=== PATIENT | female | born 1975 | race Asian ===

== ENCOUNTER 2016-10-29 07:35 | Day surgery (SDC) | payer OTHER ==
[2016-10-29 09:06] LABS: HEMATOCRIT 28.5 % (36.0-47.0); HEMOGLOBIN 9.6 g/dL (12.0-15.5); HGB HCT DIFFERENCE 0.3; MEAN CORPUSCULAR HEMOGLOBIN 40.6 pg (27.0-33.4); MEAN CORPUSCULAR HGB CONC 33.9 g/dL (32.0-36.0); MEAN CORPUSCULAR VOLUME 120 fl (80-97); RED BLOOD COUNT 2.38 10^6/uL (3.72-5.28); RED CELL DISTRIBUTION WIDTH 18.6 % (11.5-14.0); WHITE BLOOD COUNT 5.3 10^3/uL (4.0-10.5)
[2016-10-29 09:07] LABS: PROTHROMBIN TIME 14.9 SEC (11.4-15.4)
[2016-10-29 09:08] LABS: PARTIAL THROMBOPLASTIN TIME 32.9 SEC (23.5-35.8)
[2016-10-29 09:14] LABS: BLOOD UREA NITROGEN 6 mg/dL (7-20); CREATININE RESULT 0.42 mg/dL (0.52-1.25)
[2016-10-29] MEDS ORDERED: ALBUMIN HUMAN 100 ML IV PRN (12:00)
[2016-10-29 13:51] VITALS: BP 100/60
== END 2016-10-29 12:30 | disposition home or self-care (01) ==
LOC: RAD 07:35
PROVIDERS: ATTEND Internal Medicine Geriatric Medicine
PROC: 0W9F3ZZ Drainage of Abdominal Wall, Percutaneous Approach (ICD-10-PCS; principal; 2016-10-29)
DX: K70.31 Alcoholic cirrhosis of liver with ascites (principal); I10 Essential (primary) hypertension; G89.4 Chronic pain syndrome; F17.210 Nicotine dependence, cigarettes, uncomplicated; Z79.899 Other long term (current) drug therapy
CPT/HCPCS: 36415; 84520; 82565; 85027; 85610; 85730; 49083; P9047

== ENCOUNTER 2016-11-15 12:25 | Emergency (ER) | payer OTHER ==
--- NOTE | 2016-11-15 13:23 | ER Document Report ---
ED General - General Chief Complaint: Abdominal Pain Stated Complaint: ABDOMINAL PAIN Mode of Arrival: Ambulatory Information source: Patient Notes: 41-year-old female history of alcoholic cirrhosis with history of peritonitis with umbilical hernia presents stating that her hernia popped. Patient notes peritoneal-like fluid coming from her abdomen TRAVEL OUTSIDE OF THE [place] IN LAST 30 DAYS: No - HPI Onset: Just prior to arrival Onset/Duration: Sudden Quality of pain: No pain Severity: None Pain Level: Denies Associated symptoms: None Exacerbated by: Denies Relieved by: Denies Similar symptoms previously: No Recently seen / treated by doctor: Yes - Related Data Allergies/Adverse Reactions: No Known Allergies Allergy (Verified 10/18/16 10:27) Past Medical History - Social History Smoking Status: Never Smoker Cigarette use (# per day): No Chew tobacco use (# tins/day): No Smoking Education Provided: No Family History: None - Past Medical History Cardiac Medical History: Reports: Hx Hypertension - past history Denies: Hx Coronary Artery Disease, Hx Heart Attack Pulmonary Medical History: Denies: Hx Asthma, Hx Bronchitis, Hx COPD, Hx Pneumonia Neurological Medical History: Denies: Hx Cerebrovascular Accident, Hx Seizures GI Medical History: Reports: Hx Gastroesophageal Reflux Disease Musculoskeltal Medical History: Denies Hx Arthritis Psychiatric Medical History: Reports: Hx Depression Past Surgical History: Reports: Hx Abdominal Surgery - Gallbladder 09/26/2015, Hx Cholecystectomy - Immunizations Immunizations up to date: Yes Hx Diphtheria, Pertussis, Tetanus Vaccination: Yes Review of Systems - Review of Systems Notes: REVIEW OF SYSTEMS: CONSTITUTIONAL : Denies fever, chills, or sweats. Denies recent illness. EENT: Denies eye, ear, throat, or mouth pain or symptoms. Denies nasal or sinus congestion or discharge. Denies throat, tongue, or mouth swelling or difficulty swallowing. CARDIOVASCULAR: Denies chest pain. Denies palpitations or racing or irregular heart beat. Denies ankle edema. RESPIRATORY: Denies cough, cold, or chest congestion. Denies shortness of breath, difficulty breathing, or wheezing. GASTROINTESTINAL: admits ot abdominal perforation GENITOURINARY: Denies difficulty urinating, painful urination, burning, frequency, blood in urine, or discharge. FEMALE GENITOURINARY: Denies vaginal bleeding, heavy or abnormal periods, irregular periods. Denies vaginal discharge or odor. MUSCULOSKELETAL: Denies back or neck pain or stiffness. Denies joint pain or swelling. SKIN: Denies rash, lesions or sores. HEMATOLOGIC : Denies easy bruising or bleeding. LYMPHATIC: Denies swollen, enlarged glands. NEUROLOGICAL: Denies confusion or altered mental status. Denies passing out or loss of consciousness. Denies dizziness or lightheadedness. Denies headache. Denies weakness or paralysis or loss of use of either side. Denies problems with gait or speech. Denies sensory loss, numbness, or tingling. Denies seizures. PSYCHIATRIC: Denies anxiety or stress. Denies depression, suicidal ideation, or homicidal ideation. ALL OTHER SYSTEMS REVIEWED AND NEGATIVE. Dictation was performed using [employer] voice recognition software PHYSICAL EXAMINATION: GENERAL: Well-appearing, well-nourished and in no acute distress. HEAD: Atraumatic, normocephalic. EYES: Pupils equal round and reactive to light, extraocular movements intact, conjunctiva are normal. ENT: Nares patent, oropharynx clear without exudates. Moist mucous membranes. NECK: Normal range of motion, supple without lymphadenopathy LUNGS: Breath sounds clear to auscultation bilaterally and equal. No wheezes rales or rhonchi. HEART: Regular rate and rhythm without murmurs ABDOMEN: distended abdomen with ulbical hernia perforation, yellow fluid noted Female : deferred Musculoskeletal: Normal range of motion, no pitting or edema. No cyanosis. NEUROLOGICAL: Cranial nerves grossly intact. Normal speech, normal gait. Normal sensory, motor exams PSYCH: Normal mood, normal affect. SKIN: Warm, Dry, normal turgor, no rashes or lesions noted. Physical Exam - Vital signs Vitals: Resp Pulse Ox 16 100 11/15/16 13:57 11/15/16 13:57 Course - Re-evaluation Re-evalutation: 11/15/16 13:22 Dr tang consulted for umbilical hernia perforation , peritoneal fluid noted coming from perforation 11/15/16 13:34 11/15/16 14:34 Dr Tang requests transfer to [facility] paged 11/15/16 15:[address] Hilliard will accept the patient for transfer, he requests sutures placed 11/15/16 16:05 pt awaiting transfer 11/15/16 16:07 - Vital Signs Vital signs: Temp Pulse Resp BP Pulse Ox 14 119/66 100 11/15/16 14:01 11/15/16 14:01 11/15/16 14:01 - Laboratory Result Diagrams: 11/15/16 12:45 11/15/16 12:45 Laboratory results interpreted by me: 11/15/16 11/15/16 11/15/16 12:45 12:45 12:45 RBC 2.35 L Hgb 9.4 L Hct 27.9 L MCV 119 H MCH 40.0 H RDW 18.1 H Plt Count 82 L PT Sodium 121.3 L Potassium 2.5 L* Chloride 79 L Creatinine 0.46 L Glucose 141 H Lactic Acid 3.7 H Total Bilirubin 5.9 H Direct Bilirubin 1.1 H AST 131 H Alkaline Phosphatase 168 H Total Protein 6.1 L Albumin 3.0 L 11/15/16 12:45 RBC Hgb Hct MCV MCH RDW Plt Count PT 16.4 H Sodium Potassium Chloride Creatinine Glucose Lactic Acid Total Bilirubin Direct Bilirubin AST Alkaline Phosphatase Total Protein Albumin - Diagnostic Test Radiology reviewed: Image reviewed, Reports reviewed Procedures - Laceration/Wound Repair Mid- Abdomen Time completed: 16:04 Wound length (cm): 2 Wound's Depth, Shape: Into muscle, Irregular, Flap Laceration pre-procedure: Sterile PPE donned, Sterile drapes applied, Shur- Clens applied Anesthetic type: 1% Lidocaine Volume Anesthetic (mLs): 10 Wound explored: Clean, No foreign body removed Irrigated w/ Saline (mLs): 100 Wound Debrided: Minimal Wound Repaired With: Sutures Suture Size/Type: 4:0, Ethilon Number of Sutures: 3 Layer Closure?: Yes Post-procedure wound care: Sterile dressing applied Post-procedure NV exam normal: Yes Complications: No Critical Care Note - Critical Care Note Total time excluding time spent on procedures (mins): 45 Comments: 45 minutes of critical care time spent in direct contact evaluating and reevaluating the patient, treating symptoms, reviewing labs and studies and speaking with family and consultants excluding any procedures Discharge - Discharge Clinical Impression: perforated umbilical hernia, Elevated liver function tests, Alcoholic hepatitis with ascites Condition: Serious Disposition: [facility] Admitting Provider: Larrychanning homemanjeet Unit Admitted: Telemetry
[2016-11-15] MEDS ORDERED: NORMAL SALINE 1000 ML 1,000 ML IV ONE (13:29)
[2016-11-15 13:43] LABS: ALANINE AMINOTRANSFERASE 41 U/L (9-52); ALCOHOL 278 mg/dL (NONE DETECTED); ALKALINE PHOSPHATASE 168 U/L (38-126); ANION GAP 12 (5-19); ASPARTATE AMINO TRANSFERASE 131 U/L (14-36); BILIRUBIN,DIRECT 1.1 mg/dL (0.0-0.3); BILIRUBIN,TOTAL 5.9 mg/dL (0.2-1.3); BLOOD UREA NITROGEN 15 mg/dL (7-20); CALCIUM 8.4 mg/dL (8.4-10.2); CARBON DIOXIDE 30 mmol/L (22-30); CHLORIDE 79 mmol/L (98-107); CREATININE RESULT 0.46 mg/dL (0.52-1.25); GLUCOSE 141 mg/dL (75-110); LIPASE 187.5 U/L (23-300); SODIUM 121.3 mmol/L (137-145); TOTAL PROTEIN 6.1 g/dL (6.3-8.2)
[2016-11-15 13:46] LABS: POTASSIUM 2.5 mmol/L (3.6-5.0)
[2016-11-15] MEDS ORDERED: ERTAPENEM SODIUM INJ 1 GM VIAL IV ONE (14:03)
[2016-11-15 14:20] LABS: ABSOLUTE LYMPHOCYTES (AUTO) 1.2 10^3/uL (0.5-4.7); ABSOLUTE MONOCYTES (AUTO) 0.9 10^3/uL (0.1-1.4); ABSOLUTE NEUT (AUTO) 5.6 10^3/uL (1.7-8.2); BASOPHILS % (AUTO) 0.1 % (0-2); EOSINOPHILS % (AUTO) 0.2 % (0-6); HEMATOCRIT 27.9 % (36.0-47.0); HEMOGLOBIN 9.4 g/dL (12.0-15.5); HGB HCT DIFFERENCE 0.3; LYMPHOCYTES % (AUTO) 15.6 % (13-45); MEAN CORPUSCULAR HGB CONC 33.7 g/dL (32.0-36.0); MEAN CORPUSCULAR VOLUME 119 fl (80-97); MONOCYTES % (AUTO) 11.8 % (3-13); RED BLOOD COUNT 2.35 10^6/uL (3.72-5.28); RED CELL DISTRIBUTION WIDTH 18.1 % (11.5-14.0); SEGMENTED NEUTROPHILS % (AUTO) 72.3 % (42-78); WHITE BLOOD COUNT 7.8 10^3/uL (4.0-10.5)
[2016-11-15 14:40] LABS: ANISOCYTOSIS 2+; BURR CELLS 1+; OVALOCYTES 1+; POIKILOCYTOSIS 2+; SCHISTOCYTES 1+; TEAR DROP CELLS SLIGHT
[2016-11-15 14:41] LABS: HYPOCHROMASIA 1+; POLYCHROMASIA SLIGHT
[2016-11-15] MEDS ORDERED: NORMAL SALINE 1000 ML 1,000 ML IV PRN (14:44)
[2016-11-15] MEDS ORDERED: POTASSIUM CHLORIDE 10 MEQ TABLET.SA PO ONE (14:44)
[2016-11-15 14:54] LABS: PROTHROMBIN TIME 16.4 SEC (11.4-15.4)
[2016-11-15] MEDS ORDERED: LIDOCAINE 1% INJ-PF (10 MG/ML) 30 ML SDV ONE (15:32)
[2016-11-15 18:05] VITALS: BP 115/65
--- NOTE | 2016-11-15 18:59 | PDOC CONSULTATION ---
Consultation Consult Date: 11/15/16 Consult reason:: Leaking umbilical hernia History of Present Illness Admission Date/PCP: 11/15/16 14:34 JOHANA OSUNKBRENT History of Present Illness: MADELYN JENSEN is a 41 year old female complaining of massive peritoneal leak from her umbilicus. Patient is well known to me having undergone previous paracenteses in the emergency department proximally 6 weeks ago the evacuation of it 8 L of fluid. Patient is a confirmed alcohol, but she denies it. She comes as an emergency department with a open wound that umbilical skin. Her abdomen is decompressed from her previously massive ascites. At patient's bedside her who asked proximal we discussed the fact that the patient still drinking alcohol, destroying the liver, and we have serologic evidence of of alcohol in the blood stream. Past Medical History Cardiac Medical History: Reports: Hypertension - past history Denies: Coronary Artery Disease, Myocardial Infarction Pulmonary Medical History: Denies: Asthma, Bronchitis, Chronic Obstructive Pulmonary Disease (COPD), Pneumonia Neurological Medical History: Denies: Seizures GI Medical History: Reports: Gastroesophageal Reflux Disease Musculoskeltal Medical History: Denies: Arthritis Psychiatric Medical History: Reports: Depression Hematology: Denies: Anemia Past Surgical History Past Surgical History: Reports: Cholecystectomy Social History Smoking Status: Never Smoker Frequency of Alcohol Use: Rare Hx Recreational Drug Use: No Drugs: None, Other - Patient states she is taking Tylenol most of her life or scoliosis. Hx Prescription Drug Abuse: No Family History Family History: None Parental Family History Reviewed: Yes Children Family History Reviewed: Yes Sibling(s) Family History Reviewed.: Yes Medication/Allergy Home Medications: Cetirizine HCl [Zyrtec 10 mg Tablet] 1 tab PO DAILY 10/18/16 Escitalopram Oxalate [Lexapro] 40 mg PO DAILY 10/18/16 Furosemide [Lasix] 30 mg PO BID 10/18/16 Omeprazole Magnesium [Prilosec Otc] 20 mg PO DAILY 10/18/16 Oxycodone HCl 10 mg PO PRN PRN 10/18/16 Spironolactone [Aldactone] 100 mg PO BID 10/18/16 Allergies/Adverse Reactions: No Known Allergies Allergy (Verified 10/18/16 10:27) Physical Exam Vital Signs: Temp Pulse Resp BP Pulse Ox 16 115/65 100 11/15/16 18:01 11/15/16 18:01 11/15/16 18:01 General appearance: PRESENT: no acute distress Head exam: PRESENT: normocephalic Eye exam: PRESENT: EOMI, other - Jaundice present Ear exam: PRESENT: normal external ear exam Mouth exam: PRESENT: dry mucosa Neck exam: PRESENT: full ROM Respiratory exam: PRESENT: clear to auscultation ellie Pulses: PRESENT: normal carotid pulses, normal radial pulses GI/Abdominal exam: PRESENT: other - Very redundant umbilical skin with open erosive hole approximate 1 cm diameter. The abdomen is otherwise benign. Psychiatric exam: PRESENT: anxious Assessment & Plan - Diagnosis (1) Alcoholic hepatitis with ascites Is this a current diagnosis for this admission?: YesPlan: 1. 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 sHe has no evidence of sepsis. sHe has marked electrolyte abnormalities. Furthermore she is in moderate denial as is her about progressive self-destructive behavior from drinking resulting in worsening end-stage liver disease . 2. Patient needs admission to the hospital for electrolyte correction, and closure of the umbilical hernia. Due to limited surgical resources here, I have asked my colleagues and [facility] to assistance in the management of this patient and I believe they have agreed to accept her in transfer. Dr. Hilliard of the transplant service will accept the patient. 3. I discussed the above with the emergency room Department and they are in agreement to proceed. - Time Time Spent: 50 to 70 Minutes Critical Time spent with patient: 15-24 minutes Medications reviewed and adjusted accordingly: Yes
== END 2016-11-15 18:30 | disposition short-term general hospital (02) ==
LOC: ER 12:25 → UNDOADMIN 14:34 → EH 14:34 → UNDODISIN 18:30
PROC: 0HQ7XZZ Repair Abdomen Skin, External Approach (ICD-10-PCS; principal; 2016-11-15)
DX: K42.9 Umbilical hernia without obstruction or gangrene (principal); R79.89 Other specified abnormal findings of blood chemistry; K70.11 Alcoholic hepatitis with ascites; R10.9 Unspecified abdominal pain; Z90.49 Acquired absence of other specified parts of digestive tract
CPT/HCPCS: 99291; 96361; 96365; 36415; 87040; 80307; 83690; 85025; 85610; 80053; 83605; 12001; J1335; J7030

== ENCOUNTER 2017-12-27 09:56 | Emergency (ER) | payer OTHER ==
[2017-12-27] MEDS ORDERED: FENTANYL CITRATE INJ/PF 100 MCG/2 ML AMPUL IV ONE (10:51)
--- NOTE | 2017-12-27 10:52 | ER Document Report ---
ED Medical Screen (RME) - General Chief Complaint: Abdominal Swelling Stated Complaint: ABDOMINAL PAIN Time Seen by Provider: 12/27/17 10:46 Notes: RME DISCLOSURE I have seen this patient as part of a Rapid Medical Evaluation and, if applicable, placed any initially appropriate orders. The patient will be seen and fully evaluated, including a full history and physical exam, by a provider ( in Main ED or Fast Track) when a room becomes available. 42-year-old female past medical history liver disease here with complaints of abdominal swelling ongoing for the past 1 week. She states that the pain has been progressively worsening. She has some shortness of breath, worse with laying flat. EXAM Abdominal swelling present with mild tenderness to palpation Scleral icterus/jaundice TRAVEL OUTSIDE OF THE [place] IN LAST 30 DAYS: No - Related Data Allergies/Adverse Reactions: No Known Allergies Allergy (Verified 12/27/17 10:02) Past Medical History - Social History Chew tobacco use (# tins/day): No Frequency of alcohol use: Occasional Drug Abuse: None - Past Medical History Cardiac Medical History: Reports: Hx Hypertension - past history Denies: Hx Coronary Artery Disease, Hx Heart Attack Pulmonary Medical History: Denies: Hx Asthma, Hx Bronchitis, Hx COPD, Hx Pneumonia Neurological Medical History: Denies: Hx Cerebrovascular Accident, Hx Seizures Renal/ Medical History: Denies: Hx Peritoneal Dialysis GI Medical History: Reports: Hx Gastroesophageal Reflux Disease Musculoskeltal Medical History: Denies Hx Arthritis Psychiatric Medical History: Reports: Hx Depression Past Surgical History: Reports: Hx Abdominal Surgery - Gallbladder 09/26/2015, Hx Cholecystectomy - Immunizations Immunizations up to date: Yes Hx Diphtheria, Pertussis, Tetanus Vaccination: Yes Physical Exam - Vital signs Vitals: Temp Pulse Resp BP Pulse Ox 98.4 F 100 19 118/64 96 12/27/17 10:04 12/27/17 10:04 12/27/17 10:04 12/27/17 10:04 12/27/17 10:04 Course - Vital Signs Vital signs: Temp Pulse Resp BP Pulse Ox 98.4 F 100 19 118/64 96 12/27/17 10:04 12/27/17 10:04 12/27/17 10:04 12/27/17 10:04 12/27/17 10:04
[2017-12-27 11:53] LABS: APPEARANCE,URINE CLEAR; BILIRUBIN,URINE NEGATIVE (NEGATIVE); COLOR,URINE AMBER; GLUCOSE, URINE NEGATIVE (NEGATIVE); KETONES,URINE NEGATIVE (NEGATIVE); LEUKOCYTE ESTERASE,URINE NEGATIVE (NEGATIVE); NITRITE,URINE NEGATIVE (NEGATIVE); PROTEIN,URINE NEGATIVE (NEGATIVE); URINE SPECIFIC GRAVITY 1.012; UROBILINOGEN,URINE NEGATIVE mg/dL (<2.0)
--- NOTE | 2017-12-27 12:05 | ER Document Report ---
ED General - General Chief Complaint: Abdominal Swelling Stated Complaint: ABDOMINAL PAIN Time Seen by Provider: 12/27/17 10:46 Mode of Arrival: Ambulatory Information source: Patient Notes: 42-year-old female history of alcoholic cirrhosis who is supposed to be on diuretics but ran out of medications for approximately 4 days but is now back on her medications presents with complaints of ascites. Patient has not had to have a paracentesis for almost a year now, one year ago I had taking care of her when she had a ruptured umbilicus. Patient denies any fever chills denies any shortness of breath difficulty breathing or any other concerns TRAVEL OUTSIDE OF THE [place] IN LAST 30 DAYS: No - HPI Onset: Last week Onset/Duration: Worse Quality of pain: Achy Severity: Mild Pain Level: 1 Associated symptoms: Shortness of breath, Other Exacerbated by: Denies Relieved by: Denies Similar symptoms previously: Yes Recently seen / treated by doctor: Yes - Related Data Allergies/Adverse Reactions: No Known Allergies Allergy (Verified 12/27/17 10:02) Past Medical History - Social History Smoking Status: Never Smoker Cigarette use (# per day): No Chew tobacco use (# tins/day): No Smoking Education Provided: No Frequency of alcohol use: Occasional Drug Abuse: None Family History: None Patient has suicidal ideation: No Patient has homicidal ideation: No - Past Medical History Cardiac Medical History: Reports: Hx Hypertension - past history Denies: Hx Coronary Artery Disease, Hx Heart Attack Pulmonary Medical History: Denies: Hx Asthma, Hx Bronchitis, Hx COPD, Hx Pneumonia Neurological Medical History: Denies: Hx Cerebrovascular Accident, Hx Seizures Renal/ Medical History: Denies: Hx Peritoneal Dialysis GI Medical History: Reports: Hx Gastroesophageal Reflux Disease Musculoskeltal Medical History: Denies Hx Arthritis Psychiatric Medical History: Reports: Hx Depression Past Surgical History: Reports: Hx Abdominal Surgery - Gallbladder 09/26/2015, Hx Cholecystectomy - Immunizations Immunizations up to date: Yes Hx Diphtheria, Pertussis, Tetanus Vaccination: Yes Review of Systems - Review of Systems Notes: REVIEW OF SYSTEMS: CONSTITUTIONAL : Denies fever, chills, or sweats. Denies recent illness. EENT: Denies eye, ear, throat, or mouth pain or symptoms. Denies nasal or sinus congestion or discharge. Denies throat, tongue, or mouth swelling or difficulty swallowing. CARDIOVASCULAR: Denies chest pain. Denies palpitations or racing or irregular heart beat. Denies ankle edema. RESPIRATORY: Admits to shortness of breath GASTROINTESTINAL: Admits to abdominal distention GENITOURINARY: Denies difficulty urinating, painful urination, burning, frequency, blood in urine, or discharge. FEMALE GENITOURINARY: Denies vaginal bleeding, heavy or abnormal periods, irregular periods. Denies vaginal discharge or odor. MUSCULOSKELETAL: Denies back or neck pain or stiffness. Denies joint pain or swelling. SKIN: Denies rash, lesions or sores. HEMATOLOGIC : Denies easy bruising or bleeding. LYMPHATIC: Denies swollen, enlarged glands. NEUROLOGICAL: Denies confusion or altered mental status. Denies passing out or loss of consciousness. Denies dizziness or lightheadedness. Denies headache. Denies weakness or paralysis or loss of use of either side. Denies problems with gait or speech. Denies sensory loss, numbness, or tingling. Denies seizures. PSYCHIATRIC: Denies anxiety or stress. Denies depression, suicidal ideation, or homicidal ideation. ALL OTHER SYSTEMS REVIEWED AND NEGATIVE. PHYSICAL EXAMINATION: GENERAL: Well-appearing, well-nourished and in no acute distress. HEAD: Atraumatic, normocephalic. EYES: Pupils equal round and reactive to light, extraocular movements intact, conjunctiva are normal. Mildly jaundiced ENT: Nares patent, oropharynx clear without exudates. Moist mucous membranes. NECK: Normal range of motion, supple without lymphadenopathy LUNGS: Breath sounds clear to auscultation bilaterally and equal. No wheezes rales or rhonchi. HEART: Regular rate and rhythm without murmurs ABDOMEN: Distended abdomen nontender Female : deferred Musculoskeletal: Normal range of motion, no pitting or edema. No cyanosis. NEUROLOGICAL: Cranial nerves grossly intact. Normal speech, normal gait. Normal sensory, motor exams PSYCH: Normal mood, normal affect. SKIN: Warm, Dry, normal turgor, no rashes or lesions noted. Dictation was performed using [employer] voice recognition software Physical Exam - Vital signs Vitals: Temp Pulse Resp BP Pulse Ox 98.4 F 100 19 118/64 96 12/27/17 10:04 12/27/17 10:04 12/27/17 10:04 12/27/17 10:04 12/27/17 10:04 Course - Re-evaluation Re-evalutation: 12/27/17 15:55 Patient's presentation is consistent with ascites, CT confirmed this, I spoke with radiologist Dr. Mijares and requested that they perform a paracentesis which they will gladly do. Patient's INR is 1.29, albumin has been ordered, patient will be seen in the emergency department while awaiting procedure I did speak with patient's primary care physician and made aware of her presentation and concerns he is comfortable with discharge home After performing a Medical Screening Examination, I estimate there is LOW risk for ACUTE APPENDICITIS, BOWEL OBSTRUCTION, ACUTE CHOLECYSTITIS, PERFORATED DIVERTICULITIS, INCARCERATED HERNIA, PANCREATITIS, PELVIC INFLAMMATORY DISEASE, PERFORATED ULCER, ECTOPIC , or TUBO-OVARIAN ABSCESS, thus I consider the discharge disposition reasonable. Also, there is no evidence or peritonitis , sepsis, or toxicity. I have reevaluated this patient multiple times and no significant life threatening changes are noted. The patient and I have discussed the diagnosis and risks, and we agree with discharging home with close follow-up with the understanding that symptoms and presentations can change. We also discussed returning to the Emergency Department immediately if new or worsening symptoms occur. We have discussed the symptoms which are most concerning (e.g., bloody stool, fever, changing or worsening pain, vomiting) that necessitate immediate return. - Vital Signs Vital signs: Temp Pulse Resp BP Pulse Ox 98.4 F 100 19 118/64 96 12/27/17 10:04 12/27/17 10:04 12/27/17 10:04 12/27/17 10:04 12/27/17 10:04 - Laboratory Result Diagrams: 12/27/17 12:03 12/27/17 12:03 Laboratory results interpreted by me: 12/27/17 12/27/17 12/27/17 12:03 12:03 12:03 RBC 2.59 L Hgb 10.4 L Hct 29.8 L MCV 115 H MCH 40.0 H RDW 28.4 H Plt Count 118 L PT 16.9 H Sodium 127.2 L Chloride 94 L Carbon Dioxide 21 L BUN 29 H Glucose 118 H Total Bilirubin 10.2 H Direct Bilirubin 7.0 H AST 152 H Alkaline Phosphatase 163 H Lipase 326.7 H - Diagnostic Test Radiology reviewed: Image reviewed, Reports reviewed - Ascites Discharge - Discharge Clinical Impression: Alcoholic hepatitis with ascites, Shortness of breath Cirrhosis Qualifiers: Hepatic cirrhosis type: unspecified hepatic cirrhosis Ascites presence: with ascites Qualified Code(s): K74.60 - Unspecified cirrhosis of liver Condition: Stable Disposition: HOME, SELF-CARE Additional Instructions: Follow up with your physician tomorrow for further care or return to the ED IMMEDIATELY if symptoms worsen or new concerns occur. If you cannot afford to follow up with your primary care physician a list of low cost clinics have been provided at the end of your discharge papers as well. Referrals: JOHANA VALDEZ MD [ACTIVE STAFF] - Follow up tomorrow
[2017-12-27 12:37] LABS: HEMATOCRIT 29.8 % (36.0-47.0); HEMOGLOBIN 10.4 g/dL (12.0-15.5); MEAN CORPUSCULAR HGB CONC 34.8 g/dL (32.0-36.0); PLATELET COUNT 118 10^3/uL (150-450); RED BLOOD COUNT 2.59 10^6/uL (3.72-5.28); RED CELL DISTRIBUTION WIDTH 28.4 % (11.5-14.0); WHITE BLOOD COUNT 5.4 10^3/uL (4.0-10.5)
[2017-12-27 12:50] LABS: ALANINE AMINOTRANSFERASE 52 U/L (9-52); ALBUMIN 3.7 g/dL (3.5-5.0); ALKALINE PHOSPHATASE 163 U/L (38-126); ANION GAP 12 (5-19); ASPARTATE AMINO TRANSFERASE 152 U/L (14-36); BILIRUBIN,TOTAL 10.2 mg/dL (0.2-1.3); BLOOD UREA NITROGEN 29 mg/dL (7-20); CALCIUM 8.8 mg/dL (8.4-10.2); CARBON DIOXIDE 21 mmol/L (22-30); CHLORIDE 94 mmol/L (98-107); GLUCOSE 118 mg/dL (75-110); POTASSIUM 4.6 mmol/L (3.6-5.0); SODIUM 127.2 mmol/L (137-145); TOTAL PROTEIN 7.3 g/dL (6.3-8.2)
--- NOTE | 2017-12-27 12:54 | RADIOLOGY REPORT (SQ) ---
EXAM DESCRIPTION: CT ABD/PELVIS NO ORAL OR IV COMPLETED DATE/TIME: 12/27/2017 12:40 pm REASON FOR STUDY: abd swelling, liver failure; eval further COMPARISON: 09/20/2016 TECHNIQUE: CT scan of the abdomen and pelvis performed without intravenous or oral contrast. Images reviewed with lung, soft tissue, and bone windows. Reconstructed coronal and sagittal MPR images revi ewed. All images stored on PACS. All CT scanners at this facility use dose modulation, iterative reconstruction, and/or weight based d osing when appropriate to reduce radiation dose to as low as reasonably achievable (ALARA). [facility]: Dose Right [facility]: CareDose [facility]: Dose Right [facility]: Teradose 4D [facility]: [employer] RADIATION DOSE: CT Rad equipment meets quality standard of care and radiation dose reduction techniq ues were employed. CTDIvol: 7.7 mGy. DLP: 431 mGy-cm.mGy. LIMITATIONS: None. FINDINGS: LOWER CHEST: No significant findings. No nodules or infiltrates. NON-CONTRASTED LIVER, SPLEEN, ADRENALS: Cirrhosis. Normal spleen size. PANCREAS: No masses. No peripancreatic inflammatory changes. GALLBLADDER: Surgically absent. RIGHT KIDNEY AND URETER: No suspicious masses. Assessment limited by lack of IV contrast. No signif icant calcifications. No hydronephrosis or hydroureter. LEFT KIDNEY AND URETER: No suspicious masses. Assessment limited by lack of IV contrast. No signifi cant calcifications. No hydronephrosis or hydroureter. AORTA AND RETROPERITONEUM: No aneurysm. No retroperitoneal masses or adenopathy. BOWEL AND PERITONEAL CAVITY: Large amount of ascites. No free air. No obstruction. APPENDIX: Surgically absent. PELVIS, BLADDER, AND ABDOMINAL WALL:Free fluid. Bladder normal. Tubal ligation clips. BONES: No acute findings. OTHER: No other significant finding. IMPRESSION: Cirrhosis. Large amount of ascites. COMMENT: Quality ID # [id number]: Final reports with documentation of one or more dose reduction techniques (e.g., Automated exposure control, adjustment of the mA and/or kV according to patient size, use of iterative reconstruction technique) TECHNICAL DOCUMENTATION: JOB ID: [id number] [employer]- All Rights Reserved Reading location - IP/workstation name: [email or web address]
[2017-12-27 12:58] LABS: LIPASE 326.7 U/L (23-300)
[2017-12-27 13:10] LABS: MEAN CORPUSCULAR VOLUME 115 fl (80-97)
[2017-12-27 13:16] LABS: ABSOLUTE LYMPHOCYTES# (MANUAL) 1.1 10^3/uL (0.5-4.7); ABSOLUTE MONOCYTES # (MANUAL) 0.6 10^3/uL (0.1-1.4); ABSOLUTE NEUTROPHILS# (MANUAL) 3.7 10^3/uL (1.7-8.2); BASOPHILS % (MANUAL) 0 % (0-2); EOSINOPHILS % (MANUAL) 0 % (0-6); LYMPHOCYTES % (MANUAL) 20 % (13-45); MONOCYTES % (MANUAL) 11 % (3-13); SEGMENTED NEUTROPHILS % (MAN) 69 % (42-78); TOTAL CELLS COUNTED 100
[2017-12-27 13:17] LABS: BURR CELLS SLIGHT; HYPOCHROMASIA 2+; OVALOCYTES 2+; PLATELET COMMENT DECREASED; POIKILOCYTOSIS 2+; POLYCHROMASIA 1+; ROULEAUX 1+; SCHISTOCYTES SLIGHT; TARGET CELLS SLIGHT; TEAR DROP CELLS SLIGHT
[2017-12-27 13:26] LABS: INTERNATIONAL RATION (INR) 1.29; PROTHROMBIN TIME 16.9 SEC (11.4-15.4)
[2017-12-27] MEDS ORDERED: FENTANYL CITRATE INJ/PF 100 MCG/2 ML AMPUL IV SCH (16:15)
[2017-12-27] MEDS ORDERED: ALBUMIN HUMAN 50 ML IV SCH (16:30)
[2017-12-27] MEDS ORDERED: LIDOCAINE 1% INJ-PF (10 MG/ML) 30 ML SDV ONE (16:54)
[2017-12-27] MEDS ORDERED: FENTANYL CITRATE INJ/PF 100 MCG/2 ML AMPUL ONE (17:03)
--- NOTE | 2017-12-27 17:52 | RADIOLOGY REPORT (SQ) ---
EXAM DESCRIPTION: U/S ABD PARACENTESIS COMPLETED DATE/TIME: 12/27/2017 5:39 pm REASON FOR STUDY: ascites COMPARISON CT abdomen pelvis 12/27/2017, paracentesis 10/29/2016 LIMITATIONS: None. PROCEDURE: After obtaining informed consent, the patient was brought to the ultrasound suite. The p rocedure was performed with the patient on a gurney. Ultrasound was used to identify a prominent poc ket of ascites in the right lower quadrant. An appropriate access site was selected. The patient wa s prepped and draped in usual sterile fashion. The access site was anesthetized with 6 mL 1% lidoca ine. A Vcfr-F-Bkoopvxk needle was advanced into the fluid. After aspiration of fluid the needle, th e catheter was advanced off the needle into the fluid. A total of 4,750 mL of clear yellow fluid was removed. The patient tolerated the procedure well left the department in satisfactory condition. IMPRESSION: Successful ultrasound-guided paracentesis COMMENT: Patient medication list reviewed: Yes- Quality ID# [id number]:Eligible professional attests to doc umenting in the medical record they obtained, updated, or reviewed the patient's current medications. Quality ID #[id number]: The patient was prepped and draped using maximum sterile barrier technique including cap, mask, sterile gown, sterile gloves, a large sterile sheet, hand hygiene, and 2% Chlorhexidine fo r cutaneous antisepsis. When ultrasound is used, sterile ultrasound techniques are followed requiring sterile gel and sterile probes. Quality ID #[id number]: Final reports for procedures using fluoroscopy that document radiation exposure parvin moo, or exposure time and number of fluorographic images (if radiation exposure indices are not avail able) TECHNICAL DOCUMENTATION: JOB ID: [id number] [employer]- All Rights Reserved Reading location - IP/workstation name: [facility]
[2017-12-27 19:42] VITALS: BP 117/57
[2017-12-28 13:28] LABS: PATH REVIEW PATHOLOGIST REVIEWED
== END 2017-12-27 19:10 | disposition home or self-care (01) ==
LOC: ER 09:56
DX: K70.31 Alcoholic cirrhosis of liver with ascites (principal); T50.2X6A Underdosing of carbonic-anhydrase inhibitors, benzothiadiazides and other diuretics, initial encounter; Z91.128 Patient's intentional underdosing of medication regimen for other reason; Z91.14 Patient's other noncompliance with medication regimen; R06.02 Shortness of breath; I10 Essential (primary) hypertension
CPT/HCPCS: 99284; 96374; 36415; 83690; 85025; 85610; 80053; 81001; 49083; 74176; J3010; J3490

== ENCOUNTER 2018-01-12 16:47 | Observation (INO) | payer OTHER ==
[2018-01-12] MEDS ORDERED: NORMAL SALINE 1000 ML 1,000 ML IV PRN (17:26)
[2018-01-12] MEDS ORDERED: LANSOPRAZOLE 30 MG TAB.RAP.DR PO ONE (18:00)
[2018-01-12 18:58] LABS: INTERNATIONAL RATION (INR) 1.16; PROTHROMBIN TIME 15.6 SEC (11.4-15.4)
[2018-01-12 18:59] LABS: PARTIAL THROMBOPLASTIN TIME 33.7 SEC (23.5-35.8)
[2018-01-12 19:06] LABS: ALANINE AMINOTRANSFERASE 44 U/L (9-52); ALBUMIN 2.8 g/dL (3.5-5.0); ALKALINE PHOSPHATASE 84 U/L (38-126); ANION GAP 8 (5-19); ASPARTATE AMINO TRANSFERASE 40 U/L (14-36); BILIRUBIN,DIRECT 2.4 mg/dL (0.0-0.4); BILIRUBIN,TOTAL 3.2 mg/dL (0.2-1.3); BLOOD UREA NITROGEN 17 mg/dL (7-20); CALCIUM 8.6 mg/dL (8.4-10.2); CARBON DIOXIDE 23 mmol/L (22-30); CHLORIDE 101 mmol/L (98-107); GLUCOSE 68 mg/dL (75-110); POTASSIUM 4.1 mmol/L (3.6-5.0); SODIUM 131.9 mmol/L (137-145); TOTAL PROTEIN 5.6 g/dL (6.3-8.2)
[2018-01-12 19:50] LABS: ABSOLUTE LYMPHOCYTES (AUTO) 1.4 10^3/uL (0.5-4.7); ABSOLUTE MONOCYTES (AUTO) 0.5 10^3/uL (0.1-1.4); BASOPHILS % (AUTO) 0.8 % (0-2); EOSINOPHILS % (AUTO) 0.6 % (0-6); HEMATOCRIT 18.9 % (36.0-47.0); LYMPHOCYTES % (AUTO) 22.9 % (13-45); MEAN CORPUSCULAR HEMOGLOBIN 42.7 pg (27.0-33.4); MEAN CORPUSCULAR HGB CONC 34.1 g/dL (32.0-36.0); MONOCYTES % (AUTO) 9.1 % (3-13); PLATELET COUNT 121 10^3/uL (150-450); RED BLOOD COUNT 1.51 10^6/uL (3.72-5.28); RED CELL DISTRIBUTION WIDTH 18.6 % (11.5-14.0); SEGMENTED NEUTROPHILS % (AUTO) 66.6 % (42-78); TOTAL CELLS COUNTED % (AUTO) 100 %
[2018-01-12 19:58] LABS: HEMOGLOBIN 6.5 g/dL (12.0-15.5)
--- NOTE | 2018-01-12 20:26 | PDOC H&P ---
History of Present Illness Admission Date/PCP: 01/12/18 16:47 JOHANA VALDEZ History of Present Illness: MADELYN JENSEN is a 42 year old female who presented to the office earlier today for follow up evaluation of recent visit to our facility ED on 12/27/2017 due to worsening ascites that is related to her advance alcohol liver cirrhosis. She was managed with US guided abdominal paracentesis and discharged home. Patient reported significant re-accumulation with associated nausea, difficulty with eating, laying down to sleep and worsening abdominal pain. She admitted to missing her medication for couple of days prior to onset of her recurrent ascites issue. In the course of her assessment her hemoglobin was found to be 6.4gm/dL. she denied any significant chest pain, palpitation, dizziness, or headache. Past Medical History Cardiac Medical History: Reports: Hypertension - past history Denies: Coronary Artery Disease, Myocardial Infarction Pulmonary Medical History: Denies: Asthma, Bronchitis, Chronic Obstructive Pulmonary Disease (COPD), Pneumonia Neurological Medical History: Denies: Seizures GI Medical History: Reports: Gastroesophageal Reflux Disease Musculoskeltal Medical History: Denies: Arthritis Psychiatric Medical History: Denies: Depression Hematology: Denies: Anemia Past Surgical History Past Surgical History: Reports: Cholecystectomy Social History Smoking Status: Never Smoker Frequency of Alcohol Use: None Hx Recreational Drug Use: No Drugs: None, Other - Patient states she is taking Tylenol most of her life or scoliosis. Hx Prescription Drug Abuse: No Family History Family History: None Parental Family History Reviewed: Yes Children Family History Reviewed: Yes Sibling(s) Family History Reviewed.: Yes Medication/Allergy Home Medications: Cetirizine HCl [Zyrtec 10 mg Tablet] 1 tab PO DAILY 10/18/16 Escitalopram Oxalate [Lexapro] 40 mg PO DAILY 10/18/16 Furosemide [Lasix] 30 mg PO BID 10/18/16 Omeprazole Magnesium [Prilosec Otc] 20 mg PO DAILY 10/18/16 Oxycodone HCl 10 mg PO PRN PRN 10/18/16 Spironolactone [Aldactone] 100 mg PO BID 10/18/16 Allergies/Adverse Reactions: No Known Allergies Allergy (Verified 12/27/17 10:02) Review of Systems Constitutional: ABSENT: chills, fever(s), headache(s), weight gain, weight loss Eyes: ABSENT: visual disturbances Ears: ABSENT: hearing changes Nose, Mouth, and Throat: ABSENT: as per HPI, headache(s), mouth pain, sore throat, vertigo, other Cardiovascular: PRESENT: dyspnea on exertion, orthropnea. ABSENT: chest pain, edema Respiratory: PRESENT: cough. ABSENT: as per HPI, dyspnea, hemoptysis, sputum, other Gastrointestinal: PRESENT: abdominal pain, nausea. ABSENT: as per HPI, bloating , coffee ground emesis, constipation, diarrhea, dysphagia, heartburn, hematemesis, hematochezia, melena, vomiting, other Musculoskeletal: ABSENT: joint swelling Integumentary: ABSENT: rash, wounds Neurological: ABSENT: abnormal gait, abnormal speech, confusion, dizziness, focal weakness, syncope Psychiatric: ABSENT: anxiety, depression, homidical ideation, suicidal ideation Endocrine: ABSENT: cold intolerance, heat intolerance, polydipsia, polyuria Hematologic/Lymphatic: ABSENT: easy bleeding, easy bruising, lymphadenopathy Allergic/Immunologic: ABSENT: seasonal rhinorrhea Physical Exam Vital Signs: Temp Pulse Resp BP Pulse Ox 98.9 F 104 H 16 109/58 L 100 01/12/18 17:13 01/12/18 17:13 01/12/18 17:13 01/12/18 17:13 01/12/18 17:13 Intake & Output 01/11/18 01/12/18 01/13/18 06:59 06:59 06:59 Weight 58.2 kg General appearance: PRESENT: cooperative, mild distress - related to abdominal pain Head exam: PRESENT: atraumatic, normocephalic Eye exam: PRESENT: conjunctiva pale, EOMI, PERRLA. ABSENT: scleral icterus Mouth exam: PRESENT: moist Respiratory exam: PRESENT: clear to auscultation ellie Cardiovascular exam: PRESENT: RRR. ABSENT: diastolic murmur, rubs, systolic murmur Vascular exam: PRESENT: normal capillary refill, pallor GI/Abdominal exam: PRESENT: ascites, hernia - healed scar from repaired umbilical hernia, normal bowel sounds, tenderness - to palpation. ABSENT: mass Rectal exam: PRESENT: deferred Extremities exam: ABSENT: pedal edema Musculoskeletal exam: PRESENT: normal inspection Neurological exam: PRESENT: alert, awake, oriented to person, oriented to place , oriented to time, oriented to situation, CN II-XII grossly intact. ABSENT: motor sensory deficit Psychiatric exam: PRESENT: appropriate affect, normal mood. ABSENT: homicidal ideation, suicidal ideation Skin exam: PRESENT: dry, intact, warm. ABSENT: cyanosis, rash Results Laboratory Results: 01/12/18 18:25 01/12/18 01/12/18 01/12/18 18:25 18:25 18:25 WBC Cancelled RBC Cancelled Hgb Cancelled Hct Cancelled MCV Cancelled MCH Cancelled MCHC Cancelled RDW Cancelled Plt Count Cancelled Seg Neutrophils % Cancelled Lymphocytes % Cancelled Monocytes % Cancelled Eosinophils % Cancelled Basophils % Cancelled Absolute Neutrophils Cancelled Absolute Lymphocytes Cancelled Absolute Monocytes Cancelled Absolute Eosinophils Cancelled Absolute Basophils Cancelled Sodium 131.9 L Potassium 4.1 Chloride 101 Carbon Dioxide 23 Anion Gap 8 BUN 17 Creatinine 0.94 Est GFR ( Amer) > 60 Est GFR (Non-Af Amer) > 60 Glucose 68 L Calcium 8.6 Total Bilirubin 3.2 H AST 40 H ALT 44 Alkaline Phosphatase 84 Total Protein 5.6 L Albumin 2.8 L Blood Type AB POSITIVE Antibody Screen NEGATIVE Assessment & Plan - Diagnosis (1) Symptomatic anemia Is this a current diagnosis for this admission?: Yes Plan: See admitting attending physician orders. (2) Ascites due to alcoholic cirrhosis Is this a current diagnosis for this admission?: Yes Plan: See admitting attending physician orders. (3) Alcohol dependency Qualifiers: Substance use status: other alcohol-induced disorder Qualified Code(s): F10.288 - Alcohol dependence with other alcohol-induced disorder Is this a current diagnosis for this admission?: Yes Plan: See admitting attending physician orders. (4) Mixed anxiety and depressive disorder Is this a current diagnosis for this admission?: Yes Plan: See admitting attending physician orders. - Time Time Spent: 50 to 70 Minutes Smoking Cessation Education: 3 to 10 minutes Medications reviewed and adjusted accordingly: Yes Anticipated discharge: Home Within: within 48 hours - Plan Summary Plan Summary: See admitting attending physician orders.
[2018-01-12 20:30] LABS: POIKILOCYTOSIS SLIGHT; TOXIC VACUOLATION PRESENT
[2018-01-12 20:31] LABS: ANISOCYTOSIS 2+; OVALOCYTES SLIGHT; PLATELET COMMENT DECREASED; POLYCHROMASIA SLIGHT; TEAR DROP CELLS SLIGHT
[2018-01-12 20:32] LABS: MEAN CORPUSCULAR VOLUME 125 fl (80-97)
[2018-01-13] MEDS ORDERED: LANSOPRAZOLE 30 MG TAB.RAP.DR PO SCH (06:00)
[2018-01-13 06:58] LABS: MEAN CORPUSCULAR HGB CONC 34.2 g/dL (32.0-36.0); PLATELET COUNT 108 10^3/uL (150-450); RED BLOOD COUNT 2.41 10^6/uL (3.72-5.28); RED CELL DISTRIBUTION WIDTH 31.8 % (11.5-14.0); WHITE BLOOD COUNT 5.3 10^3/uL (4.0-10.5)
[2018-01-13 07:32] LABS: HEMOGLOBIN 8.9 g/dL (12.0-15.5); MEAN CORPUSCULAR VOLUME 108 fl (80-97)
[2018-01-13 07:37] LABS: ABSOLUTE MONOCYTES # (MANUAL) 0.6 10^3/uL (0.1-1.4); ABSOLUTE NEUTROPHILS# (MANUAL) 3.6 10^3/uL (1.7-8.2); ANISOCYTOSIS 4+; BAND NEUTROPHILS % (MANUAL) 1 % (3-5); BASOPHILS % (MANUAL) 1 % (0-2); EOSINOPHILS % (MANUAL) 1 % (0-6); LYMPHOCYTES % (MANUAL) 18 % (13-45); MONOCYTES % (MANUAL) 12 % (3-13); OVALOCYTES 3+; PLATELET COMMENT DECREASED; POIKILOCYTOSIS 3+; POLYCHROMASIA 1+; SEGMENTED NEUTROPHILS % (MAN) 66 % (42-78); TEAR DROP CELLS SLIGHT; TOTAL CELLS COUNTED 100; TOXIC GRANULATION 1+
[2018-01-13] MEDS ORDERED: LIDOCAINE 1% INJ-PF (10 MG/ML) 30 ML SDV ONE (10:12)
--- NOTE | 2018-01-13 12:25 | RADIOLOGY REPORT (SQ) ---
EXAM DESCRIPTION: U/S ABD PARACENTESIS COMPLETED DATE/TIME: 01/13/2018 11:04 am REASON FOR STUDY: Advanced Liver cirrhosis/symptomatic Anemia COMPARISON 12/27/2017, 11/08/2016 LIMITATIONS: None. PROCEDURE: After obtaining informed consent, the patient was brought to the ultrasound suite. The p rocedure was performed with the patient on a gurney. Ultrasound was used to identify a prominent poc ket of ascites in the left lower quadrant. An appropriate access site was selected. The patient was prepped and draped in usual sterile fashion. The access site was anesthetized with 6 mL 1% lidocai ne. A Qphl-V-Syqbtptb needle was advanced into the fluid. After aspiration of fluid the needle, the catheter was advanced off the needle into the fluid. A total of 3,600 mL of clear straw-colored flu id was removed. The patient tolerated the procedure well left the department in satisfactory conditio n. IMPRESSION: Successful ultrasound-guided paracentesis Therapeutic only, no testing on the fluid COMMENT: Patient medication list reviewed: Yes- Quality ID# [id number]:Eligible professional attests to doc umenting in the medical record they obtained, updated, or reviewed the patient's current medications. Quality ID #76: The patient was prepped and draped using maximum sterile barrier technique including cap, mask, sterile gown, sterile gloves, a large sterile sheet, hand hygiene, and 2% Chlorhexidine fo r cutaneous antisepsis. When ultrasound is used, sterile ultrasound techniques are followed requiring sterile gel and sterile probes. Quality ID #[id number]: Final reports for procedures using fluoroscopy that document radiation exposure parvin moo, or exposure time and number of fluorographic images (if radiation exposure indices are not avail able) TECHNICAL DOCUMENTATION: JOB ID: [id number] [employer]- All Rights Reserved Reading location - IP/workstation name: [facility]
[2018-01-13 13:46] VITALS: BP 106/59
[2018-01-13 14:45] LABS: PATH REVIEW PATHOLOGIST REVIEWED
--- NOTE | 2018-01-13 15:29 | PDOC DISCHARGE SUMMARY ---
General - Admit/Disc Date/PCP Admission Date/Primary Care Provider: 01/12/18 16:47 JOHANA VALDEZ Discharge Date: 01/13/18 - Discharge Diagnosis (1) Symptomatic anemia Is this a current diagnosis for this admission?: Yes (2) Ascites due to alcoholic cirrhosis Is this a current diagnosis for this admission?: Yes (3) Alcohol dependency Is this a current diagnosis for this admission?: Yes (4) Mixed anxiety and depressive disorder Is this a current diagnosis for this admission?: Yes - Additional Information Home Medications: Spironolactone [Aldactone] 100 mg PO QHS 10/18/16 Cyanocobalamin (Vitamin B-12) [Vitamin B-12] 1,000 mcg PO DAILY 01/13/18 Escitalopram Oxalate [Lexapro 10 mg Tablet] 20 mg PO DAILY 01/13/18 Furosemide [Lasix 80 mg Tablet] 80 mg PO QAM 01/13/18 Lactulose [Cephulac 20 gm/30 ml Syrup UD Cup] 20 gm PO TID 01/13/18 Spironolactone [Aldactone] 200 mg PO DAILY 01/13/18 Thiamine Mononitrate [Vitamin B-1] 100 mg PO DAILY 01/13/18 History of Present Illness History of Present Illness: MADELYN JENSEN is a 42 year old female who presented to the office earlier today for follow up evaluation of recent visit to our facility ED on 12/27/2017 due to worsening ascites that is related to her advance alcohol liver cirrhosis. She was managed with US guided abdominal paracentesis and discharged home. Patient reported significant re-accumulation with associated nausea, difficulty with eating, laying down to sleep and worsening abdominal pain. She admitted to missing her medication for couple of days prior to onset of her recurrent ascites issue. In the course of her assessment her hemoglobin was found to be 6.4gm/dL. she denied any significant chest pain, palpitation, dizziness, or headache. Hospital Course Hospital Course: Patient was transfused 2 units PRBC since last clinical evaluation and tolerated procedure very well. Her hemoglobin favorable respond to transfusion with post-transfusion level at 8.9gm/dL. She had US guided abdominal paracentesis with removal of about 3.6 Liters of peritoneal ascites fluid. She tolerated procedure very well and reported resolution of abdominal pain and associated nausea. She has been able to tolerate oral feeding post procedure. She is agreeable to discharge home today. She will follow up in the office as instructed upon discharge. Physical Exam Vital Signs: Temp Pulse Resp BP Pulse Ox 98.8 F 93 16 106/59 L 100 01/13/18 12:00 01/13/18 12:00 01/13/18 12:00 01/13/18 12:00 01/13/18 12:00 Intake & Output 01/12/18 01/13/18 01/14/18 06:59 06:59 06:59 Intake Total 550 500 Balance 550 500 Weight 58.2 kg General appearance: PRESENT: no acute distress, well-developed, well-nourished Head exam: PRESENT: atraumatic, normocephalic Eye exam: PRESENT: conjunctiva pink, EOMI, PERRLA. ABSENT: scleral icterus Mouth exam: PRESENT: moist Respiratory exam: PRESENT: clear to auscultation ellie Cardiovascular exam: PRESENT: RRR. ABSENT: diastolic murmur, rubs, systolic murmur GI/Abdominal exam: PRESENT: normal bowel sounds, soft, other - paracentesis site dressing intact, dry, and clean.. ABSENT: distended, guarding, mass, organolmegaly, rebound, tenderness Extremities exam: ABSENT: pedal edema Neurological exam: PRESENT: alert, awake, oriented to person, oriented to place , oriented to time, oriented to situation, CN II-XII grossly intact. ABSENT: motor sensory deficit Psychiatric exam: PRESENT: appropriate affect, normal mood. ABSENT: homicidal ideation, suicidal ideation Skin exam: PRESENT: dry, intact, warm, other - paracentesis site dressing intact , dry, and clean.. ABSENT: cyanosis, rash Results Laboratory Results: 01/13/18 05:58 01/12/18 18:25 01/12/18 01/12/18 01/12/18 18:25 18:25 18:25 WBC Cancelled RBC Cancelled Hgb Cancelled Hct Cancelled MCV Cancelled MCH Cancelled MCHC Cancelled RDW Cancelled Plt Count Cancelled Seg Neutrophils % Cancelled Lymphocytes % Cancelled Monocytes % Cancelled Eosinophils % Cancelled Basophils % Cancelled Absolute Neutrophils Cancelled Absolute Lymphocytes Cancelled Absolute Monocytes Cancelled Absolute Eosinophils Cancelled Absolute Basophils Cancelled Sodium 131.9 L Potassium 4.1 D Chloride 101 Carbon Dioxide 23 Anion Gap 8 BUN 17 Creatinine 0.94 Est GFR ( Amer) > 60 Est GFR (Non-Af Amer) > 60 Glucose 68 L Calcium 8.6 Total Bilirubin 3.2 H AST 40 H ALT 44 Alkaline Phosphatase 84 Total Protein 5.6 L Albumin 2.8 L Blood Type AB POSITIVE Antibody Screen NEGATIVE 01/12/18 01/13/18 18:56 05:58 WBC 6.0 5.3 RBC 1.51 L 2.41 L Hgb 6.5 L 8.9 L D Hct 18.9 L 26.0 L MCV 125 H D 108 H D MCH 42.7 H 37.0 H MCHC 34.1 34.2 RDW 18.6 H 31.8 H Plt Count 121 L 108 L Seg Neutrophils % 66.6 Not Reportable Lymphocytes % 22.9 Not Reportable Monocytes % 9.1 Not Reportable Eosinophils % 0.6 Not Reportable Basophils % 0.8 Not Reportable Absolute Neutrophils 4.0 Not Reportable Absolute Lymphocytes 1.4 Not Reportable Absolute Monocytes 0.5 Not Reportable Absolute Eosinophils 0.0 Not Reportable Absolute Basophils 0.0 Not Reportable Sodium Potassium Chloride Carbon Dioxide Anion Gap BUN Creatinine Est GFR ( Amer) Est GFR (Non-Af Amer) Glucose Calcium Total Bilirubin AST ALT Alkaline Phosphatase Total Protein Albumin Blood Type Antibody Screen Impressions: Paracentesis Ultrasound 01/13/18 07:00 IMPRESSION: Successful ultrasound-guided paracentesis Therapeutic only, no testing on the fluid Qualifiers - * PATEINT BEING DISCHARGED WITH ANY OF THE FOLLOWING DIAGNOSIS?: No Plan Discharge Plan: D/C home today. Emphasized compliance with her medications. Follow up in the office as instructed upon discharge.
[2018-01-13] MEDS ORDERED: LACTULOSE SYRUP 20 GM/30 ML UDCUP PO SCH (18:00)
[2018-01-13] MEDS ORDERED: (PENDING PHARMACY ID) (Spironolactone [Aldactone 100 Mg Tablet] 100 MG) PO SCH (22:00)
[2018-01-13] MEDS ORDERED: SPIRONOLACTONE 25 MG TABLET PO SCH (22:00)
[2018-01-14] MEDS ORDERED: FUROSEMIDE 80 MG TABLET PO SCH (08:00)
[2018-01-14] MEDS ORDERED: SPIRONOLACTONE 25 MG TABLET PO SCH (10:00)
[2018-01-14] MEDS ORDERED: CYANOCOBALAMIN (VITAMIN B-12) 1,000 MCG TABLET PO SCH (10:00)
[2018-01-14] MEDS ORDERED: CYANOCOBALAMIN/FA/PYRIDOXINE TABLET PO SCH (10:00)
[2018-01-14] MEDS ORDERED: PYRIDOXINE HCL 50 MG TABLET PO SCH (10:00)
[2018-01-14] MEDS ORDERED: SPIRONOLACTONE 200 MG PO SCH (10:00)
[2018-01-14] MEDS ORDERED: ESCITALOPRAM OXALATE 10 MG TABLET PO SCH (10:00)
== END 2018-01-13 16:18 | disposition home or self-care (01) ==
LOC: 2N 16:47
PROVIDERS: ADMIT Internal Medicine Geriatric Medicine; ATTEND Internal Medicine Geriatric Medicine
DX: K70.31 Alcoholic cirrhosis of liver with ascites (principal); F10.20 Alcohol dependence, uncomplicated; D64.9 Anemia, unspecified; F41.8 Other specified anxiety disorders
CPT/HCPCS: 86900; 86901; 36415 ×2; 36430; 86850; 85025 ×2; 85610; 85730; 80053; 86920; 49083; G0378 ×2; G0379; P9016 ×2; J3490

== ENCOUNTER → 2018-01-13 | Outpatient (CLI) | payer OTHER | LOC: OD 12:24 | PROVIDERS: ATTEND Internal Medicine Geriatric Medicine | DX: Z53.9 Procedure and treatment not carried out, unspecified reason (principal) ==

== ENCOUNTER 2018-05-29 07:59 | Emergency (ER) | payer OTHER ==
--- NOTE | 2018-05-29 08:14 | ER Document Report ---
ED General - General Stated Complaint: ABDOMINAL PAIN Time Seen by Provider: 05/29/18 08:13 Mode of Arrival: Ambulatory Information source: Patient TRAVEL OUTSIDE OF THE [place] IN LAST 30 DAYS: No - HPI Notes: 43-year-old female with a history of cirrhosis presents to the ED with complaints of nausea vomiting with epigastric pain that started 4 days ago. Patient states she has had more stress in her life with her father dying approximately 3 weeks ago issues with her . Patient states she feels like there is a "my stomach". Patient does not take any PPI's. Pt does follow with a sports manager in [place], Dr. Kyle Reyna. Patient is seen by Dr. Johana Valdez, who is her primary care provider. Denies fevers, chills, chest pain,palpitations, shortness of breath, dyspnea, diarrhea, hematuria, blurred vision, double vision, loss of vision, speech changes, LH, dizziness, syncope, headaches, wheezing, ST, URI, neck pain, weakness, bowel or bladder dysfunction, saddle anesthesia, numbness or tingling in bilateral upper or lower extremities equally, muscle paralysis, weakness in bilateral upper or lower extremities equally or rash. Denies IV drug use. - Related Data Allergies/Adverse Reactions: No Known Allergies Allergy (Verified 12/27/17 10:02) Past Medical History - General Information source: Patient - Social History Smoking Status: Unknown if Ever Smoked Family History: None - Past Medical History Cardiac Medical History: Reports: Hx Hypertension - past history Denies: Hx Coronary Artery Disease, Hx Heart Attack Pulmonary Medical History: Denies: Hx Asthma, Hx Bronchitis, Hx COPD, Hx Pneumonia Neurological Medical History: Denies: Hx Cerebrovascular Accident, Hx Seizures Renal/ Medical History: Denies: Hx Peritoneal Dialysis GI Medical History: Reports: Hx Gastroesophageal Reflux Disease Musculoskeletal Medical History: Denies Hx Arthritis Psychiatric Medical History: Denies: Hx Depression Past Surgical History: Reports: Hx Abdominal Surgery - Gallbladder 09/26/2015, Hx Cholecystectomy - Immunizations Immunizations up to date: Yes Hx Diphtheria, Pertussis, Tetanus Vaccination: Yes Review of Systems - Review of Systems Constitutional: No symptoms reported EENT: No symptoms reported Cardiovascular: No symptoms reported Respiratory: No symptoms reported Gastrointestinal: See HPI Genitourinary: No symptoms reported Female Genitourinary: No symptoms reported Musculoskeletal: No symptoms reported Skin: No symptoms reported Hematologic/Lymphatic: No symptoms reported Neurological/Psychological: No symptoms reported Physical Exam - Vital signs Vitals: Resp Pulse Ox 11 L 98 05/29/18 08:15 05/29/18 08:15 - Notes Notes: PHYSICAL EXAMINATION: GENERAL: Well-appearing, well-nourished and in no acute distress. HEAD: Atraumatic, normocephalic. EYES: Pupils equal round and reactive to light, extraocular movements intact, conjunctiva are normal. ENT: Nares patent, oropharynx clear without exudates. Moist mucous membranes. NECK: Normal range of motion, supple without lymphadenopathy LUNGS: Breath sounds clear to auscultation bilaterally and equal. No wheezes rales or rhonchi. HEART: Regular rate and rhythm without murmurs ABDOMEN: Soft, nondistended abdomen. Noted epigastric tenderness on palpation, No guarding, no rebound. No masses appreciated. No CVA tenderness bilaterally Female : deferred Musculoskeletal: Normal range of motion, no pitting or edema. No cyanosis. NEUROLOGICAL: Cranial nerves grossly intact. Normal speech, normal gait. Normal sensory, motor exams PSYCH: Normal mood, normal affect. SKIN: Warm, Dry, normal turgor, no rashes or lesions noted. Course - Re-evaluation Re-evalutation: 05/29/18 08:58 43-year-old female who is afebrile slightly tachycardic on arrival in no distress presents for evaluation of epigastric abdominal pain with nausea and vomiting last 4-5 days. CBC shows WBC which is slightly neutropenic however this is been patient's baseline when trending her labs. She will be slight hyponatremia with hypokalemia tachycardia 05/29/18 13:[address] cruz at 1245 regarding labs, ct's. ok to go home gallbladder absent. no large ascites. 05/29/18 15:25 05/29/18 15:27 05/29/18 15:28 - Vital Signs Vital signs: Temp Pulse Resp BP Pulse Ox 98.5 F 96 16 118/67 98 05/29/18 13:33 05/29/18 13:33 05/29/18 13:33 05/29/18 13:33 05/29/18 13:33 - Laboratory Result Diagrams: 05/29/18 07:46 05/29/18 07:46 Laboratory results interpreted by me: 08/06/18 08/06/18 08/06/18 07:46 07:46 07:46 RBC 2.95 L Hgb 11.1 L Hct 32.0 L MCV 109 H MCH 37.7 H RDW 22.2 H Plt Count 68 L Monocytes % 13.1 H PT 16.9 H Sodium 130.7 L Potassium 3.4 L Chloride 90 L Glucose 129 H Total Bilirubin 9.7 H Direct Bilirubin 5.3 H AST 196 H Alkaline Phosphatase 159 H Albumin 3.2 L Lipase 444.1 H Urine Blood Urine Bilirubin Urine Urobilinogen Salicylates Acetaminophen 05/29/18 05/29/18 07:46 09:54 RBC Hgb Hct MCV MCH RDW Plt Count Monocytes % PT Sodium Potassium Chloride Glucose Total Bilirubin Direct Bilirubin AST Alkaline Phosphatase Albumin Lipase Urine Blood SMALL H Urine Bilirubin SMALL H Urine Urobilinogen 4.0 H Salicylates < 1.0 L Acetaminophen < 10 L Discharge - Discharge Clinical Impression: Anemia, Colitis, Nausea Cirrhosis Qualifiers: Hepatic cirrhosis type: unspecified hepatic cirrhosis Ascites presence: with ascites Qualified Code(s): K74.60 - Unspecified cirrhosis of liver Condition: Stable Disposition: HOME, SELF-CARE Instructions: Cirrhosis ([facility]), Colitis, Nonspecific ([facility]), Nausea or Vomiting, Nonspecific ([facility]) Additional Instructions: Follow-up with Dr. Reyna from gastroenterology in [place], your primary care provider within [address] 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 Take Zofran as needed. Return to the emergency room if you experience any fever, worsening abdominal pain, chest pain, shortness of breath, bloody stools or coffee-ground vomit, etc., call 911 immediately. Return immediately for any new or worsening symptoms. Follow up with primary care provider, call tomorrow to make followup appointment. Prescriptions: Ciprofloxacin HCl [Cipro 500 mg Tablet] 500 mg PO BID #20 tablet Metronidazole [Flagyl 500 mg Tablet] 500 mg PO BID #20 tablet Omeprazole 20 mg PO DAILY #30 tablet. Ondansetron [Zofran Odt 4 mg Tablet] 1 - 2 tab PO Q4H PRN #15 tab.rapdis PRN Reason: For Nausea/Vomiting Referrals: JOHANA VALDEZ MD [Primary Care Provider] - Follow up tomorrow ROXY GUEVARA MD [ACTIVE STAFF] - Follow up as needed KAMILA REYNA MD [NO LOCAL MD] - Follow up in 1 week
[2018-05-29 08:19] LABS: ABSOLUTE LYMPHOCYTES (AUTO) 0.7 10^3/uL (0.5-4.7); ABSOLUTE MONOCYTES (AUTO) 0.6 10^3/uL (0.1-1.4); ABSOLUTE NEUT (AUTO) 3.4 10^3/uL (1.7-8.2); BASOPHILS % (AUTO) 0.8 % (0-2); EOSINOPHILS % (AUTO) 0.8 % (0-6); HEMOGLOBIN 11.1 g/dL (12.0-15.5); LYMPHOCYTES % (AUTO) 14.2 % (13-45); MEAN CORPUSCULAR HEMOGLOBIN 37.7 pg (27.0-33.4); MEAN CORPUSCULAR HGB CONC 34.7 g/dL (32.0-36.0); MEAN CORPUSCULAR VOLUME 109 fl (80-97); MONOCYTES % (AUTO) 13.1 % (3-13); RED BLOOD COUNT 2.95 10^6/uL (3.72-5.28); RED CELL DISTRIBUTION WIDTH 22.2 % (11.5-14.0); SEGMENTED NEUTROPHILS % (AUTO) 71.1 % (42-78); TOTAL CELLS COUNTED % (AUTO) 100 %; WHITE BLOOD COUNT 4.8 10^3/uL (4.0-10.5)
[2018-05-29 08:30] LABS: PROTHROMBIN TIME 16.9 SEC (11.4-15.4)
[2018-05-29 08:31] LABS: PARTIAL THROMBOPLASTIN TIME 35.2 SEC (23.5-35.8)
[2018-05-29 08:45] LABS: PLATELET COUNT 68 10^3/uL (150-450)
[2018-05-29 08:46] LABS: ALCOHOL 57 mg/dL (NONE DETECTED); CREATINE KINASE 51 U/L (30-135); ROULEAUX SLIGHT
[2018-05-29 08:47] LABS: ALANINE AMINOTRANSFERASE 49 U/L (9-52); ALBUMIN 3.2 g/dL (3.5-5.0); ALKALINE PHOSPHATASE 159 U/L (38-126); ANION GAP 12 (5-19); ASPARTATE AMINO TRANSFERASE 196 U/L (14-36); BILIRUBIN,DIRECT 5.3 mg/dL (0.0-0.4); BILIRUBIN,TOTAL 9.7 mg/dL (0.2-1.3); BLOOD UREA NITROGEN 16 mg/dL (7-20); CALCIUM 8.6 mg/dL (8.4-10.2); CARBON DIOXIDE 29 mmol/L (22-30); CHLORIDE 90 mmol/L (98-107); GLUCOSE 129 mg/dL (75-110); HYPOCHROMASIA 1+; LIPASE 444.1 U/L (23-300); OVALOCYTES SLIGHT; PLATELET COMMENT DECREASED; POIKILOCYTOSIS 1+; POLYCHROMASIA SLIGHT; POTASSIUM 3.4 mmol/L (3.6-5.0); SODIUM 130.7 mmol/L (137-145); TEAR DROP CELLS SLIGHT; TOTAL PROTEIN 6.7 g/dL (6.3-8.2)
[2018-05-29 08:52] LABS: ACETAMINOPHEN < 10 ug/mL (10-30); SALICYLATE < 1.0 mg/dL (2.0-20.0)
[2018-05-29] MEDS ORDERED: LIDOCAINE 2% VISCOUS SOLN 20 ML UDCUP PO ONE (08:55)
[2018-05-29] MEDS ORDERED: MAG HYDROX/AL HYDROX/SIMETH SUSP 30 ML UDCUP PO ONE (08:55)
[2018-05-29] MEDS ORDERED: METOCLOPRAMIDE HCL 10 MG TABLET PO ONE (08:55)
[2018-05-29] MEDS ORDERED: RINGERS SOLUTION,LACTATED 1,000 ML IV PRN (08:57)
[2018-05-29 08:58] LABS: CREATINE KINASE MB 0.39 ng/mL (<4.55)
[2018-05-29 09:04] LABS: TROPONIN I < 0.012 ng/mL
[2018-05-29] MEDS ORDERED: KETOROLAC TROMETHAMINE INJ/PF 30 MG/1 ML SDV IV ONE (09:40)
[2018-05-29] MEDS ORDERED: POTASSIUM CHLORIDE 10 MEQ CAPSULE.ER PO ONE (09:41)
[2018-05-29 10:17] LABS: APPEARANCE,URINE SLIGHTLY-CLOUDY; BILIRUBIN,URINE SMALL (NEGATIVE); COLOR,URINE AMBER; GLUCOSE, URINE NEGATIVE (NEGATIVE); KETONES,URINE NEGATIVE (NEGATIVE); LEUKOCYTE ESTERASE,URINE NEGATIVE (NEGATIVE); NITRITE,URINE NEGATIVE (NEGATIVE); PROTEIN,URINE NEGATIVE (NEGATIVE); URINE SPECIFIC GRAVITY 1.021
[2018-05-29 10:28] LABS: URINE AMPHETAMINES SCREEN NEGATIVE; URINE BARBITURATES SCREEN NEGATIVE; URINE BENZODIAZEPINES SCREEN NEGATIVE; URINE COCAINE SCREEN NEGATIVE; URINE MARIJUANA (THC) SCREEN NEGATIVE; URINE METHADONE SCREEN NEGATIVE; URINE PHENCYCLIDINE SCREEN NEGATIVE
--- NOTE | 2018-05-29 12:12 | RADIOLOGY REPORT (SQ) ---
EXAM DESCRIPTION: CT ABD/PELVIS WITH IV ORAL COMPLETED DATE/TIME: 05/29/2018 12:00 pm REASON FOR STUDY: acute epigastric pain with n/v. COMPARISON: CT abdomen pelvis 12/27/2017, 09/20/2016 Thoracentesis with ultrasound 01/13/2018 TECHNIQUE: CT scan of the abdomen and pelvis performed using helical scanning technique with dynamic intravenous contrast injection. No oral contrast. Images reviewed with lung, soft tissue, and bone windows. Reconstructed coronal and sagittal MPR images reviewed. Delayed images for evaluation of the urinary system also acquired. All images stored on PACS. All CT scanners at this facility use dose modulation, iterative reconstruction, and/or weight based d osing when appropriate to reduce radiation dose to as low as reasonably achievable (ALARA). [facility]: Dose Right [facility]: CareDose [facility]: Dose Right [facility]: Teradose 4D [facility]: Funifi CONTRAST TYPE AND DOSE: contrast/concentration: Isovue 350.00 mg/ml; Total Contrast Delivered: 63.0 ml; Total Saline Delivered: 61.0 ml RENAL FUNCTION: Creatinine 0.64 RADIATION DOSE: CT Rad equipment meets quality standard of care and radiation dose reduction techniq ues were employed. CTDIvol: NaN - NaN mGy. DLP: 0 mGy-cm.. LIMITATIONS: None. FINDINGS: LOWER CHEST: No significant findings. No nodules or infiltrates. LIVER: Cirrhosis with a nodular contour. No focal masses. Normal enhancement of the portal vein and hepatic veins. SPLEEN: Normal size. No focal lesions. PANCREAS: No masses. No significant calcifications. No adjacent inflammation or peripancreatic fluid collections. Pancreatic duct not dilated. GALLBLADDER: Surgically absent ADRENAL GLANDS: No significant masses or asymmetry. RIGHT KIDNEY AND URETER: No solid masses. No significant calcifications. No hydronephrosis or hyd roureter. LEFT KIDNEY AND URETER: No solid masses. No significant calcifications. No hydronephrosis or hydr oureter. AORTA AND VESSELS: No aneurysm. No dissection. Renal arteries, SMA, celiac without stenosis. RETROPERITONEUM: No retroperitoneal adenopathy, hemorrhage or masses. BOWEL AND PERITONEAL CAVITY: Patient drank oral contrast. There is no evidence of bowel obstruction. Mild diffuse colonic wall thickening is present from diffuse colitis. There is a small amount of ascites in the abdomen and pelvis. APPENDIX: Normal. PELVIS: No mass. No free fluid. Normal bladder. Normal size female pelvic organs. Clips post tubal ligation. ABDOMINAL WALL: No masses. No hernias. BONES: No significant or acute findings. OTHER: No other significant finding. IMPRESSION: Cirrhosis and ascites. No CT evidence of portal vein or hepatic vein thrombosis. Patient drank oral contrast. There is diffuse colon wall thickening from diffuse colitis. No free i ntraperitoneal air. No bowel obstruction TECHNICAL DOCUMENTATION: JOB ID: [id number] Quality ID # [id number]: Final reports with documentation of one or more dose reduction techniques (e.g., Au tomated exposure control, adjustment of the mA and/or kV according to patient size, use of iterative reconstruction technique) 2010 [employer]- All Rights Reserved Reading location - IP/workstation name: [email or web address]
--- NOTE | 2018-05-29 13:19 | EKG REPORT ---
SEVERITY:- ABNORMAL ECG - SINUS RHYTHM PROLONGED QT INTERVAL : Confirmed by: Namrata Reynolds MD 29-May-2018 13:18:48
[2018-05-29 13:34] VITALS: BP 118/67
== END 2018-05-29 13:33 | disposition home or self-care (01) ==
LOC: ER 07:59
DX: D64.9 Anemia, unspecified (principal); K52.9 Noninfective gastroenteritis and colitis, unspecified; R11.0 Nausea; K74.60 Unspecified cirrhosis of liver; R10.9 Unspecified abdominal pain; R11.2 Nausea with vomiting, unspecified; I10 Essential (primary) hypertension; Z90.49 Acquired absence of other specified parts of digestive tract
CPT/HCPCS: 93005; 99284; 96361; 96374; 36415; 82553; 80307 ×4; 82140; 82550; 84702; 83690; 85025; 85610; 85730; 80053; 81001; 84484; 85379; 83880; 74177; 93010; J3490; J1885; J7120

== ENCOUNTER 2018-06-06 06:24 | Emergency (ER) | payer OTHER ==
[2018-06-06] MEDS ORDERED: FENTANYL CITRATE INJ/PF 100 MCG/2 ML AMPUL IV ONE ×2 (09:17→13:10)
[2018-06-06] MEDS ORDERED: ONDANSETRON HCL INJ/PF 4 MG/2 ML SDV IV ONE ×2 (09:18→13:10)
--- NOTE | 2018-06-06 09:18 | ER Document Report ---
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 States that she has had a large amount of ascites and is having difficulty breathing. Achy abdominal pain. Was seen here recently and had a CT scan which was unremarkable. Patient is asking for paracentesis at this time. Asking for something for the pain and nausea as well. Denies drinking at this time. TRAVEL OUTSIDE OF THE [place] IN LAST 30 DAYS: No - HPI Patient complains to provider of: Abdominal pain Timing/Duration: Gradual, Worse Quality of pain: Achy Severity at maximum: Moderate Severity in ED: Moderate Pain Level: 3 - Related Data Allergies/Adverse Reactions: No Known Allergies Allergy (Verified 06/06/18 07:38) Past Medical History - General Information source: Patient - Social History Smoking Status: Smoker,Current Status Unk Frequency of alcohol use: None Drug Abuse: None Lives with: Family Family History: None - Past Medical History Cardiac Medical History: Reports: Hx Hypertension - past history Denies: Hx Coronary Artery Disease, Hx Heart Attack Pulmonary Medical History: Denies: Hx Asthma, Hx Bronchitis, Hx COPD, Hx Pneumonia Neurological Medical History: Denies: Hx Cerebrovascular Accident, Hx Seizures Renal/ Medical History: Denies: Hx Peritoneal Dialysis GI Medical History: Reports: Hx Gastroesophageal Reflux Disease Musculoskeletal Medical History: Denies Hx Arthritis Psychiatric Medical History: Denies: Hx Depression Past Surgical History: Reports: Hx Abdominal Surgery - Gallbladder 09/26/2015, Hx Cholecystectomy - Immunizations Immunizations up to date: Yes Hx Diphtheria, Pertussis, Tetanus Vaccination: Yes Review of Systems - Review of Systems Notes: Constitutional: denies: Chills, Diaphoresis, Fever, Malaise, Weakness EENT: denies: Eye discharge, Blurred vision, Tearing, Double vision, Nose congestion, Nose discharge, Throat swelling, Mouth pain Cardiovascular: denies: Palpitations, Heart racing, Orthopnea, Dyspnea, Chest pain Respiratory: denies: Cough, Hurts to breathe, Wheezing, Shortness of breath Gastrointestinal: Consistent for abdominal pain, bloating, nausea Genitourinary: denies: Burning, Dysuria, Discharge, Frequency, Flank pain, Hematuria Musculoskeletal: denies: Joint pain, Joint swelling, Muscle pain, Muscle stiffness, back pain Hematologic/Lymphatic: denies: Anemia, Easy bleeding, Easy bruising, Blood clots Neurological/Psychological: denies: Confusion, Dementia, Depression, Loss of consciousness Skin: No lesions, no masses, no skin breakdown, no abscesses Physical Exam - Vital signs Vitals: Temp Pulse Resp BP Pulse Ox 98.3 F 112 H 18 127/60 H 96 06/06/18 06:25 06/06/18 06:25 06/06/18 06:25 06/06/18 06:25 06/06/18 06:25 Interpretation: Normal - General General appearance: Appears well, Alert - HEENT Head: Normocephalic, Atraumatic Eyes: Normal Conjunctiva: Icteric Pupils: PERRL - Respiratory Respiratory status: No respiratory distress Chest status: Nontender Breath sounds: Normal Chest palpation: Normal - Cardiovascular Rhythm: Regular Heart sounds: Normal auscultation Murmur: No - Abdominal Inspection: Normal Distension: No distension Bowel sounds: Hypoactive Tenderness: Nontender, Tender Organomegaly: No organomegaly - Back Back: Normal, Nontender - Extremities General upper extremity: Normal inspection, Nontender, Normal color, Normal ROM , Normal temperature General lower extremity: Normal inspection, Nontender, Normal color, Normal ROM , Normal temperature, Normal weight bearing. No: Ramona's sign - Neurological Neuro grossly intact: Yes Cognition: Normal Orientation: AAOx4 Turner Coma Scale Eye Opening: Spontaneous Bairon Coma Scale Verbal: Oriented Bairon Coma Scale Motor: Obeys Commands Turner Coma Scale Total: 15 Speech: Normal Motor strength normal: LUE, RUE, LLE, RLE Sensory: Normal - Psychological Associated symptoms: Normal affect, Normal mood - Skin Skin Temperature: Warm Skin Moisture: Dry Skin Color: Normal Course - Re-evaluation Re-evalutation: 06/06/18 14:36 At this time will see if we can get a paracentesis on the patient. Waiting for radiologist to perform procedure at this time. 06/06/18 14:36 Laboratory 06/06/18 06/06/18 06/06/18 09:15 09:15 09:15 WBC 5.5 RBC 2.30 L Hgb 9.4 L Hct 26.8 L MCV 117 H D MCH 40.6 H MCHC 34.9 RDW 25.6 H Plt Count 75 L Total Counted 100 Seg Neutrophils % Not Reportable Seg Neuts % (Manual) 70 Lymphocytes % Not Reportable Lymphocytes % (Manual) 13 Monocytes % Not Reportable Monocytes % (Manual) 16 H Eosinophils % Not Reportable Eosinophils % (Manual) 0 Basophils % Not Reportable Basophils % (Manual) 1 Absolute Neutrophils Not Reportable Abs Neuts (Manual) 3.9 Absolute Lymphocytes Not Reportable Abs Lymphs (Manual) 0.7 Absolute Monocytes Not Reportable Abs Monocytes (Manual) 0.9 Absolute Eosinophils Not Reportable Absolute Eos (Manual) 0.0 Absolute Basophils Not Reportable Abs Basophils (Manual) 0.1 Nucleated RBCs 3 Platelet Comment DECREASED Polychromasia 1+ Poikilocytosis 1+ Anisocytosis 3+ Macrocytosis 3+ Ovalocytes 1+ Rouleaux 1+ PT 14.9 INR 1.11 APTT 30.9 Sodium 131.8 L Potassium 3.6 Chloride 94 L Carbon Dioxide 23 Anion Gap 15 BUN 19 Creatinine 0.72 Est GFR ( Amer) > 60 Est GFR (Non-Af Amer) > 60 Glucose 110 Calcium 8.5 Total Bilirubin 6.5 H Direct Bilirubin 3.8 H Neonat Total Bilirubin Not Reportable Neonat Direct Bilirubin Not Reportable Neonat Indirect Bili Not Reportable AST 130 H ALT 42 Alkaline Phosphatase 147 H Ammonia Total Protein 6.4 Albumin 3.1 L Lipase 271.4 06/06/18 09:40 WBC RBC Hgb Hct MCV MCH MCHC RDW Plt Count Total Counted Seg Neutrophils % Seg Neuts % (Manual) Lymphocytes % Lymphocytes % (Manual) Monocytes % Monocytes % (Manual) Eosinophils % Eosinophils % (Manual) Basophils % Basophils % (Manual) Absolute Neutrophils Abs Neuts (Manual) Absolute Lymphocytes Abs Lymphs (Manual) Absolute Monocytes Abs Monocytes (Manual) Absolute Eosinophils Absolute Eos (Manual) Absolute Basophils Abs Basophils (Manual) Nucleated RBCs Platelet Comment Polychromasia Poikilocytosis Anisocytosis Macrocytosis Ovalocytes Rouleaux PT INR APTT Sodium Potassium Chloride Carbon Dioxide Anion Gap BUN Creatinine Est GFR ( Amer) Est GFR (Non-Af Amer) Glucose Calcium Total Bilirubin Direct Bilirubin Neonat Total Bilirubin Neonat Direct Bilirubin Neonat Indirect Bili AST ALT Alkaline Phosphatase Ammonia 17.7 Total Protein Albumin Lipase 06/06/18 14:36 Nontoxic-appearing patient with normal labs. Proceeding with paracentesis at this time. 06/06/18 15:04 Patient received paracentesis. 2700 cc of fluid taken off. Tolerated procedure well. Feeling better. Will DC shortly. - Vital Signs Vital signs: Temp Pulse Resp BP Pulse Ox 98.3 F 112 H 18 127/60 H 96 06/06/18 06:25 06/06/18 06:25 06/06/18 06:25 06/06/18 06:25 06/06/18 06:25 - Laboratory Result Diagrams: 06/06/18 09:15 06/06/18 09:15 Laboratory results interpreted by me: 06/06/18 06/06/18 09:15 09:15 RBC 2.30 L Hgb 9.4 L Hct 26.8 L MCV 117 H D MCH 40.6 H RDW 25.6 H Plt Count 75 L Monocytes % (Manual) 16 H Sodium 131.8 L Chloride 94 L Total Bilirubin 6.5 H Direct Bilirubin 3.8 H AST 130 H Alkaline Phosphatase 147 H Albumin 3.1 L Discharge - Discharge Clinical Impression: Cirrhosis of liver Qualifiers: Hepatic cirrhosis type: unspecified hepatic cirrhosis Ascites presence: with ascites Qualified Code(s): K74.60 - Unspecified cirrhosis of liver Condition: Good Disposition: HOME, SELF-CARE Instructions: Abdominal Pain ([facility]) Additional Instructions: Please follow-up with your extrusion former. Return for any worsening symptoms or concerns. Drink plenty of fluid today. Follow your diet recommendations. Referrals: JOHANA VALDEZ MD [Primary Care Provider] - Follow up as needed
--- NOTE | 2018-06-06 10:09 | RADIOLOGY REPORT (SQ) ---
EXAM DESCRIPTION: CHEST SINGLE VIEW COMPLETED DATE/TIME: 06/06/2018 9:54 am REASON FOR STUDY: sob COMPARISON: None. EXAM PARAMETERS: NUMBER OF VIEWS: One view. TECHNIQUE: Single frontal radiographic view of the chest acquired. RADIATION DOSE: NA LIMITATIONS: None. FINDINGS: LUNGS AND PLEURA: No opacities, masses or pneumothorax. No pleural effusion. MEDIASTINUM AND HILAR STRUCTURES: No masses. Contour normal. HEART AND VASCULAR STRUCTURES: Heart normal in size. Normal vasculature. BONES: No acute findings. HARDWARE: None in the chest. OTHER: No other significant finding. IMPRESSION: NO ACUTE RADIOGRAPHIC FINDING IN THE CHEST. TECHNICAL DOCUMENTATION: JOB ID: [id number] [employer]- All Rights Reserved Reading location - IP/workstation name: [email or web address]
[2018-06-06 10:15] LABS: HEMATOCRIT 26.8 % (36.0-47.0); HEMOGLOBIN 9.4 g/dL (12.0-15.5); MEAN CORPUSCULAR HEMOGLOBIN 40.6 pg (27.0-33.4); MEAN CORPUSCULAR HGB CONC 34.9 g/dL (32.0-36.0); RED CELL DISTRIBUTION WIDTH 25.6 % (11.5-14.0); WHITE BLOOD COUNT 5.5 10^3/uL (4.0-10.5)
[2018-06-06 10:32] LABS: ALANINE AMINOTRANSFERASE 42 U/L (9-52); ALBUMIN 3.1 g/dL (3.5-5.0); ALKALINE PHOSPHATASE 147 U/L (38-126); ANION GAP 15 (5-19); ASPARTATE AMINO TRANSFERASE 130 U/L (14-36); BILIRUBIN,DIRECT 3.8 mg/dL (0.0-0.4); BILIRUBIN,TOTAL 6.5 mg/dL (0.2-1.3); BLOOD UREA NITROGEN 19 mg/dL (7-20); CALCIUM 8.5 mg/dL (8.4-10.2); CARBON DIOXIDE 23 mmol/L (22-30); CHLORIDE 94 mmol/L (98-107); GLUCOSE 110 mg/dL (75-110); LIPASE 271.4 U/L (23-300); POTASSIUM 3.6 mmol/L (3.6-5.0); SODIUM 131.8 mmol/L (137-145); TOTAL PROTEIN 6.4 g/dL (6.3-8.2)
[2018-06-06 10:59] LABS: MEAN CORPUSCULAR VOLUME 117 fl (80-97)
[2018-06-06 11:03] LABS: PLATELET COUNT 75 10^3/uL (150-450)
[2018-06-06 11:07] LABS: ABSOLUTE LYMPHOCYTES# (MANUAL) 0.7 10^3/uL (0.5-4.7); ABSOLUTE MONOCYTES # (MANUAL) 0.9 10^3/uL (0.1-1.4); ABSOLUTE NEUTROPHILS# (MANUAL) 3.9 10^3/uL (1.7-8.2); BASOPHILS % (MANUAL) 1 % (0-2); EOSINOPHILS % (MANUAL) 0 % (0-6); LYMPHOCYTES % (MANUAL) 13 % (13-45); MONOCYTES % (MANUAL) 16 % (3-13); NUCLEATED RED BLOOD CELLS 3 /100 WBC (0); ROULEAUX 1+; SEGMENTED NEUTROPHILS % (MAN) 70 % (42-78); TOTAL CELLS COUNTED 100
[2018-06-06 11:08] LABS: ANISOCYTOSIS 3+; OVALOCYTES 1+; PLATELET COMMENT DECREASED; POIKILOCYTOSIS 1+; POLYCHROMASIA 1+
[2018-06-06 11:42] LABS: INTERNATIONAL RATION (INR) 1.11; PROTHROMBIN TIME 14.9 SEC (11.4-15.4)
[2018-06-06 11:43] LABS: PARTIAL THROMBOPLASTIN TIME 30.9 SEC (23.5-35.8)
[2018-06-06] MEDS ORDERED: LIDOCAINE 1% INJ-PF (10 MG/ML) 30 ML SDV ONE (13:35)
[2018-06-06 15:13] VITALS: BP 121/65
--- NOTE | 2018-06-06 15:18 | RADIOLOGY REPORT (SQ) ---
EXAM DESCRIPTION: U/S ABD PARACENTESIS COMPLETED DATE/TIME: 06/06/2018 3:09 pm REASON FOR STUDY: hepatic failure, ascites, dyspnea COMPARISON None. LIMITATIONS: None. PROCEDURE: After obtaining informed consent, the patient was brought to the ultrasound suite. The p rocedure was performed with the patient on a gurney. Ultrasound was used to identify a prominent poc ket of ascites in the right lower quadrant. An appropriate access site was selected. The patient wa s prepped and draped in usual sterile fashion. The access site was anesthetized with 3 mL 1% lidoca ine. A Oegb-Q-Puujbenr needle was advanced into the fluid. After aspiration of fluid the needle, th e catheter was advanced off the needle into the fluid. A total of 2,750 mL of straw-colored fluid wa s removed. The patient tolerated the procedure well left the department in satisfactory condition. IMPRESSION: Successful ultrasound-guided paracentesis COMMENT: Patient medication list reviewed: Yes- Quality ID# [id number]:Eligible professional attests to doc umenting in the medical record they obtained, updated, or reviewed the patient's current medications. TECHNICAL DOCUMENTATION: JOB ID: [id number] [employer]- All Rights Reserved Reading location - IP/workstation name: [email or web address]
== END 2018-06-06 15:41 | disposition home or self-care (01) ==
LOC: ER 06:24
DX: K70.31 Alcoholic cirrhosis of liver with ascites (principal); R06.00 Dyspnea, unspecified; R11.0 Nausea; R10.9 Unspecified abdominal pain; I10 Essential (primary) hypertension
CPT/HCPCS: 99284; 96374; 96375; 36415; 82140; 83690; 85025; 85610; 85730; 80053; 71045; 49083; J3010; J3490; J2405

== ENCOUNTER 2018-10-10 07:26 | Inpatient (IN) | payer OTHER ==
[2018-10-10] MEDS ORDERED: NORMAL SALINE 1000 ML 1,000 ML IV ONE (08:54)
[2018-10-10] MEDS ORDERED: ONDANSETRON HCL INJ/PF 4 MG/2 ML SDV IV ONE ×2 (08:54→14:59)
[2018-10-10] MEDS ORDERED: MORPHINE SULFATE 10 MG/ML INJ IV ONE ×2 (09:21→14:59)
--- NOTE | 2018-10-10 09:25 | ER Document Report ---
ED General - General Chief Complaint: General Weakness Stated Complaint: COUGH, WEAKNESS,NOSE BLEED Time Seen by Provider: 10/10/18 08:51 Mode of Arrival: Ambulatory Information source: Patient Notes: Patient is a 43-year-old female who presents to the emergency department with chief complaint of cough, dizziness, nausea over the last week. She also reports generalized body pains. She states that she has not had much p.o. intake over the last week. Denies any fever. Patient reports past medical history of encephalitis, ascites and multiple episodes of anemia and paracentesis. Reports that her primary care provider is Dr. Ocasio, she states she has not seen him in several months. TRAVEL OUTSIDE OF THE [place] IN LAST 30 DAYS: No - Related Data Allergies/Adverse Reactions: No Known Allergies Allergy (Verified 10/10/18 07:28) Past Medical History - General Information source: Patient - Social History Smoking Status: Never Smoker Chew tobacco use (# tins/day): No Frequency of alcohol use: Hx of heavy alcohol use Drug Abuse: None Family History: None Patient has suicidal ideation: No Patient has homicidal ideation: No - Medical History Medical History: Other - Encephalitis, ascites - Past Medical History Cardiac Medical History: Reports: Hx Hypertension - past history Denies: Hx Coronary Artery Disease, Hx Heart Attack Pulmonary Medical History: Denies: Hx Asthma, Hx Bronchitis, Hx COPD, Hx Pneumonia Neurological Medical History: Denies: Hx Cerebrovascular Accident, Hx Seizures Renal/ Medical History: Denies: Hx Peritoneal Dialysis GI Medical History: Reports: Hx Gastroesophageal Reflux Disease Musculoskeletal Medical History: Denies Hx Arthritis Psychiatric Medical History: Reports: Hx Depression - anxiety Past Surgical History: Reports: Hx Abdominal Surgery - Gallbladder 09/26/2015, Hx Cholecystectomy - Immunizations Immunizations up to date: Yes Hx Diphtheria, Pertussis, Tetanus Vaccination: Yes Physical Exam - Vital signs Vitals: Temp Pulse Resp BP Pulse Ox 98.1 F 102 H 16 129/69 H 99 10/10/18 07:31 10/10/18 07:31 10/10/18 07:31 10/10/18 07:31 10/10/18 07:31 - Notes Notes: PHYSICAL EXAMINATION: GENERAL: Well-appearing, well-nourished and in moderate distress. HEAD: Atraumatic, normocephalic. EYES: Pupils equal round and reactive to light, extraocular movements intact, conjunctiva are yellow. ENT: Nares patent, oropharynx clear without exudates. Moist mucous membranes. NECK: Normal range of motion, supple without lymphadenopathy LUNGS: Breath sounds clear to auscultation bilaterally and equal. No wheezes rales or rhonchi. HEART: Regular rate and rhythm without murmurs ABDOMEN: Firm, tender, distended abdomen. No guarding, no rebound. No masses appreciated. Female : No CVA tenderness. Musculoskeletal: Normal range of motion, no pitting or edema. No cyanosis. NEUROLOGICAL: Cranial nerves grossly intact. Normal speech, normal gait. Normal sensory, motor exams PSYCH: Normal mood, normal affect. SKIN: Warm, Dry, normal turgor, no rashes or lesions noted, skin with yellow-ming tint. Course - Re-evaluation Re-evalutation: On arrival patient is complaining of generalized body pains and abdominal pains. Patient's abdomen is firm and distended. Patient reports multiple paracentesis procedures in the past. Patient will be given Zofran and morphine while pending her workup. Normal saline started at 200ml/hr. 10/10/18 11:42 Patient with hyperbilirubinemia and hyponatremia. Called and spoke with patient's primary care provider, Dr. Ocasio who will place patient on the telemetry floor for observation. If her INR is okay they will most likely perform a paracentesis tomorrow. Patient updated on plan of care and is agreeable to same. Patient is resting comfortably at this time. - Vital Signs Vital signs: Temp Pulse Resp BP Pulse Ox 99 F 109 H 16 113/64 97 10/11/18 13:15 10/11/18 13:15 10/11/18 13:15 10/11/18 13:15 10/11/18 13:15 - Laboratory Result Diagrams: 10/11/18 09:31 10/11/18 09:31 Laboratory results interpreted by me: 10/10/18 10/10/18 10/10/18 09:08 09:08 10:41 RBC 2.22 L Hgb 9.3 L Hct 26.8 L MCV 120 H MCH 42.0 H RDW 18.5 H Plt Count 124 L Seg Neutrophils % 81.3 H Lymphocytes % 8.8 L PT Sodium 126.3 L Potassium 3.4 L Chloride 89 L Est GFR (Non-Af Amer) 52 L Glucose 125 H Calcium 8.3 L Total Bilirubin 7.5 H Direct Bilirubin 5.1 H AST 151 H Alkaline Phosphatase 175 H Total Protein 6.2 L Albumin 3.0 L Urine Blood SMALL H Urine Urobilinogen 4.0 H Ur Leukocyte Esterase TRACE H 10/10/18 10:41 RBC Hgb Hct MCV MCH RDW Plt Count Seg Neutrophils % Lymphocytes % PT 16.1 H Sodium Potassium Chloride Est GFR (Non-Af Amer) Glucose Calcium Total Bilirubin Direct Bilirubin AST Alkaline Phosphatase Total Protein Albumin Urine Blood Urine Urobilinogen Ur Leukocyte Esterase Discharge - Discharge Clinical Impression: Hyponatremia, Hyperbilirubinemia, Nausea, Ascites Condition: Stable Disposition: ADMITTED OBSERVATION Admitting Provider: Ninfa Unit Admitted: Telemetry
[2018-10-10 09:36] LABS: ABSOLUTE BASOPHILS # (AUTO) 0.1 10^3/uL (0.0-0.2); ABSOLUTE LYMPHOCYTES (AUTO) 0.8 10^3/uL (0.5-4.7); ABSOLUTE MONOCYTES (AUTO) 0.8 10^3/uL (0.1-1.4); ABSOLUTE NEUT (AUTO) 7.3 10^3/uL (1.7-8.2); BASOPHILS % (AUTO) 0.9 % (0-2); HEMATOCRIT 26.8 % (36.0-47.0); HEMOGLOBIN 9.3 g/dL (12.0-15.5); LYMPHOCYTES % (AUTO) 8.8 % (13-45); MEAN CORPUSCULAR HGB CONC 34.9 g/dL (32.0-36.0); MEAN CORPUSCULAR VOLUME 120 fl (80-97); PLATELET COUNT 124 10^3/uL (150-450); RED BLOOD COUNT 2.22 10^6/uL (3.72-5.28); RED CELL DISTRIBUTION WIDTH 18.5 % (11.5-14.0); SEGMENTED NEUTROPHILS % (AUTO) 81.3 % (42-78); TOTAL CELLS COUNTED % (AUTO) 100 %
--- NOTE | 2018-10-10 09:37 | RADIOLOGY REPORT (SQ) ---
EXAM DESCRIPTION: CHEST 2 VIEWS COMPLETED DATE/TIME: 10/10/2018 9:24 am REASON FOR STUDY: cough, sob COMPARISON: Chest films 06/06/2018, 04/10/2016 EXAM PARAMETERS: NUMBER OF VIEWS: two views TECHNIQUE: Digital Frontal and Lateral radiographic views of the chest acquired. RADIATION DOSE: NA LIMITATIONS: none FINDINGS: LUNGS AND PLEURA: No opacities, masses or pneumothorax. No pleural effusion. MEDIASTINUM AND HILAR STRUCTURES: No masses or contour abnormalities. HEART AND VASCULAR STRUCTURES: Heart normal size. No evidence for failure. BONES: No acute findings. HARDWARE: None in the chest. OTHER: No other significant finding. IMPRESSION: NO ACUTE RADIOGRAPHIC FINDING IN THE CHEST. TECHNICAL DOCUMENTATION: JOB ID: [id number] [employer]- All Rights Reserved Reading location - IP/workstation name: [email or web address]
[2018-10-10 09:42] LABS: APPEARANCE,URINE SLIGHTLY-CLOUDY; BILIRUBIN,URINE NEGATIVE (NEGATIVE); COLOR,URINE YELLOW; GLUCOSE, URINE NEGATIVE (NEGATIVE); KETONES,URINE NEGATIVE (NEGATIVE); LEUKOCYTE ESTERASE,URINE TRACE (NEGATIVE); NITRITE,URINE NEGATIVE (NEGATIVE); PROTEIN,URINE NEGATIVE (NEGATIVE); URINE SPECIFIC GRAVITY 1.015
[2018-10-10 09:57] LABS: OVALOCYTES 1+; PLATELET COMMENT DECREASED; POIKILOCYTOSIS 1+; TEAR DROP CELLS 1+; TOXIC GRANULATION 1+; TOXIC VACUOLATION PRESENT
[2018-10-10 09:59] LABS: ANISOCYTOSIS 2+; SCHISTOCYTES SLIGHT
[2018-10-10 11:17] LABS: ALANINE AMINOTRANSFERASE 43 U/L (9-52); ALKALINE PHOSPHATASE 175 U/L (38-126); ANION GAP 13 (5-19); ASPARTATE AMINO TRANSFERASE 151 U/L (14-36); BILIRUBIN,DIRECT 5.1 mg/dL (0.0-0.4); BILIRUBIN,TOTAL 7.5 mg/dL (0.2-1.3); BLOOD UREA NITROGEN 19 mg/dL (7-20); CALCIUM 8.3 mg/dL (8.4-10.2); CARBON DIOXIDE 24 mmol/L (22-30); CHLORIDE 89 mmol/L (98-107); GLUCOSE 125 mg/dL (75-110); LIPASE 213.4 U/L (23-300); POTASSIUM 3.4 mmol/L (3.6-5.0); SODIUM 126.3 mmol/L (137-145); TOTAL PROTEIN 6.2 g/dL (6.3-8.2)
[2018-10-10 12:00] LABS: INTERNATIONAL RATION (INR) 1.23; PROTHROMBIN TIME 16.1 SEC (11.4-15.4)
--- NOTE | 2018-10-10 19:58 | PDOC H&P ---
History of Present Illness Admission Date/PCP: 10/10/18 11:52 JOHANA OSUNKLeta Patient complains of: coughing, dizziness, nausea, vomiting History of Present Illness: MADELYN JENSEN is a 43 year old female patient known to my practice who has been noncompliant with follow up management plan. She presented to the ED earlier today with complain of unproductive coughing, dizziness, nausea, vomiting, nose bleed, generalized weakness and body aches and pain. She admitted to nasal and sinus congestion and reported associated headache. She admitted to associated chills but no fever. She claimed poor appetite and po intake over last couple of weeks. She denied any diarrhea. She denied alcohol abuse and claimed that her last alcohol consumption was about 3 months ago following of her father. her initial ED evaluation was remarkable for hyponatremia and hypokalemia. Her morbidities include Essential hypertension, Alcohol Liver Cirrhosis with recurrent ascites, Seasonal allergic rhinitis, Chronic pain syndrome, Opioid dependence, Anxiety with Depressive disorder, and Persistent insomnia. She was advised hospitalization to observation bed for further evaluation and management of her electrolyte imbalance as possible consequence of her recurrent nausea and vomiting as well as alcohol liver cirrhosis with recurrent ascites. Past Medical History Cardiac Medical History: Reports: Hypertension - past history Denies: Coronary Artery Disease, Myocardial Infarction Pulmonary Medical History: Denies: Asthma, Bronchitis, Chronic Obstructive Pulmonary Disease (COPD), Pneumonia Neurological Medical History: Denies: Seizures GI Medical History: Reports: Gastroesophageal Reflux Disease Musculoskeltal Medical History: Denies: Arthritis Psychiatric Medical History: Reports: Depression Hematology: Reports: Anemia Past Surgical History Past Surgical History: Reports: Cholecystectomy Social History Smoking Status: Never Smoker Frequency of Alcohol Use: None Hx Recreational Drug Use: No Drugs: None Hx Prescription Drug Abuse: No Family History Family History: None Parental Family History Reviewed: Yes Children Family History Reviewed: Yes Sibling(s) Family History Reviewed.: Yes Medication/Allergy Home Medications: Spironolactone [Aldactone] 100 mg PO QHS 10/18/16 Escitalopram Oxalate [Lexapro 10 mg Tablet] 20 mg PO QPM 01/13/18 Furosemide [Lasix 80 mg Tablet] 80 mg PO BID 01/13/18 Spironolactone [Aldactone] 200 mg PO DAILY 01/13/18 Omeprazole 20 mg PO DAILY #30 tablet. 05/29/18 Allergies/Adverse Reactions: No Known Allergies Allergy (Verified 10/10/18 07:28) Review of Systems Constitutional: PRESENT: anorexia, chills, headache(s), weakness Eyes: ABSENT: visual disturbances Ears: ABSENT: hearing changes Nose, Mouth, and Throat: PRESENT: headache(s). ABSENT: as per HPI, mouth pain, sore throat, vertigo, other Cardiovascular: ABSENT: chest pain, dyspnea on exertion, edema, orthropnea, palpitations Respiratory: PRESENT: cough. ABSENT: as per HPI, dyspnea, hemoptysis, sputum, other Gastrointestinal: PRESENT: abdominal pain, nausea, vomiting. ABSENT: as per HPI , bloating, coffee ground emesis, constipation, diarrhea, dysphagia, heartburn, hematemesis, hematochezia, melena, other Genitourinary: ABSENT: dysuria, hematuria Musculoskeletal: ABSENT: joint swelling Integumentary: ABSENT: rash, wounds Neurological: PRESENT: weakness - generalized. ABSENT: abnormal gait, abnormal speech, confusion, dizziness, focal weakness, syncope Psychiatric: PRESENT: anxiety, depression. ABSENT: as per HPI, hallucinations, homidical ideation, suicidal ideation, other Endocrine: ABSENT: cold intolerance, heat intolerance, polydipsia, polyuria Hematologic/Lymphatic: PRESENT: other - occasional nose bleed. ABSENT: as per HPI, easy bleeding, easy bruising, lymphadenopathy Allergic/Immunologic: PRESENT: seasonal rhinorrhea Physical Exam Vital Signs: Temp Pulse Resp BP Pulse Ox 98.2 F 98 17 140/79 H 99 10/10/18 18:31 18 18:31 10/10/18 18:31 10/10/18 18:31 10/10/18 18:31 General appearance: PRESENT: no acute distress, well-developed, well-nourished Head exam: PRESENT: atraumatic, normocephalic Eye exam: PRESENT: conjunctiva pink, EOMI, PERRLA. ABSENT: scleral icterus Ear exam: PRESENT: normal external ear exam Mouth exam: PRESENT: moist Neck exam: PRESENT: full ROM. ABSENT: carotid bruit, JVD, lymphadenopathy, thyromegaly Respiratory exam: PRESENT: clear to auscultation ellie, decreased breath sounds - at lung bases Cardiovascular exam: PRESENT: RRR. ABSENT: diastolic murmur, rubs, systolic murmur Pulses: PRESENT: +1 pedal pulses bilateral Vascular exam: PRESENT: normal capillary refill. ABSENT: pallor GI/Abdominal exam: PRESENT: ascites, distended, firm, normal bowel sounds, tenderness Rectal exam: PRESENT: deferred Extremities exam: ABSENT: pedal edema Musculoskeletal exam: PRESENT: normal inspection Neurological exam: PRESENT: alert, awake, oriented to person, oriented to place , oriented to time, oriented to situation, CN II-XII grossly intact. ABSENT: motor sensory deficit Psychiatric exam: PRESENT: appropriate affect, normal mood. ABSENT: homicidal ideation, suicidal ideation Skin exam: PRESENT: dry, warm Results Impressions: Chest X-Ray 10/10/18 08:53 IMPRESSION: NO ACUTE RADIOGRAPHIC FINDING IN THE CHEST. Assessment & Plan - Diagnosis (1) Hyponatremia Is this a current diagnosis for this admission?: Yes Plan: She will be started on IV Normal saline infusion and we will monitor her swerum sodium level closely to avoid fluid over load. Most likely her electrolyte derangement is secondary to her chronic liver disease. (2) Hypokalemia Is this a current diagnosis for this admission?: Yes Plan: Patient will receive IV potassium rider in view of her reported recurrent nausea and vomiting. Obtain serum magnesium level to assess need for replacement (3) Nausea & vomiting Qualifiers: Vomiting type: unspecified Vomiting Intractability: non-intractable Qualified Code(s): R11.2 - Nausea with vomiting, unspecified Is this a current diagnosis for this admission?: Yes Plan: Maintain on IV Zofran therapy on prn bases. (4) Alcoholic cirrhosis of liver with ascites Is this a current diagnosis for this admission?: Yes Plan: I had extensive discussion with patient regarding continued abstinence from alcohol consumption. (5) Mixed anxiety and depressive disorder Is this a current diagnosis for this admission?: Yes Plan: Maintain on preadmission medication management. - Time Time Spent: 50 to 70 Minutes Medications reviewed and adjusted accordingly: Yes Anticipated discharge: Home - Inpatient Certification Based on my medical assessment, after consideration of the patient's comorbidities, presenting symptoms, or acuity I expect that the services needed warrant INPATIENT care.: No I certify that my determination is in accordance with my understanding of Medicare's requirements for reasonable and necessary INPATIENT services [42 CFR 412.3e].: No - Plan Summary Plan Summary: See admitting attending physician orders as per outlined care plan.
[2018-10-10] MEDS: POTASSI CL 20 MEQ/50 ML RIDER 20 MEQ/50 ML RTUPB IV SCH ×2 (20:50→22:53)
[2018-10-10] MEDS: SPIRONOLACTONE 25 MG TABLET PO SCH (21:08)
[2018-10-10] MEDS ORDERED: (PENDING PHARMACY ID) (Spironolactone [Aldactone 100 Mg Tablet] 100 MG) PO SCH (22:00)
[2018-10-11] MEDS: POTASSI CL 20 MEQ/50 ML RIDER 20 MEQ/50 ML RTUPB IV SCH (01:06)
[2018-10-11] MEDS ORDERED: TRIMETHOBENZAMIDE HCL 300 MG CAPSULE PO PRN (08:06)
--- NOTE | 2018-10-11 09:16 | RADIOLOGY REPORT (SQ) ---
EXAM DESCRIPTION: U/S ABDOMEN COMPLETE W/DOPPLER COMPLETED DATE/TIME: 10/11/2018 8:50 am REASON FOR STUDY: Alcohol Liver Cirrhosis with recurrent ascites COMPARISON: 06/06/2018 TECHNIQUE: Dynamic and static grayscale images acquired of the abdomen and recorded on PACS. Additio nal selected color Doppler and spectral images recorded. Note: Study does not meet criteria for complete doppler/duplex scan LIMITATIONS: None. FINDINGS: PANCREAS: Not visualized secondary to bowel gas. LIVER: Nodular hepatic contour with coarse echogenicity consistent with intrinsic liver disease. No discrete masses visualized. LIVER VASCULATURE: Diminished pulsatile flow within the main portal vein. Normal hepatic venous flow . GALLBLADDER: Surgically absent. ULTRASOUND-DETECTED BEAVERS'S SIGN: Negative. INTRAHEPATIC DUCTS AND COMMON DUCT: CBD is mildly dilated measuring 7 mm likely secondary to cholecys tectomy. No filling defects. No intrahepatic ductal dilation. . INFERIOR VENA CAVA: Normal flow. AORTA: No aneurysm. RIGHT KIDNEY: Normal size measuring 10.6 cm. Normal echogenicity. No solid or suspicious masses. No hydronephrosis. No calcifications. LEFT KIDNEY: Normal size measuring 9.8 cm. Normal echogenicity. No solid or suspicious masses. No hydronephrosis. No calcifications. SPLEEN: Enlarged measuring 13.6 cm. No solid masses. PERITONEAL AND PLEURAL SPACES: Moderate volume ascites. OTHER: No other significant finding. IMPRESSION: 1. Cirrhotic hepatic morphology with moderate volume ascites. 2. Diminished to and fro portal venous flow and splenomegaly compatible with portal hypertension. 3. Prior cholecystectomy. TECHNICAL DOCUMENTATION: JOB ID: [id number] [employer]- All Rights Reserved Reading location - IP/workstation name: [facility]
[2018-10-11 09:58] LABS: HEMATOCRIT 22.7 % (36.0-47.0); MEAN CORPUSCULAR HEMOGLOBIN 41.7 pg (27.0-33.4); MEAN CORPUSCULAR HGB CONC 34.7 g/dL (32.0-36.0); MEAN CORPUSCULAR VOLUME 120 fl (80-97); RED BLOOD COUNT 1.89 10^6/uL (3.72-5.28); RED CELL DISTRIBUTION WIDTH 18.6 % (11.5-14.0); WHITE BLOOD COUNT 8.1 10^3/uL (4.0-10.5)
[2018-10-11] MEDS ORDERED: SPIRONOLACTONE 200 MG PO SCH (10:00)
[2018-10-11] MEDS: SPIRONOLACTONE 25 MG TABLET PO SCH ×2 (10:06→11:51)
[2018-10-11] MEDS: FUROSEMIDE 80 MG TABLET PO SCH ×2 (10:06→17:16)
[2018-10-11 10:18] LABS: ALANINE AMINOTRANSFERASE 38 U/L (9-52); ALBUMIN 2.8 g/dL (3.5-5.0); ALKALINE PHOSPHATASE 176 U/L (38-126); ANION GAP 9 (5-19); ASPARTATE AMINO TRANSFERASE 155 U/L (14-36); BILIRUBIN,DIRECT 6.5 mg/dL (0.0-0.4); BILIRUBIN,TOTAL 9.6 mg/dL (0.2-1.3); BLOOD UREA NITROGEN 15 mg/dL (7-20); CALCIUM 8.3 mg/dL (8.4-10.2); CARBON DIOXIDE 27 mmol/L (22-30); CHLORIDE 94 mmol/L (98-107); GLUCOSE 118 mg/dL (75-110); POTASSIUM 3.7 mmol/L (3.6-5.0); SODIUM 129.8 mmol/L (137-145); TOTAL PROTEIN 5.9 g/dL (6.3-8.2)
[2018-10-11 10:32] LABS: HEMOGLOBIN 7.9 g/dL (12.0-15.5); PLATELET COUNT 56 10^3/uL (150-450)
[2018-10-11 10:35] LABS: ABSOLUTE LYMPHOCYTES# (MANUAL) 0.4 10^3/uL (0.5-4.7); ABSOLUTE MONOCYTES # (MANUAL) 0.6 10^3/uL (0.1-1.4); ABSOLUTE NEUTROPHILS# (MANUAL) 7.1 10^3/uL (1.7-8.2); ANISOCYTOSIS 2+; BASOPHILS % (MANUAL) 0 % (0-2); EOSINOPHILS % (MANUAL) 0 % (0-6); LYMPHOCYTES % (MANUAL) 5 % (13-45); MONOCYTES % (MANUAL) 7 % (3-13); OVALOCYTES 1+; SEGMENTED NEUTROPHILS % (MAN) 88 % (42-78); TOTAL CELLS COUNTED 100; TOXIC GRANULATION SLIGHT; TOXIC VACUOLATION PRESENT
[2018-10-11 10:36] LABS: PLATELET COMMENT DECREASED; PLATELET LARGE PRESENT; POIKILOCYTOSIS 1+; TEAR DROP CELLS SLIGHT
[2018-10-11] MEDS: ESCITALOPRAM OXALATE 10 MG TABLET PO SCH (17:16)
[2018-10-11] MEDS ORDERED: DEXTROSE 40% GEL 15 GM TUBE PO PRN ×2 (18:34)
[2018-10-11] MEDS ORDERED: GLUCAGON,HUMAN RECOMB 1 MG INJ SUBCUT PRN (18:34)
[2018-10-11] MEDS ORDERED: DEXTROSE 50%-WATER 25 GM/50 ML DISP.SYRIN IV PRN ×2 (18:34)
--- NOTE | 2018-10-11 18:50 | PDOC PROGRESS REPORT ---
Subjective Progress Note for:: 10/11/18 Subjective:: Nausea and vomiting improving. Transfused 2 units PRBC earlier today due to significant anemia. Patient reported abdominal discomfort. Abdominal US revealed moderate ascites. No chest pain and breathing is fairly okay but she is requesting for paracentensis to relief her abdominal discomfort. Reason For Visit: HYPONATREMIA, HYPOKALEMIA, NAUSEA WITH Physical Exam Vital Signs: Temp Pulse Resp BP Pulse Ox 98.8 F 101 H 17 127/66 H 100 10/11/18 17:20 10/11/18 17:20 10/11/18 17:20 10/11/18 17:20 10/11/18 17:20 Intake & Output 10/10/18 10/11/18 10/12/18 06:59 06:59 06:59 Intake Total 1455 916 Balance 1455 916 Weight 62 kg General appearance: PRESENT: mild distress - due to ascites and discomfort with breathing Head exam: PRESENT: atraumatic, normocephalic Eye exam: PRESENT: conjunctiva pink, EOMI, PERRLA. ABSENT: scleral icterus Ear exam: PRESENT: normal external ear exam Mouth exam: PRESENT: moist Respiratory exam: PRESENT: clear to auscultation ellie, decreased breath sounds - at lung bases Cardiovascular exam: PRESENT: RRR. ABSENT: diastolic murmur, rubs, systolic murmur Vascular exam: PRESENT: pallor GI/Abdominal exam: PRESENT: ascites, distended, firm, normal bowel sounds. ABSENT: tenderness Extremities exam: ABSENT: pedal edema Musculoskeletal exam: PRESENT: normal inspection Neurological exam: PRESENT: alert, awake, oriented to person, oriented to place, oriented to time, oriented to situation, CN II-XII grossly intact. ABSENT: motor sensory deficit Psychiatric exam: PRESENT: appropriate affect, normal mood. ABSENT: homicidal ideation, suicidal ideation Skin exam: PRESENT: dry, intact, warm. ABSENT: cyanosis, rash Results Laboratory Results: 10/11/18 09:31 10/11/18 09:31 10/10/18 10/11/18 10/11/18 10:41 09:31 09:31 WBC 8.1 RBC 1.89 L Hgb 7.9 L Hct 22.7 L MCV 120 H MCH 41.7 H MCHC 34.7 RDW 18.6 H Plt Count 56 L Seg Neutrophils % Not Reportable Lymphocytes % Not Reportable Monocytes % Not Reportable Eosinophils % Not Reportable Basophils % Not Reportable Absolute Neutrophils Not Reportable Absolute Lymphocytes Not Reportable Absolute Monocytes Not Reportable Absolute Eosinophils Not Reportable Absolute Basophils Not Reportable Sodium 129.8 L Potassium 3.7 Chloride 94 L Carbon Dioxide 27 Anion Gap 9 BUN 15 Creatinine 0.92 Est GFR ( Amer) > 60 Est GFR (Non-Af Amer) > 60 Glucose 118 H Calcium 8.3 L Magnesium 1.6 1.4 L Total Bilirubin 9.6 H AST 155 H ALT 38 Alkaline Phosphatase 176 H Total Protein 5.9 L Albumin 2.8 L Blood Type Antibody Screen 10/11/18 11:24 WBC RBC Hgb Hct MCV MCH MCHC RDW Plt Count Seg Neutrophils % Lymphocytes % Monocytes % Eosinophils % Basophils % Absolute Neutrophils Absolute Lymphocytes Absolute Monocytes Absolute Eosinophils Absolute Basophils Sodium Potassium Chloride Carbon Dioxide Anion Gap BUN Creatinine Est GFR ( Amer) Est GFR (Non-Af Amer) Glucose Calcium Magnesium Total Bilirubin AST ALT Alkaline Phosphatase Total Protein Albumin Blood Type AB POSITIVE Antibody Screen NEGATIVE Impressions: Abdomen Ultrasound 10/10/18 00:00 IMPRESSION: 1. Cirrhotic hepatic morphology with moderate volume ascites. 2. Diminished to and fro portal venous flow and splenomegaly compatible with portal hypertension. 3. Prior cholecystectomy. Chest X-Ray 10/10/18 08:53 IMPRESSION: NO ACUTE RADIOGRAPHIC FINDING IN THE CHEST. Assessment & Plan - Diagnosis (1) Hyponatremia Is this a current diagnosis for this admission?: Yes Plan: Continue IV N/S infusion support. (2) Hypokalemia Is this a current diagnosis for this admission?: Yes Plan: Maintain on Potassium replacement therapy due to significant diuretic medication management (3) Nausea & vomiting Qualifiers: Vomiting type: unspecified Vomiting Intractability: non-intractable Qualified Code(s): R11.2 - Nausea with vomiting, unspecified Is this a current diagnosis for this admission?: Yes Plan: Maintain on Tigan 300 mg po qid prn for nausea management. (4) Alcoholic cirrhosis of liver with ascites Is this a current diagnosis for this admission?: Yes Plan: I will request for US guided paracentesis by radiology group tomorrow. (5) Mixed anxiety and depressive disorder Is this a current diagnosis for this admission?: Yes (6) Anemia of chronic disease Is this a current diagnosis for this admission?: Yes Plan: Obtain postr transfusion CBC evaluation. Obtain stool occult blood testing. (7) Hypomagnesemia Is this a current diagnosis for this admission?: Yes Plan: Magnesium replacement with IV Magnesium sulfate will be ordered. - Time Time Spent with patient: 25-34 minutes Medications reviewed and adjusted accordingly: Yes Anticipated discharge: Home Within: Other - Inpatient Certification Based on my medical assessment, after consideration of the patient's comorbidities, presenting symptoms, or acuity I expect that the services needed warrant INPATIENT care.: Yes I certify that my determination is in accordance with my understanding of Medicare's requirements for reasonable and necessary INPATIENT services [42 CFR 412.3e].: Yes Medical Necessity: Need Close Monitoring Due to Risk of Patient Decompensation, Need For IV Fluids, Need For Continuous Telemetry Monitoring, Need for Pain Control, Risk of Complication if Not Cared For in Hospital Post Hospital Care: D/C Personal Injury Legal Assistant Documentation - Plan Summary Plan Summary: See attending physician orders as per outlined care plan above. She will be made a full admission status due to her hyponatremia.
[2018-10-11] MEDS ORDERED: MAGNESIUM SULFATE/D5W 1 GM/100 ML RTUPB IV ONE (19:30)
[2018-10-11 20:37] LABS: HEMATOCRIT 28.8 % (36.0-47.0); MEAN CORPUSCULAR HEMOGLOBIN 38.5 pg (27.0-33.4); MEAN CORPUSCULAR HGB CONC 35.7 g/dL (32.0-36.0); RED BLOOD COUNT 2.67 10^6/uL (3.72-5.28); RED CELL DISTRIBUTION WIDTH 26.3 % (11.5-14.0)
[2018-10-11 20:47] LABS: HEMOGLOBIN 10.3 g/dL (12.0-15.5); MEAN CORPUSCULAR VOLUME 108 fl (80-97)
[2018-10-11 20:48] LABS: PLATELET COUNT 54 10^3/uL (150-450)
[2018-10-12] MEDS ORDERED: MAGNESIUM SULFATE/D5W 1 GM/100 ML RTUPB IV ONE ×2 (00:25→04:05)
[2018-10-12] MEDS: SPIRONOLACTONE 25 MG TABLET PO SCH ×3 (00:27→22:44)
[2018-10-12 06:48] LABS: ALANINE AMINOTRANSFERASE 38 U/L (9-52); ALBUMIN 2.9 g/dL (3.5-5.0); ALKALINE PHOSPHATASE 179 U/L (38-126); ANION GAP 11 (5-19); ASPARTATE AMINO TRANSFERASE 135 U/L (14-36); BLOOD UREA NITROGEN 14 mg/dL (7-20); CALCIUM 8.2 mg/dL (8.4-10.2); CARBON DIOXIDE 27 mmol/L (22-30); CHLORIDE 95 mmol/L (98-107); GLUCOSE 108 mg/dL (75-110); POTASSIUM 3.3 mmol/L (3.6-5.0); SODIUM 132.9 mmol/L (137-145)
[2018-10-12 07:19] LABS: BILIRUBIN,TOTAL 12.8 mg/dL (0.2-1.3)
--- NOTE | 2018-10-12 08:42 | PDOC PROGRESS REPORT ---
Subjective Progress Note for:: 10/12/18 Subjective:: Patient reported recurrent coughing and need for left nostrum package with gauze due to intermittent nasal bleeding. No chest pain or difficulty with breathing. No fever or chills. No nausea or vomiting. Abdominal discomfort persist with moderate ascites and distention. s/p PRBC transfusion x 2 units for anemia. Reason For Visit: HYPONATREMIA, HYPOKALEMIA, NAUSEA WITH Physical Exam Vital Signs: Temp Pulse Resp BP Pulse Ox 98.1 F 89 18 119/59 L 98 10/12/18 00:37 10/12/18 00:37 10/12/18 00:37 10/11/18 19:41 10/12/18 00:37 Intake & Output 10/11/18 10/12/18 10/13/18 06:59 06:59 06:59 Intake Total 1455 916 Balance 1455 916 Weight 62 kg 61.9 kg Physical Exam: General appearance: PRESENT: mild distress - due to ascites and discomfort with breathing Head exam: PRESENT: atraumatic, normocephalic Eye exam: PRESENT: conjunctiva pink, EOMI, PERRLA. ABSENT: pallor, scleral icterus Ear exam: PRESENT: normal external ear exam Mouth exam: PRESENT: moist Respiratory exam: PRESENT: clear to auscultation ellie, decreased breath sounds - at lung bases Cardiovascular exam: PRESENT: RRR. ABSENT: diastolic murmur, rubs, systolic murmur GI/Abdominal exam: PRESENT: ascites, distended, firm, normal bowel sounds. ABSENT: tenderness Extremities exam: ABSENT: pedal edema Musculoskeletal exam: PRESENT: normal inspection Neurological exam: PRESENT: alert, awake, oriented to person, oriented to place, oriented to time, oriented to situation, CN II-XII grossly intact. ABSENT: motor sensory deficit Psychiatric exam: PRESENT: appropriate affect, normal mood. ABSENT: homicidal ideation, suicidal ideation Skin exam: PRESENT: dry, intact, warm. ABSENT: cyanosis, rash Results Laboratory Results: 10/11/18 20:26 10/12/18 06:05 10/11/18 10/11/18 10/11/18 09:31 09:31 11:24 WBC 8.1 RBC 1.89 L Hgb 7.9 L Hct 22.7 L MCV 120 H MCH 41.7 H MCHC 34.7 RDW 18.6 H Plt Count 56 L Seg Neutrophils % Not Reportable Lymphocytes % Not Reportable Monocytes % Not Reportable Eosinophils % Not Reportable Basophils % Not Reportable Absolute Neutrophils Not Reportable Absolute Lymphocytes Not Reportable Absolute Monocytes Not Reportable Absolute Eosinophils Not Reportable Absolute Basophils Not Reportable Sodium 129.8 L Potassium 3.7 Chloride 94 L Carbon Dioxide 27 Anion Gap 9 BUN 15 Creatinine 0.92 Est GFR ( Amer) > 60 Est GFR (Non-Af Amer) > 60 Glucose 118 H Calcium 8.3 L Magnesium 1.4 L Total Bilirubin 9.6 H AST 155 H ALT 38 Alkaline Phosphatase 176 H Total Protein 5.9 L Albumin 2.8 L Blood Type AB POSITIVE Antibody Screen NEGATIVE 10/11/18 10/12/18 20:26 06:05 WBC 9.0 RBC 2.67 L Hgb 10.3 L D Hct 28.8 L MCV 108 H D MCH 38.5 H MCHC 35.7 RDW 26.3 H Plt Count 54 L Seg Neutrophils % Lymphocytes % Monocytes % Eosinophils % Basophils % Absolute Neutrophils Absolute Lymphocytes Absolute Monocytes Absolute Eosinophils Absolute Basophils Sodium 132.9 L Potassium 3.3 L Chloride 95 L Carbon Dioxide 27 Anion Gap 11 BUN 14 Creatinine 0.75 Est GFR ( Amer) > 60 Est GFR (Non-Af Amer) > 60 Glucose 108 Calcium 8.2 L Magnesium 1.7 Total Bilirubin 12.8 H D AST 135 H ALT 38 Alkaline Phosphatase 179 H Total Protein 6.0 L Albumin 2.9 L Blood Type Antibody Screen Impressions: Abdomen Ultrasound 10/10/18 00:00 IMPRESSION: 1. Cirrhotic hepatic morphology with moderate volume ascites. 2. Diminished to and fro portal venous flow and splenomegaly compatible with portal hypertension. 3. Prior cholecystectomy. Chest X-Ray 10/10/18 08:53 IMPRESSION: NO ACUTE RADIOGRAPHIC FINDING IN THE CHEST. Assessment & Plan - Diagnosis (1) Hyponatremia Is this a current diagnosis for this admission?: Yes (2) Hypokalemia Is this a current diagnosis for this admission?: Yes (3) Nausea & vomiting Qualifiers: Vomiting type: unspecified Vomiting Intractability: non-intractable Qualified Code(s): R11.2 - Nausea with vomiting, unspecified Is this a current diagnosis for this admission?: Yes (4) Alcoholic cirrhosis of liver with ascites Is this a current diagnosis for this admission?: Yes (5) Mixed anxiety and depressive disorder Is this a current diagnosis for this admission?: Yes (6) Anemia of chronic disease Is this a current diagnosis for this admission?: Yes (7) Hypomagnesemia Is this a current diagnosis for this admission?: Yes - Time Time Spent with patient: 25-34 minutes Medications reviewed and adjusted accordingly: Yes Anticipated discharge: Home Within: Other - Inpatient Certification Based on my medical assessment, after consideration of the patient's comorbidities, presenting symptoms, or acuity I expect that the services needed warrant INPATIENT care.: Yes I certify that my determination is in accordance with my understanding of Medicare's requirements for reasonable and necessary INPATIENT services [42 CFR 412.3e].: Yes Medical Necessity: Need Close Monitoring Due to Risk of Patient Decompensation, Need For IV Fluids, Risk of Complication if Not Cared For in Hospital Post Hospital Care: D/C Silver Miner Documentation - Plan Summary Plan Summary: Request for US guided paracentesis for relief of her abdominal discomfort. See physician orders for outlined care plan.
[2018-10-12] MEDS ORDERED: LORATADINE/PSEUDOEPHEDRINE SUL 10-240 MG TAB.SR.24H PO SCH (10:00)
[2018-10-12 10:29] LABS: INTERNATIONAL RATION (INR) 1.12
--- NOTE | 2018-10-12 11:48 | RADIOLOGY REPORT (SQ) ---
EXAM DESCRIPTION: U/S ABD PARACENTESIS COMPLETED DATE/TIME: 10/12/2018 11:06 am REASON FOR STUDY: Alcohol Liver cirrhosis with recurrent ascites COMPARISON None. LIMITATIONS: None. PROCEDURE: After obtaining informed consent, the patient was brought to the ultrasound suite. The p rocedure was performed with the patient on a gurney. Ultrasound was used to identify a prominent poc ket of ascites in the left lower quadrant. An appropriate access site was selected. The patient was prepped and draped in usual sterile fashion. The access site was anesthetized with 10 mL 1% lidoca ine. A [id number] needle was advanced into the fluid. After aspiration of fluid the needle, th e catheter was advanced off the needle into the fluid. A total of 4,800 mL of straw-colored fluid wa s removed. The patient tolerated the procedure well left the department in satisfactory condition. IMPRESSION: SUCCESSFUL ULTRASOUND-GUIDED PARACENTESIS. COMMENT: Patient medication list reviewed: Yes- Quality ID# [id number]:Eligible professional attests to doc umenting in the medical record they obtained, updated, or reviewed the patient's current medications. TECHNICAL DOCUMENTATION: JOB ID: [id number] [employer]- All Rights Reserved Reading location - IP/workstation name: [facility]
[2018-10-12] MEDS: FUROSEMIDE 80 MG TABLET PO SCH ×3 (11:49→17:09)
[2018-10-12] MEDS: MAGNESIUM OXIDE 400 MG TABLET PO SCH (11:50)
[2018-10-12] MEDS: ESCITALOPRAM OXALATE 10 MG TABLET PO SCH (17:07)
[2018-10-12] MEDS: NORMAL SALINE 1000 ML 1,000 ML IV PRN (17:11)
[2018-10-12] MEDS: POTASSIUM CHLORIDE 10 MEQ CAPSULE.ER PO SCH (22:43)
[2018-10-13] MEDS ORDERED: POTASSIUM CHLORIDE 10 MEQ CAPSULE.ER PO ONE (06:29)
[2018-10-13] MEDS: POTASSIUM CHLORIDE 10 MEQ CAPSULE.ER PO SCH (06:31)
[2018-10-13] MEDS: NORMAL SALINE 1000 ML 1,000 ML IV PRN (09:03)
[2018-10-13] MEDS: SPIRONOLACTONE 25 MG TABLET PO SCH (10:09)
[2018-10-13] MEDS: FUROSEMIDE 80 MG TABLET PO SCH (10:09)
[2018-10-13] MEDS: MAGNESIUM OXIDE 400 MG TABLET PO SCH (10:09)
[2018-10-13 15:46] LABS: ANION GAP 9 (5-19); BLOOD UREA NITROGEN 12 mg/dL (7-20); CALCIUM 8.4 mg/dL (8.4-10.2); CARBON DIOXIDE 26 mmol/L (22-30); CHLORIDE 98 mmol/L (98-107); GLUCOSE 120 mg/dL (75-110); SODIUM 133.4 mmol/L (137-145)
--- NOTE | 2018-10-13 16:24 | PDOC DISCHARGE SUMMARY ---
General - Admit/Disc Date/PCP Admission Date/Primary Care Provider: 10/11/18 18:34 JOHANA VALDEZ Discharge Date: 10/13/18 - - Discharge Diagnosis (1) Hyponatremia Is this a current diagnosis for this admission?: Yes (2) Hypokalemia Is this a current diagnosis for this admission?: Yes (3) Nausea & vomiting Is this a current diagnosis for this admission?: Yes (4) Alcoholic cirrhosis of liver with ascites Is this a current diagnosis for this admission?: Yes (5) Mixed anxiety and depressive disorder Is this a current diagnosis for this admission?: Yes (6) Anemia of chronic disease Is this a current diagnosis for this admission?: Yes (7) Hypomagnesemia Is this a current diagnosis for this admission?: Yes - Additional Information Discharge Diet: As Tolerated Discharge Activity: Activity As Tolerated, Slowly Increase Activity Prescriptions: Magnesium Oxide [Mag-Ox 400 mg Tablet] 400 mg PO DAILY #30 tablet Potassium Chloride 20 meq PO DAILY #30 tablet.er Home Medications: Spironolactone [Aldactone 100 mg Tablet] 100 mg PO QHS 10/18/16 Escitalopram Oxalate [Lexapro 10 mg Tablet] 20 mg PO QPM 01/13/18 Furosemide [Lasix 80 mg Tablet] 80 mg PO BID 01/13/18 Spironolactone [Aldactone 100 mg Tablet] 200 mg PO DAILY 01/13/18 Omeprazole 20 mg PO DAILY #30 tablet. 05/29/18 Magnesium Oxide [Mag-Ox 400 mg Tablet] 400 mg PO DAILY #30 tablet 10/13/18 Potassium Chloride 20 meq PO DAILY #30 tablet.er 10/13/18 History of Present Illness History of Present Illness: MADELYN JENSEN is a 43 year old female patient known to my practice who has been noncompliant with follow up management plan. She presented to the ED earlier today with complain of unproductive coughing, dizziness, nausea, vomiting, nose bleed, generalized weakness and body aches and pain. She admitted to nasal and sinus congestion and reported associated headache. She admitted to associated chills but no fever. She claimed poor appetite and p.o intake over last couple of weeks. She denied any diarrhea. She denied alcohol abuse and claimed that her last alcohol consumption was about 3 months ago following of her father. her initial ED evaluation was remarkable for hyponatremia and hypokalemia. Her morbidities include Essential hypertension, Alcohol Liver Cirrhosis with recurrent ascites, Seasonal allergic rhinitis, Chronic pain syndrome, Opioid dependence, Anxiety with Depressive disorder, and Persistent insomnia. She was advised hospitalization to observation bed for further evaluation and management of her electrolyte imbalance as possible consequence of her recurrent nausea and vomiting as well as alcohol liver cirrhosis with recurrent ascites. Hospital Course Hospital Course: She was admitted for symptomatic electrolyte derangement including hyponatremia and hypokalemia. She was treated with IV normal saline infusion ad potassium replacement therapy via IV potassium rider due to her significant nausea. Her stay was further complicated by abdominal discomfort due to moderate ascites related to her alcohol liver cirrhosis. Her abdominal ultrasound did confirm moderate ascitic fluid and she benefitted from ultrasound guided paracentesis procedure on 10/12/18 with 4800 ml straw colored fluid removal. She was transfused 2 units PRBC during this hospitalization due to drop in her hemoglobin to 7.9 gm/dL. Her post transfusion hemoglobin was 10.3 gm/dl. She will be discharged hometoday and follow up in the office as instructed upon d ischarge. Of note patient is not very compliant with office follow up plan.. Physical Exam Vital Signs: Temp Pulse Resp BP Pulse Ox 98.5 F 97 16 109/73 100 10/13/18 12:00 10/13/18 12:00 10/13/18 12:00 10/13/18 12:00 10/13/18 12:00 Intake & Output 10/12/18 10/13/18 10/14/18 06:59 06:59 06:59 Intake Total 916 2432 Output Total 3 Balance 916 2429 Weight 61.9 kg Physical Exam: General appearance: PRESENT: mild distress - due to ascites and discomfort with breathing Head exam: PRESENT: atraumatic, normocephalic Eye exam: PRESENT: conjunctiva pink, EOMI, PERRLA. ABSENT: pallor, scleral icterus Ear exam: PRESENT: normal external ear exam Mouth exam: PRESENT: moist Respiratory exam: PRESENT: clear to auscultation ellie, decreased breath sounds - at lung bases Cardiovascular exam: PRESENT: RRR. ABSENT: diastolic murmur, rubs, systolic murmur GI/Abdominal exam: PRESENT: ascites, distended, firm, normal bowel sounds. ABSENT: tenderness Extremities exam: ABSENT: pedal edema Musculoskeletal exam: PRESENT: normal inspection Neurological exam: PRESENT: alert, awake, oriented to person, oriented to place, oriented to time, oriented to situation, CN II-XII grossly intact. ABSENT: motor sensory deficit Psychiatric exam: PRESENT: appropriate affect, normal mood. ABSENT: homicidal ideation, suicidal ideation Skin exam: PRESENT: dry, intact, warm. ABSENT: cyanosis, rash Results Laboratory Results: 10/11/18 20:26 10/13/18 15:05 10/13/18 15:05 Sodium 133.4 L Potassium 4.0 Chloride 98 Carbon Dioxide 26 Anion Gap 9 BUN 12 Creatinine 0.67 Est GFR ( Amer) > 60 Est GFR (Non-Af Amer) > 60 Glucose 120 H Calcium 8.4 Impressions: Abdomen Ultrasound 10/10/18 00:00 IMPRESSION: 1. Cirrhotic hepatic morphology with moderate volume ascites. 2. Diminished to and fro portal venous flow and splenomegaly compatible with p ortal hypertension. 3. Prior cholecystectomy. Chest X-Ray 10/10/18 08:53 IMPRESSION: NO ACUTE RADIOGRAPHIC FINDING IN THE CHEST. Paracentesis Ultrasound 10/12/18 00:00 IMPRESSION: SUCCESSFUL ULTRASOUND-GUIDED PARACENTESIS. Qualifiers - * PATIENT BEING DISCHARGED WITH ANY OF THE FOLLOWING DIAGNOSIS: No Plan Discharge Plan: Discharge home today. Follow up in the office ass instructed upon discharge.
[2018-10-13 16:49] VITALS: BP 105/66
== END 2018-10-13 17:37 | disposition home or self-care (01) | DRG 641 ==
LOC: ER 07:26 → EH 11:52 → 4S 18:55 → OBSVTOIN 10-11 18:34
PROVIDERS: ADMIT Internal Medicine Geriatric Medicine; ATTEND Internal Medicine Geriatric Medicine
PROC: 30233N1 Transfusion of Nonautologous Red Blood Cells into Peripheral Vein, Percutaneous Approach (ICD-10-PCS; principal; 2018-10-11)
PROC: 0W9G3ZX Drainage of Peritoneal Cavity, Percutaneous Approach, Diagnostic (ICD-10-PCS; 2018-10-12)
PROC: 3E0234Z Introduction of Serum, Toxoid and Vaccine into Muscle, Percutaneous Approach (ICD-10-PCS; 2018-10-13)
DX: E87.1 Hypo-osmolality and hyponatremia (principal); E87.6 Hypokalemia; E83.42 Hypomagnesemia; R05 Cough; I10 Essential (primary) hypertension; K21.9 Gastro-esophageal reflux disease without esophagitis; K70.31 Alcoholic cirrhosis of liver with ascites; F10.10 Alcohol abuse, uncomplicated; D63.8 Anemia in other chronic diseases classified elsewhere; E80.6 Other disorders of bilirubin metabolism; F41.8 Other specified anxiety disorders; G89.4 Chronic pain syndrome; Y90.9 Presence of alcohol in blood, level not specified; Z91.19 Patient's noncompliance with other medical treatment and regimen; Z23 Encounter for immunization
CPT/HCPCS: 36415; 36430; 49083; 71046; 76700; 80048; 80053; 81001; 83690; 83735; 85025; 85027; 85610; 85730; 86850; 86900; 86901; 86920; 90471; 90686; 93976; 96361; 96374; 96375; 96376; 99285; G0008; G0378; J2270; J2405; J3475; J3480; J3490; J7030; P9016

== ENCOUNTER 2018-10-25 11:19 | Day surgery (SDC) | payer OTHER ==
[2018-10-25 12:36] LABS: HEMATOCRIT 29.8 % (36.0-47.0); HEMOGLOBIN 10.4 g/dL (12.0-15.5); MEAN CORPUSCULAR HEMOGLOBIN 39.2 pg (27.0-33.4); MEAN CORPUSCULAR HGB CONC 34.8 g/dL (32.0-36.0); PLATELET COUNT 163 10^3/uL (150-450); RED BLOOD COUNT 2.64 10^6/uL (3.72-5.28); RED CELL DISTRIBUTION WIDTH 23.3 % (11.5-14.0)
[2018-10-25 12:38] LABS: INTERNATIONAL RATION (INR) 1.18; PROTHROMBIN TIME 15.6 SEC (11.4-15.4)
[2018-10-25 12:54] LABS: BLOOD UREA NITROGEN 15 mg/dL (7-20); POTASSIUM 3.9 mmol/L (3.6-5.0)
[2018-10-25] MEDS ORDERED: LIDOCAINE 1% INJ-PF (10 MG/ML) 30 ML SDV ONE (13:21)
[2018-10-25 13:51] LABS: MEAN CORPUSCULAR VOLUME 113 fl (80-97)
--- NOTE | 2018-10-25 14:56 | RADIOLOGY REPORT (SQ) ---
EXAM DESCRIPTION: U/S ABD PARACENTESIS COMPLETED DATE/TIME: 10/25/2018 2:45 pm REASON FOR STUDY: ASCITES K70.31 ALCOHOLIC CIRRHOSIS OF LIVER WITH ASCITES COMPARISON: None. LIMITATIONS: None. PROCEDURE: Procedure, risks, benefit, and alternative explained to patient who then gave written con sent. The left lower abdominal wall marked using ultrasound guidance. A time-out was called for cor rect marking verification. Abdomen prepped and draped using sterile technique. Local anesthesia achi eved using 3.0 ml of 1% lidocaine injection. A 6fr Zmac-W-Hfqelqld set was introduced into the perit penny cavity. Fluid was drained. The catheter was removed and entry site was covered with sterile b andage. No immediate complications noted. Images acquired during the procedure were stored on PACS. FINDINGS: ENTRY SITE: Left lower quadrant FLUID VOLUME: 6000 cc FLUID ANALYSIS: Straw OTHER: Therapeutic only. IMPRESSION: SUCCESSFUL ULTRASOUND GUIDED PARACENTESIS. COMMENT: Patient medication list reviewed:Yes- Quality ID# [id number]:Eligible professional attests to docu menting in the medical record they obtained, updated, or reviewed the patient's current medications. TECHNICAL DOCUMENTATION: JOB ID: [id number] [employer]- All Rights Reserved Reading location - IP/workstation name: [email or web address]
[2018-10-25 15:16] VITALS: BP 107/77
== END 2018-10-25 15:19 | disposition home or self-care (01) ==
LOC: RAD 11:19
PROVIDERS: ATTEND Internal Medicine Geriatric Medicine
DX: K70.31 Alcoholic cirrhosis of liver with ascites (principal); Z87.891 Personal history of nicotine dependence
CPT/HCPCS: 36415; 84520; 82565; 84132; 85027; 85610; 85730; 81025; 49083; J3490

== ENCOUNTER 2018-11-21 08:07 | Emergency (ER) | payer OTHER ==
[2018-11-21] MEDS ORDERED: ONDANSETRON HCL INJ/PF 4 MG/2 ML SDV IV ONE ×2 (08:42→09:19)
[2018-11-21] MEDS ORDERED: NORMAL SALINE 1000 ML 1,000 ML IV ONE (08:42)
--- NOTE | 2018-11-21 09:03 | ER Document Report ---
ED General - General Chief Complaint: Abdominal Swelling Stated Complaint: NOSE BLEED Time Seen by Provider: 11/21/18 08:37 Primary Care Provider: JOHANA VALDEZ MD [Primary Care Provider] - Follow up as needed Notes: 43-year-old female with a history of cirrhosis presents with a nosebleed. The patient states that she began having a nosebleed this morning. It is since stopped. It was in her right nare. Patient also complains of increasing abdominal girth. She is been trying to get in to have a paracentesis done last in the last week this week. He tried to get into her family doctor but has been unsuccessful. Patient complains of increasing abdominal girth. A lot of abdominal pressure. No chest pain or shortness of breath. TRAVEL OUTSIDE OF THE [place] IN LAST 30 DAYS: No - Related Data Allergies/Adverse Reactions: No Known Allergies Allergy (Verified 11/21/18 08:07) Past Medical History - Social History Smoking Status: Unknown if Ever Smoked Family History: None - Past Medical History Cardiac Medical History: Reports: Hx Hypertension - past history Denies: Hx Coronary Artery Disease, Hx Heart Attack Pulmonary Medical History: Denies: Hx Asthma, Hx Bronchitis, Hx COPD, Hx Pneumonia Neurological Medical History: Denies: Hx Cerebrovascular Accident, Hx Seizures Renal/ Medical History: Denies: Hx Peritoneal Dialysis GI Medical History: Reports: Hx Gastroesophageal Reflux Disease Musculoskeletal Medical History: Denies Hx Arthritis Psychiatric Medical History: Reports: Hx Depression - anxiety Past Surgical History: Reports: Hx Abdominal Surgery - Gallbladder 09/26/2015, Hx Cholecystectomy - Immunizations Immunizations up to date: Yes Hx Diphtheria, Pertussis, Tetanus Vaccination: Yes Review of Systems - Review of Systems Constitutional: denies: Chills, Fever EENT: Other - Nosebleed Cardiovascular: denies: Chest pain, Dyspnea Respiratory: denies: Short of breath Gastrointestinal: Abdomen distended, Abdominal pain, Nausea. denies: Vomiting -: Yes All other systems reviewed and negative Physical Exam - Vital signs Vitals: Temp Pulse Resp BP Pulse Ox 99.0 F 110 H 16 126/72 H 96 11/21/18 08:11 11/21/18 08:11 11/21/18 08:11 11/21/18 08:11 11/21/18 08:11 - Notes Notes: GENERAL_APPEARANCE: well_nourished, alert, cooperative VITALS: reviewed, see vital signs table. HEAD: no_swelling\tenderness on the head. EYES: PERRL, EOMI, conjunctiva_clear. NOSE: Area in the right anterior nasal septum that is clotted and stopped bleeding is stopped MOUTH: (-)decreased moisture. THROAT: no_throat_inflammation, no_airway_obstruction. no_lymphadenopathy NECK: supple, no_neck_tenderness, (-)thyromegaly. BACK: no_back_tenderness. CHEST_WALL: no_chest_tenderness. LUNGS: no_wheezing, no_rales, no_rhonchi, (-)accessory muscle use, good air exchange bilateral. HEART: normal_rate, normal_rhythm, normal_S1, normal_S2, (-)S3, (-)S4, no_murmur, no_rub. ABDOMEN: Positive ascites, just diffuse abdominal discomfort no peritoneal signs. Bowel sounds are present EXTREMITIES: good pulses in all_extremities, no_swelling\tenderness in the extremities, no_edema. SKIN: warm, dry, good_color, no_rash. Chronic skin changes associate with cirrhosis MENTAL_STATUS: speech_clear, oriented_X_3, normal_affect, responds_a ppropriately to questions. Course - Re-evaluation Re-evalutation: 11/21/18 09:03 43-year-old female with a long history of cirrhosis presents with a nosebleed that is resolved we will check platelets and coags. Also patient is having increasing abdominal girth. Likely needs paracentesis. She has no peritoneal signs my suspicion for spontaneous bacterial peritonitis is low. We will need to get the patient set up with paracentesis. 11/21/18 14:57 The patient was supplement with some potassium she did get her paracentesis today. Otherwise all her labs are what I would expect for a patient with cirrhosis. Advised her to use nasal saline to keep her nose moist. This will prevent further bleeding 11/21/18 15:00 The patient is already on p.o. potassium - Vital Signs Vital signs: Temp Pulse Resp BP Pulse Ox 98.7 F 113 H 16 115/70 91 L 11/21/18 12:33 11/21/18 12:33 11/21/18 08:11 11/21/18 12:33 11/21/18 12:33 - Laboratory Result Diagrams: 11/21/18 09:03 11/21/18 09:03 Laboratory results interpreted by me: 11/21/18 11/21/18 11/21/18 09:03 09:03 09:03 RBC 2.38 L Hgb 9.9 L Hct 28.3 L MCV 119 H D MCH 41.5 H RDW 15.9 H Plt Count 61 L Band Neutrophils % 1 L PT 15.5 H Sodium 130.9 L Potassium 2.7 L* Chloride 88 L Carbon Dioxide 33 H Glucose 134 H Calcium 7.7 L Total Bilirubin 5.7 H Direct Bilirubin 2.7 H AST 153 H Alkaline Phosphatase 151 H Total Protein 6.2 L Albumin 3.1 L Urine Blood Urine Urobilinogen 11/21/18 12:43 RBC Hgb Hct MCV MCH RDW Plt Count Band Neutrophils % PT Sodium Potassium Chloride Carbon Dioxide Glucose Calcium Total Bilirubin Direct Bilirubin AST Alkaline Phosphatase Total Protein Albumin Urine Blood MODERATE H Urine Urobilinogen 4.0 H - Diagnostic Test Radiology results interpreted by me: 11/21/18 14:56 Paracentesis Ultrasound 11/21/18 10:36 IMPRESSION: Successful ultrasound-guided paracentesis Discharge - Discharge Clinical Impression: Nosebleed, Thrombocytopenia, Hypokalemia Ascites Qualifiers: Ascites type: due to alcoholic cirrhosis Qualified Code(s): K70.31 - Alcoholic cirrhosis of liver with ascites Condition: Good Disposition: HOME, SELF-CARE Instructions: Nosebleed Instructions ([facility]), Cirrhosis ([facility]) Additional Instructions: Your potassium was mildly low please eat bananas and other potassium rich foods the next several days -you may also double up on your potassium supplement for the next several days Referrals: JOHANA VALDEZ MD [Primary Care Provider] - Follow up as needed
[2018-11-21] MEDS ORDERED: MORPHINE SULFATE 10 MG/ML INJ IV ONE (09:19)
[2018-11-21 09:43] LABS: HEMATOCRIT 28.3 % (36.0-47.0); HEMOGLOBIN 9.9 g/dL (12.0-15.5); MEAN CORPUSCULAR HEMOGLOBIN 41.5 pg (27.0-33.4); MEAN CORPUSCULAR HGB CONC 34.9 g/dL (32.0-36.0); RED BLOOD COUNT 2.38 10^6/uL (3.72-5.28); RED CELL DISTRIBUTION WIDTH 15.9 % (11.5-14.0); WHITE BLOOD COUNT 5.8 10^3/uL (4.0-10.5)
[2018-11-21 09:50] LABS: ALANINE AMINOTRANSFERASE 49 U/L (9-52); ALBUMIN 3.1 g/dL (3.5-5.0); ALKALINE PHOSPHATASE 151 U/L (38-126); ANION GAP 10 (5-19); ASPARTATE AMINO TRANSFERASE 153 U/L (14-36); BILIRUBIN,DIRECT 2.7 mg/dL (0.0-0.4); BILIRUBIN,TOTAL 5.7 mg/dL (0.2-1.3); BLOOD UREA NITROGEN 13 mg/dL (7-20); CALCIUM 7.7 mg/dL (8.4-10.2); CARBON DIOXIDE 33 mmol/L (22-30); CHLORIDE 88 mmol/L (98-107); GLUCOSE 134 mg/dL (75-110); LIPASE 240.4 U/L (23-300); SODIUM 130.9 mmol/L (137-145); TOTAL PROTEIN 6.2 g/dL (6.3-8.2)
[2018-11-21 09:54] LABS: POTASSIUM 2.7 mmol/L (3.6-5.0)
[2018-11-21] MEDS ORDERED: POTASSIUM CHLORIDE 10 MEQ CAPSULE.ER PO ONE (10:04)
[2018-11-21 10:16] LABS: PLATELET COUNT 61 10^3/uL (150-450)
[2018-11-21 10:19] LABS: ABSOLUTE LYMPHOCYTES# (MANUAL) 0.8 10^3/uL (0.5-4.7); ABSOLUTE MONOCYTES # (MANUAL) 0.6 10^3/uL (0.1-1.4); ABSOLUTE NEUTROPHILS# (MANUAL) 4.4 10^3/uL (1.7-8.2); ANISOCYTOSIS SLIGHT; BAND NEUTROPHILS % (MANUAL) 1 % (3-5); BASOPHILS % (MANUAL) 0 % (0-2); EOSINOPHILS % (MANUAL) 0 % (0-6); LYMPHOCYTES % (MANUAL) 13 % (13-45); MONOCYTES % (MANUAL) 11 % (3-13); OVALOCYTES SLIGHT; POIKILOCYTOSIS 1+; POLYCHROMASIA SLIGHT; SEGMENTED NEUTROPHILS % (MAN) 75 % (42-78); TEAR DROP CELLS SLIGHT; TOTAL CELLS COUNTED 100
[2018-11-21 10:20] LABS: PLATELET COMMENT DECREASED; PLATELET LARGE PRESENT
[2018-11-21 10:24] LABS: MEAN CORPUSCULAR VOLUME 119 fl (80-97)
[2018-11-21 10:54] LABS: INTERNATIONAL RATION (INR) 1.17; PROTHROMBIN TIME 15.5 SEC (11.4-15.4)
[2018-11-21 13:03] LABS: APPEARANCE,URINE SLIGHTLY-CLOUDY; BILIRUBIN,URINE NEGATIVE (NEGATIVE); COLOR,URINE DARK YELLOW; GLUCOSE, URINE NEGATIVE (NEGATIVE); KETONES,URINE NEGATIVE (NEGATIVE); LEUKOCYTE ESTERASE,URINE NEGATIVE (NEGATIVE); NITRITE,URINE NEGATIVE (NEGATIVE); PROTEIN,URINE NEGATIVE (NEGATIVE); URINE SPECIFIC GRAVITY 1.017
--- NOTE | 2018-11-21 14:36 | RADIOLOGY REPORT (SQ) ---
EXAM DESCRIPTION: U/S ABD PARACENTESIS COMPLETED DATE/TIME: 11/21/2018 2:22 pm REASON FOR STUDY: Ascites COMPARISON 10/25/2018 LIMITATIONS: None. PROCEDURE: After obtaining informed consent, the patient was brought to the ultrasound suite. The p rocedure was performed with the patient on a gurney. Ultrasound was used to identify a prominent poc ket of ascites in the right lower quadrant. An appropriate access site was selected. The patient wa s prepped and draped in usual sterile fashion. The access site was anesthetized with 10 mL 1% lidoc hortencia. A Yhhm-Z-Zmooefiu needle was advanced into the fluid. After aspiration of fluid the needle, t he catheter was advanced off the needle into the fluid. A total of 5,000 mL of straw-colored fluid w as removed. The patient tolerated the procedure well left the department in satisfactory condition. IMPRESSION: Successful ultrasound-guided paracentesis COMMENT: Patient medication list reviewed: Yes- Quality ID# [id number]:Eligible professional attests to doc umenting in the medical record they obtained, updated, or reviewed the patient's current medications. TECHNICAL DOCUMENTATION: JOB ID: [id number] [employer] All Rights Reserved Reading location - IP/workstation name: [email or web address]
[2018-11-21 15:30] VITALS: BP 116/63
== END 2018-11-21 15:15 | disposition home or self-care (01) ==
LOC: ER 08:07
DX: K70.31 Alcoholic cirrhosis of liver with ascites (principal); R04.0 Epistaxis; D69.6 Thrombocytopenia, unspecified; E87.6 Hypokalemia; R10.9 Unspecified abdominal pain; R19.00 Intra-abdominal and pelvic swelling, mass and lump, unspecified site; I10 Essential (primary) hypertension
CPT/HCPCS: 99284; 96361; 96374; 96375; 36415; 83690; 85025; 85610; 80053; 81001; 49083; J2270; J2405; J7030

== ENCOUNTER 2018-12-04 08:06 | Emergency (ER) | payer OTHER ==
[2018-12-04 09:20] LABS: ABSOLUTE LYMPHOCYTES (AUTO) 0.7 10^3/uL (0.5-4.7); ABSOLUTE MONOCYTES (AUTO) 0.7 10^3/uL (0.1-1.4); ABSOLUTE NEUT (AUTO) 4.2 10^3/uL (1.7-8.2); BASOPHILS % (AUTO) 0.8 % (0-2); EOSINOPHILS % (AUTO) 0.6 % (0-6); HEMATOCRIT 31.5 % (36.0-47.0); HEMOGLOBIN 11.1 g/dL (12.0-15.5); LYMPHOCYTES % (AUTO) 12.3 % (13-45); MEAN CORPUSCULAR HEMOGLOBIN 42.1 pg (27.0-33.4); MEAN CORPUSCULAR HGB CONC 35.1 g/dL (32.0-36.0); MEAN CORPUSCULAR VOLUME 120 fl (80-97); MONOCYTES % (AUTO) 11.6 % (3-13); PLATELET COUNT 115 10^3/uL (150-450); RED BLOOD COUNT 2.63 10^6/uL (3.72-5.28); RED CELL DISTRIBUTION WIDTH 15.6 % (11.5-14.0); SEGMENTED NEUTROPHILS % (AUTO) 74.7 % (42-78); TOTAL CELLS COUNTED % (AUTO) 100 %; WHITE BLOOD COUNT 5.7 10^3/uL (4.0-10.5)
[2018-12-04] MEDS ORDERED: MORPHINE SULFATE 10 MG/ML INJ IV ONE (09:37)
[2018-12-04] MEDS ORDERED: ONDANSETRON HCL INJ/PF 4 MG/2 ML SDV IV ONE (09:37)
[2018-12-04 09:38] LABS: APPEARANCE,URINE CLEAR; BILIRUBIN,URINE NEGATIVE (NEGATIVE); COLOR,URINE YELLOW; GLUCOSE, URINE NEGATIVE (NEGATIVE); KETONES,URINE NEGATIVE (NEGATIVE); LEUKOCYTE ESTERASE,URINE NEGATIVE (NEGATIVE); NITRITE,URINE NEGATIVE (NEGATIVE); PROTEIN,URINE NEGATIVE (NEGATIVE); URINE SPECIFIC GRAVITY 1.017
[2018-12-04 09:39] LABS: ALANINE AMINOTRANSFERASE 39 U/L (9-52); ALBUMIN 3.4 g/dL (3.5-5.0); ALKALINE PHOSPHATASE 149 U/L (38-126); ANION GAP 11 (5-19); ASPARTATE AMINO TRANSFERASE 158 U/L (14-36); BILIRUBIN,DIRECT 1.9 mg/dL (0.0-0.4); BILIRUBIN,TOTAL 3.8 mg/dL (0.2-1.3); BLOOD UREA NITROGEN 15 mg/dL (7-20); CARBON DIOXIDE 28 mmol/L (22-30); CHLORIDE 94 mmol/L (98-107); GLUCOSE 119 mg/dL (75-110); LIPASE 251.7 U/L (23-300); SODIUM 132.8 mmol/L (137-145); TOTAL PROTEIN 6.6 g/dL (6.3-8.2)
[2018-12-04 09:42] LABS: ALCOHOL 163 mg/dL (NONE DETECTED); POTASSIUM 2.9 mmol/L (3.6-5.0)
[2018-12-04 09:45] LABS: PROTHROMBIN TIME 15.8 SEC (11.4-15.4)
[2018-12-04 09:49] LABS: ANISOCYTOSIS 1+; OVALOCYTES SLIGHT; PLATELET COMMENT DECREASED; POIKILOCYTOSIS SLIGHT; TEAR DROP CELLS SLIGHT
[2018-12-04] MEDS ORDERED: POTASSIUM CHLORIDE 20 MEQ/15 ML UDCUP PO ONE (16:12)
[2018-12-04 16:22] VITALS: BP 122/67
--- NOTE | 2018-12-04 16:38 | RADIOLOGY REPORT (SQ) ---
EXAM DESCRIPTION: U/S ABD PARACENTESIS COMPLETED DATE/TIME: 12/04/2018 4:27 pm REASON FOR STUDY: ascites COMPARISON: None. LIMITATIONS: None. PROCEDURE: Procedure, risks, benefit, and alternative explained to patient who then gave written con sent. The right upper abdominal wall marked using ultrasound guidance. A time-out was called for co rrect marking verification. Abdomen prepped and draped using sterile technique. Local anesthesia ach ieved using 2.5 ml of 1% lidocaine injection. A 6fr Futb-E-Qcriphzb set was introduced into the melody toneal cavity. Fluid was drained. The catheter was removed and entry site was covered with sterile bandage. No immediate complications noted. Images acquired during the procedure were stored on PACS. FINDINGS: ENTRY SITE: Right upper quadrant FLUID VOLUME: 5000 cc FLUID ANALYSIS: Straw OTHER: Therapeutic only. IMPRESSION: SUCCESSFUL ULTRASOUND GUIDED PARACENTESIS. COMMENT: Patient medication list reviewed:Yes- Quality ID# [id number]:Eligible professional attests to docu menting in the medical record they obtained, updated, or reviewed the patient's current medications. TECHNICAL DOCUMENTATION: JOB ID: [id number] [employer]- All Rights Reserved Reading location - IP/workstation name: [email or web address]
--- NOTE | 2018-12-08 07:51 | ER Document Report ---
Entered by LIVAN ANDERSON SCRIBE 12/04/18911 Acting as scribe for:JOSÉ MIGUEL IRWIN MD ED GI/ - General Chief Complaint: Abdominal Pain Stated Complaint: ABDOMINAL PAIN Time Seen by Provider: 12/04/18 09:00 Primary Care Provider: JOHANA VALDEZ MD [Primary Care Provider] - 12/05/18 (Call the office tomorrow to schedule an appointment this week for follow-up and recheck of your potassium levels.) Information source: Patient Notes: Patient is a 43 year old female alcoholic with a history of ascites who continues to drink that presents to the emergency department today with complaints of needing paracentesis. Patient reports that she was supposed to be "set up outpatient but it did not go through with radiology" and she was told to come to the emergency department. Patient reported to the nursing staff that she did not set it up outpatient because "she does not like the way they do it there, she likes the way they do it here". TRAVEL OUTSIDE OF THE [place] IN LAST 30 DAYS: No - Related Data Allergies/Adverse Reactions: No Known Allergies Allergy (Verified 11/21/18 08:07) Past Medical History - General Information source: Patient - Social History Smoking Status: Never Smoker Cigarette use (# per day): No Frequency of alcohol use: None Drug Abuse: None Lives with: Family Family History: Reviewed & Not Pertinent Patient has suicidal ideation: No Patient has homicidal ideation: No - Past Medical History Cardiac Medical History: Reports: Hx Hypertension - past history GI Medical History: Reports: Hx Cirrhosis, Hx Gastroesophageal Reflux Disease Psychiatric Medical History: Reports: Hx Anxiety, Hx Depression Past Surgical History: Reports: Hx Cholecystectomy - 09/26/2015 - Immunizations Immunizations up to date: Yes Hx Diphtheria, Pertussis, Tetanus Vaccination: Yes Review of Systems - Review of Systems Constitutional: No symptoms reported EENT: No symptoms reported Cardiovascular: No symptoms reported Respiratory: No symptoms reported Gastrointestinal: See HPI, Other - ascites Genitourinary: No symptoms reported Female Genitourinary: No symptoms reported Musculoskeletal: No symptoms reported Skin: No symptoms reported Hematologic/Lymphatic: No symptoms reported Neurological/Psychological: No symptoms reported -: Yes All other systems reviewed and negative Physical Exam - Vital signs Vitals: Temp Pulse Resp BP Pulse Ox 98.9 F 109 H 16 115/74 97 12/04/18 08:08 12/04/18 08:08 12/04/18 08:08 12/04/18 08:08 12/04/18 08:08 - Notes Notes: Physical Exam: General: Alert. HEENT: Normocephalic. Atraumatic. PERRL. Extraocular movements intact. Oropharynx clear. Neck: Supple. Non-tender. Respiratory: No respiratory distress. Clear and equal breath sounds bilaterally. Cardiovascular: Tachycardic, regular rhythm. Abdominal: Tense, ascites. Non-tender. Back: Non-tender. No deformity or step off. Extremities: Moves all four extremities. Upper extremities: Normal inspection. Normal ROM. Lower extremities: Normal inspection. No edema. Normal ROM. Neurological: Normal cognition. AAOx4. Normal speech. Psychological: Normal affect. Normal Mood. Skin: Warm. Dry. Normal color. Course - Vital Signs Vital signs: Temp Pulse Resp BP Pulse Ox 98.6 F 110 H 16 122/67 100 12/04/18 16:21 12/04/18 16:21 12/04/18 16:21 12/04/18 16:21 12/04/18 16:21 - Laboratory Result Diagrams: 12/04/18 08:50 12/04/18 08:50 Laboratory results interpreted by me: 12/04/18 12/04/18 12/04/18 08:50 08:50 08:50 RBC 2.63 L Hgb 11.1 L Hct 31.5 L MCV 120 H MCH 42.1 H RDW 15.6 H Plt Count 115 L Lymphocytes % 12.3 L PT 15.8 H Sodium 132.8 L Potassium 2.9 L* Chloride 94 L Glucose 119 H Calcium 8.0 L Total Bilirubin 3.8 H Direct Bilirubin 1.9 H AST 158 H Alkaline Phosphatase 149 H Albumin 3.4 L Urine Blood Urine Urobilinogen 12/04/18 08:56 RBC Hgb Hct MCV MCH RDW Plt Count Lymphocytes % PT Sodium Potassium Chloride Glucose Calcium Total Bilirubin Direct Bilirubin AST Alkaline Phosphatase Albumin Urine Blood SMALL H Urine Urobilinogen 2.0 H Discharge - Discharge Clinical Impression: Hypokalemia Ascites Qualifiers: Ascites type: due to alcoholic cirrhosis Qualified Code(s): K70.31 - Alcoholic cirrhosis of liver with ascites Alcohol intoxication Qualifiers: Complication of substance-induced condition: with unspecified complication Qualified Code(s): F10.929 - Alcohol use, unspecified with intoxication, unspecified Disposition: HOME, SELF-CARE I personally performed the services described in the documentation, reviewed and edited the documentation which was dictated to the scribe in my presence, and it accurately records my words and actions.
== END 2018-12-04 16:41 | disposition home or self-care (01) ==
LOC: ER 08:06
PROC: 0W9G3ZZ Drainage of Peritoneal Cavity, Percutaneous Approach (ICD-10-PCS; principal; 2018-12-04)
DX: K70.31 Alcoholic cirrhosis of liver with ascites (principal); E87.6 Hypokalemia; F10.929 Alcohol use, unspecified with intoxication, unspecified; R10.9 Unspecified abdominal pain
CPT/HCPCS: 99284; 96374; 96375; 36415; 80307; 83690; 85025; 85610; 81025; 80053; 81001; 49083; J2270; J2405

== ENCOUNTER 2018-12-18 07:05 | Day surgery (SDC) | payer OTHER ==
[2018-12-18 08:01] LABS: INTERNATIONAL RATION (INR) 1.17; PROTHROMBIN TIME 15.5 SEC (11.4-15.4)
[2018-12-18 08:02] LABS: PARTIAL THROMBOPLASTIN TIME 32.2 SEC (23.5-35.8)
[2018-12-18 08:03] LABS: HEMATOCRIT 31.2 % (36.0-47.0); HEMOGLOBIN 10.8 g/dL (12.0-15.5); MEAN CORPUSCULAR HEMOGLOBIN 41.7 pg (27.0-33.4); MEAN CORPUSCULAR HGB CONC 34.7 g/dL (32.0-36.0); MEAN CORPUSCULAR VOLUME 120 fl (80-97); RED BLOOD COUNT 2.59 10^6/uL (3.72-5.28); RED CELL DISTRIBUTION WIDTH 15.4 % (11.5-14.0); WHITE BLOOD COUNT 5.6 10^3/uL (4.0-10.5)
[2018-12-18 08:05] LABS: BLOOD UREA NITROGEN 10 mg/dL (7-20)
[2018-12-18 08:32] LABS: PLATELET COUNT 92 10^3/uL (150-450)
[2018-12-18 11:32] VITALS: BP 103/54
--- NOTE | 2018-12-18 11:40 | RADIOLOGY REPORT (SQ) ---
EXAM DESCRIPTION: U/S ABD PARACENTESIS COMPLETED DATE/TIME: 12/18/2018 10:40 am REASON FOR STUDY: ALCOHOLIC CIRRHOSIS OF LIVER WITH ASCITES K70.31 ALCOHOLIC CIRRHOSIS OF LIVER WIT H ASCITES COMPARISON: None. LIMITATIONS: None. PROCEDURE: Procedure, risks, benefit, and alternative explained to patient who then gave written con sent. The right lower abdominal wall marked using ultrasound guidance. A time-out was called for co rrect marking verification. Abdomen prepped and draped using sterile technique. Local anesthesia ach ieved using 3.0 ml of 1% lidocaine injection. A 6fr Nxew-B-Ivyqrkvd set was introduced into the melody toneal cavity. Fluid was drained. The catheter was removed and entry site was covered with sterile bandage. No immediate complications noted. Images acquired during the procedure were stored on PACS. FINDINGS: ENTRY SITE: Right lower quadrant. FLUID VOLUME: 6000 cc FLUID ANALYSIS: Straw OTHER: Therapeutic only. IMPRESSION: SUCCESSFUL ULTRASOUND GUIDED PARACENTESIS. COMMENT: Patient medication list reviewed:Yes- Quality ID# [id number]:Eligible professional attests to docu menting in the medical record they obtained, updated, or reviewed the patient's current medications. TECHNICAL DOCUMENTATION: JOB ID: [id number] [employer]- All Rights Reserved Reading location - IP/workstation name: [email or web address]
== END 2018-12-18 11:30 | disposition home or self-care (01) ==
LOC: RAD 07:05
PROVIDERS: ATTEND Internal Medicine Geriatric Medicine
DX: K70.31 Alcoholic cirrhosis of liver with ascites (principal)
CPT/HCPCS: 36415; 49083; 82565; 84520; 85027; 85610; 85730

== ENCOUNTER 2018-12-28 07:56 | Day surgery (SDC) | payer OTHER ==
[2018-12-28 08:27] LABS: PROTHROMBIN TIME 14.7 SEC (11.4-15.4)
[2018-12-28 08:28] LABS: PARTIAL THROMBOPLASTIN TIME 31.5 SEC (23.5-35.8)
[2018-12-28 08:33] LABS: HEMATOCRIT 32.3 % (36.0-47.0); HEMOGLOBIN 11.3 g/dL (12.0-15.5); MEAN CORPUSCULAR HEMOGLOBIN 41.7 pg (27.0-33.4); MEAN CORPUSCULAR HGB CONC 35.1 g/dL (32.0-36.0); MEAN CORPUSCULAR VOLUME 119 fl (80-97); PLATELET COUNT 140 10^3/uL (150-450); RED BLOOD COUNT 2.72 10^6/uL (3.72-5.28); RED CELL DISTRIBUTION WIDTH 15.3 % (11.5-14.0); WHITE BLOOD COUNT 9.4 10^3/uL (4.0-10.5)
[2018-12-28 08:43] LABS: BLOOD UREA NITROGEN 17 mg/dL (7-20)
[2018-12-28 13:07] VITALS: BP 116/65
--- NOTE | 2018-12-28 13:20 | RADIOLOGY REPORT (SQ) ---
EXAM DESCRIPTION: U/S ABD PARACENTESIS COMPLETED DATE/TIME: 12/28/2018 11:58 am REASON FOR STUDY: ASCITES COMPARISON None. LIMITATIONS: None. PROCEDURE: After obtaining informed consent, the patient was brought to the ultrasound suite. The p rocedure was performed with the patient on a gurney. Ultrasound was used to identify a prominent poc ket of ascites in the left lower quadrant. An appropriate access site was selected. The patient was prepped and draped in usual sterile fashion. The access site was anesthetized with 3.0 mL 1% lidoc hortencia. A Nypo-P-Novjuraf needle was advanced into the fluid. After aspiration of fluid the needle, t he catheter was advanced off the needle into the fluid. A total of 6,000 mL of cloudy yellow fluid w as removed. The patient tolerated the procedure well left the department in satisfactory condition. IMPRESSION: Successful ultrasound-guided paracentesis COMMENT: Patient medication list reviewed: Yes- Quality ID# [id number]:Eligible professional attests to doc umenting in the medical record they obtained, updated, or reviewed the patient's current medications. TECHNICAL DOCUMENTATION: JOB ID: [id number] [employer]- All Rights Reserved Reading location - IP/workstation name: [email or web address]
== END 2018-12-28 12:30 | disposition home or self-care (01) ==
LOC: RAD 07:56
PROVIDERS: ATTEND Internal Medicine Geriatric Medicine
DX: K74.60 Unspecified cirrhosis of liver (principal); I10 Essential (primary) hypertension; R18.8 Other ascites
CPT/HCPCS: 36415; 49083; 82565; 84520; 85027; 85610; 85730

== ENCOUNTER 2019-01-06 07:50 | Emergency (ER) | payer OTHER ==
[2019-01-06 08:53] LABS: ABSOLUTE BASOPHILS # (AUTO) 0.1 10^3/uL (0.0-0.2); ABSOLUTE LYMPHOCYTES (AUTO) 0.6 10^3/uL (0.5-4.7); ABSOLUTE MONOCYTES (AUTO) 0.8 10^3/uL (0.1-1.4); ABSOLUTE NEUT (AUTO) 5.6 10^3/uL (1.7-8.2); BASOPHILS % (AUTO) 0.7 % (0-2); EOSINOPHILS % (AUTO) 0.6 % (0-6); HEMATOCRIT 32.7 % (36.0-47.0); HEMOGLOBIN 11.4 g/dL (12.0-15.5); MEAN CORPUSCULAR HEMOGLOBIN 41.7 pg (27.0-33.4); MEAN CORPUSCULAR HGB CONC 34.8 g/dL (32.0-36.0); MONOCYTES % (AUTO) 10.6 % (3-13); PLATELET COUNT 108 10^3/uL (150-450); RED BLOOD COUNT 2.73 10^6/uL (3.72-5.28); RED CELL DISTRIBUTION WIDTH 15.3 % (11.5-14.0); SEGMENTED NEUTROPHILS % (AUTO) 79.1 % (42-78); TOTAL CELLS COUNTED % (AUTO) 100 %; WHITE BLOOD COUNT 7.1 10^3/uL (4.0-10.5)
[2019-01-06 08:55] LABS: MEAN CORPUSCULAR VOLUME 120 fl (80-97)
[2019-01-06 09:02] LABS: ALANINE AMINOTRANSFERASE 50 U/L (9-52); ALBUMIN 3.7 g/dL (3.5-5.0); ALKALINE PHOSPHATASE 177 U/L (38-126); ANION GAP 13 (5-19); ASPARTATE AMINO TRANSFERASE 180 U/L (14-36); BILIRUBIN,DIRECT 2.5 mg/dL (0.0-0.4); BILIRUBIN,TOTAL 4.6 mg/dL (0.2-1.3); BLOOD UREA NITROGEN 20 mg/dL (7-20); CALCIUM 8.7 mg/dL (8.4-10.2); CARBON DIOXIDE 23 mmol/L (22-30); CHLORIDE 92 mmol/L (98-107); GLUCOSE 157 mg/dL (75-110); POTASSIUM 3.8 mmol/L (3.6-5.0); SODIUM 128.3 mmol/L (137-145); TOTAL PROTEIN 7.1 g/dL (6.3-8.2)
[2019-01-06 09:21] LABS: ANISOCYTOSIS SLIGHT; PLATELET COMMENT DECREASED; POIKILOCYTOSIS SLIGHT; TEAR DROP CELLS SLIGHT
--- NOTE | 2019-01-06 09:33 | ER Document Report ---
ED General - General Chief Complaint: Abdominal Swelling Stated Complaint: ABDOMINAL SWELLING Time Seen by Provider: 01/06/19 08:17 Primary Care Provider: JOHANA VALDEZ MD [Primary Care Provider] - Follow up as needed Notes: 43-year-old female with history of alcohol abuse and cirrhosis presents to the emergency department for ascites. She states she was last drained 2 weeks ago here in the emergency department. She is currently complaining of difficulty breathing, diffuse pain, vomiting and nausea, and decreased appetite and fluid intake. She states she has been drinking in the last 3 days due to a family . She denies any altered mental status. Denies chest pain. No other complaints. TRAVEL OUTSIDE OF THE [place] IN LAST 30 DAYS: No - Related Data Allergies/Adverse Reactions: No Known Allergies Allergy (Verified 01/06/19 07:51) Past Medical History - Social History Smoking Status: Unknown if Ever Smoked Family History: Reviewed & Not Pertinent Patient has suicidal ideation: No Patient has homicidal ideation: No - Past Medical History Cardiac Medical History: Denies: Hx Coronary Artery Disease, Hx Heart Attack, Hx Hypertension - on me dication Pulmonary Medical History: Denies: Hx Asthma, Hx Bronchitis, Hx COPD, Hx Pneumonia Neurological Medical History: Denies: Hx Cerebrovascular Accident, Hx Seizures Renal/ Medical History: Denies: Hx Peritoneal Dialysis GI Medical History: Reports: Hx Cirrhosis, Hx Gastroesophageal Reflux Disease Musculoskeletal Medical History: Denies Hx Arthritis Psychiatric Medical History: Reports: Hx Anxiety, Hx Depression Past Surgical History: Reports: Hx Abdominal Surgery - Gallbladder 09/26/2015, Hx Cholecystectomy - 09/26/2015 - Immunizations Immunizations up to date: Yes Hx Diphtheria, Pertussis, Tetanus Vaccination: Yes Review of Systems - Review of Systems Constitutional: See HPI EENT: No symptoms reported Cardiovascular: See HPI Respiratory: See HPI Gastrointestinal: See HPI Genitourinary: No symptoms reported Female Genitourinary: No symptoms reported Musculoskeletal: No symptoms reported Skin: See HPI Hematologic/Lymphatic: No symptoms reported Neurological/Psychological: See HPI Physical Exam - Vital signs Vitals: Temp Pulse Resp BP Pulse Ox 98.4 F 117 H 16 114/67 97 01/06/19 07:56 01/06/19 07:56 01/06/19 07:56 01/06/19 07:56 01/06/19 07:56 - Notes Notes: PHYSICAL EXAMINATION: Reviewed vital signs and charting by RN GENERAL: Alert, interacts well. Mild distress. HEAD: Normocephalic, atraumatic. EYES: Pupils equal, round, and reactive to light. Extraocular movements intact. Scleral icterus ENT: Oral mucosa moist, tongue midline. NECK: Full range of motion. Supple. Trachea midline. LUNGS: Clear to auscultation bilaterally, no wheezes, rales, or rhonchi. No respiratory distress. HEART: Regular rate and rhythm. No murmur ABDOMEN: soft, mild tenderness. Grossly-distended. EXTREMITIES: Moves all 4 extremities spontaneously. No edema, No cyanosis. NEUROLOGICAL: Alert and oriented x3. Normal speech. PSYCH: Normal affect, normal mood. Course - Re-evaluation Re-evalutation: 01/06/19 11:11 Patient in mild distress. Abdomen is grossly distended and tense. She is symptomatic and cardiac in the mid 120s. Blood pressure stable at 108/75. Patient mildly tachypneic. Lactate 2.5. I called Dr. Wick, surgeon, who agreed to come and perform a paracentesis at the bedside. INR 1.07. Hemoglobin 01/06/19 16:52 Dr. Wick performed a paracentesis. He was in the OR for several hours prior to the procedure which explains the delay. He removed just under 4 L of fluid. A culture was sent, the fluid did look clear. She endorses feeling better. Patient is stable for discharge. Patient was given education that this is not the proper venue to come and give fluid drained every couple weeks. Nurse gave her options for potential draining at home with a pleural cath. - Vital Signs Vital signs: Temp Pulse Resp BP Pulse Ox 98.4 F 117 H 25 H 111/70 95 01/06/19 07:56 01/06/19 07:56 01/06/19 16:15 01/06/19 16:15 01/06/19 16:15 - Laboratory Result Diagrams: 01/06/19 08:30 01/06/19 08:30 Laboratory results interpreted by me: 01/06/19 01/06/19 01/06/19 08:30 08:30 08:30 RBC 2.73 L Hgb 11.4 L Hct 32.7 L MCV 120 H MCH 41.7 H RDW 15.3 H Plt Count 108 L Seg Neutrophils % 79.1 H Lymphocytes % 9.0 L Sodium 128.3 L Chloride 92 L Est GFR (Non-Af Amer) 58 L Glucose 157 H Lactic Acid 2.5 H Total Bilirubin 4.6 H Direct Bilirubin 2.5 H AST 180 H Alkaline Phosphatase 177 H Urine Blood Urine Urobilinogen Ur Leukocyte Esterase 01/06/19 09:40 RBC Hgb Hct MCV MCH RDW Plt Count Seg Neutrophils % Lymphocytes % Sodium Chloride Est GFR (Non-Af Amer) Glucose Lactic Acid Total Bilirubin Direct Bilirubin AST Alkaline Phosphatase Urine Blood SMALL H Urine Urobilinogen 2.0 H Ur Leukocyte Esterase SMALL H Discharge - Discharge Clinical Impression: Ascites due to alcoholic cirrhosis Alcohol dependency Qualifiers: Substance use status: unspecified alcohol-induced disorder Qualified Code(s): F10.29 - Alcohol dependence with unspecified alcohol-induced disorder Condition: Good Disposition: HOME, SELF-CARE Additional Instructions: You were seen in the emergency department this afternoon for ascites. Is important that you maintain a regular schedule with your doctor to have periodic draining's. The emergency department is not an appropriate place to manage this . It is much safer for you if you have regular follow-up. Also, it is important that you stop drinking. If you develop uncontrolled bleeding, have respiratory distress, severe chest pain, any blood in your vomit or stool, pass out please immediately return to the emergency department. Referrals: JOHANA VALDEZ MD [Primary Care Provider] - Follow up as needed
[2019-01-06 10:12] LABS: APPEARANCE,URINE SLIGHTLY-CLOUDY; BILIRUBIN,URINE NEGATIVE (NEGATIVE); COLOR,URINE AMBER; GLUCOSE, URINE NEGATIVE (NEGATIVE); KETONES,URINE NEGATIVE (NEGATIVE); LEUKOCYTE ESTERASE,URINE SMALL (NEGATIVE); NITRITE,URINE NEGATIVE (NEGATIVE); PROTEIN,URINE NEGATIVE (NEGATIVE); URINE SPECIFIC GRAVITY 1.014
[2019-01-06] MEDS ORDERED: ONDANSETRON HCL INJ/PF 4 MG/2 ML SDV IV ONE (10:18)
[2019-01-06 10:45] LABS: INTERNATIONAL RATION (INR) 1.07; PROTHROMBIN TIME 14.5 SEC (11.4-15.4)
[2019-01-06] MEDS ORDERED: FENTANYL CITRATE INJ/PF 100 MCG/2 ML AMPUL IV ONE ×2 (11:09→12:55)
[2019-01-06 17:39] VITALS: BP 108/61
--- NOTE | 2019-01-06 17:43 | OPERATIVE REPORT E ---
Operative Report NAME: MADELYN JENSEN : 1975 AGE: 43Y DATE OF SURGERY: 01/06/2019 ROOM: PREOPERATIVE DIAGNOSIS: MASSIVE ASCITES DUE TO LIVER CIRRHOSIS. POSTOPERATIVE DIAGNOSIS: MASSIVE ASCITES DUE TO LIVER CIRRHOSIS. PROCEDURE: Paracentesis. SURGEON: JILLIAN VASQUEZ M.D. ANESTHESIA: Local. INDICATION: This is a 43-year-old female with known history of ascites due to liver cirrhosis. She had a paracentesis done about 3 to 4 weeks ago and radiology drained about 6 liters. The patient now complaining of more abdominal discomfort and difficulty breathing due to abdominal distention due to ascites. DESCRIPTION OF PROCEDURE: With the use of the ultrasound an appropriate location in the abdomen was then identified right at the right lateral upper quadrant area. This was then prepped and draped in the usual sterile fashion. Local anesthesia infiltrated and a catheter with inside needle was then used to puncture the abdominal wall to a distance of about 2-3 cm. Clear yellowish fluid was then aspirated and this time the catheter needle and the cath was then pulled out to about 1 cm just enough for the tip to get into the catheter and the catheter was subsequently threaded towards the area of the right lower quadrant. The needle was then removed and catheter aspirated about 160 mL of saline solution, it was clear and yellowish. Next the catheter was then introduced through the middle with suction bottle and suction activated and drained about a liter of clear fluid. Next another bottle was connected and aspirated about 500 mL. Next the catheter was threaded with guidewire needle and the catheter directed towards the area of the suprapubic site. The patient also positioned with the head down. This time another liter of clear fluid was aspirated. The catheter needed to be again repositioned to the right lower quadrant area and the patient positioned in a semi sitting position. This time more fluid was aspirated and to a total of about 4 liters. At the 4 liter lloyd the catheter stopped draining fluid and subsequently pulled out. About a total of 4 liters of clear yellowish fluid was obtained and some specimen sent for C and S. The puncture site was subsequently closed with Dermabond dressing. The patient tolerated the procedure well. The patient able to breathe better and the vital signs remained stable though remained tachycardic around 120 per minute with a blood pressure about 110/60. DICTATING PHYSICIAN: JILLIAN VASQUEZ M.D. [id number] PHY#: [id number] ID: [id number] JOB#: [id number] ACCT: [id number] cc:JILLIAN VASQUEZ M.D. >
== END 2019-01-06 17:39 | disposition home or self-care (01) ==
LOC: ER 07:50
DX: K70.31 Alcoholic cirrhosis of liver with ascites (principal); F10.29 Alcohol dependence with unspecified alcohol-induced disorder; R11.2 Nausea with vomiting, unspecified; R63.0 Anorexia; R06.82 Tachypnea, not elsewhere classified
CPT/HCPCS: 96376; 99284; 96374; 96375; 36415; 87205; 87070; 83605; 85025; 85610; 81025; 87075; 80053; 81001; 49082; J3010; J2405

== ENCOUNTER 2019-01-10 14:10 | Observation (INO) | payer OTHER ==
[2019-01-10 15:32] LABS: INTERNATIONAL RATION (INR) 1.06; PROTHROMBIN TIME 14.4 SEC (11.4-15.4)
[2019-01-10 15:45] LABS: PARTIAL THROMBOPLASTIN TIME 23.5 SEC (23.5-35.8)
[2019-01-10 15:47] LABS: ALANINE AMINOTRANSFERASE 41 U/L (9-52); ALBUMIN 2.6 g/dL (3.5-5.0); ALKALINE PHOSPHATASE 113 U/L (38-126); ANION GAP 13 (5-19); ASPARTATE AMINO TRANSFERASE 99 U/L (14-36); BILIRUBIN,DIRECT 2.2 mg/dL (0.0-0.4); BILIRUBIN,TOTAL 3.4 mg/dL (0.2-1.3); BLOOD UREA NITROGEN 17 mg/dL (7-20); CALCIUM 8.3 mg/dL (8.4-10.2); CARBON DIOXIDE 21 mmol/L (22-30); CHLORIDE 94 mmol/L (98-107); GLUCOSE 156 mg/dL (75-110); POTASSIUM 3.8 mmol/L (3.6-5.0); TOTAL PROTEIN 5.6 g/dL (6.3-8.2)
[2019-01-10] MEDS: PANTOPRAZOLE SODIUM 40 MG TABLET.DR PO SCH (16:23)
[2019-01-10 17:56] LABS: ABSOLUTE EOSINOPHILS # (AUTO) 0.1 10^3/uL (0.0-0.6); ABSOLUTE LYMPHOCYTES (AUTO) 0.4 10^3/uL (0.5-4.7); ABSOLUTE MONOCYTES (AUTO) 0.9 10^3/uL (0.1-1.4); ABSOLUTE NEUT (AUTO) 4.9 10^3/uL (1.7-8.2); BASOPHILS % (AUTO) 0.4 % (0-2); EOSINOPHILS % (AUTO) 1.4 % (0-6); HEMATOCRIT 26.3 % (36.0-47.0); HEMOGLOBIN 9.3 g/dL (12.0-15.5); LYMPHOCYTES % (AUTO) 6.4 % (13-45); MEAN CORPUSCULAR HEMOGLOBIN 42.1 pg (27.0-33.4); MEAN CORPUSCULAR HGB CONC 35.3 g/dL (32.0-36.0); MEAN CORPUSCULAR VOLUME 119 fl (80-97); MONOCYTES % (AUTO) 14.1 % (3-13); RED CELL DISTRIBUTION WIDTH 15.7 % (11.5-14.0); SEGMENTED NEUTROPHILS % (AUTO) 77.7 % (42-78); TOTAL CELLS COUNTED % (AUTO) 100 %; WHITE BLOOD COUNT 6.3 10^3/uL (4.0-10.5)
[2019-01-10 18:09] LABS: PLATELET COUNT 72 10^3/uL (150-450)
--- NOTE | 2019-01-10 19:46 | PDOC H&P ---
History of Present Illness Admission Date/PCP: 01/10/19 14:10 JOHANA OSUNKOYA Patient complains of: Chest pain, shortness of breath History of Present Illness: MADELYN JENSEN is a 43 year old female patient known to my practice who presented to the office today due to worsening difficulty with breathing, chest pain, palpitation, abdominal swelling, lightheadedness and dizziness. She has end stage alcohol liver cirrhosis with recurrent ascites and need for large volume paracentesis on almost weekly bases. She has been noncompliance with office follow up visit. She admitted to self-decrease of her diuretic therapy to daily instead of twice daily as prescribed. Spouse at office visit reported increase confusion and irrational decision making in recent time. Patient reported worsening anxiety, increase sleepiness, recent memory problem, headache, flushing, social withdrawal, bereavement due to recent of her brother, persecutory and paranoid feelings. Her morbidities include alcohol liver cirrhosis with ascites, mixed anxiety with depressive mood, essential hypertension, chronic pain syndrome with opioid dependency, seasonal allergic rhinitis, and persistent insomnia. She was advised hospitalization on telemetry observation bed for further evaluation and management. Past Medical History Cardiac Medical History: Reports: Hypertension - on medication Denies: Congestive Heart Failure, Coronary Artery Disease, Myocardial Infarction Pulmonary Medical History: Denies: Asthma, Bronchitis, Chronic Obstructive Pulmonary Disease (COPD), Pneumonia, Tuberculosis Neurological Medical History: Denies: Seizures Renal/ Medical History: Denies: End Stage Renal Disease GI Medical History: Reports: Cirrhosis - with recurrent ascites, Gastroesophageal Reflux Disease Musculoskeltal Medical History: Denies: Arthritis Psychiatric Medical History: Reports: Alcohol Dependency, Depression, General Anxiety Disorder Denies: Bipolar Disorder Hematology: Reports: Anemia Denies: Bleeding Tendencies Past Surgical History Past Surgical History: Reports: Cholecystectomy - 09/26/2015 Social History Smoking Status: Former Smoker Frequency of Alcohol Use: None Hx Recreational Drug Use: No Drugs: None Hx Prescription Drug Abuse: No - Advance Directive Resuscitation Status: Full Code Family History Family History: Reviewed & Not Pertinent Parental Family History Reviewed: Yes Children Family History Reviewed: Yes Sibling(s) Family History Reviewed.: Yes Medication/Allergy Home Medications: Cetirizine HCl [Cetirizine 5 mg Tablet] 5 mg PO Q12 01/10/19 Escitalopram Oxalate [Lexapro] 20 mg PO DAILY 01/10/19 Furosemide [Lasix 80 mg Tablet] 80 mg PO BID 01/10/19 Lactulose [Cephulac 20 gm/30 ml Syrup UD Cup] 10 gm PO TID 01/10/19 Magnesium Oxide [Mag-Ox 400 mg Tablet] 400 mg PO DAILY 01/10/19 Omeprazole 20 mg PO Q6AM 01/10/19 Potassium Chloride [Klor-Con M20] 20 meq PO DAILY 01/10/19 Spironolactone [Aldactone] 100 mg PO QHS 01/10/19 Spironolactone [Aldactone] 200 mg PO DAILY 01/10/19 Allergies/Adverse Reactions: No Known Allergies Allergy (Verified 01/06/19 07:51) Review of Systems Constitutional: PRESENT: anorexia, chills, headache(s), weakness Eyes: ABSENT: visual disturbances Ears: ABSENT: hearing changes Nose, Mouth, and Throat: PRESENT: headache(s) Cardiovascular: PRESENT: chest pain, dyspnea on exertion, edema - to abdominal wall Respiratory: PRESENT: dyspnea Gastrointestinal: PRESENT: abdominal pain - cramping, aching, sharp and stabbing in character as per patient's description, bloating, diarrhea - occasional, nausea, vomiting Genitourinary: ABSENT: difficulty urinating, dysuria, hematuria Musculoskeletal: ABSENT: joint swelling Integumentary: ABSENT: rash, wounds Neurological: PRESENT: confusion, dizziness Psychiatric: PRESENT: anxiety, depression Endocrine: PRESENT: flushing Hematologic/Lymphatic: ABSENT: easy bleeding, easy bruising, lymphadenopathy Allergic/Immunologic: ABSENT: seasonal rhinorrhea Physical Exam Vital Signs: Temp Pulse Resp BP Pulse Ox 99.3 F 117 H 20 125/63 100 01/10/19 14:54 01/10/19 14:54 01/10/19 14:54 01/10/19 14:54 01/10/19 14:54 Intake & Output 01/09/19 01/10/19 01/11/19 06:59 06:59 06:59 Weight 61.3 kg General appearance: PRESENT: mild distress, thin Head exam: PRESENT: atraumatic, normocephalic Eye exam: PRESENT: conjunctiva pink, EOMI, PERRLA. ABSENT: scleral icterus Ear exam: PRESENT: normal external ear exam Mouth exam: PRESENT: moist Neck exam: PRESENT: full ROM. ABSENT: carotid bruit, JVD, lymphadenopathy, thyromegaly Respiratory exam: PRESENT: clear to auscultation ellie, decreased breath sounds - at lung bases Cardiovascular exam: PRESENT: +S1, +S2, tachycardia. ABSENT: diastolic murmur, systolic murmur Vascular exam: ABSENT: pallor GI/Abdominal exam: PRESENT: ascites, distended, normal bowel sounds, tenderness - to skin palpation. ABSENT: guarding, rebound Rectal exam: PRESENT: deferred Extremities exam: ABSENT: pedal edema Musculoskeletal exam: ABSENT: deformity Neurological exam: PRESENT: altered - intermittently off in responses and insight into ongoing problem., awake, oriented to person, oriented to place, oriented to time, CN II-XII grossly intact, motor sensory deficit, other - no demonstrable asterixis. ABSENT: oriented to situation, abnormal gait, ataxia Psychiatric exam: PRESENT: anxious, depressed Skin exam: PRESENT: dry, erythema - lower abdominal quadrants region, warm. ABSENT: jaundice, petechiae, skin tears Results Laboratory Results: 01/10/19 17:27 01/10/19 15:12 01/10/19 01/10/19 01/10/19 15:12 15:12 15:12 WBC Cancelled RBC Cancelled Hgb Cancelled Hct Cancelled MCV Cancelled MCH Cancelled MCHC Cancelled RDW Cancelled Plt Count Cancelled Seg Neutrophils % Cancelled Lymphocytes % Cancelled Monocytes % Cancelled Eosinophils % Cancelled Basophils % Cancelled Absolute Neutrophils Cancelled Absolute Lymphocytes Cancelled Absolute Monocytes Cancelled Absolute Eosinophils Cancelled Absolute Basophils Cancelled Sodium 128.0 L Potassium 3.8 Chloride 94 L Carbon Dioxide 21 L Anion Gap 13 BUN 17 Creatinine 0.93 Est GFR ( Amer) > 60 Est GFR (Non-Af Amer) > 60 Glucose 156 H Calcium 8.3 L Total Bilirubin 3.4 H AST 99 H ALT 41 Alkaline Phosphatase 113 Ammonia 56.6 H Total Protein 5.6 L Albumin 2.6 L 01/10/19 17:27 WBC 6.3 RBC 2.20 L Hgb 9.3 L Hct 26.3 L MCV 119 H MCH 42.1 H MCHC 35.3 RDW 15.7 H Plt Count 72 L Seg Neutrophils % 77.7 Lymphocytes % 6.4 L Monocytes % 14.1 H Eosinophils % 1.4 Basophils % 0.4 Absolute Neutrophils 4.9 Absolute Lymphocytes 0.4 L Absolute Monocytes 0.9 Absolute Eosinophils 0.1 Absolute Basophils 0.0 Sodium Potassium Chloride Carbon Dioxide Anion Gap BUN Creatinine Est GFR ( Amer) Est GFR (Non-Af Amer) Glucose Calcium Total Bilirubin AST ALT Alkaline Phosphatase Ammonia Total Protein Albumin Assessment & Plan - Diagnosis (1) Increasing shortness of breath Is this a current diagnosis for this admission?: Yes Plan: Probably due to worsening ascites as consequence of her alcohol liver cirrhosis. (2) Ascites due to alcoholic cirrhosis Is this a current diagnosis for this admission?: Yes Plan: She will need therapeutic US guided paracentesis. I emphasized need for medication and dietary restriction compliance. (3) Hepatic encephalopathy syndrome Is this a current diagnosis for this admission?: Yes Plan: Maintain on Lactulose therapy. (4) Hyperbilirubinemia Is this a current diagnosis for this admission?: Yes Plan: Due to her end stage alcohol liver cirrhosis. Maintain on dietary restriction management. (5) Hyponatremia Is this a current diagnosis for this admission?: Yes Plan: Continue diuretic and supportive therapy. (6) Anemia of chronic disease Is this a current diagnosis for this admission?: Yes Plan: Monitor CBC and transfuse when indicated. (7) Mixed anxiety and depressive disorder Is this a current diagnosis for this admission?: Yes Plan: Maintain on preadmission medication management. (8) Thrombocytopenia concurrent with and due to alcoholism Is this a current diagnosis for this admission?: Yes Plan: Obtain alcohol level. Continue conservative management. I will continue co unseling regarding abstinence from alcohol. - Time Time Spent: 50 to 70 Minutes Medications reviewed and adjusted accordingly: Yes Anticipated discharge: Home Within: within 48 hours - Inpatient Certification Based on my medical assessment, after consideration of the patient's comorbidities, presenting symptoms, or acuity I expect that the services needed warrant INPATIENT care.: Yes I certify that my determination is in accordance with my understanding of Medicare's requirements for reasonable and necessary INPATIENT services [42 CFR 412.3e].: Yes Medical Necessity: Significant Comorbidiites Make Outpatient Treatment Too Risky, Need Close Monitoring Due to Risk of Patient Decompensation, Need For Continuous Telemetry Monitoring - due to her tachycardia and dyspnea upon presentation in the office., Risk of Complication if Not Cared For in Hospital, Risk of Diagnosis Which Will Require Inpatient Eval/Care/Monitoring Post 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 I will request interventional radiology input regarding paracentesis. See admitting attending physician orders as per above care plan.
[2019-01-10] MEDS ORDERED: (PENDING PHARMACY ID) (Spironolactone [Aldactone 100 Mg Tablet] 100 MG) PO SCH (22:00)
[2019-01-10] MEDS: CETIRIZINE 5 MG TABLET PO SCH (22:40)
[2019-01-10] MEDS: SPIRONOLACTONE 25 MG TABLET PO SCH (22:41)
[2019-01-11] MEDS ORDERED: PANTOPRAZOLE SODIUM 20 MG TABLET.DR PO SCH (06:00)
[2019-01-11] MEDS: LACTULOSE SYRUP 20 GM/30 ML UDCUP PO SCH ×3 (09:22→18:18)
[2019-01-11] MEDS: PANTOPRAZOLE SODIUM 40 MG TABLET.DR PO SCH (09:22)
[2019-01-11] MEDS: CETIRIZINE 5 MG TABLET PO SCH ×2 (09:22→22:42)
[2019-01-11] MEDS: FUROSEMIDE 80 MG TABLET PO SCH ×2 (09:22→18:18)
[2019-01-11] MEDS: POTASSIUM CHLORIDE 10 MEQ CAPSULE.ER PO SCH (09:22)
[2019-01-11] MEDS: ESCITALOPRAM OXALATE 10 MG TABLET PO SCH (09:23)
[2019-01-11] MEDS: SPIRONOLACTONE 25 MG TABLET PO SCH ×2 (09:23→22:43)
[2019-01-11] MEDS: MAGNESIUM OXIDE 400 MG TABLET PO SCH (09:24)
[2019-01-11] MEDS ORDERED: (PENDING PHARMACY ID) (Potassium Chloride [Klor-Con M20] 20 MEQ) PO SCH (10:00)
[2019-01-11] MEDS ORDERED: SPIRONOLACTONE 200 MG PO SCH (10:00)
--- NOTE | 2019-01-11 15:26 | RADIOLOGY REPORT (SQ) ---
EXAM DESCRIPTION: U/S ABD PARACENTESIS COMPLETED DATE/TIME: 01/11/2019 12:23 pm REASON FOR STUDY: Ascities COMPARISON 12/28/2018, 12/18/2018 LIMITATIONS: None. PROCEDURE: After obtaining informed consent, the patient was brought to the ultrasound suite. The p rocedure was performed with the patient on a gurney. Ultrasound was used to identify a prominent poc ket of ascites in the left lower quadrant. An appropriate access site was selected. The patient was prepped and draped in usual sterile fashion. The access site was anesthetized with 6 mL 1% lidocai ne. A [id number] needle was advanced into the fluid. After aspiration of fluid the needle, the catheter was advanced off the needle into the fluid. A total of 5000 mL mL of clear straw-colored f luid was removed. The patient tolerated the procedure well left the department in satisfactory condit ion. Therapeutic only, no laboratory studies on the ascites fluid ordered IMPRESSION: Successful ultrasound-guided paracentesis COMMENT: Patient medication list reviewed: Yes- Quality ID# [id number]:Eligible professional attests to doc umenting in the medical record they obtained, updated, or reviewed the patient's current medications. TECHNICAL DOCUMENTATION: JOB ID: [id number] [employer]- All Rights Reserved Reading location - IP/workstation name: [email or web address]
--- NOTE | 2019-01-11 18:08 | PDOC PROGRESS REPORT ---
Subjective Progress Note for:: 01/11/19 Subjective:: Post US guided paracentesis with removal of 5000 ml of clear straw-colored fluid. Reported chills and abdominal pain but no fever. No nausea or vomiting. No chest pain. Breathing is fairly better Reason For Visit: SYMPTOMATIC LIVER CIRRHOSIS WITH MASSIVE ASCITES Physical Exam Vital Signs: Temp Pulse Resp BP Pulse Ox 99.7 F 100 16 104/54 L 100 01/11/19 15:00 01/11/19 15:00 01/11/19 15:00 01/11/19 15:00 01/11/19 15:00 Intake & Output 01/10/19 01/11/19 01/12/19 06:59 06:59 06:59 Intake Total 360 1392 Balance 360 1392 Weight 61.3 kg General appearance: PRESENT: no acute distress, thin - chronically ill looking Head exam: PRESENT: atraumatic, normocephalic Eye exam: PRESENT: conjunctiva pink, EOMI, PERRLA. ABSENT: scleral icterus Ear exam: PRESENT: normal external ear exam Mouth exam: PRESENT: moist Respiratory exam: PRESENT: clear to auscultation ellie, decreased breath sounds - at lung bases Cardiovascular exam: PRESENT: RRR, +S1, +S2. ABSENT: diastolic murmur, systolic murmur Vascular exam: PRESENT: normal capillary refill. ABSENT: pallor GI/Abdominal exam: PRESENT: ascites, distended, normal bowel sounds, other - site of paracentesis dressing okay.. ABSENT: tenderness Extremities exam: ABSENT: pedal edema Neurological exam: PRESENT: alert, awake, oriented to person, oriented to place, oriented to time, oriented to situation, CN II-XII grossly intact. ABSENT: motor sensory deficit Psychiatric exam: PRESENT: appropriate affect, normal mood. ABSENT: homicidal ideation, suicidal ideation Skin exam: PRESENT: dry, warm Results Laboratory Results: 01/10/19 17:27 01/10/19 15:12 01/10/19 17:27 WBC 6.3 RBC 2.20 L Hgb 9.3 L Hct 26.3 L MCV 119 H MCH 42.1 H MCHC 35.3 RDW 15.7 H Plt Count 72 L Seg Neutrophils % 77.7 Lymphocytes % 6.4 L Monocytes % 14.1 H Eosinophils % 1.4 Basophils % 0.4 Absolute Neutrophils 4.9 Absolute Lymphocytes 0.4 L Absolute Monocytes 0.9 Absolute Eosinophils 0.1 Absolute Basophils 0.0 Impressions: Paracentesis Ultrasound 01/11/19 00:00 IMPRESSION: Successful ultrasound-guided paracentesis Assessment & Plan - Diagnosis (1) Increasing shortness of breath Is this a current diagnosis for this admission?: Yes (2) Ascites due to alcoholic cirrhosis Is this a current diagnosis for this admission?: Yes (3) Hepatic encephalopathy syndrome Is this a current diagnosis for this admission?: Yes (4) Hyperbilirubinemia Is this a current diagnosis for this admission?: Yes (5) Hyponatremia Is this a current diagnosis for this admission?: Yes (6) Anemia of chronic disease Is this a current diagnosis for this admission?: Yes (7) Mixed anxiety and depressive disorder Is this a current diagnosis for this admission?: Yes (8) Thrombocytopenia concurrent with and due to alcoholism Is this a current diagnosis for this admission?: Yes - Time Time Spent with patient: 25-34 minutes Medications reviewed and adjusted accordingly: Yes Anticipated discharge: Home Within: within 24 hours - Plan Summary Plan Summary: Transfused 50 gm of Albumin in view of large volume paracentesis and end stage liver disease process. Continue other current medication management. I emphasized compliance with medication and dietary restrictions with patient during this bedside evaluation. She request discharge for tomorrow.
[2019-01-11] MEDS: ALBUMIN HUMAN 12.5 GM/50 ML RTUINJ IV SCH ×2 (19:50→22:42)
[2019-01-12] MEDS: ALBUMIN HUMAN 12.5 GM/50 ML RTUINJ IV SCH ×2 (01:15→01:29)
[2019-01-12 06:15] LABS: ABSOLUTE EOSINOPHILS # (AUTO) 0.1 10^3/uL (0.0-0.6); ABSOLUTE LYMPHOCYTES (AUTO) 0.5 10^3/uL (0.5-4.7); ABSOLUTE MONOCYTES (AUTO) 0.6 10^3/uL (0.1-1.4); ABSOLUTE NEUT (AUTO) 3.7 10^3/uL (1.7-8.2); BASOPHILS % (AUTO) 0.7 % (0-2); EOSINOPHILS % (AUTO) 2.4 % (0-6); HEMATOCRIT 22.8 % (36.0-47.0); HEMOGLOBIN 8.1 g/dL (12.0-15.5); LYMPHOCYTES % (AUTO) 10.1 % (13-45); MEAN CORPUSCULAR HEMOGLOBIN 42.1 pg (27.0-33.4); MEAN CORPUSCULAR HGB CONC 35.5 g/dL (32.0-36.0); MEAN CORPUSCULAR VOLUME 118 fl (80-97); MONOCYTES % (AUTO) 12.2 % (3-13); RED BLOOD COUNT 1.93 10^6/uL (3.72-5.28); RED CELL DISTRIBUTION WIDTH 15.5 % (11.5-14.0); SEGMENTED NEUTROPHILS % (AUTO) 74.6 % (42-78); TOTAL CELLS COUNTED % (AUTO) 100 %
[2019-01-12 06:58] LABS: ALANINE AMINOTRANSFERASE 33 U/L (9-52); ALBUMIN 2.6 g/dL (3.5-5.0); ALKALINE PHOSPHATASE 81 U/L (38-126); ANION GAP 10 (5-19); ASPARTATE AMINO TRANSFERASE 67 U/L (14-36); BILIRUBIN,DIRECT 2.2 mg/dL (0.0-0.4); BILIRUBIN,TOTAL 4.3 mg/dL (0.2-1.3); BLOOD UREA NITROGEN 14 mg/dL (7-20); CALCIUM 8.3 mg/dL (8.4-10.2); CARBON DIOXIDE 24 mmol/L (22-30); CHLORIDE 96 mmol/L (98-107); GLUCOSE 100 mg/dL (75-110); POTASSIUM 3.4 mmol/L (3.6-5.0); SODIUM 129.7 mmol/L (137-145); TOTAL PROTEIN 5.2 g/dL (6.3-8.2)
[2019-01-12 07:11] LABS: PLATELET COUNT 59 10^3/uL (150-450)
[2019-01-12 07:18] LABS: HYPOCHROMASIA 1+; PLATELET COMMENT ADEQUATE; POLYCHROMASIA 1+
[2019-01-12] MEDS: LACTULOSE SYRUP 20 GM/30 ML UDCUP PO SCH ×3 (10:50→18:04)
[2019-01-12] MEDS: ESCITALOPRAM OXALATE 10 MG TABLET PO SCH (10:50)
[2019-01-12] MEDS: POTASSIUM CHLORIDE 10 MEQ CAPSULE.ER PO SCH (10:50)
[2019-01-12] MEDS: PANTOPRAZOLE SODIUM 40 MG TABLET.DR PO SCH (10:50)
[2019-01-12] MEDS: FUROSEMIDE 80 MG TABLET PO SCH ×2 (10:51→18:05)
[2019-01-12] MEDS: MAGNESIUM OXIDE 400 MG TABLET PO SCH (10:51)
[2019-01-12] MEDS: CETIRIZINE 5 MG TABLET PO SCH (10:51)
[2019-01-12] MEDS: SPIRONOLACTONE 25 MG TABLET PO SCH (10:56)
--- NOTE | 2019-01-12 18:08 | PDOC DISCHARGE SUMMARY ---
General - Admit/Disc Date/PCP Admission Date/Primary Care Provider: 01/10/19 14:10 JOHANA VALDEZ Discharge Date: 01/12/19 - Discharge Diagnosis (1) Increasing shortness of breath Is this a current diagnosis for this admission?: Yes (2) Ascites due to alcoholic cirrhosis Is this a current diagnosis for this admission?: Yes (3) Hepatic encephalopathy syndrome Is this a current diagnosis for this admission?: Yes (4) Hyperbilirubinemia Is this a current diagnosis for this admission?: Yes (5) Hyponatremia Is this a current diagnosis for this admission?: Yes (6) Anemia of chronic disease Is this a current diagnosis for this admission?: Yes (7) Mixed anxiety and depressive disorder Is this a current diagnosis for this admission?: Yes (8) Thrombocytopenia concurrent with and due to alcoholism Is this a current diagnosis for this admission?: Yes - Additional Information Resuscitation Status: Full Code Home Medications: Cetirizine HCl [Zyrtec 5 mg Tablet] 5 mg PO Q12 01/10/19 Escitalopram Oxalate [Lexapro] 20 mg PO DAILY 01/10/19 Furosemide [Lasix 80 mg Tablet] 80 mg PO BID 01/10/19 Lactulose [Cephulac Syrup 20 gm/30 ml Udcup] 10 gm PO TID 01/10/19 Magnesium Oxide [Mag-Ox 400 mg Tablet] 400 mg PO DAILY 01/10/19 Omeprazole 20 mg PO Q6AM 01/10/19 Potassium Chloride [Klor-Con M20] 20 meq PO DAILY 01/10/19 Spironolactone [Aldactone 100 mg Tablet] 100 mg PO QHS 01/10/19 Spironolactone [Aldactone 100 mg Tablet] 200 mg PO DAILY 01/10/19 History of Present Illness Patient complains of: Worsening difficulty with breathing and ascites History of Present Illness: MADELYN JENSEN is a 43 year old female patient known to my practice who presented to the office today due to worsening difficulty with breathing, chest pain, palpitation, abdominal swelling, lightheadedness and dizziness. She has end stage alcohol liver cirrhosis with recurrent ascites and need for large volume paracentesis on almost weekly bases. She has been noncompliance with office follow up visit. She admitted to self-decrease of her diuretic therapy to daily instead of twice daily as prescribed. Spouse at office visit reported increase confusion and irrational decision making in recent time. Patient reported worsening anxiety, increase sleepiness, recent memory problem, headache, flushing, social withdrawal, bereavement due to recent of her brother, persecutory and paranoid feelings. Her morbidities include alcohol liver cirrhosis with ascites, mixed anxiety with depressive mood, hypertension, chronic pain syndrome with opioid dependency, seasonal allergic rhinitis, and persistent insomnia. She was advised hospitalization on telemetry observation bed for further evaluation and management. Physical Exam Vital Signs: Temp Pulse Resp BP Pulse Ox 99.3 F 103 H 12 97/55 L 100 01/12/19 15:37 01/12/19 15:37 01/12/19 15:37 01/12/19 15:37 01/12/19 15:37 Intake & Output 01/11/19 01/12/19 01/13/19 06:59 06:59 06:59 Intake Total 360 2174 Balance 360 2174 Weight 61.3 kg Physical Exam: General appearance: PRESENT: no acute distress, thin - chronically ill looking Head exam: PRESENT: atraumatic, normocephalic Eye exam: PRESENT: conjunctiva pink, EOMI, PERRLA. ABSENT: pallor, scleral icterus Ear exam: PRESENT: normal external ear exam Mouth exam: PRESENT: moist Respiratory exam: PRESENT: clear to auscultation ellie, decreased breath sounds - at lung bases Cardiovascular exam: PRESENT: RRR, +S1, +S2. ABSENT: diastolic murmur, systolic murmur GI/Abdominal exam: PRESENT: ascites, distended, normal bowel sounds, other - site of paracentesis dressing okay.. ABSENT: tenderness Extremities exam: ABSENT: pedal edema Neurological exam: PRESENT: alert, awake, oriented to person, oriented to place, oriented to time, oriented to situation, CN II-XII grossly intact. ABSENT: motor sensory deficit Psychiatric exam: PRESENT: appropriate affect, normal mood. ABSENT: homicidal ideation, suicidal ideation Skin exam: PRESENT: dry, warm Results Laboratory Results: 01/12/19 04:54 01/12/19 04:54 01/12/19 01/12/19 04:54 04:54 WBC 5.0 RBC 1.93 L Hgb 8.1 L Hct 22.8 L MCV 118 H MCH 42.1 H MCHC 35.5 RDW 15.5 H Plt Count 59 L Seg Neutrophils % 74.6 Lymphocytes % 10.1 L Monocytes % 12.2 Eosinophils % 2.4 Basophils % 0.7 Absolute Neutrophils 3.7 Absolute Lymphocytes 0.5 Absolute Monocytes 0.6 Absolute Eosinophils 0.1 Absolute Basophils 0.0 Sodium 129.7 L Potassium 3.4 L Chloride 96 L Carbon Dioxide 24 Anion Gap 10 BUN 14 Creatinine 0.86 Est GFR ( Amer) > 60 Est GFR (Non-Af Amer) > 60 Glucose 100 Calcium 8.3 L Total Bilirubin 4.3 H AST 67 H ALT 33 Alkaline Phosphatase 81 Total Protein 5.2 L Albumin 2.6 L Impressions: Paracentesis Ultrasound 01/11/19 00:00 IMPRESSION: Successful ultrasound-guided paracentesis Qualifiers - * PATIENT BEING DISCHARGED WITH ANY OF THE FOLLOWING DIAGNOSIS: No Plan Discharge Plan: D/C home today. Follow up in the office as instructed upon discharge.
[2019-01-12 18:24] VITALS: BP 125/63
[2019-01-12] MEDS ORDERED: POTASSIUM CHLORIDE 10 MEQ CAPSULE.ER PO ONE (19:00)
== END 2019-01-12 18:39 | disposition home or self-care (01) ==
LOC: 4N 14:10
PROVIDERS: ADMIT Internal Medicine Geriatric Medicine; ATTEND Internal Medicine Geriatric Medicine
PROC: 0W9G3ZZ Drainage of Peritoneal Cavity, Percutaneous Approach (ICD-10-PCS; principal; 2019-01-10)
PROC: BW40ZZZ Ultrasonography of Abdomen (ICD-10-PCS; 2019-01-10)
DX: R06.02 Shortness of breath (principal); K70.31 Alcoholic cirrhosis of liver with ascites; K72.90 Hepatic failure, unspecified without coma; E80.6 Other disorders of bilirubin metabolism; D63.8 Anemia in other chronic diseases classified elsewhere; E87.1 Hypo-osmolality and hyponatremia; D69.6 Thrombocytopenia, unspecified; F10.20 Alcohol dependence, uncomplicated; F41.3 Other mixed anxiety disorders; F32.9 Major depressive disorder, single episode, unspecified; T50.2X6A Underdosing of carbonic-anhydrase inhibitors, benzothiadiazides and other diuretics, initial encounter; Z91.128 Patient's intentional underdosing of medication regimen for other reason; R51 Headache; I10 Essential (primary) hypertension; G89.4 Chronic pain syndrome; F11.20 Opioid dependence, uncomplicated; J30.2 Other seasonal allergic rhinitis; G47.09 Other insomnia; Z79.899 Other long term (current) drug therapy; R23.2 Flushing; R68.83 Chills (without fever); Z63.4 Disappearance and death of family member; K21.9 Gastro-esophageal reflux disease without esophagitis; Z90.49 Acquired absence of other specified parts of digestive tract; Z87.891 Personal history of nicotine dependence
CPT/HCPCS: 36415 ×2; 80307; 82140; 85025 ×2; 85610; 85730; 80053 ×2; 49083; P9047; J3490 ×8

== ENCOUNTER 2019-01-25 08:27 | Day surgery (SDC) | payer OTHER ==
[2019-01-25 09:22] LABS: HEMATOCRIT 27.5 % (36.0-47.0); HEMOGLOBIN 9.8 g/dL (12.0-15.5); MEAN CORPUSCULAR HEMOGLOBIN 41.2 pg (27.0-33.4); MEAN CORPUSCULAR HGB CONC 35.8 g/dL (32.0-36.0); MEAN CORPUSCULAR VOLUME 115 fl (80-97); PLATELET COUNT 150 10^3/uL (150-450); RED BLOOD COUNT 2.39 10^6/uL (3.72-5.28)
[2019-01-25 09:34] LABS: INTERNATIONAL RATION (INR) 1.16; PROTHROMBIN TIME 15.4 SEC (11.4-15.4)
[2019-01-25 09:44] LABS: BLOOD UREA NITROGEN 11 mg/dL (7-20)
[2019-01-25] MEDS ORDERED: ALBUMIN HUMAN 50 GM/200 ML RTUINJ IV PRN (13:00)
[2019-01-25] MEDS ORDERED: ALBUMIN HUMAN 12.5 GM/50 ML RTUINJ IV SCH (13:00)
--- NOTE | 2019-01-25 14:08 | RADIOLOGY REPORT (SQ) ---
EXAM DESCRIPTION: U/S ABD PARACENTESIS COMPLETED DATE/TIME: 01/25/2019 12:34 pm REASON FOR STUDY: ASCITES K70.31 ALCOHOLIC CIRRHOSIS OF LIVER WITH ASCITES COMPARISON: None. LIMITATIONS: None. PROCEDURE: Procedure, risks, benefit, and alternative explained to patient who then gave written con sent. The left lower quadrant abdominal wall marked using ultrasound guidance. A time-out was marrero d for correct marking verification. Abdomen prepped and draped using sterile technique. Local anesth esia achieved using 3.0 ml of 1% lidocaine injection. A 6fr Mlne-L-Wxupnyoe set was introduced into the peritoneal cavity. Fluid was drained. The catheter was removed and entry site was covered with sterile bandage. No immediate complications noted. Images acquired during the procedure were stored on PACS. FINDINGS: ENTRY SITE: Left lower quadrant FLUID VOLUME: 9,450 cc FLUID ANALYSIS: Straw OTHER: Therapeutic only. IMPRESSION: SUCCESSFUL ULTRASOUND GUIDED PARACENTESIS. COMMENT: Patient medication list reviewed:Yes- Quality ID# [id number]:Eligible professional attests to docu menting in the medical record they obtained, updated, or reviewed the patient's current medications. TECHNICAL DOCUMENTATION: JOB ID: [id number] [employer]- All Rights Reserved Reading location - IP/workstation name: [email or web address]
[2019-01-25 15:02] VITALS: BP 111/68
== END 2019-01-25 14:30 | disposition home or self-care (01) ==
LOC: RAD 08:27
PROVIDERS: ATTEND Internal Medicine Geriatric Medicine
DX: K70.31 Alcoholic cirrhosis of liver with ascites (principal); Z79.899 Other long term (current) drug therapy; R06.02 Shortness of breath; K72.90 Hepatic failure, unspecified without coma; E80.6 Other disorders of bilirubin metabolism; E87.1 Hypo-osmolality and hyponatremia; D63.8 Anemia in other chronic diseases classified elsewhere; F41.8 Other specified anxiety disorders; D69.6 Thrombocytopenia, unspecified; F10.20 Alcohol dependence, uncomplicated
CPT/HCPCS: 36415; 84520; 82565; 85027; 85610; 85730; 49083; P9047

== ENCOUNTER 2019-02-07 08:25 | Emergency (ER) | payer OTHER ==
[2019-02-07] MEDS ORDERED: ONDANSETRON HCL INJ/PF 4 MG/2 ML SDV IV ONE (09:39)
--- NOTE | 2019-02-07 09:41 | ER Document Report ---
ED Medical Screen (RME) - General Chief Complaint: Abdominal Distention Stated Complaint: ABDOMINAL PAIN/SWELLING Time Seen by Provider: 02/07/19 09:36 Primary Care Provider: JOHANA VALDEZ MD [Primary Care Provider] - Follow up as needed TRAVEL OUTSIDE OF THE [place] IN LAST 30 DAYS: No - HPI Notes: 02/07/19 09:40 Patient is a 43-year-old female with a history of cirrhosis and ascites who presents complaining of abdominal distention and feeling like she has built up too much fluid again. She does have associated shortness of breath and nausea. All of the symptoms are common for her when fluid gets buildup in her abdomen. Patient last had a paracentesis done 2 weeks ago. Denies PABON, fever, neck pain, URI, CP, or rash. I have treated and performed a rapid initial assessment of this patient. A comprehensive ED assessment and evaluation of the patient, analysis of test results and completion of medical decision making process will be conducted by additional ED providers. PHYSICAL EXAMINATION: GENERAL: Well-appearing, well-nourished and in no acute distress. A&Ox4. Answers questions appropriately. LUNGS: Breath sounds clear to auscultation bilaterally and equal. No wheezes rales or rhonchi. HEART: Regular rate and rhythm without murmurs, rubs, gallops. ABDOMEN: distended abdomen. No guarding, no rebound. (cannot elicit thorough abd exam w/o table, however). Extremities: No cyanosis, clubbing, or edema b/l. NEUROLOGICAL: Normal speech, normal gait. PSYCH: Normal mood, normal affect. - Related Data Allergies/Adverse Reactions: No Known Allergies Allergy (Verified 02/07/19 08:26) Past Medical History - Past Medical History Cardiac Medical History: Reports: Hx Hypertension Denies: Hx Congestive Heart Failure, Hx Coronary Artery Disease, Hx Heart Attack Pulmonary Medical History: Denies: Hx Asthma, Hx Bronchitis, Hx COPD, Hx Pneumonia, Hx Tuberculosis Neurological Medical History: Denies: Hx Cerebrovascular Accident, Hx Seizures Renal/ Medical History: Denies: Hx End Stage Renal Disease, Hx Kidney Stones, Hx Peritoneal Dialysis GI Medical History: Reports: Hx Cirrhosis, Hx Gastroesophageal Reflux Disease. Denies: Hx Ulcer Musculoskeltal Medical History: Denies Hx Arthritis, Denies Hx Multiple Sclerosis Psychiatric Medical History: Reports: Hx Anxiety, Hx Depression Denies: Hx Bipolar Disorder, Hx Schizophrenia Past Surgical History: Reports: Hx Abdominal Surgery - Gallbladder 09/26/2015, Hx Cholecystectomy - 09/26/2015, Hx Tubal Ligation - Immunizations Immunizations up to date: Yes Hx Diphtheria, Pertussis, Tetanus Vaccination: Yes History of Influenza Vaccine for 07/2017 - 12/2017 Season: Yes Influenza Administration Date for 07/2017 - 12/2017 Season: 10/24/18 Physical Exam - Vital signs Vitals: Temp Pulse Resp BP Pulse Ox 98.6 F 122 H 18 126/68 H 99 02/07/19 08:28 02/07/19 08:28 02/07/19 08:28 02/07/19 08:28 02/07/19 08:28 Course - Vital Signs Vital signs: Temp Pulse Resp BP Pulse Ox 98.6 F 122 H 18 126/68 H 99 02/07/19 08:28 02/07/19 08:28 02/07/19 08:28 02/07/19 08:28 02/07/19 08:28 Doctor's Discharge - Discharge Referrals: JOHANA VALDEZ MD [Primary Care Provider] - Follow up as needed
--- NOTE | 2019-02-07 10:23 | ER Document Report ---
Addendum entered and electronically signed by KRISSY APONTE PA-C 02/07/19 20:56: Course - Re-evaluation Re-evalutation: 02/07/19 20:55 This is Buddy Aponte physician customer care assistant I took over care of patient from Carey Saravia OBSTETRICS SPECIALIST as she was leaving for shift. Instructed to monitor patient getting her albumin once albumin was infused patient is cleared to go home and paperwork is typed up. I have stopped and examined patient she is awake alert and oriented and she is more than willing and ready to go home after being here approximately 14 hours. Her vital signs are stable for discharge and patient is being discharged at this time 2055. - Vital Signs Vital signs: Temp Pulse Resp BP Pulse Ox 99.5 F 122 H 18 112/68 100 02/07/19 19:59 02/07/19 08:28 02/07/19 19:01 02/07/19 19:01 02/07/19 19:01 - Laboratory Result Diagrams: 02/07/19 10:11 02/07/19 10:11 Laboratory results interpreted by me: 02/07/19 02/07/19 02/07/19 10:11 10:11 10:11 RBC 2.27 L Hgb 9.4 L Hct 26.9 L MCV 119 H D MCH 41.4 H RDW 17.3 H Plt Count 100 L Lymphocytes % 10.8 L Monocytes % 14.7 H PT Sodium 128.5 L Potassium 3.5 L Chloride 93 L Glucose 160 H Lactic Acid 2.3 H Total Bilirubin 3.8 H Direct Bilirubin 2.1 H AST 95 H Total Protein 6.1 L Albumin 3.0 L Urine Blood Urine Urobilinogen 02/07/19 02/07/19 11:39 12:00 RBC Hgb Hct MCV MCH RDW Plt Count Lymphocytes % Monocytes % PT 15.7 H Sodium Potassium Chloride Glucose Lactic Acid Total Bilirubin Direct Bilirubin AST Total Protein Albumin Urine Blood SMALL H Urine Urobilinogen 4.0 H Original Note: ED General - General Chief Complaint: Abdominal Distention Stated Complaint: ABDOMINAL PAIN/SWELLING Time Seen by Provider: 02/07/19 09:36 Primary Care Provider: JOHANA VALDEZ MD [Primary Care Provider] - Follow up as needed Mode of Arrival: Ambulatory Information source: Patient TRAVEL OUTSIDE OF THE [place] IN LAST 30 DAYS: No - HPI Notes: 43-year-old female with a medical history of alcohol abuse, cirrhosis presents to the ED for complaints of abdominal swelling that has been occurring for the last 2 weeks. Patient has had multiple paracentesis in the ER setting to get drained. She is not complaining of any shortness of breath or chest pain, does report some abdominal pain with nausea. Patient denies any recent alcohol abuse. Patient is typically seen by Dr. Lopez in [place] to manage her ascites. Denies fevers, chills, chest pain,palpitations, shortness of breath, dyspnea, diarrhea, hematuria,blurred vision, LH, dizziness, syncope, headaches, wheezing, ST, URI, neck pain, weakness, bowel or bladder dysfunction, saddle anesthesia. - Related Data Allergies/Adverse Reactions: No Known Allergies Allergy (Verified 02/07/19 08:26) Past Medical History - General Information source: Patient - Social History Smoking Status: Former Smoker Family History: Reviewed & Not Pertinent Patient has suicidal ideation: No Patient has homicidal ideation: No - Past Medical History Cardiac Medical History: Reports: Hx Hypertension Denies: Hx Congestive Heart Failure, Hx Coronary Artery Disease, Hx Heart Attack Pulmonary Medical History: Denies: Hx Asthma, Hx Bronchitis, Hx COPD, Hx Pneumonia, Hx Tuberculosis Neurological Medical History: Denies: Hx Cerebrovascular Accident, Hx Seizures Renal/ Medical History: Denies: Hx End Stage Renal Disease, Hx Kidney Stones, Hx Peritoneal Dialysis GI Medical History: Reports: Hx Cirrhosis, Hx Gastroesophageal Reflux Disease. Denies: Hx Ulcer Musculoskeletal Medical History: Denies Hx Arthritis, Denies Hx Multiple Sclerosis Psychiatric Medical History: Reports: Hx Anxiety, Hx Depression Denies: Hx Bipolar Disorder, Hx Schizophrenia Past Surgical History: Reports: Hx Abdominal Surgery - Gallbladder 09/26/2015, Hx Cholecystectomy - 09/26/2015, Hx Tubal Ligation - Immunizations Immunizations up to date: Yes Hx Diphtheria, Pertussis, Tetanus Vaccination: Yes Review of Systems - Review of Systems Constitutional: See HPI EENT: No symptoms reported Cardiovascular: No symptoms reported Respiratory: No symptoms reported Gastrointestinal: See HPI Genitourinary: No symptoms reported Female Genitourinary: No symptoms reported Musculoskeletal: No symptoms reported Skin: No symptoms reported Hematologic/Lymphatic: No symptoms reported Neurological/Psychological: No symptoms reported Physical Exam - Vital signs Vitals: Temp Pulse Resp BP Pulse Ox 98.6 F 122 H 18 126/68 H 99 02/07/19 08:28 02/07/19 08:28 02/07/19 08:28 02/07/19 08:28 02/07/19 08:28 - Notes Notes: PHYSICAL EXAMINATION: GENERAL: Well-appearing, well-nourished and in no acute distress. HEAD: Atraumatic, normocephalic. EYES: Pupils equal round and reactive to light, extraocular movements intact, conjunctiva are normal. ENT: Nares patent, oropharynx clear without exudates. Moist mucous membranes. NECK: Normal range of motion, supple without lymphadenopathy LUNGS: Breath sounds clear to auscultation bilaterally and equal. No wheezes rales or rhonchi. HEART: Regular rate and rhythm without murmurs ABDOMEN: Distended abdomen with varicose veins, soft, generalized mild tenderness on palpation of abdomen. No guarding, no rebound. No masses appreciated. Female : deferred Musculoskeletal: Normal range of motion, no pitting or edema. No cyanosis. NEUROLOGICAL: Cranial nerves grossly intact. Normal speech, normal gait. Normal sensory, motor exams PSYCH: Normal mood, normal affect. SKIN: Warm, Dry, normal turgor, no rashes or lesions noted. Course - Re-evaluation Re-evalutation: 02/07/19 13:00 43-year-old female, afebrile vitals stable slight distress due to pain. Patient is slightly tachycardic however she is in pain currently, not tachypneic and vitals are stable otherwise. Contacted Dr. Araiza, surgeon construction supervisor/carpenter who said he would be able to perform paracentesis however he is in 3 back to back or procedures, advised to call cardiology, did speak with radiology and they said they would be able to perform paracentesis as long as her coags are normal. Coags are unremarkable. Patient given IV pain medication for pain control. 1 300-awaiting for paracentesis, patient remains stable, afebrile and in no distress Patient returned from ultrasound, they did remove 10 L of fluid, she is going to be receiving 250 mL's of albumin. pt does have a standing order to come to radiology for paracentesis. Vitals stable, afebrile no distress, patient will be able to be discharged after albumin infusion. report given to DELIA Verma while infusion finishes. vss, pt is not in any distress. pt will follow up with pcp and agreed to standing orders - Vital Signs Vital signs: Temp Pulse Resp BP Pulse Ox 99.5 F 122 H 18 112/68 100 02/07/19 19:59 02/07/19 08:28 02/07/19 19:01 02/07/19 19:01 02/07/19 19:01 - Laboratory Result Diagrams: 02/07/19 10:11 02/07/19 10:11 Laboratory results interpreted by me: 02/07/19 02/07/19 02/07/19 10:11 10:11 10:11 RBC 2.27 L Hgb 9.4 L Hct 26.9 L MCV 119 H D MCH 41.4 H RDW 17.3 H Plt Count 100 L Lymphocytes % 10.8 L Monocytes % 14.7 H PT Sodium 128.5 L Potassium 3.5 L Chloride 93 L Glucose 160 H Lactic Acid 2.3 H Total Bilirubin 3.8 H Direct Bilirubin 2.1 H AST 95 H Total Protein 6.1 L Albumin 3.0 L Urine Blood Urine Urobilinogen 02/07/19 02/07/19 11:39 12:00 RBC Hgb Hct MCV MCH RDW Plt Count Lymphocytes % Monocytes % PT 15.7 H Sodium Potassium Chloride Glucose Lactic Acid Total Bilirubin Direct Bilirubin AST Total Protein Albumin Urine Blood SMALL H Urine Urobilinogen 4.0 H Discharge - Discharge Clinical Impression: Ascites Condition: Stable Disposition: HOME, SELF-CARE Additional Instructions: your labs are normal. Return immediately for any new or worsening symptoms. Follow up with primary care provider, call tomorrow to make followup appointment. Referrals: JOHANA VALDEZ MD [Primary Care Provider] - Follow up as needed
[2019-02-07 10:36] LABS: ABSOLUTE LYMPHOCYTES (AUTO) 0.5 10^3/uL (0.5-4.7); ABSOLUTE MONOCYTES (AUTO) 0.7 10^3/uL (0.1-1.4); ABSOLUTE NEUT (AUTO) 3.7 10^3/uL (1.7-8.2); BASOPHILS % (AUTO) 0.8 % (0-2); EOSINOPHILS % (AUTO) 0.5 % (0-6); HEMATOCRIT 26.9 % (36.0-47.0); HEMOGLOBIN 9.4 g/dL (12.0-15.5); LYMPHOCYTES % (AUTO) 10.8 % (13-45); MEAN CORPUSCULAR HEMOGLOBIN 41.4 pg (27.0-33.4); MEAN CORPUSCULAR HGB CONC 34.9 g/dL (32.0-36.0); MONOCYTES % (AUTO) 14.7 % (3-13); PLATELET COUNT 100 10^3/uL (150-450); RED BLOOD COUNT 2.27 10^6/uL (3.72-5.28); RED CELL DISTRIBUTION WIDTH 17.3 % (11.5-14.0); SEGMENTED NEUTROPHILS % (AUTO) 73.2 % (42-78); TOTAL CELLS COUNTED % (AUTO) 100 %; WHITE BLOOD COUNT 5.1 10^3/uL (4.0-10.5)
[2019-02-07 10:42] LABS: ALANINE AMINOTRANSFERASE 33 U/L (9-52); ALKALINE PHOSPHATASE 89 U/L (38-126); ANION GAP 12 (5-19); ASPARTATE AMINO TRANSFERASE 95 U/L (14-36); BILIRUBIN,DIRECT 2.1 mg/dL (0.0-0.4); BILIRUBIN,TOTAL 3.8 mg/dL (0.2-1.3); BLOOD UREA NITROGEN 12 mg/dL (7-20); CALCIUM 8.6 mg/dL (8.4-10.2); CARBON DIOXIDE 24 mmol/L (22-30); CHLORIDE 93 mmol/L (98-107); GLUCOSE 160 mg/dL (75-110); LIPASE 254.8 U/L (23-300); POTASSIUM 3.5 mmol/L (3.6-5.0); SODIUM 128.5 mmol/L (137-145); TOTAL PROTEIN 6.1 g/dL (6.3-8.2)
[2019-02-07 10:56] LABS: MEAN CORPUSCULAR VOLUME 119 fl (80-97)
--- NOTE | 2019-02-07 11:06 | RADIOLOGY REPORT (SQ) ---
EXAM DESCRIPTION: CHEST SINGLE VIEW COMPLETED DATE/TIME: 02/07/2019 10:48 am REASON FOR STUDY: ascites, distention, sob COMPARISON: 10/10/2018 EXAM PARAMETERS: NUMBER OF VIEWS: One view. TECHNIQUE: Single frontal radiographic view of the chest acquired. RADIATION DOSE: NA LIMITATIONS: None. FINDINGS: LUNGS AND PLEURA: Low lung volumes. No infiltrate, effusion, or mass. MEDIASTINUM AND HILAR STRUCTURES: No masses. Contour normal. HEART AND VASCULAR STRUCTURES: Heart normal in size. Normal vasculature. BONES: No acute findings. HARDWARE: None in the chest. OTHER: No other significant finding. IMPRESSION: Low lung volumes. No acute cardiopulmonary findings TECHNICAL DOCUMENTATION: JOB ID: [id number] [employer]- All Rights Reserved Reading location - IP/workstation name: [email or web address]
[2019-02-07 11:08] LABS: ANISOCYTOSIS 1+; OVALOCYTES 1+; POIKILOCYTOSIS 1+; POLYCHROMASIA 1+; TOXIC VACUOLATION PRESENT
[2019-02-07 11:09] LABS: SCHISTOCYTES SLIGHT; TEAR DROP CELLS 1+
[2019-02-07 11:10] LABS: PLATELET COMMENT DECREASED
[2019-02-07 11:54] LABS: INTERNATIONAL RATION (INR) 1.19; PROTHROMBIN TIME 15.7 SEC (11.4-15.4)
[2019-02-07 11:55] LABS: PARTIAL THROMBOPLASTIN TIME 33.7 SEC (23.5-35.8)
[2019-02-07] MEDS ORDERED: FENTANYL CITRATE INJ/PF 100 MCG/2 ML AMPUL IV ONE (12:05)
[2019-02-07 12:39] LABS: APPEARANCE,URINE SLIGHTLY-CLOUDY; BILIRUBIN,URINE NEGATIVE (NEGATIVE); GLUCOSE, URINE NEGATIVE (NEGATIVE); KETONES,URINE NEGATIVE (NEGATIVE); LEUKOCYTE ESTERASE,URINE NEGATIVE (NEGATIVE); NITRITE,URINE NEGATIVE (NEGATIVE); PROTEIN,URINE NEGATIVE (NEGATIVE); URINE SPECIFIC GRAVITY 1.015
[2019-02-07 12:42] LABS: COLOR,URINE DARK YELLOW
[2019-02-07] MEDS ORDERED: POTASSIUM CHLORIDE 10 MEQ CAPSULE.ER PO ONE (13:03)
[2019-02-07] MEDS: ALBUMIN HUMAN 12.5 GM/50 ML RTUINJ IV SCH ×4 (18:58→20:59)
[2019-02-07 21:01] VITALS: BP 119/75
--- NOTE | 2019-02-07 21:55 | EKG REPORT ---
SEVERITY:- BORDERLINE ECG - SINUS TACHYCARDIA BORDERLINE T ABNORMALITIES, ANTERIOR LEADS BORDERLINE PROLONGED QT INTERVAL : Confirmed by: Namrata Reynolds MD 07-Feb-2019 21:54:24
--- NOTE | 2019-02-08 08:12 | RADIOLOGY REPORT (SQ) ---
EXAM DESCRIPTION: U/S ABD PARACENTESIS COMPLETED DATE/TIME: 02/07/2019 6:52 pm REASON FOR STUDY: Ascites COMPARISON 01/25/2019 LIMITATIONS: None. PROCEDURE: After obtaining informed consent, the patient was brought to the ultrasound suite. The p rocedure was performed with the patient on a gurney. Ultrasound was used to identify a prominent poc ket of ascites in the right lower quadrant. An appropriate access site was selected. The patient wa s prepped and draped in usual sterile fashion. The access site was anesthetized with 5 mL 1% lidoca ine. A Cucg-R-Frrxhwsd needle was advanced into the fluid. After aspiration of fluid the needle, th e catheter was advanced off the needle into the fluid. A total of 10,000 mL of clear yellow fluid wa s removed. The patient tolerated the procedure well left the department in satisfactory condition. S kin incision was sealed with Dermabond IMPRESSION: Successful ultrasound-guided paracentesis COMMENT: Patient medication list reviewed: Yes TECHNICAL DOCUMENTATION: JOB ID: [id number] [employer]- All Rights Reserved Reading location - IP/workstation name: [email or web address]
== END 2019-02-07 21:01 | disposition home or self-care (01) ==
LOC: ER 08:25
DX: R18.8 Other ascites (principal); R14.0 Abdominal distension (gaseous); I10 Essential (primary) hypertension; Z90.49 Acquired absence of other specified parts of digestive tract; Z98.51 Tubal ligation status
CPT/HCPCS: 93005; 99284; 36415; 82553; 82140; 82550; 83690; 85025; 85610; 85730; 81025; 80053; 81001; 83605; 71045; 49083; 93010; P9047; J3010; J2405

== ENCOUNTER 2019-02-20 08:28 | Day surgery (SDC) | payer OTHER ==
[2019-02-20 10:17] LABS: HEMATOCRIT 27.7 % (36.0-47.0); HEMOGLOBIN 9.6 g/dL (12.0-15.5); MEAN CORPUSCULAR HEMOGLOBIN 40.5 pg (27.0-33.4); MEAN CORPUSCULAR HGB CONC 34.5 g/dL (32.0-36.0); MEAN CORPUSCULAR VOLUME 117 fl (80-97); PLATELET COUNT 120 10^3/uL (150-450); RED BLOOD COUNT 2.36 10^6/uL (3.72-5.28); RED CELL DISTRIBUTION WIDTH 16.6 % (11.5-14.0); WHITE BLOOD COUNT 6.3 10^3/uL (4.0-10.5)
[2019-02-20 10:23] LABS: INTERNATIONAL RATION (INR) 1.15; PROTHROMBIN TIME 15.3 SEC (11.4-15.4)
[2019-02-20 10:24] LABS: PARTIAL THROMBOPLASTIN TIME 32.8 SEC (23.5-35.8)
[2019-02-20 10:36] LABS: BLOOD UREA NITROGEN 15 mg/dL (7-20)
[2019-02-20] MEDS ORDERED: ALBUMIN HUMAN 50 GM/200 ML RTUINJ IV PRN (12:00)
--- NOTE | 2019-02-20 12:48 | RADIOLOGY REPORT (SQ) ---
EXAM DESCRIPTION: U/S ABD PARACENTESIS COMPLETED DATE/TIME: 02/20/2019 12:37 pm REASON FOR STUDY: ASCITES K70.31 ALCOHOLIC CIRRHOSIS OF LIVER WITH ASCITES COMPARISON: None. LIMITATIONS: None. PROCEDURE: Procedure, risks, benefit, and alternative explained to patient who then gave written con sent. The left lower quadrant abdominal wall marked using ultrasound guidance. A time-out was marrero d for correct marking verification. Abdomen prepped and draped using sterile technique. Local anesth esia achieved using 3.0 ml of 1% lidocaine injection. A 6fr Npca-E-Ytfkudyj set was introduced into the peritoneal cavity. Fluid was drained. The catheter was removed and entry site was covered with sterile bandage. No immediate complications noted. Images acquired during the procedure were stored on PACS. FINDINGS: ENTRY SITE: Left lower quadrant. FLUID VOLUME: 16364 cc FLUID ANALYSIS: Straw OTHER: Therapeutic only. IMPRESSION: SUCCESSFUL ULTRASOUND GUIDED PARACENTESIS. COMMENT: Patient medication list reviewed:Yes- Quality ID# [id number]:Eligible professional attests to docu menting in the medical record they obtained, updated, or reviewed the patient's current medications. TECHNICAL DOCUMENTATION: JOB ID: [id number] [employer]- All Rights Reserved Reading location - IP/workstation name: [email or web address]
[2019-02-20 13:51] VITALS: BP 112/63
== END 2019-02-20 13:45 | disposition home or self-care (01) ==
LOC: RAD 08:28
PROVIDERS: ATTEND Internal Medicine Geriatric Medicine
DX: K70.31 Alcoholic cirrhosis of liver with ascites (principal); I10 Essential (primary) hypertension; Z87.891 Personal history of nicotine dependence
CPT/HCPCS: 36415; 84520; 82565; 85027; 85610; 85730; 49083; P9047

== ENCOUNTER 2019-03-02 10:07 | Emergency (ER) | payer OTHER ==
[2019-03-02] MEDS ORDERED: ONDANSETRON HCL INJ/PF 4 MG/2 ML SDV IV ONE (10:35)
[2019-03-02] MEDS ORDERED: HYDROMORPHONE HCL INJ/PF 2 MG/ML AMPULE IV ONE (10:55)
--- NOTE | 2019-03-02 10:55 | ER Document Report ---
ED General - General Chief Complaint: Abdominal Pain Stated Complaint: ABDOMINAL PAIN Time Seen by Provider: 03/02/19 10:34 Primary Care Provider: JOHANA VALDEZ MD [Primary Care Provider] - Follow up in 3-5 days Notes: Patient is a 43-year-old female history of cirrhosis that presents to the emergency department for chief complaint of nausea, vomiting or abdominal pain. Patient states that her abdomen has become more distended, she is had to be admitted 3 times in the past 6 weeks for ascites and abdominal pain. She has had 10 L removed from her abdomen, she has not been shown to have any infection in her ascitic fluid, she is not currently on any antibiotics. She is been having some vomiting, and significantly decreased appetite over the last 3 days. She reports that her last drink was 3 days ago as well. She currently rates her pain as a 7 out of 10 describes as a constant ache all over her body, including her abdomen. She has had some associated nausea, denies fevers, chills, night sweats, chest pain, shortness of breath or difficulty breathing. Past Medical History: Alcoholic cirrhosis Past Surgical History: Multiple paracentesis Social History: Admits to alcohol use on a routine basis, denies tobacco or illicit drug use. Family History: Reviewed and noncontributory for presenting illness Allergies: Reviewed, see documented allergy list. REVIEW OF SYSTEMS: Other than noted above, the 12 point review of systems was reviewed with the patient and were negative, all pertinent findings are included in the HPI. PHYSICAL EXAMINATION: Vital signs reviewed, nursing noted reviewed. GENERAL: Chronically ill-appearing female, appears uncomfortable HEAD: Atraumatic, normocephalic. EYES: Eyes appear normal, extraocular movements intact, scleral icterus noted, conjunctiva are normal. ENT: nares patent, oropharynx clear without exudates. Moist mucous membranes. NECK: Normal range of motion, supple without lymphadenopathy LUNGS: Breath sounds clear to auscultation bilaterally and equal. No wheezes rales or rhonchi. HEART: Heart rate tachycardic, regular rhythm. ABDOMEN: Distended, and diffusely tender across the entire abdomen, positive fluid wave, normoactive bowel sounds. No rebound, guarding, or rigidity. No masses appreciated. EXTREMITIES: Nontender, good range of motion, no pitting or edema. NEUROLOGICAL: No focal neurological deficits. Moves all extremities spontaneously Motor and sensory grossly intact on exam. PSYCH: Normal mood, normal affect. SKIN: Warm, Dry, normal turgor, no rashes or lesions noted on exposed skin TRAVEL OUTSIDE OF THE [place] IN LAST 30 DAYS: No - Related Data Allergies/Adverse Reactions: No Known Allergies Allergy (Verified 02/19/19 13:18) Past Medical History - Social History Smoking Status: Former Smoker Chew tobacco use (# tins/day): No Frequency of alcohol use: Occasional Drug Abuse: None Family History: Reviewed & Not Pertinent Patient has suicidal ideation: No Patient has homicidal ideation: No - Past Medical History Cardiac Medical History: Reports: Hx Hypertension - Pt denies 02/19/19 Denies: Hx Congestive Heart Failure, Hx Coronary Artery Disease, Hx Heart Attack Pulmonary Medical History: Denies: Hx Asthma, Hx Bronchitis, Hx COPD, Hx Pneumonia, Hx Tuberculosis Neurological Medical History: Denies: Hx Cerebrovascular Accident, Hx Seizures Renal/ Medical History: Denies: Hx End Stage Renal Disease, Hx Kidney Stones, Hx Peritoneal Dialysis GI Medical History: Reports: Hx Cirrhosis, Hx Gastroesophageal Reflux Disease. Denies: Hx Ulcer Musculoskeletal Medical History: Denies Hx Arthritis, Denies Hx Multiple Sclerosis Psychiatric Medical History: Reports: Hx Anxiety, Hx Depression Denies: Hx Bipolar Disorder, Hx Schizophrenia Past Surgical History: Reports: Hx Abdominal Surgery - Gallbladder 09/26/2015, Hx Cholecystectomy - 09/26/2015, Hx Tubal Ligation - Immunizations Immunizations up to date: Yes Hx Diphtheria, Pertussis, Tetanus Vaccination: - Unsure Physical Exam - Vital signs Vitals: Resp Pulse Ox 16 100 03/02/19 10:13 03/02/19 10:13 Course - Re-evaluation Re-evalutation: Patient seen and examined vital signs reviewed. Laboratory data and imaging were ordered as appropriate for the patient's presenting symptoms and complaint, with consideration of any critical or life threatening conditions that may be associated with their obtained history and exam as noted above. Patient was treated with IV banana bag, and ultrasound-guided paracentesis by radiology Results were reviewed when available and demonstrated hyponatremia, hyperbilirubinemia, slightly elevated lipase, these are all consistent with patient's prior lab work, and not acute. The patient was re-evaluated and was stable and improved after paracentesis, 8.8 L of fluid removed by a large volume paracentesis, patient given albumin, shortly after paracentesis. Evaluation was most consistent with ascites secondary to alcoholic cirrhosis, hyponatremia, hyperbilirubinemia, patient is encouraged to ambulate more often, and encouraged to increase her appetite, and to purchase boost or Ensure, she is also advised to follow-up with her primary care and keep her appointment for her repeat paracentesis this upcoming week. Results were discussed with the patient at this point, after careful consideration I feel that that patient can be discharged from the emergency department, the patient was educated treatments and reasons to return to the emergency department based on their presumed diagnosis as noted above, they were advised to followup with a primary care physician in 2-3 days. Patient was agreeable to plan of care. *Note is created using voice recognition software and may contain spelling, syntax or grammatical errors. Laboratory 03/02/19 03/02/19 03/02/19 10:45 10:45 10:45 WBC 6.5 RBC 2.22 L Hgb 8.9 L Hct 26.1 L MCV 118 H MCH 40.1 H MCHC 34.0 RDW 16.6 H Plt Count 103 L Seg Neutrophils % 79.9 H Lymphocytes % 7.8 L Monocytes % 11.6 Eosinophils % 0.2 Basophils % 0.5 Absolute Neutrophils 5.2 Absolute Lymphocytes 0.5 Absolute Monocytes 0.8 Absolute Eosinophils 0.0 Absolute Basophils 0.0 Large Platelets PRESENT Platelet Comment ADEQUATE Anisocytosis 1+ Macrocytosis 3+ PT 16.1 H INR 1.23 APTT 32.9 Sodium 124.3 L Potassium 4.3 Chloride 90 L Carbon Dioxide 23 Anion Gap 11 BUN 34 H Creatinine 0.95 Est GFR ( Amer) > 60 Est GFR (Non-Af Amer) > 60 Glucose 154 H Calcium 8.6 Total Bilirubin 4.6 H Direct Bilirubin 2.0 H Neonat Total Bilirubin Not Reportable Neonat Direct Bilirubin Not Reportable Neonat Indirect Bili Not Reportable AST 82 H ALT 37 Alkaline Phosphatase 109 Total Protein 5.9 L Albumin 3.0 L Lipase 306.8 H Urine Color Urine Appearance Urine pH Ur Specific [place] Urine Protein Urine Glucose (UA) Urine Ketones Urine Blood Urine Nitrite Urine Bilirubin Urine Urobilinogen Ur Leukocyte Esterase Urine WBC (Auto) Urine RBC (Auto) U Hyaline Cast (Auto) Urine Bacteria (Auto) Squamous Epi Cells Auto Urine Mucus (Auto) Urine Ascorbic Acid Serum Alcohol 03/02/19 03/02/19 10:45 11:40 WBC RBC Hgb Hct MCV MCH MCHC RDW Plt Count Seg Neutrophils % Lymphocytes % Monocytes % Eosinophils % Basophils % Absolute Neutrophils Absolute Lymphocytes Absolute Monocytes Absolute Eosinophils Absolute Basophils Large Platelets Platelet Comment Anisocytosis Macrocytosis PT INR APTT Sodium Potassium Chloride Carbon Dioxide Anion Gap BUN Creatinine Est GFR ( Amer) Est GFR (Non-Af Amer) Glucose Calcium Total Bilirubin Direct Bilirubin Neonat Total Bilirubin Neonat Direct Bilirubin Neonat Indirect Bili AST ALT Alkaline Phosphatase Total Protein Albumin Lipase Urine Color RAY Urine Appearance CLEAR Urine pH 5.0 Ur Specific [place] 1.015 Urine Protein NEGATIVE Urine Glucose (UA) NEGATIVE Urine Ketones NEGATIVE Urine Blood SMALL H Urine Nitrite NEGATIVE Urine Bilirubin NEGATIVE Urine Urobilinogen NEGATIVE Ur Leukocyte Esterase NEGATIVE Urine WBC (Auto) 1 Urine RBC (Auto) 0 U Hyaline Cast (Auto) 7 Urine Bacteria (Auto) TRACE Squamous Epi Cells Auto 1 Urine Mucus (Auto) RARE Urine Ascorbic Acid NEGATIVE Serum Alcohol < 10 Paracentesis Ultrasound 03/02/19 11:37 IMPRESSION: Successful ultrasound-guided paracentesis - Vital Signs Vital signs: Temp Pulse Resp BP Pulse Ox 98.3 F 14 125/67 100 03/02/19 10:15 03/02/19 10:15 03/02/19 10:15 03/02/19 10:15 - Laboratory Result Diagrams: 03/02/19 10:45 03/02/19 10:45 Laboratory results interpreted by me: 03/02/19 03/02/19 03/02/19 10:45 10:45 10:45 RBC 2.22 L Hgb 8.9 L Hct 26.1 L MCV 118 H MCH 40.1 H RDW 16.6 H Plt Count 103 L Seg Neutrophils % 79.9 H Lymphocytes % 7.8 L PT 16.1 H Sodium 124.3 L Chloride 90 L BUN 34 H Glucose 154 H Total Bilirubin 4.6 H Direct Bilirubin 2.0 H AST 82 H Total Protein 5.9 L Albumin 3.0 L Lipase 306.8 H Urine Blood 03/02/19 11:40 RBC Hgb Hct MCV MCH RDW Plt Count Seg Neutrophils % Lymphocytes % PT Sodium Chloride BUN Glucose Total Bilirubin Direct Bilirubin AST Total Protein Albumin Lipase Urine Blood SMALL H Discharge - Discharge Clinical Impression: Ascites due to alcoholic cirrhosis, Hyperbilirubinemia, Hyponatremia, Thrombocytopenia concurrent with and due to alcoholism, Anemia of chronic disease Condition: Stable Disposition: HOME, SELF-CARE Instructions: Cirrhosis (OM) Additional Instructions: Please keep your appointment, for your repeat paracentesis this upcoming week. I would encourage you to avoid any further alcohol consumption, keep up on a diet, and encourage yourself to eat, if you are not feeling that hungry, I would encourage you to purchase protein supplementation drinks such as boost or Ensure, to keep up your calorie counts. I would encourage you to get up and motivate yourself to at least walk around. Referrals: JOHANA VALDEZ MD [Primary Care Provider] - Follow up in 3-5 days
[2019-03-02] MEDS ORDERED: NORMAL SALINE 1000 ML 1,000 ML with POTASSIUM CHLORIDE 20 MEQ, MAGNESIUM SULFATE 8 MEQ,... IV ONE ×5 (10:56)
[2019-03-02 11:00] LABS: ABSOLUTE LYMPHOCYTES (AUTO) 0.5 10^3/uL (0.5-4.7); ABSOLUTE MONOCYTES (AUTO) 0.8 10^3/uL (0.1-1.4); ABSOLUTE NEUT (AUTO) 5.2 10^3/uL (1.7-8.2); BASOPHILS % (AUTO) 0.5 % (0-2); EOSINOPHILS % (AUTO) 0.2 % (0-6); HEMATOCRIT 26.1 % (36.0-47.0); HEMOGLOBIN 8.9 g/dL (12.0-15.5); LYMPHOCYTES % (AUTO) 7.8 % (13-45); MEAN CORPUSCULAR HEMOGLOBIN 40.1 pg (27.0-33.4); MEAN CORPUSCULAR VOLUME 118 fl (80-97); MONOCYTES % (AUTO) 11.6 % (3-13); PLATELET COUNT 103 10^3/uL (150-450); RED BLOOD COUNT 2.22 10^6/uL (3.72-5.28); RED CELL DISTRIBUTION WIDTH 16.6 % (11.5-14.0); SEGMENTED NEUTROPHILS % (AUTO) 79.9 % (42-78); TOTAL CELLS COUNTED % (AUTO) 100 %; WHITE BLOOD COUNT 6.5 10^3/uL (4.0-10.5)
[2019-03-02 11:09] LABS: INTERNATIONAL RATION (INR) 1.23; PROTHROMBIN TIME 16.1 SEC (11.4-15.4)
[2019-03-02 11:10] LABS: PARTIAL THROMBOPLASTIN TIME 32.9 SEC (23.5-35.8)
[2019-03-02 11:20] LABS: ANISOCYTOSIS 1+; PLATELET COMMENT ADEQUATE; PLATELET LARGE PRESENT
[2019-03-02 11:21] LABS: ALANINE AMINOTRANSFERASE 37 U/L (9-52); ALKALINE PHOSPHATASE 109 U/L (38-126); ANION GAP 11 (5-19); ASPARTATE AMINO TRANSFERASE 82 U/L (14-36); BILIRUBIN,TOTAL 4.6 mg/dL (0.2-1.3); BLOOD UREA NITROGEN 34 mg/dL (7-20); CALCIUM 8.6 mg/dL (8.4-10.2); CARBON DIOXIDE 23 mmol/L (22-30); CHLORIDE 90 mmol/L (98-107); GLUCOSE 154 mg/dL (75-110); LIPASE 306.8 U/L (23-300); POTASSIUM 4.3 mmol/L (3.6-5.0); SODIUM 124.3 mmol/L (137-145); TOTAL PROTEIN 5.9 g/dL (6.3-8.2)
[2019-03-02 11:57] LABS: APPEARANCE,URINE CLEAR; BILIRUBIN,URINE NEGATIVE (NEGATIVE); COLOR,URINE AMBER; GLUCOSE, URINE NEGATIVE (NEGATIVE); KETONES,URINE NEGATIVE (NEGATIVE); LEUKOCYTE ESTERASE,URINE NEGATIVE (NEGATIVE); NITRITE,URINE NEGATIVE (NEGATIVE); PROTEIN,URINE NEGATIVE (NEGATIVE); URINE SPECIFIC GRAVITY 1.015; UROBILINOGEN,URINE NEGATIVE mg/dL (<2.0)
[2019-03-02] MEDS ORDERED: FENTANYL CITRATE INJ/PF 100 MCG/2 ML AMPUL IV ONE (12:54)
--- NOTE | 2019-03-02 17:00 | RADIOLOGY REPORT (SQ) ---
EXAM DESCRIPTION: U/S ABD PARACENTESIS COMPLETED DATE/TIME: 03/02/2019 4:51 pm REASON FOR STUDY: massive ascites COMPARISON 02/20/2019, 02/07/2019, 01/25/2019 LIMITATIONS: None. PROCEDURE: After obtaining informed consent, the patient was brought to the ultrasound suite. The p rocedure was performed with the patient on a gurney. Ultrasound was used to identify a prominent poc ket of ascites in the right lower quadrant. An appropriate access site was selected. The patient wa s prepped and draped in usual sterile fashion. The access site was anesthetized with 5 mL 1% lidoca ine. A Jmyl-A-Yzhiuhdr needle was advanced into the fluid. After aspiration of fluid the needle, th e catheter was advanced off the needle into the fluid. A total of 9,000 mL of clear straw-colored fl uid was removed. The patient tolerated the procedure well left the department in satisfactory conditi on. Fluid was sent for cell count Gram stain and culture. IMPRESSION: Successful ultrasound-guided paracentesis COMMENT: Patient medication list reviewed: Yes- Quality ID# [id number]:Eligible professional attests to doc umenting in the medical record they obtained, updated, or reviewed the patient's current medications. TECHNICAL DOCUMENTATION: JOB ID: [id number] [employer]- All Rights Reserved Reading location - IP/workstation name: [email or web address]
[2019-03-02 17:47] LABS: FLUID SOURCE ASCITES
[2019-03-02 17:49] LABS: FLUID TYPE PERITONEAL
[2019-03-02 17:50] LABS: FLUID APPEARANCE CLEAR; FLUID COLOR YELLOW; FLUID VISCOSITY LIQUID
[2019-03-02] MEDS: ALBUMIN HUMAN 12.5 GM/50 ML RTUINJ IV SCH ×3 (18:04→19:35)
[2019-03-02 19:28] VITALS: BP 121/62
== END 2019-03-02 20:38 | disposition home or self-care (01) ==
LOC: ER 10:07
DX: K70.31 Alcoholic cirrhosis of liver with ascites (principal); F10.288 Alcohol dependence with other alcohol-induced disorder; E80.6 Other disorders of bilirubin metabolism; E87.1 Hypo-osmolality and hyponatremia; D69.6 Thrombocytopenia, unspecified; D63.8 Anemia in other chronic diseases classified elsewhere; R10.9 Unspecified abdominal pain; R11.2 Nausea with vomiting, unspecified; Z90.49 Acquired absence of other specified parts of digestive tract; Z98.51 Tubal ligation status
CPT/HCPCS: 99284; 96361; 96375; 96365; 96366; 36415; 87205; 87070; 80307; 83690; 85025; 85610; 85730; 89050; 87075; 80053; 81001; 82945; 84157; 49083; P9047; J3010; J3475; J1170; J3480; J3411; J2405; J7030; J3490

== ENCOUNTER 2019-03-07 07:20 | Day surgery (SDC) | payer OTHER ==
[2019-03-07 08:15] LABS: HEMATOCRIT 23.3 % (36.0-47.0); HEMOGLOBIN 8.1 g/dL (12.0-15.5); MEAN CORPUSCULAR HGB CONC 34.7 g/dL (32.0-36.0); MEAN CORPUSCULAR VOLUME 118 fl (80-97); RED BLOOD COUNT 1.97 10^6/uL (3.72-5.28); WHITE BLOOD COUNT 4.9 10^3/uL (4.0-10.5)
[2019-03-07 08:21] LABS: INTERNATIONAL RATION (INR) 1.23; PROTHROMBIN TIME 16.1 SEC (11.4-15.4)
[2019-03-07 08:32] LABS: BLOOD UREA NITROGEN 19 mg/dL (7-20)
[2019-03-07 08:40] LABS: PLATELET COUNT 80 10^3/uL (150-450)
[2019-03-07 10:52] VITALS: BP 106/58
--- NOTE | 2019-03-07 15:04 | RADIOLOGY REPORT (SQ) ---
EXAM DESCRIPTION: U/S ABD PARACENTESIS COMPLETED DATE/TIME: 03/07/2019 10:20 am REASON FOR STUDY: ASCITES K70.31 ALCOHOLIC CIRRHOSIS OF LIVER WITH ASCITES COMPARISON: 03/02/2019 LIMITATIONS: None. PROCEDURE: Procedure, risks, benefit, and alternative explained to patient who then gave written con sent. The left lower quadrant abdominal wall marked using ultrasound guidance. A time-out was marrero d for correct marking verification. Abdomen prepped and draped using sterile technique. Local anesth esia achieved using 10 ml of 1% lidocaine injection. A 6fr Gvwz-Y-Rkmvdbdr set was introduced into t he peritoneal cavity. Fluid was drained. The catheter was removed and entry site was covered with s terile bandage. No immediate complications noted. Images acquired during the procedure were stored on PACS. FINDINGS: ENTRY SITE: Left lower quadrant FLUID VOLUME: 3200 cc FLUID ANALYSIS: Straw-colored OTHER: Therapeutic only. IMPRESSION: SUCCESSFUL ULTRASOUND GUIDED PARACENTESIS. COMMENT: Patient medication list reviewed:Yes- Quality ID# [id number]:Eligible professional attests to docu menting in the medical record they obtained, updated, or reviewed the patient's current medications. TECHNICAL DOCUMENTATION: JOB ID: [id number] [employer]- All Rights Reserved Reading location - IP/workstation name: [email or web address]
== END 2019-03-07 10:50 | disposition home or self-care (01) ==
LOC: RAD 07:20
PROVIDERS: ATTEND Internal Medicine Geriatric Medicine
DX: K70.31 Alcoholic cirrhosis of liver with ascites (principal); K21.9 Gastro-esophageal reflux disease without esophagitis; Z87.891 Personal history of nicotine dependence
CPT/HCPCS: 36415; 49083; 82565; 84520; 85027; 85610; 85730

== ENCOUNTER 2019-03-21 07:21 | Day surgery (SDC) | payer OTHER ==
[2019-03-21 09:17] LABS: BLOOD UREA NITROGEN 16 mg/dL (7-20)
[2019-03-21 09:27] LABS: INTERNATIONAL RATION (INR) 1.24; PROTHROMBIN TIME 16.2 SEC (11.4-15.4)
[2019-03-21 09:28] LABS: PARTIAL THROMBOPLASTIN TIME 36.9 SEC (23.5-35.8)
[2019-03-21 09:47] LABS: HEMATOCRIT 23.3 % (36.0-47.0); MEAN CORPUSCULAR HEMOGLOBIN 37.4 pg (27.0-33.4); MEAN CORPUSCULAR HGB CONC 33.9 g/dL (32.0-36.0); PLATELET COUNT 114 10^3/uL (150-450); RED BLOOD COUNT 2.11 10^6/uL (3.72-5.28); RED CELL DISTRIBUTION WIDTH 15.8 % (11.5-14.0)
[2019-03-21 10:09] LABS: HEMOGLOBIN 7.9 g/dL (12.0-15.5); MEAN CORPUSCULAR VOLUME 110 fl (80-97)
[2019-03-21] MEDS ORDERED: ALBUMIN HUMAN 50 GM/200 ML RTUINJ IV PRN (11:27)
--- NOTE | 2019-03-21 13:28 | RADIOLOGY REPORT (SQ) ---
EXAM DESCRIPTION: U/S ABD PARACENTESIS COMPLETED DATE/TIME: 03/21/2019 1:15 pm REASON FOR STUDY: ASCITES K70.31 ALCOHOLIC CIRRHOSIS OF LIVER WITH ASCITES COMPARISON: 03/07/2019 LIMITATIONS: None. PROCEDURE: Procedure, risks, benefit, and alternative explained to patient who then gave written con sent. The left lower abdominal wall marked using ultrasound guidance. A time-out was called for cor rect marking verification. Abdomen prepped and draped using sterile technique. Local anesthesia achi eved using 10 ml of 1% lidocaine injection. A 6fr Njym-H-Piotrwhj set was introduced into the perito alina cavity. Fluid was drained. The catheter was removed and entry site was covered with sterile ba ndage. No immediate complications noted. Images acquired during the procedure were stored on PACS. FINDINGS: ENTRY SITE: Left lower quadrant FLUID VOLUME: 7,250 cc FLUID ANALYSIS: Straw-colored OTHER: Therapeutic only. IMPRESSION: SUCCESSFUL ULTRASOUND GUIDED PARACENTESIS. COMMENT: Patient medication list reviewed:Yes- Quality ID# [id number]:Eligible professional attests to docu menting in the medical record they obtained, updated, or reviewed the patient's current medications. TECHNICAL DOCUMENTATION: JOB ID: [id number] [email or web address]- All Rights Reserved Reading location - IP/workstation name: [email or web address]
[2019-03-21 13:54] VITALS: BP 98/47
== END 2019-03-21 13:35 | disposition home or self-care (01) ==
LOC: RAD 07:21
PROVIDERS: ATTEND Internal Medicine Geriatric Medicine
DX: K70.31 Alcoholic cirrhosis of liver with ascites (principal)
CPT/HCPCS: 36415; 84520; 82565; 85027; 85610; 85730; 49083; P9047

== ENCOUNTER 2019-04-04 07:27 | Day surgery (SDC) | payer OTHER ==
[2019-04-04 08:15] LABS: HEMATOCRIT 23.1 % (36.0-47.0); MEAN CORPUSCULAR HEMOGLOBIN 36.2 pg (27.0-33.4); MEAN CORPUSCULAR HGB CONC 34.4 g/dL (32.0-36.0); PLATELET COUNT 109 10^3/uL (150-450); RED CELL DISTRIBUTION WIDTH 15.6 % (11.5-14.0); WHITE BLOOD COUNT 5.9 10^3/uL (4.0-10.5)
[2019-04-04 08:32] LABS: BLOOD UREA NITROGEN 14 mg/dL (7-20)
[2019-04-04 08:37] LABS: PROTHROMBIN TIME 15.8 SEC (11.4-15.4)
[2019-04-04 08:38] LABS: PARTIAL THROMBOPLASTIN TIME 36.1 SEC (23.5-35.8)
[2019-04-04 08:41] LABS: MEAN CORPUSCULAR VOLUME 105 fl (80-97)
[2019-04-04] MEDS ORDERED: ALBUMIN HUMAN 50 GM/200 ML RTUINJ IV PRN (10:21)
--- NOTE | 2019-04-04 11:41 | RADIOLOGY REPORT (SQ) ---
EXAM DESCRIPTION: U/S ABD PARACENTESIS COMPLETED DATE/TIME: 04/04/2019 11:11 am REASON FOR STUDY: ASCITES K70.31 ALCOHOLIC CIRRHOSIS OF LIVER WITH ASCITES COMPARISON: None. LIMITATIONS: None. PROCEDURE: Procedure, risks, benefit, and alternative explained to patient who then gave written con sent. The left lower abdominal wall marked using ultrasound guidance. A time-out was called for cor rect marking verification. Abdomen prepped and draped using sterile technique. Local anesthesia achi eved using 3 ml of 1% lidocaine injection. A 6fr Fxol-X-Ncwktdsf set was introduced into the periton eal cavity. Fluid was drained. The catheter was removed and entry site was covered with sterile ban dage. No immediate complications noted. Images acquired during the procedure were stored on PACS. FINDINGS: ENTRY SITE: Left lower quadrant FLUID VOLUME: 4800 cc FLUID ANALYSIS: Straw OTHER: Therapeutic only. IMPRESSION: SUCCESSFUL ULTRASOUND GUIDED PARACENTESIS. COMMENT: Patient medication list reviewed:Yes- Quality ID# [id number]:Eligible professional attests to docu menting in the medical record they obtained, updated, or reviewed the patient's current medications. TECHNICAL DOCUMENTATION: JOB ID: [id number] [employer]- All Rights Reserved Reading location - IP/workstation name: [email or web address]
[2019-04-04 12:01] VITALS: BP 101/69
== END 2019-04-04 11:50 | disposition home or self-care (01) ==
LOC: RAD 07:27
PROVIDERS: ATTEND Internal Medicine Geriatric Medicine
DX: K70.31 Alcoholic cirrhosis of liver with ascites (principal)
CPT/HCPCS: 36415; 49083; 82565; 84520; 85027; 85610; 85730; P9047

== ENCOUNTER 2019-04-18 07:29 | Day surgery (SDC) | payer OTHER ==
[2019-04-18 08:41] LABS: HEMATOCRIT 24.4 % (36.0-47.0); HEMOGLOBIN 8.4 g/dL (12.0-15.5); MEAN CORPUSCULAR HEMOGLOBIN 34.9 pg (27.0-33.4); MEAN CORPUSCULAR HGB CONC 34.4 g/dL (32.0-36.0); MEAN CORPUSCULAR VOLUME 102 fl (80-97); PLATELET COUNT 122 10^3/uL (150-450); WHITE BLOOD COUNT 6.2 10^3/uL (4.0-10.5)
[2019-04-18 08:44] LABS: BLOOD UREA NITROGEN 11 mg/dL (7-20)
[2019-04-18 09:08] LABS: INTERNATIONAL RATION (INR) 1.31; PARTIAL THROMBOPLASTIN TIME 37.8 SEC (23.5-35.8); PROTHROMBIN TIME 16.4 SEC (11.4-15.4)
[2019-04-18] MEDS ORDERED: ALBUMIN HUMAN 50 GM/200 ML RTUINJ IV PRN (11:24)
--- NOTE | 2019-04-18 11:50 | RADIOLOGY REPORT (SQ) ---
EXAM DESCRIPTION: U/S ABD PARACENTESIS COMPLETED DATE/TIME: 04/18/2019 11:25 am REASON FOR STUDY: ASCITES COMPARISON 04/04/2019. LIMITATIONS: None. PROCEDURE: After obtaining informed consent, the patient was brought to the ultrasound suite. The p rocedure was performed with the patient on a gurney. Ultrasound was used to identify a prominent poc ket of ascites in the left lower quadrant. An appropriate access site was selected. The patient was prepped and draped in usual sterile fashion. The access site was anesthetized with 10 mL 1% lidoca ine. A Qhki-K-Xruryqhn needle was advanced into the fluid. After aspiration of fluid the needle, th e catheter was advanced off the needle into the fluid. A total of 7,000 mL of straw-colored fluid wa s removed. The patient tolerated the procedure well left the department in satisfactory condition. IMPRESSION: Successful ultrasound-guided paracentesis COMMENT: Patient medication list reviewed: Yes- Quality ID# [id number]:Eligible professional attests to doc umenting in the medical record they obtained, updated, or reviewed the patient's current medications. TECHNICAL DOCUMENTATION: JOB ID: [id number] [employer]- All Rights Reserved Reading location - IP/workstation name: [email or web address]
[2019-04-18 13:04] VITALS: BP 98/58
== END 2019-04-18 13:00 | disposition home or self-care (01) ==
LOC: RAD 07:29
PROVIDERS: ATTEND Internal Medicine Geriatric Medicine
DX: K70.31 Alcoholic cirrhosis of liver with ascites (principal)
CPT/HCPCS: 36415; 84520; 82565; 85027; 85610; 85730; 49083; P9047

== ENCOUNTER 2019-05-01 11:27 | Day surgery (SDC) | payer OTHER ==
[2019-05-01 11:33] LABS: HEMATOCRIT 27.4 % (36.0-47.0); HEMOGLOBIN 9.3 g/dL (12.0-15.5); MEAN CORPUSCULAR HEMOGLOBIN 33.9 pg (27.0-33.4); MEAN CORPUSCULAR HGB CONC 33.8 g/dL (32.0-36.0); MEAN CORPUSCULAR VOLUME 100 fl (80-97); PLATELET COUNT 132 10^3/uL (150-450); RED BLOOD COUNT 2.74 10^6/uL (3.72-5.28); WHITE BLOOD COUNT 5.5 10^3/uL (4.0-10.5)
[2019-05-01 11:57] LABS: INTERNATIONAL RATION (INR) 1.26; PROTHROMBIN TIME 15.9 SEC (11.4-15.4)
[2019-05-01 11:58] LABS: BLOOD UREA NITROGEN 11 mg/dL (7-20); PARTIAL THROMBOPLASTIN TIME 37.6 SEC (23.5-35.8)
[2019-05-01] MEDS ORDERED: ALBUMIN HUMAN 50 GM/200 ML RTUINJ IV PRN (14:23)
--- NOTE | 2019-05-01 15:40 | RADIOLOGY REPORT (SQ) ---
EXAM DESCRIPTION: U/S ABD PARACENTESIS COMPLETED DATE/TIME: 05/01/2019 3:03 pm REASON FOR STUDY: ASCITES COMPARISON Multiple previous, most recently 04/18/2019 LIMITATIONS: None. PROCEDURE: After obtaining informed consent, the patient was brought to the ultrasound suite. The p rocedure was performed with the patient on a gurney. Ultrasound was used to identify a prominent poc ket of ascites in the left lower quadrant. An appropriate access site was selected. The patient was prepped and draped in usual sterile fashion. The access site was anesthetized with 5.5 mL 1% lidoc hortencia. A Ybbc-Y-Vpitgdax needle was advanced into the fluid. After aspiration of fluid the needle, t he catheter was advanced off the needle into the fluid. A total of 6,350 mL of clear straw-colored f luid was removed. The patient tolerated the procedure well left the department in satisfactory condit ion. No testing on the ascites. Patient received IV albumin after the paracentesis. IMPRESSION: Successful ultrasound-guided therapeutic only paracentesis COMMENT: Patient medication list reviewed: Yes- Quality ID# [id number]:Eligible professional attests to doc umenting in the medical record they obtained, updated, or reviewed the patient's current medications. TECHNICAL DOCUMENTATION: JOB ID: [id number] [employer]- All Rights Reserved Reading location - IP/workstation name: [email or web address]
[2019-05-01 15:55] VITALS: BP 90/44
== END 2019-05-01 15:55 | disposition home or self-care (01) ==
LOC: RAD 11:27
PROVIDERS: ATTEND Internal Medicine Geriatric Medicine
DX: K74.60 Unspecified cirrhosis of liver (principal); Z79.899 Other long term (current) drug therapy; I10 Essential (primary) hypertension; Z09 Encounter for follow-up examination after completed treatment for conditions other than malignant neoplasm; K21.9 Gastro-esophageal reflux disease without esophagitis; J30.2 Other seasonal allergic rhinitis
CPT/HCPCS: 36415; 84520; 82565; 85027; 85610; 85730; 49083; P9047

== ENCOUNTER 2019-05-15 07:43 | Day surgery (SDC) | payer OTHER ==
[2019-05-15 08:48] LABS: HEMATOCRIT 26.7 % (36.0-47.0); HEMOGLOBIN 9.1 g/dL (12.0-15.5); MEAN CORPUSCULAR HEMOGLOBIN 33.2 pg (27.0-33.4); MEAN CORPUSCULAR HGB CONC 33.9 g/dL (32.0-36.0); MEAN CORPUSCULAR VOLUME 98 fl (80-97); PLATELET COUNT 125 10^3/uL (150-450); RED BLOOD COUNT 2.73 10^6/uL (3.72-5.28); RED CELL DISTRIBUTION WIDTH 14.8 % (11.5-14.0); WHITE BLOOD COUNT 5.7 10^3/uL (4.0-10.5)
[2019-05-15 08:56] LABS: INTERNATIONAL RATION (INR) 1.27
[2019-05-15 09:03] LABS: BLOOD UREA NITROGEN 14 mg/dL (7-20)
[2019-05-15 09:04] LABS: PARTIAL THROMBOPLASTIN TIME 37.7 SEC (23.5-35.8)
[2019-05-15 12:33] VITALS: BP 143/86
--- NOTE | 2019-05-15 14:29 | RADIOLOGY REPORT (SQ) ---
EXAM DESCRIPTION: U/S ABD PARACENTESIS COMPLETED DATE/TIME: 05/15/2019 11:55 am REASON FOR STUDY: ASCITES COMPARISON 05/01/2019 LIMITATIONS: None. PROCEDURE: After obtaining informed consent, the patient was brought to the ultrasound suite. The p rocedure was performed with the patient on a gurney. Ultrasound was used to identify a prominent poc ket of ascites in the right lower quadrant. An appropriate access site was selected. The patient wa s prepped and draped in usual sterile fashion. The access site was anesthetized with 10 mL 1% lidoc hortencia. A Goea-Q-Hpffzrhj needle was advanced into the fluid. After aspiration of fluid the needle, t he catheter was advanced off the needle into the fluid. A total of 4,500 mL of clear, straw-colored fluid was removed. The patient tolerated the procedure well left the department in satisfactory condi tion. IMPRESSION: Successful ultrasound-guided paracentesis COMMENT: Patient medication list reviewed: Yes- Quality ID# [id number]:Eligible professional attests to doc umenting in the medical record they obtained, updated, or reviewed the patient's current medications. TECHNICAL DOCUMENTATION: JOB ID: [id number] [employer]- All Rights Reserved Reading location - IP/workstation name: [email or web address]
== END 2019-05-15 12:35 | disposition home or self-care (01) ==
LOC: RAD 07:43
PROVIDERS: ATTEND Internal Medicine Geriatric Medicine
DX: K70.31 Alcoholic cirrhosis of liver with ascites (principal)
CPT/HCPCS: 36415; 49083; 82565; 84520; 85027; 85610; 85730

== ENCOUNTER 2019-05-29 07:26 | Day surgery (SDC) | payer OTHER ==
[2019-05-29 08:44] LABS: HEMOGLOBIN 8.8 g/dL (12.0-15.5); MEAN CORPUSCULAR HEMOGLOBIN 33.5 pg (27.0-33.4); MEAN CORPUSCULAR VOLUME 99 fl (80-97); PLATELET COUNT 104 10^3/uL (150-450); RED BLOOD COUNT 2.64 10^6/uL (3.72-5.28); RED CELL DISTRIBUTION WIDTH 14.3 % (11.5-14.0); WHITE BLOOD COUNT 6.5 10^3/uL (4.0-10.5)
[2019-05-29 09:03] LABS: BLOOD UREA NITROGEN 14 mg/dL (7-20)
[2019-05-29 09:30] LABS: INTERNATIONAL RATION (INR) 1.35; PROTHROMBIN TIME 16.8 SEC (11.4-15.4)
[2019-05-29 09:31] LABS: PARTIAL THROMBOPLASTIN TIME 38.2 SEC (23.5-35.8)
--- NOTE | 2019-05-29 11:51 | RADIOLOGY REPORT (SQ) ---
EXAM DESCRIPTION: U/S ABD PARACENTESIS COMPLETED DATE/TIME: 05/29/2019 11:34 am REASON FOR STUDY: ASCITES COMPARISON Multiple previous LIMITATIONS: None. PROCEDURE: After obtaining informed consent, the patient was brought to the ultrasound suite. The p rocedure was performed with the patient on a gurney. Ultrasound was used to identify a prominent poc ket of ascites in the left lower quadrant. An appropriate access site was selected. The patient was prepped and draped in usual sterile fashion. The access site was anesthetized with 6 mL 1% lidocai ne. A Zmgb-X-Qskvnore needle was advanced into the fluid. After aspiration of fluid the needle, the catheter was advanced off the needle into the fluid. A total of 3,500 mL of clear straw-colored flu id was removed. The patient tolerated the procedure well left the department in satisfactory conditio n. IMPRESSION: Successful ultrasound-guided paracentesis, therapeutic only COMMENT: Patient medication list reviewed: Yes- Quality ID# [id number]:Eligible professional attests to doc umenting in the medical record they obtained, updated, or reviewed the patient's current medications. TECHNICAL DOCUMENTATION: JOB ID: [id number] [employer]- All Rights Reserved Reading location - IP/workstation name: [email or web address]
[2019-05-29 12:40] VITALS: BP 102/84
== END 2019-05-29 11:45 | disposition home or self-care (01) ==
LOC: RAD 07:26
PROVIDERS: ATTEND Internal Medicine Geriatric Medicine
DX: K70.31 Alcoholic cirrhosis of liver with ascites (principal)
CPT/HCPCS: 36415; 49083; 82565; 84520; 85027; 85610; 85730

== ENCOUNTER 2019-06-26 07:13 | Day surgery (SDC) | payer OTHER ==
[2019-06-26 07:31] LABS: INTERNATIONAL RATION (INR) 1.22; PROTHROMBIN TIME 15.5 SEC (11.4-15.4)
[2019-06-26 07:32] LABS: PARTIAL THROMBOPLASTIN TIME 35.4 SEC (23.5-35.8)
[2019-06-26 07:33] LABS: HEMATOCRIT 28.6 % (36.0-47.0); HEMOGLOBIN 9.8 g/dL (12.0-15.5); MEAN CORPUSCULAR HEMOGLOBIN 33.1 pg (27.0-33.4); MEAN CORPUSCULAR HGB CONC 34.1 g/dL (32.0-36.0); MEAN CORPUSCULAR VOLUME 97 fl (80-97); PLATELET COUNT 136 10^3/uL (150-450); RED BLOOD COUNT 2.94 10^6/uL (3.72-5.28); RED CELL DISTRIBUTION WIDTH 14.7 % (11.5-14.0); WHITE BLOOD COUNT 5.5 10^3/uL (4.0-10.5)
[2019-06-26 07:38] LABS: BLOOD UREA NITROGEN 14 mg/dL (7-20)
[2019-06-26] MEDS: ALBUMIN HUMAN 12.5 GM/50 ML RTUINJ IV SCH ×4 (10:50→13:50)
--- NOTE | 2019-06-26 12:43 | RADIOLOGY REPORT (SQ) ---
EXAM DESCRIPTION: U/S ABD PARACENTESIS COMPLETED DATE/TIME: 06/26/2019 10:46 am REASON FOR STUDY: ASCITES COMPARISON 05/29/2019, 05/15/2019, 05/01/2019, 04/18/2019 LIMITATIONS: None. PROCEDURE: After obtaining informed consent, the patient was brought to the ultrasound suite. The p rocedure was performed with the patient on a gurney. Ultrasound was used to identify a prominent poc ket of ascites in the left lower quadrant. An appropriate access site was selected. The patient was prepped and draped in usual sterile fashion. The access site was anesthetized with 6 mL 1% lidocai ne. A Ghfj-I-Dupcmyln needle was advanced into the fluid. After aspiration of fluid the needle, the catheter was advanced off the needle into the fluid. A total of 7,600 mL of clear straw-colored flu id was removed. The patient tolerated the procedure well left the department in satisfactory conditio n. IMPRESSION: Successful ultrasound-guided therapeutic paracentesis COMMENT: Patient medication list reviewed: Yes- Quality ID# [id number]:Eligible professional attests to doc umenting in the medical record they obtained, updated, or reviewed the patient's current medications. TECHNICAL DOCUMENTATION: JOB ID: [id number] [employer]- All Rights Reserved Reading location - IP/workstation name: [email or web address]
[2019-06-26 14:15] VITALS: BP 105/64
== END 2019-06-26 16:15 | disposition home or self-care (01) ==
LOC: RAD 07:13
PROVIDERS: ATTEND Internal Medicine Geriatric Medicine
DX: K70.31 Alcoholic cirrhosis of liver with ascites (principal); Z79.899 Other long term (current) drug therapy; G89.4 Chronic pain syndrome; I10 Essential (primary) hypertension
CPT/HCPCS: 36415; 84520; 82565; 85027; 85610; 85730; 49083; P9047

== ENCOUNTER 2019-07-12 06:56 | Day surgery (SDC) | payer OTHER ==
[2019-07-12 07:45] LABS: HEMATOCRIT 25.4 % (36.0-47.0); HEMOGLOBIN 8.9 g/dL (12.0-15.5); MEAN CORPUSCULAR HEMOGLOBIN 34.5 pg (27.0-33.4); MEAN CORPUSCULAR VOLUME 99 fl (80-97); PLATELET COUNT 112 10^3/uL (150-450); RED BLOOD COUNT 2.57 10^6/uL (3.72-5.28); RED CELL DISTRIBUTION WIDTH 16.6 % (11.5-14.0); WHITE BLOOD COUNT 5.1 10^3/uL (4.0-10.5)
[2019-07-12 07:59] LABS: INTERNATIONAL RATION (INR) 1.23; PROTHROMBIN TIME 15.5 SEC (11.4-15.4)
[2019-07-12 08:00] LABS: PARTIAL THROMBOPLASTIN TIME 35.1 SEC (23.5-35.8)
[2019-07-12 08:02] LABS: BLOOD UREA NITROGEN 11 mg/dL (7-20)
[2019-07-12] MEDS ORDERED: ALBUMIN HUMAN 12.5 GM/50 ML RTUINJ IV SCH (11:30)
[2019-07-12] MEDS ORDERED: ALBUMIN HUMAN 50 GM/200 ML RTUINJ IV PRN (11:39)
[2019-07-12 13:12] VITALS: BP 108/63
--- NOTE | 2019-07-12 13:35 | RADIOLOGY REPORT (SQ) ---
EXAM DESCRIPTION: U/S ABD PARACENTESIS COMPLETED DATE/TIME: 07/12/2019 11:15 am REASON FOR STUDY: ASCITES COMPARISON 06/26/2019, 05/29/2019 LIMITATIONS: None. PROCEDURE: After obtaining informed consent, the patient was brought to the ultrasound suite. The p rocedure was performed with the patient on a gurney. Ultrasound was used to identify a prominent poc ket of ascites in the LEFT LOWER QUADRANT. An appropriate access site was selected. The patient was prepped and draped in usual sterile fashion. The access site was anesthetized with 6 mL 1% lidocai ne. A Worp-S-Khkgskvg needle was advanced into the fluid. After aspiration of fluid the needle, the catheter was advanced off the needle into the fluid. A total of 8,200 mL of clear straw-colored flu id was removed. The patient tolerated the procedure well left the department in satisfactory conditio n. Patient received IV albumin post procedure IMPRESSION: Successful ultrasound-guided therapeutic only paracentesis COMMENT: Patient medication list reviewed: Yes- Quality ID# [id number]:Eligible professional attests to doc umenting in the medical record they obtained, updated, or reviewed the patient's current medications. TECHNICAL DOCUMENTATION: JOB ID: [id number] [employer]- All Rights Reserved Reading location - IP/workstation name: [email or web address]
== END 2019-07-12 13:10 | disposition home or self-care (01) ==
LOC: RAD 06:56
PROVIDERS: ATTEND Internal Medicine Geriatric Medicine
DX: K70.31 Alcoholic cirrhosis of liver with ascites (principal)
CPT/HCPCS: 36415; 84520; 82565; 85027; 85610; 85730; 49083; P9047

== ENCOUNTER 2019-07-23 06:49 | Day surgery (SDC) | payer OTHER ==
[2019-07-23 07:28] LABS: HEMATOCRIT 26.2 % (36.0-47.0); HEMOGLOBIN 8.9 g/dL (12.0-15.5); MEAN CORPUSCULAR HEMOGLOBIN 35.4 pg (27.0-33.4); MEAN CORPUSCULAR HGB CONC 34.1 g/dL (32.0-36.0); PLATELET COUNT 108 10^3/uL (150-450); RED BLOOD COUNT 2.53 10^6/uL (3.72-5.28); RED CELL DISTRIBUTION WIDTH 20.3 % (11.5-14.0); WHITE BLOOD COUNT 7.1 10^3/uL (4.0-10.5)
[2019-07-23 07:29] LABS: MEAN CORPUSCULAR VOLUME 104 fl (80-97)
[2019-07-23 07:31] LABS: INTERNATIONAL RATION (INR) 1.25; PROTHROMBIN TIME 15.8 SEC (11.4-15.4)
[2019-07-23 07:33] LABS: PARTIAL THROMBOPLASTIN TIME 37.4 SEC (23.5-35.8)
[2019-07-23 07:39] LABS: BLOOD UREA NITROGEN 25 mg/dL (7-20)
[2019-07-23] MEDS ORDERED: ALBUMIN HUMAN 12.5 GM/50 ML RTUINJ IV ONE (11:30)
[2019-07-23] MEDS ORDERED: ALBUMIN HUMAN 50 GM/200 ML RTUINJ IV PRN (12:00)
[2019-07-23] MEDS ORDERED: ALBUMIN HUMAN 50 GM/200 ML RTUINJ IV SCH (12:00)
--- NOTE | 2019-07-23 13:25 | RADIOLOGY REPORT (SQ) ---
EXAM DESCRIPTION: U/S ABD PARACENTESIS COMPLETED DATE/TIME: 07/23/2019 11:12 am REASON FOR STUDY: Ascites COMPARISON 07/12/2019, 06/26/2019, 05/29/2019, 05/15/2019 paracentesis LIMITATIONS: None. PROCEDURE: After obtaining informed consent, the patient was brought to the ultrasound suite. The p rocedure was performed with the patient on a gurney. Ultrasound was used to identify a prominent poc ket of ascites in the right lower quadrant. An appropriate access site was selected. The patient wa s prepped and draped in usual sterile fashion. The access site was anesthetized with 6 mL 1% lidoca ine. A Aiez-E-Odzjdbmg needle was advanced into the fluid. After aspiration of fluid the needle, th e catheter was advanced off the needle into the fluid. A total of 9,200 mL of clear straw-colored fl uid was removed. The patient tolerated the procedure well left the department in satisfactory conditi on. IMPRESSION: Successful ultrasound-guided paracentesis COMMENT: Patient medication list reviewed: Yes- Quality ID# [id number]:Eligible professional attests to doc umenting in the medical record they obtained, updated, or reviewed the patient's current medications. TECHNICAL DOCUMENTATION: JOB ID: [id number] [employer]- All Rights Reserved Reading location - IP/workstation name: [email or web address]
[2019-07-23 14:05] VITALS: BP 107/48
== END 2019-07-23 14:00 | disposition home or self-care (01) ==
LOC: RAD 06:49
PROVIDERS: ATTEND Internal Medicine Geriatric Medicine
DX: K70.31 Alcoholic cirrhosis of liver with ascites (principal)
CPT/HCPCS: 36415; 84520; 82565; 85027; 85610; 85730; 49083; P9047

== ENCOUNTER 2019-08-01 07:58 | Day surgery (SDC) | payer OTHER ==
[2019-08-01 09:37] LABS: HEMATOCRIT 23.7 % (36.0-47.0); MEAN CORPUSCULAR HEMOGLOBIN 36.1 pg (27.0-33.4); MEAN CORPUSCULAR HGB CONC 33.9 g/dL (32.0-36.0); MEAN CORPUSCULAR VOLUME 107 fl (80-97); RED BLOOD COUNT 2.22 10^6/uL (3.72-5.28); RED CELL DISTRIBUTION WIDTH 20.8 % (11.5-14.0); WHITE BLOOD COUNT 4.7 10^3/uL (4.0-10.5)
[2019-08-01 09:41] LABS: INTERNATIONAL RATION (INR) 1.27
[2019-08-01 09:42] LABS: PARTIAL THROMBOPLASTIN TIME 30.4 SEC (23.5-35.8)
[2019-08-01 09:50] LABS: BLOOD UREA NITROGEN 14 mg/dL (7-20)
[2019-08-01 10:05] LABS: PLATELET COUNT 97 10^3/uL (150-450)
--- NOTE | 2019-08-01 12:52 | RADIOLOGY REPORT (SQ) ---
EXAM DESCRIPTION: U/S ABD PARACENTESIS COMPLETED DATE/TIME: 08/01/2019 12:39 pm REASON FOR STUDY: ASCITES K70.31 ALCOHOLIC CIRRHOSIS OF LIVER WITH ASCITES COMPARISON: 07/23/2019 LIMITATIONS: None. PROCEDURE: Procedure, risks, benefit, and alternative explained to patient who then gave written con sent. The right lower quadrant abdominal wall marked using ultrasound guidance. A time-out was call ed for correct marking verification. Abdomen prepped and draped using sterile technique. Local anest hesia achieved using 10 ml of 1% lidocaine injection. A 6fr Eopc-F-Dcysgpdy set was introduced into the peritoneal cavity. Fluid was drained. The catheter was removed and entry site was covered with sterile bandage. No immediate complications noted. Images acquired during the procedure were stored on PACS. FINDINGS: ENTRY SITE: Right lower quadrant FLUID VOLUME: 7500 cc FLUID ANALYSIS: Straw-colored OTHER: Fluid sent to the lab for testing. IMPRESSION: SUCCESSFUL ULTRASOUND GUIDED PARACENTESIS. COMMENT: Patient medication list reviewed:Yes- Quality ID# [id number]:Eligible professional attests to docu menting in the medical record they obtained, updated, or reviewed the patient's current medications. TECHNICAL DOCUMENTATION: JOB ID: [id number] [employer]- All Rights Reserved Reading location - IP/workstation name: [email or web address]
[2019-08-01] MEDS ORDERED: ALBUMIN HUMAN 12.5 GM/50 ML RTUINJ IV PRN ×2 (13:00)
[2019-08-01] MEDS: ALBUMIN HUMAN 12.5 GM/50 ML RTUINJ IV PRN ×2 (13:00→13:34)
[2019-08-01 14:50] VITALS: BP 110/88
== END 2019-08-01 14:45 | disposition home or self-care (01) ==
LOC: RAD 07:58
PROVIDERS: ATTEND Internal Medicine Geriatric Medicine
DX: K70.31 Alcoholic cirrhosis of liver with ascites (principal)
CPT/HCPCS: 36415; 84520; 82565; 85027; 85610; 85730; 49083; P9047

== ENCOUNTER → 2019-08-10 | Day surgery (SDC) | payer OTHER ==
[~2019-08-10] MED LIST: ALBUMIN HUMAN 25 GM/100 ML RTUINJ IV ONE
[2019-08-10 08:09] LABS: HEMATOCRIT 26.2 % (36.0-47.0); HEMOGLOBIN 8.8 g/dL (12.0-15.5); MEAN CORPUSCULAR HEMOGLOBIN 36.5 pg (27.0-33.4); MEAN CORPUSCULAR HGB CONC 33.8 g/dL (32.0-36.0); MEAN CORPUSCULAR VOLUME 108 fl (80-97); RED BLOOD COUNT 2.42 10^6/uL (3.72-5.28); WHITE BLOOD COUNT 4.9 10^3/uL (4.0-10.5)
[2019-08-10 08:19] LABS: INTERNATIONAL RATION (INR) 1.19; PARTIAL THROMBOPLASTIN TIME 30.7 SEC (23.5-35.8); PROTHROMBIN TIME 15.2 SEC (11.4-15.4)
[2019-08-10 08:33] LABS: PLATELET COUNT 98 10^3/uL (150-450)
[2019-08-10 08:36] LABS: BLOOD UREA NITROGEN 21 mg/dL (7-20)
--- NOTE | 2019-08-10 12:28 | RADIOLOGY REPORT (SQ) ---
EXAM DESCRIPTION: U/S ABD PARACENTESIS COMPLETED DATE/TIME: 08/10/2019 11:31 am REASON FOR STUDY: ALCOHOLIC CIRRHOSIS OF LIVER ASCITES COMPARISON 08/01/2019. LIMITATIONS: None. PROCEDURE: After obtaining informed consent, the patient was brought to the ultrasound suite. The p rocedure was performed with the patient on a gurney. Ultrasound was used to identify a prominent poc ket of ascites in the left lower quadrant. An appropriate access site was selected. The patient was prepped and draped in usual sterile fashion. The access site was anesthetized with 10 mL 1% lidoca ine. A Ishm-Z-Sztiaurd needle was advanced into the fluid. After aspiration of fluid the needle, th e catheter was advanced off the needle into the fluid. A total of 9,260 mL of straw-colored fluid wa s removed. The patient tolerated the procedure well left the department in satisfactory condition. IMPRESSION: Successful ultrasound-guided paracentesis COMMENT: Patient medication list reviewed: Yes- Quality ID# [id number]:Eligible professional attests to doc umenting in the medical record they obtained, updated, or reviewed the patient's current medications. TECHNICAL DOCUMENTATION: JOB ID: [id number] [employer]- All Rights Reserved Reading location - IP/workstation name: [email or web address]
[2019-08-10 16:41] VITALS: BP 106/70
== END ==
LOC: RAD 07:22
PROVIDERS: ATTEND Internal Medicine Geriatric Medicine
DX: K70.31 Alcoholic cirrhosis of liver with ascites (principal)
CPT/HCPCS: 36415; 84520; 82565; 85027; 85610; 85730; 49083; P9047

== ENCOUNTER 2019-08-20 08:05 | Day surgery (SDC) | payer OTHER ==
[2019-08-20 09:58] LABS: INTERNATIONAL RATION (INR) 1.25; PROTHROMBIN TIME 15.8 SEC (11.4-15.4)
[2019-08-20 09:59] LABS: PARTIAL THROMBOPLASTIN TIME 26.6 SEC (23.5-35.8)
[2019-08-20 10:12] LABS: BLOOD UREA NITROGEN 26 mg/dL (7-20)
[2019-08-20 10:20] LABS: HEMATOCRIT 22.3 % (36.0-47.0); MEAN CORPUSCULAR HEMOGLOBIN 37.7 pg (27.0-33.4); MEAN CORPUSCULAR HGB CONC 33.5 g/dL (32.0-36.0); PLATELET COUNT 101 10^3/uL (150-450); RED BLOOD COUNT 1.99 10^6/uL (3.72-5.28); RED CELL DISTRIBUTION WIDTH 18.9 % (11.5-14.0); WHITE BLOOD COUNT 5.3 10^3/uL (4.0-10.5)
[2019-08-20 10:21] LABS: HEMOGLOBIN 7.5 g/dL (12.0-15.5)
[2019-08-20 10:22] LABS: MEAN CORPUSCULAR VOLUME 112 fl (80-97)
[2019-08-20] MEDS: ALBUMIN HUMAN 50 GM/200 ML RTUINJ IV PRN ×4 (12:45→13:44)
[2019-08-20] MEDS ORDERED: ALBUMIN HUMAN 12.5 GM/50 ML RTUINJ IV ONE (13:00)
--- NOTE | 2019-08-20 13:31 | RADIOLOGY REPORT (SQ) ---
EXAM DESCRIPTION: U/S ABD PARACENTESIS COMPLETED DATE/TIME: 08/20/2019 12:08 pm REASON FOR STUDY: ASCITES COMPARISON None. LIMITATIONS: None. PROCEDURE: After obtaining informed consent, the patient was brought to the ultrasound suite. The p rocedure was performed with the patient on a gurney. Ultrasound was used to identify a prominent poc ket of ascites in the right lower quadrant. An appropriate access site was selected. The patient wa s prepped and draped in usual sterile fashion. The access site was anesthetized with 5 mL 1% lidoca ine. A Bdgz-M-Khgqolbj needle was advanced into the fluid. After aspiration of fluid the needle, th e catheter was advanced off the needle into the fluid. A total of 9250 mL of clear straw colored flu id was removed. The patient tolerated the procedure well left the department in satisfactory conditio n. IMPRESSION: SUCCESSFUL ULTRASOUND-GUIDED PARACENTESIS. COMMENT: Patient medication list reviewed: Yes- Quality ID# [id number]:Eligible professional attests to doc umenting in the medical record they obtained, updated, or reviewed the patient's current medications. TECHNICAL DOCUMENTATION: JOB ID: [id number] [employer]- All Rights Reserved Reading location - IP/workstation name: [email or web address]
[2019-08-20 16:12] VITALS: BP 102/45
== END 2019-08-20 14:40 | disposition home or self-care (01) ==
LOC: RAD 08:05
PROVIDERS: ATTEND Internal Medicine Geriatric Medicine
DX: K70.31 Alcoholic cirrhosis of liver with ascites (principal); R06.02 Shortness of breath; D47.3 Essential (hemorrhagic) thrombocythemia
CPT/HCPCS: 36415; 84520; 82565; 85027; 85610; 85730; 49083; P9047

== ENCOUNTER 2019-08-28 08:56 | Emergency (ER) | payer OTHER ==
[2019-08-28 09:49] LABS: INTERNATIONAL RATION (INR) 1.19; PROTHROMBIN TIME 15.1 SEC (11.4-15.4)
[2019-08-28 09:53] LABS: ABSOLUTE LYMPHOCYTES (AUTO) 0.5 10^3/uL (0.5-4.7); ABSOLUTE MONOCYTES (AUTO) 0.6 10^3/uL (0.1-1.4); ABSOLUTE NEUT (AUTO) 3.9 10^3/uL (1.7-8.2); BASOPHILS % (AUTO) 0.7 % (0-2); EOSINOPHILS % (AUTO) 0.4 % (0-6); HEMATOCRIT 21.4 % (36.0-47.0); LYMPHOCYTES % (AUTO) 10.1 % (13-45); MEAN CORPUSCULAR HEMOGLOBIN 39.1 pg (27.0-33.4); MEAN CORPUSCULAR HGB CONC 34.7 g/dL (32.0-36.0); MEAN CORPUSCULAR VOLUME 113 fl (80-97); PLATELET COUNT 122 10^3/uL (150-450); RED CELL DISTRIBUTION WIDTH 18.8 % (11.5-14.0); SEGMENTED NEUTROPHILS % (AUTO) 77.8 % (42-78); TOTAL CELLS COUNTED % (AUTO) 100 %
[2019-08-28 09:56] LABS: ALBUMIN 2.9 g/dL (3.5-5.0); ALKALINE PHOSPHATASE 91 U/L (38-126); ANION GAP 13 (5-19); ASPARTATE AMINO TRANSFERASE 57 U/L (14-36); BILIRUBIN,DIRECT 0.8 mg/dL (0.0-0.4); BILIRUBIN,TOTAL 1.9 mg/dL (0.2-1.3); BLOOD UREA NITROGEN 21 mg/dL (7-20); CALCIUM 8.4 mg/dL (8.4-10.2); CARBON DIOXIDE 16 mmol/L (22-30); CHLORIDE 95 mmol/L (98-107); GLUCOSE 130 mg/dL (75-110); POTASSIUM 4.8 mmol/L (3.6-5.0); TOTAL PROTEIN 5.6 g/dL (6.3-8.2)
[2019-08-28 10:23] LABS: ANISOCYTOSIS 1+; POIKILOCYTOSIS SLIGHT; POLYCHROMASIA SLIGHT; SCHISTOCYTES SLIGHT; TEAR DROP CELLS SLIGHT; TOXIC GRANULATION 1+
[2019-08-28 10:24] LABS: PAPPENHEIMER BODIES PRESENT
[2019-08-28 10:25] LABS: HEMOGLOBIN 7.4 g/dL (12.0-15.5)
[2019-08-28 10:26] LABS: PLATELET COMMENT DECREASED
[2019-08-28 11:09] LABS: APPEARANCE,URINE CLEAR; BILIRUBIN,URINE NEGATIVE (NEGATIVE); COLOR,URINE YELLOW; GLUCOSE, URINE NEGATIVE (NEGATIVE); KETONES,URINE NEGATIVE (NEGATIVE); LEUKOCYTE ESTERASE,URINE NEGATIVE (NEGATIVE); NITRITE,URINE NEGATIVE (NEGATIVE); PROTEIN,URINE NEGATIVE (NEGATIVE); URINE SPECIFIC GRAVITY 1.011; UROBILINOGEN,URINE NEGATIVE mg/dL (<2.0)
--- NOTE | 2019-08-28 11:55 | ER Document Report ---
ED General - General Chief Complaint: Rectal Bleeding Stated Complaint: RECTAL BLEEDING Time Seen by Provider: 08/28/19 09:09 Primary Care Provider: JOHANA VALDEZ MD [Primary Care Provider] - Follow up as needed Mode of Arrival: Ambulatory Information source: Patient TRAVEL OUTSIDE OF THE [place] IN LAST 30 DAYS: No - HPI Notes: Patient presents complaining of weakness and bright red blood in her stool. She states that she is scared to eat because of how much blood she sees in her stool. She states she has had this for approximately 2 weeks. With some mild abdominal pain more of a cramping sensation. She denies vomiting any blood or any vaginal bleeding. She has had generalized weakness. This weakness is worse with exertion and better with rest. Some mild shortness of breath. The the weakness radiates throughout her body. It is constant. It is moderate to severe. She states she last drank alcohol 4 days ago. She does have a history of chronic liver cirrhosis. - Related Data Allergies/Adverse Reactions: No Known Allergies Allergy (Verified 07/23/19 06:55) Past Medical History - General Information source: Patient - Social History Smoking Status: Current Every Day Smoker Frequency of alcohol use: States she last drank alcohol 4 days ago Drug Abuse: None Family History: Reviewed & Not Pertinent Patient has suicidal ideation: No Patient has homicidal ideation: No - Past Medical History Cardiac Medical History: Denies: Hx Congestive Heart Failure, Hx Coronary Artery Disease, Hx Heart Attack, Hx Hypertension Pulmonary Medical History: Denies: Hx Asthma, Hx Bronchitis, Hx COPD, Hx Pneumonia, Hx Tuberculosis Neurological Medical History: Denies: Hx Cerebrovascular Accident, Hx Seizures, Hx Parkinson's Disease Renal/ Medical History: Denies: Hx End Stage Renal Disease, Hx Kidney Stones, Hx Peritoneal Dialysis GI Medical History: Reports: Hx Cirrhosis, Hx Gastroesophageal Reflux Disease. Denies: Hx Ulcer Musculoskeletal Medical History: Denies Hx Arthritis, Denies Hx Multiple Sclerosis Psychiatric Medical History: Reports: Hx Anxiety, Hx Depression Denies: Hx Bipolar Disorder, Hx Schizophrenia Past Surgical History: Reports: Hx Abdominal Surgery - Gallbladder 09/26/2015, Hx Cholecystectomy - 09/26/2015, Hx Tubal Ligation - Immunizations Immunizations up to date: Yes Hx Diphtheria, Pertussis, Tetanus Vaccination: No - Unsure Review of Systems - Review of Systems Constitutional: Malaise, Weakness Cardiovascular: denies: Chest pain, Palpitations Respiratory: Short of breath. denies: Cough Gastrointestinal: Abdominal pain, Diarrhea -: Yes All other systems reviewed and negative Physical Exam - Vital signs Vitals: Resp Pulse Ox 17 100 08/28/19 09:08 08/28/19 09:08 Interpretation: Tachycardic - General General appearance: Appears well, Alert - HEENT Head: Normocephalic, Atraumatic Eyes: Normal Pupils: PERRL - Respiratory Respiratory status: No respiratory distress Chest status: Nontender Breath sounds: Normal Chest palpation: Normal - Cardiovascular Rhythm: Tachycardia - 104 Heart sounds: Normal auscultation Murmur: Yes - 3 out of 6 best heard at the left second intercostal space - Abdominal Distension: Distended Bowel sounds: Normal Tenderness: Tender - Mild diffuse. No rebound or guarding. No: Guarding, Rebound Organomegaly: No organomegaly - Rectal Tenderness: No Stool: Heme negative - Back Back: Normal, Nontender - Extremities General upper extremity: Normal inspection, Nontender, Normal color, Normal ROM, Normal temperature General lower extremity: Normal inspection, Nontender, Normal color, Normal ROM, Normal temperature, Normal weight bearing. No: Ramona's sign - Neurological Neuro grossly intact: Yes Cognition: Normal Orientation: AAOx4 [place] Coma Scale Eye Opening: Spontaneous [place] Coma Scale Verbal: Oriented [place] Coma Scale Motor: Obeys Commands [place] Coma Scale Total: 15 Speech: Normal Motor strength normal: LUE, RUE, LLE, RLE Sensory: Normal - Psychological Associated symptoms: Normal affect, Normal mood - Skin Skin Temperature: Warm Skin Moisture: Dry Skin Color: Pale Course - Re-evaluation Re-evalutation: 08/28/19 11:54 Patient presents with weakness and rectal bleeding. She had heme-negative stool here. Her hemoglobin is stable compared to her last hemoglobin. Patient also has hyponatremia however this is stable compared to her last sodium here. I did call and discussed the case with the patient's primary doctor, Dr. Valdez. He felt that patient should have her scheduled paracentesis tomorrow. She should then follow-up in the office. There is no evidence of infection. Vital signs have been stable. - Vital Signs Vital signs: Temp Pulse Resp BP Pulse Ox 98.5 F 105 H 20 120/71 100 08/28/19 09:32 08/28/19 09:32 08/28/19 10:35 08/28/19 10:35 08/28/19 10:35 - Laboratory Result Diagrams: 08/28/19 09:10 08/28/19 09:10 Laboratory results interpreted by me: 08/28/19 08/28/19 08/28/19 09:10 09:10 09:48 RBC 1.90 L Hgb 7.4 L Hct 21.4 L MCV 113 H MCH 39.1 H RDW 18.8 H Plt Count 122 L Lymph % (Auto) 10.1 L Sodium 123.8 L Chloride 95 L Carbon Dioxide 16 L BUN 21 H Glucose 130 H Total Bilirubin 1.9 H Direct Bilirubin 0.8 H AST 57 H Ammonia 41.8 H Total Protein 5.6 L Albumin 2.9 L Discharge - Discharge Clinical Impression: Hyponatremia, Elevated liver function tests, Alcoholic cirrhosis of liver with ascites, Anemia of chronic disease, Ascites due to alcoholic cirrhosis Alcohol dependency Qualifiers: Substance use status: unspecified alcohol-induced disorder Qualified Code(s): F10.29 - Alcohol dependence with unspecified alcohol-induced disorder Condition: Fair Disposition: HOME, SELF-CARE Instructions: Alcoholic Hepatitis ([facility]), Chronic Alcoholism ([facility]), Hyponatremia ([facility]), Anemia ([facility]) Additional Instructions: You have a heart murmur. Please have your primary doctor, Dr. Valdez, due for a further evaluation and work-up for this murmur as soon as possible. Referrals: JOHANA VALDEZ MD [Primary Care Provider] - Follow up tomorrow
[2019-08-28 12:06] VITALS: BP 119/63
== END 2019-08-28 12:15 | disposition home or self-care (01) ==
LOC: ER 08:56
DX: E87.1 Hypo-osmolality and hyponatremia (principal); R79.89 Other specified abnormal findings of blood chemistry; K70.31 Alcoholic cirrhosis of liver with ascites; D63.8 Anemia in other chronic diseases classified elsewhere; F10.29 Alcohol dependence with unspecified alcohol-induced disorder; F17.200 Nicotine dependence, unspecified, uncomplicated; R10.9 Unspecified abdominal pain; K62.5 Hemorrhage of anus and rectum; R53.81 Other malaise; R06.02 Shortness of breath; Z90.49 Acquired absence of other specified parts of digestive tract; Z98.51 Tubal ligation status
CPT/HCPCS: 36415; 80053; 81001; 82140; 85025; 85610; 99283

== ENCOUNTER 2019-08-29 07:25 | Day surgery (SDC) | payer OTHER ==
[~2019-08-29 07:25] MED LIST changes: -ALBUMIN HUMAN 25 GM/100 ML RTUINJ IV ONE; +ALBUMIN HUMAN 50 GM/200 ML RTUINJ IV PRN
[2019-08-29 07:50] LABS: HEMATOCRIT 20.7 % (36.0-47.0); MEAN CORPUSCULAR HEMOGLOBIN 39.3 pg (27.0-33.4); MEAN CORPUSCULAR HGB CONC 34.6 g/dL (32.0-36.0); MEAN CORPUSCULAR VOLUME 114 fl (80-97); PLATELET COUNT 124 10^3/uL (150-450); RED BLOOD COUNT 1.82 10^6/uL (3.72-5.28); RED CELL DISTRIBUTION WIDTH 18.1 % (11.5-14.0); WHITE BLOOD COUNT 6.1 10^3/uL (4.0-10.5)
[2019-08-29 07:54] LABS: INTERNATIONAL RATION (INR) 1.15; PARTIAL THROMBOPLASTIN TIME 30.2 SEC (23.5-35.8); PROTHROMBIN TIME 14.8 SEC (11.4-15.4)
[2019-08-29 08:05] LABS: BLOOD UREA NITROGEN 21 mg/dL (7-20); HEMOGLOBIN 7.2 g/dL (12.0-15.5)
--- NOTE | 2019-08-29 11:35 | RADIOLOGY REPORT (SQ) ---
EXAM DESCRIPTION: U/S ABD PARACENTESIS COMPLETED DATE/TIME: 08/29/2019 10:52 am REASON FOR STUDY: Ascites COMPARISON 08/20/2019 LIMITATIONS: None. PROCEDURE: After obtaining informed consent, the patient was brought to the ultrasound suite. The p rocedure was performed with the patient on a gurney. Ultrasound was used to identify a prominent poc ket of ascites in the right lower quadrant. An appropriate access site was selected. The patient wa s prepped and draped in usual sterile fashion. The access site was anesthetized with 10 mL 1% lidoc hortencia. A Ijtc-V-Gmczbhql needle was advanced into the fluid. After aspiration of fluid the needle, t he catheter was advanced off the needle into the fluid. A total of 8,800 mL of clear, straw-colored fluid was removed. The patient tolerated the procedure well left the department in satisfactory condi tion. IMPRESSION: Successful ultrasound-guided paracentesis COMMENT: Patient medication list reviewed: Yes- Quality ID# [id number]:Eligible professional attests to doc umenting in the medical record they obtained, updated, or reviewed the patient's current medications. TECHNICAL DOCUMENTATION: JOB ID: [id number] [employer]- All Rights Reserved Reading location - IP/workstation name: [email or web address]
[2019-08-29 12:30] VITALS: BP 106/55
== END 2019-08-29 11:50 | disposition home or self-care (01) ==
LOC: RAD 07:25
PROVIDERS: ATTEND Internal Medicine Geriatric Medicine
DX: K70.31 Alcoholic cirrhosis of liver with ascites (principal); I10 Essential (primary) hypertension
CPT/HCPCS: 36415; 84520; 82565; 85027; 85610; 85730; 49083; P9047

== ENCOUNTER 2019-09-06 09:29 | Emergency (ER) | payer OTHER ==
[2019-09-06 10:15] LABS: ABSOLUTE EOSINOPHILS # (AUTO) 0.1 10^3/uL (0.0-0.6); ABSOLUTE LYMPHOCYTES (AUTO) 0.5 10^3/uL (0.5-4.7); ABSOLUTE MONOCYTES (AUTO) 0.8 10^3/uL (0.1-1.4); ABSOLUTE NEUT (AUTO) 3.5 10^3/uL (1.7-8.2); BASOPHILS % (AUTO) 0.5 % (0-2); HEMATOCRIT 19.7 % (36.0-47.0); LYMPHOCYTES % (AUTO) 10.4 % (13-45); MEAN CORPUSCULAR HEMOGLOBIN 38.6 pg (27.0-33.4); MEAN CORPUSCULAR HGB CONC 33.5 g/dL (32.0-36.0); MEAN CORPUSCULAR VOLUME 115 fl (80-97); MONOCYTES % (AUTO) 15.6 % (3-13); PLATELET COUNT 112 10^3/uL (150-450); RED BLOOD COUNT 1.71 10^6/uL (3.72-5.28); RED CELL DISTRIBUTION WIDTH 18.1 % (11.5-14.0); SEGMENTED NEUTROPHILS % (AUTO) 72.5 % (42-78); TOTAL CELLS COUNTED % (AUTO) 100 %; WHITE BLOOD COUNT 4.9 10^3/uL (4.0-10.5)
[2019-09-06 10:24] LABS: ALBUMIN 2.7 g/dL (3.5-5.0); ALKALINE PHOSPHATASE 77 U/L (38-126); ANION GAP 12 (5-19); ASPARTATE AMINO TRANSFERASE 43 U/L (14-36); BILIRUBIN,DIRECT 0.7 mg/dL (0.0-0.4); BILIRUBIN,TOTAL 1.6 mg/dL (0.2-1.3); BLOOD UREA NITROGEN 21 mg/dL (7-20); CALCIUM 8.2 mg/dL (8.4-10.2); CARBON DIOXIDE 17 mmol/L (22-30); CHLORIDE 97 mmol/L (98-107); GLUCOSE 96 mg/dL (75-110); POTASSIUM 4.7 mmol/L (3.6-5.0); TOTAL PROTEIN 5.4 g/dL (6.3-8.2)
[2019-09-06 10:29] LABS: HEMOGLOBIN 6.6 g/dL (12.0-15.5)
[2019-09-06 10:37] LABS: ANISOCYTOSIS 2+; OVALOCYTES 1+; PLATELET COMMENT ADEQUATE
[2019-09-06] MEDS ORDERED: NORMAL SALINE 250 ML IV PRN (10:56)
[2019-09-06 11:22] LABS: ALCOHOL 54 mg/dL (NONE DETECTED)
--- NOTE | 2019-09-06 16:00 | RADIOLOGY REPORT (SQ) ---
EXAM DESCRIPTION: U/S ABD PARACENTESIS COMPLETED DATE/TIME: 09/06/2019 3:51 pm REASON FOR STUDY: ascites COMPARISON Multiple previous, most recently 08/29/2019, 08/20/2019 LIMITATIONS: None. PROCEDURE: After obtaining informed consent, the patient was brought to the ultrasound suite. The p rocedure was performed with the patient on a gurney. Ultrasound was used to identify a prominent poc ket of ascites in the left lower quadrant. An appropriate access site was selected. The patient was prepped and draped in usual sterile fashion. The access site was anesthetized with 7 mL 1% lidocai ne. A Qqal-U-Buwntehk needle was advanced into the fluid. After aspiration of fluid the needle, the catheter was advanced off the needle into the fluid. A total of 7750 mL of clear straw-colored flui d was removed. The patient tolerated the procedure well left the department in satisfactory condition . IMPRESSION: Successful ultrasound-guided therapeutic paracentesis COMMENT: Patient medication list reviewed: Yes- Quality ID# [id number]:Eligible professional attests to doc umenting in the medical record they obtained, updated, or reviewed the patient's current medications. TECHNICAL DOCUMENTATION: JOB ID: [id number] [employer]- All Rights Reserved Reading location - IP/workstation name: [email or web address]
--- NOTE | 2019-09-06 18:31 | ER Document Report ---
Entered by KRISSY GREEN SCRIBE 09/06/19 1046 Acting as scribe for:JOSÉ MIGUEL IRWIN MD ED General - General Chief Complaint: Abnormal Lab Results Stated Complaint: ABNORMAL LABS Time Seen by Provider: 09/06/19 10:37 Primary Care Provider: JOHANA VALDEZ MD [Primary Care Provider] - Follow up as needed Notes: Patient is a 44 year old female presenting to the emergency department today for concerns of a low hemoglobin. Patient was here at [facility] to have an outpatient paracentesis performed and during routine lab work prior to this, she was found to have a low hemoglobin and was sent to the emergency department for a blood transfusion. Patient has known liver failure and reports that she has not drank in several days. TRAVEL OUTSIDE OF THE [place] IN LAST 30 DAYS: No - Related Data Allergies/Adverse Reactions: No Known Allergies Allergy (Verified 09/06/19 10:05) Past Medical History - General Information source: Patient - Social History Smoking Status: Never Smoker Cigarette use (# per day): No Chew tobacco use (# tins/day): No Frequency of alcohol use: Heavy Family History: Reviewed & Not Pertinent Patient has suicidal ideation: No Patient has homicidal ideation: No GI Medical History: Reports: Hx Cirrhosis, Hx Gastroesophageal Reflux Disease Psychiatric Medical History: Reports: Hx Anxiety, Hx Depression Past Surgical History: Reports: Hx Abdominal Surgery - Gallbladder 09/26/2015, multiple paracentesis, Hx Cholecystectomy - 09/26/2015, Hx Herniorrhaphy - Sometime in 2017, Hx Tubal Ligation - Immunizations Immunizations up to date: Yes Hx Diphtheria, Pertussis, Tetanus Vaccination: No - Unsure Review of Systems - Review of Systems Constitutional: No symptoms reported, Other - Low hemoglobin on outpatient labs EENT: No symptoms reported Cardiovascular: No symptoms reported Respiratory: No symptoms reported Gastrointestinal: No symptoms reported Genitourinary: No symptoms reported Female Genitourinary: No symptoms reported Musculoskeletal: No symptoms reported Skin: No symptoms reported Hematologic/Lymphatic: No symptoms reported Neurological/Psychological: No symptoms reported -: Yes All other systems reviewed and negative Physical Exam - Vital signs Vitals: Resp Pulse Ox 19 100 09/06/19 09:39 09/06/19 09:39 - Notes Notes: Physical Exam: General: Alert. HEENT: Normocephalic. Atraumatic. PERRL. Extraocular movements intact. Oropharynx clear. Neck: Supple. Non-tender. Respiratory: No respiratory distress. Clear and equal breath sounds bilaterally. Cardiovascular: Regular rate. Holosystolic murmur. Abdominal: Extremely distended consistent with ascites. Back: No gross abnormalities. Extremities: Moves all four extremities Upper extremities: Normal inspection. Normal ROM. Lower extremities: 1+ pitting edema bilaterally. Normal ROM. Neurological: Normal cognition. AAOx4. Normal speech. Psychological: Normal affect. Normal Mood. Skin: Warm. Dry. Normal color. Course - Re-evaluation Re-evalutation: 09/06/19 12:00 Patient reports he quit drinking several days ago, alcohol level is 54 this morning. 09/06/19 17:31 Patient has 7,750 mL's of ascites fluid removed in the radiology department. She states her abdomen does feel much better. - Vital Signs Vital signs: Temp Pulse Resp BP Pulse Ox 98.4 F 96 19 95/47 L 100 09/06/19 17:30 09/06/19 16:21 09/06/19 18:16 09/06/19 18:16 09/06/19 18:16 - Laboratory Result Diagrams: 09/06/19 09:43 09/06/19 09:43 Laboratory results interpreted by me: 09/06/19 09/06/19 09/06/19 09:43 09:43 09:43 RBC 1.71 L Hgb 6.6 L Hct 19.7 L MCV 115 H MCH 38.6 H RDW 18.1 H Plt Count 112 L Lymph % (Auto) 10.4 L [place] % (Auto) 15.6 H Sodium 125.7 L Chloride 97 L Carbon Dioxide 17 L BUN 21 H Creatinine 1.26 H Est GFR ( Amer) 55 L Est GFR (MDRD) Non-Af 46 L Calcium 8.2 L Magnesium Total Bilirubin 1.6 H Direct Bilirubin 0.7 H AST 43 H Total Protein 5.4 L Albumin 2.7 L Crossmatch See Detail 09/06/19 09:43 RBC Hgb Hct MCV MCH RDW Plt Count Lymph % (Auto) [place] % (Auto) Sodium Chloride Carbon Dioxide BUN Creatinine Est GFR ( Amer) Est GFR (MDRD) Non-Af Calcium Magnesium 2.6 H Total Bilirubin Direct Bilirubin AST Total Protein Albumin Crossmatch Discharge - Discharge Clinical Impression: Alcoholic cirrhosis of liver with ascites, Anemia of chronic disease Ascites Qualifiers: Ascites type: due to alcoholic cirrhosis Qualified Code(s): K70.31 - Alcoholic cirrhosis of liver with ascites Alcohol dependency Qualifiers: Substance use status: unspecified alcohol-induced disorder Qualified Code(s): F10.29 - Alcohol dependence with unspecified alcohol-induced disorder Condition: Stable Disposition: HOME, SELF-CARE Additional Instructions: You had almost 8 L of fluid removed from your abdominal cavity today. You are given 2 units of packed red blood cells for your anemia. You continue to drink alcohol on a daily basis. You should follow-up with your primary care provider later this week for recheck and did discuss options to help you stop drinking. RETURN TO THE EMERGENCY ROOM IF ANY NEW OR WORSENING SYMPTOMS. Referrals: JOHANA VALDEZ MD [Primary Care Provider] - Follow up as needed Scribe Attestation: 09/06/19 11:04 I personally performed the services described in the documentation, reviewed and edited the documentation which was dictated to the scribe in my presence, and it accurately records my words and actions. I personally performed the services described in the documentation, reviewed and edited the documentation which was dictated to the scribe in my presence, and it accurately records my words and actions.
[2019-09-06 19:15] VITALS: BP 97/60
== END 2019-09-06 19:24 | disposition home or self-care (01) ==
LOC: ER 09:29
DX: K70.31 Alcoholic cirrhosis of liver with ascites (principal); K72.90 Hepatic failure, unspecified without coma; D63.8 Anemia in other chronic diseases classified elsewhere; F10.29 Alcohol dependence with unspecified alcohol-induced disorder; Z90.49 Acquired absence of other specified parts of digestive tract; Z98.51 Tubal ligation status
CPT/HCPCS: 86900; 86901; 36415; 36430; 86850; 80307; 83735; 80053; 86920; 49083; P9016; J7050

== ENCOUNTER → 2019-09-06 | Day surgery (SDC) | payer OTHER ==
[2019-09-06 08:32] VITALS: BP 103/57
[2019-09-06 08:54] LABS: HEMATOCRIT 18.8 % (36.0-47.0); MEAN CORPUSCULAR HEMOGLOBIN 39.1 pg (27.0-33.4); MEAN CORPUSCULAR HGB CONC 34.3 g/dL (32.0-36.0); MEAN CORPUSCULAR VOLUME 114 fl (80-97); PLATELET COUNT 121 10^3/uL (150-450); RED BLOOD COUNT 1.64 10^6/uL (3.72-5.28); RED CELL DISTRIBUTION WIDTH 18.1 % (11.5-14.0); WHITE BLOOD COUNT 4.8 10^3/uL (4.0-10.5)
[2019-09-06 09:12] LABS: BLOOD UREA NITROGEN 21 mg/dL (7-20)
[2019-09-06 09:18] LABS: PARTIAL THROMBOPLASTIN TIME 31.8 SEC (23.5-35.8); PROTHROMBIN TIME 16.3 SEC (11.4-15.4)
[2019-09-06 09:26] LABS: HEMOGLOBIN 6.4 g/dL (12.0-15.5)
== END ==
LOC: RAD 07:36
PROVIDERS: ATTEND Internal Medicine Geriatric Medicine
DX: K70.31 Alcoholic cirrhosis of liver with ascites (principal); Z53.9 Procedure and treatment not carried out, unspecified reason
CPT/HCPCS: 36415; 82565; 84520; 85027; 85610; 85730

== ENCOUNTER 2019-09-14 07:34 | Day surgery (SDC) | payer OTHER ==
[2019-09-14 08:32] LABS: HEMATOCRIT 25.3 % (36.0-47.0); HEMOGLOBIN 8.7 g/dL (12.0-15.5); MEAN CORPUSCULAR HEMOGLOBIN 35.9 pg (27.0-33.4); MEAN CORPUSCULAR HGB CONC 34.5 g/dL (32.0-36.0); PLATELET COUNT 105 10^3/uL (150-450); RED BLOOD COUNT 2.43 10^6/uL (3.72-5.28); RED CELL DISTRIBUTION WIDTH 21.8 % (11.5-14.0); WHITE BLOOD COUNT 4.5 10^3/uL (4.0-10.5)
[2019-09-14 08:36] LABS: INTERNATIONAL RATION (INR) 1.17; PARTIAL THROMBOPLASTIN TIME 31.5 SEC (23.5-35.8)
[2019-09-14 08:53] LABS: BLOOD UREA NITROGEN 17 mg/dL (7-20); MEAN CORPUSCULAR VOLUME 104 fl (80-97)
[2019-09-14] MEDS ORDERED: ALBUMIN HUMAN 50 GM/200 ML RTUINJ IV PRN (10:14)
[2019-09-14 12:12] VITALS: BP 94/48
--- NOTE | 2019-09-14 16:50 | RADIOLOGY REPORT (SQ) ---
EXAM DESCRIPTION: U/S ABD PARACENTESIS COMPLETED DATE/TIME: 09/14/2019 11:12 am REASON FOR STUDY: Ascites COMPARISON None. LIMITATIONS: None. PROCEDURE: The procedure, risks, benefits, and alternatives were discussed with the patient and the patient's family who then gave written consent. The left lower quadrant was then marked utilizing s onographic guidance and a time-out was performed to document correct marking verification. The area around the selected percutaneous access site was then prepped and draped with 2% chlorhexidi ne utilizing standard sterile technique. After that, the selected access site was infiltrated with 5 ml of 1% lidocaine. A 5 Amharic Rgve-Z-Ltvpbsca catheter was then introduced into the fluid-filled p eritoneal cavity and the fluid was aspirated. After the fluid was aspirated, the catheter was removed and the entry site was covered with a sterile bandage. No immediate complications were noted. Volume of Fluid: 9600 mL. Quality of the Fluid: Straw colored. Was the fluid collected for analysis? No. Images acquired during the procedure were stored on PACS. The patient tolerated the procedure with local anesthesia. At the end of the procedure the patient's condition was unchanged from the preprocedural baseline. Documentation of hqml-zy-cemo time the proceduralist spent monitoring the patient: 15 minutes. IMPRESSION: Successful ultrasound-guided paracentesis. COMMENT: Patient medication list reviewed: Yes- Quality ID# [id number]:Eligible professional attests to doc umenting in the medical record they obtained, updated, or reviewed the patient's current medications. TECHNICAL DOCUMENTATION: JOB ID: [id number] [employer]- All Rights Reserved Reading location - IP/workstation name: [email or web address]
== END 2019-09-14 12:00 | disposition home or self-care (01) ==
LOC: RAD 07:34
PROVIDERS: ATTEND Internal Medicine Geriatric Medicine
DX: K70.31 Alcoholic cirrhosis of liver with ascites (principal)
CPT/HCPCS: 36415; 84520; 82565; 85027; 85610; 85730; 49083; P9047

== ENCOUNTER 2019-09-24 07:25 | Day surgery (SDC) | payer OTHER ==
[2019-09-24 08:16] LABS: HEMATOCRIT 24.5 % (36.0-47.0); HEMOGLOBIN 8.5 g/dL (12.0-15.5); MEAN CORPUSCULAR HEMOGLOBIN 36.7 pg (27.0-33.4); MEAN CORPUSCULAR HGB CONC 34.6 g/dL (32.0-36.0); MEAN CORPUSCULAR VOLUME 106 fl (80-97); RED BLOOD COUNT 2.31 10^6/uL (3.72-5.28); RED CELL DISTRIBUTION WIDTH 20.6 % (11.5-14.0); WHITE BLOOD COUNT 5.7 10^3/uL (4.0-10.5)
[2019-09-24 08:20] LABS: INTERNATIONAL RATION (INR) 1.14; PARTIAL THROMBOPLASTIN TIME 30.9 SEC (23.5-35.8); PROTHROMBIN TIME 14.7 SEC (11.4-15.4)
[2019-09-24 08:36] LABS: BLOOD UREA NITROGEN 29 mg/dL (7-20)
[2019-09-24 08:39] LABS: PLATELET COUNT 90 10^3/uL (150-450)
[2019-09-24] MEDS ORDERED: ALBUMIN HUMAN 50 GM/200 ML RTUINJ IV PRN (10:31)
--- NOTE | 2019-09-24 12:35 | RADIOLOGY REPORT (SQ) ---
EXAM DESCRIPTION: U/S ABD PARACENTESIS COMPLETED DATE/TIME: 09/24/2019 12:26 pm REASON FOR STUDY: ASCITES COMPARISON 09/14/2019, 09/06/2019, 08/29/2019, 08/20/2019 LIMITATIONS: None. PROCEDURE: After obtaining informed consent, the patient was brought to the ultrasound suite. The p rocedure was performed with the patient on a gurney. Ultrasound was used to identify a prominent poc ket of ascites in the right lower quadrant. An appropriate access site was selected. The patient wa s prepped and draped in usual sterile fashion. The access site was anesthetized with 6 mL 1% lidoca ine. A Wbdi-V-Tacbvkve needle was advanced into the fluid. After aspiration of fluid the needle, th e catheter was advanced off the needle into the fluid. A total of 10 L of straw-colored fluid was re moved. The patient tolerated the procedure well left the department in satisfactory condition. Thera peutic only. IMPRESSION: Successful ultrasound-guided therapeutic paracentesis COMMENT: Patient medication list reviewed: Yes- Quality ID# [id number]:Eligible professional attests to doc umenting in the medical record they obtained, updated, or reviewed the patient's current medications. TECHNICAL DOCUMENTATION: JOB ID: [id number] [employer]- All Rights Reserved Reading location - IP/workstation name: [email or web address]
[2019-09-24 15:59] VITALS: BP 108/39
== END 2019-09-24 12:45 | disposition home or self-care (01) ==
LOC: RAD 07:25
PROVIDERS: ATTEND Internal Medicine Geriatric Medicine
DX: K70.31 Alcoholic cirrhosis of liver with ascites (principal)
CPT/HCPCS: 36415; 84520; 82565; 85027; 85610; 85730; 49083; P9047

== ENCOUNTER 2019-10-10 07:31 | Day surgery (SDC) | payer OTHER ==
[2019-10-10 08:55] LABS: HEMATOCRIT 26.9 % (36.0-47.0); HEMOGLOBIN 9.4 g/dL (12.0-15.5); MEAN CORPUSCULAR HEMOGLOBIN 35.4 pg (27.0-33.4); MEAN CORPUSCULAR HGB CONC 34.8 g/dL (32.0-36.0); MEAN CORPUSCULAR VOLUME 102 fl (80-97); PLATELET COUNT 114 10^3/uL (150-450); RED BLOOD COUNT 2.64 10^6/uL (3.72-5.28); RED CELL DISTRIBUTION WIDTH 22.1 % (11.5-14.0); WHITE BLOOD COUNT 4.8 10^3/uL (4.0-10.5)
[2019-10-10 09:08] LABS: PROTHROMBIN TIME 16.3 SEC (11.4-15.4)
[2019-10-10 09:09] LABS: PARTIAL THROMBOPLASTIN TIME 34.9 SEC (23.5-35.8)
[2019-10-10] MEDS ORDERED: ALBUMIN HUMAN 50 GM/200 ML RTUINJ IV PRN (10:40)
[2019-10-10 12:54] VITALS: BP 101/67
--- NOTE | 2019-10-10 14:43 | RADIOLOGY REPORT (SQ) ---
EXAM DESCRIPTION: U/S ABD PARACENTESIS COMPLETED DATE/TIME: 10/10/2019 12:15 pm REASON FOR STUDY: Ascites COMPARISON 10/03/2019 paracentesis LIMITATIONS: None. PROCEDURE: After obtaining informed consent, the patient was brought to the ultrasound suite. The p rocedure was performed with the patient on a gurney. Ultrasound was used to identify a prominent poc ket of ascites in the left lower quadrant. An appropriate access site was selected. The patient was prepped and draped in usual sterile fashion. The access site was anesthetized with 8 mL 1% lidocai ne. A Umcw-X-Qdxfxbzq needle was advanced into the fluid. After aspiration of fluid the needle, the catheter was advanced off the needle into the fluid. A total of 6,350 mL of annette colored fluid was removed. The patient tolerated the procedure well left the department in satisfactory condition. IMPRESSION: Successful ultrasound-guided paracentesis COMMENT: Patient medication list reviewed: Yes- Quality ID# [id number]:Eligible professional attests to doc umenting in the medical record they obtained, updated, or reviewed the patient's current medications. TECHNICAL DOCUMENTATION: JOB ID: [id number] [employer]- All Rights Reserved Reading location - IP/workstation name: [email or web address] [id number]
== END 2019-10-10 12:55 | disposition home or self-care (01) ==
LOC: RAD 07:31
PROVIDERS: ATTEND Internal Medicine Geriatric Medicine
DX: K70.31 Alcoholic cirrhosis of liver with ascites (principal)
CPT/HCPCS: 36415; 84520; 82565; 85027; 85610; 85730; 49083; P9047

== ENCOUNTER 2019-10-26 07:11 | Day surgery (SDC) | payer OTHER ==
[2019-10-26 08:51] LABS: HEMATOCRIT 22.8 % (36.0-47.0); MEAN CORPUSCULAR HEMOGLOBIN 36.7 pg (27.0-33.4); MEAN CORPUSCULAR VOLUME 105 fl (80-97); PLATELET COUNT 134 10^3/uL (150-450); RED BLOOD COUNT 2.17 10^6/uL (3.72-5.28); WHITE BLOOD COUNT 5.1 10^3/uL (4.0-10.5)
[2019-10-26 09:03] LABS: INTERNATIONAL RATION (INR) 1.24; PROTHROMBIN TIME 15.7 SEC (11.4-15.4)
[2019-10-26 09:04] LABS: PARTIAL THROMBOPLASTIN TIME 34.6 SEC (23.5-35.8)
[2019-10-26 09:12] LABS: BLOOD UREA NITROGEN 13 mg/dL (7-20)
[2019-10-26] MEDS ORDERED: ALBUMIN HUMAN 12.5 GM/50 ML RTUINJ IV SCH (10:30)
[2019-10-26 11:40] VITALS: BP 104/52
--- NOTE | 2019-10-26 14:27 | RADIOLOGY REPORT (SQ) ---
EXAM DESCRIPTION: U/S ABD PARACENTESIS COMPLETED DATE/TIME: 10/26/2019 11:01 am REASON FOR STUDY: ALCOHOLIC CIRRHOSIS OF LIVER WITH ASCITES COMPARISON None. LIMITATIONS: None. PROCEDURE: After obtaining informed consent, the patient was brought to the ultrasound suite. The p rocedure was performed with the patient on a gurney. Ultrasound was used to identify a prominent poc ket of ascites in the left lower quadrant. An appropriate access site was selected. The patient was prepped and draped in usual sterile fashion. The access site was anesthetized with 6 mL 1% lidocai ne. A Mnpo-R-Zzyvtlfv needle was advanced into the fluid. After aspiration of fluid the needle, the catheter was advanced off the needle into the fluid. A total of 7,750 mL of straw-colored fluid was removed. The patient tolerated the procedure well left the department in satisfactory condition. IMPRESSION: Successful ultrasound-guided paracentesis COMMENT: Patient medication list reviewed: Yes- Quality ID# [id number]:Eligible professional attests to doc umenting in the medical record they obtained, updated, or reviewed the patient's current medications. TECHNICAL DOCUMENTATION: JOB ID: [id number] [employer]- All Rights Reserved Reading location - IP/workstation name: [email or web address] [id number]
== END 2019-10-26 11:35 | disposition home or self-care (01) ==
LOC: RAD 07:11
PROVIDERS: ATTEND Internal Medicine Geriatric Medicine
DX: K70.31 Alcoholic cirrhosis of liver with ascites (principal)
CPT/HCPCS: 36415; 84520; 82565; 85027; 85610; 85730; 49083; P9047

== ENCOUNTER 2019-11-03 16:08 | Emergency (ER) | payer OTHER ==
[2019-11-03 16:45] LABS: ABSOLUTE LYMPHOCYTES (AUTO) 0.9 10^3/uL (0.5-4.7); ABSOLUTE MONOCYTES (AUTO) 0.9 10^3/uL (0.1-1.4); ABSOLUTE NEUT (AUTO) 4.5 10^3/uL (1.7-8.2); BASOPHILS % (AUTO) 0.4 % (0-2); EOSINOPHILS % (AUTO) 0.4 % (0-6); HEMOGLOBIN 8.4 g/dL (12.0-15.5); LYMPHOCYTES % (AUTO) 14.3 % (13-45); MEAN CORPUSCULAR HEMOGLOBIN 37.9 pg (27.0-33.4); MEAN CORPUSCULAR HGB CONC 34.9 g/dL (32.0-36.0); MONOCYTES % (AUTO) 14.1 % (3-13); PLATELET COUNT 116 10^3/uL (150-450); RED BLOOD COUNT 2.21 10^6/uL (3.72-5.28); RED CELL DISTRIBUTION WIDTH 22.5 % (11.5-14.0); SEGMENTED NEUTROPHILS % (AUTO) 70.8 % (42-78); TOTAL CELLS COUNTED % (AUTO) 100 %; WHITE BLOOD COUNT 6.4 10^3/uL (4.0-10.5)
[2019-11-03 16:47] LABS: MEAN CORPUSCULAR VOLUME 109 fl (80-97)
[2019-11-03 16:57] LABS: ALBUMIN 3.1 g/dL (3.5-5.0); ALCOHOL 208 mg/dL (NONE DETECTED); ALKALINE PHOSPHATASE 106 U/L (38-126); ANION GAP 16 (5-19); ASPARTATE AMINO TRANSFERASE 59 U/L (14-36); BILIRUBIN,DIRECT 1.1 mg/dL (0.0-0.4); BILIRUBIN,TOTAL 2.6 mg/dL (0.2-1.3); BLOOD UREA NITROGEN 18 mg/dL (7-20); CALCIUM 8.3 mg/dL (8.4-10.2); CARBON DIOXIDE 15 mmol/L (22-30); CHLORIDE 98 mmol/L (98-107); GLUCOSE 132 mg/dL (75-110); POTASSIUM 4.4 mmol/L (3.6-5.0); TOTAL PROTEIN 5.9 g/dL (6.3-8.2)
[2019-11-03] MEDS ORDERED: ONDANSETRON HCL INJ/PF 4 MG/2 ML SDV IV ONE (17:03)
[2019-11-03] MEDS ORDERED: MORPHINE SULFATE 10 MG/ML INJ IV ONE (17:04)
[2019-11-03 18:20] LABS: INTERNATIONAL RATION (INR) 1.07; PROTHROMBIN TIME 13.9 SEC (11.4-15.4)
[2019-11-03 18:25] LABS: APPEARANCE,URINE CLEAR; BILIRUBIN,URINE NEGATIVE (NEGATIVE); COLOR,URINE YELLOW; GLUCOSE, URINE NEGATIVE (NEGATIVE); KETONES,URINE NEGATIVE (NEGATIVE); LEUKOCYTE ESTERASE,URINE NEGATIVE (NEGATIVE); NITRITE,URINE NEGATIVE (NEGATIVE); PROTEIN,URINE NEGATIVE (NEGATIVE); URINE SPECIFIC GRAVITY 1.012; UROBILINOGEN,URINE NEGATIVE mg/dL (<2.0)
--- NOTE | 2019-11-03 18:48 | ER Document Report ---
Entered by LIVAN ANDERSON SCRIBE 11/03/19 [id number] Acting as scribe for:HERIBERTO HAYS IV, MD ED General - General Chief Complaint: Breathing Difficulty Stated Complaint: ABDOMINAL PAIN Time Seen by Provider: 11/03/19 16:44 Primary Care Provider: JOHANA VALDEZ MD [Primary Care Provider] - Follow up as needed Mode of Arrival: Ambulatory Information source: Patient Notes: This 44 year old female patient presents to the emergency department today with complaints of abdominal distension with associated shortness of breath. Patient has known liver failure with ascities requiring paracentesis regularly. Patient reports that she went in to have a her routine paracentesis at the end of last week and was told there were "too many people ahead of her" so she did not get it done. Patient states that she now is having shortness of breath and diffuse joint pain. TRAVEL OUTSIDE OF THE [place] IN LAST 30 DAYS: No - Related Data Allergies/Adverse Reactions: No Known Allergies Allergy (Verified 09/14/19 08:10) Home Medications: lactulose Past Medical History - General Information source: Patient - Social History Smoking Status: Never Smoker Cigarette use (# per day): No Chew tobacco use (# tins/day): No Drug Abuse: None Lives with: Family Family History: Reviewed & Not Pertinent Patient has suicidal ideation: No Patient has homicidal ideation: No Neurological Medical History: Denies: Hx Cerebrovascular Accident, Hx Seizures, Hx Parkinson's Disease Renal/ Medical History: Denies: Hx End Stage Renal Disease, Hx Kidney Stones, Hx Peritoneal Dialysis GI Medical History: Reports: Hx Cirrhosis, Hx Gastroesophageal Reflux Disease Psychiatric Medical History: Reports: Hx Anxiety, Hx Depression - takes medications Past Surgical History: Reports: Hx Abdominal Surgery - Gallbladder 09/26/2015, multiple paracentesis, Hx Cholecystectomy - 09/26/2015, Hx Herniorrhaphy - Sometime in 2017, Hx Tubal Ligation - Immunizations Immunizations up to date: Yes Hx Diphtheria, Pertussis, Tetanus Vaccination: No - Unsure Review of Systems - Review of Systems Constitutional: No symptoms reported EENT: No symptoms reported Cardiovascular: No symptoms reported Respiratory: See HPI, Short of breath Gastrointestinal: See HPI, Abdomen distended, Abdominal pain Genitourinary: No symptoms reported Female Genitourinary: No symptoms reported Musculoskeletal: No symptoms reported Skin: No symptoms reported Hematologic/Lymphatic: No symptoms reported Neurological/Psychological: No symptoms reported -: Yes All other systems reviewed and negative Physical Exam - Vital signs Vitals: Resp BP Pulse Ox 17 137/80 H 100 11/03/19 16:14 11/03/19 16:14 11/03/19 16:14 Interpretation: Normal - General General appearance: Alert In distress: Moderate - HEENT Head: Normocephalic, Atraumatic Eyes: Normal Pupils: PERRL - Respiratory Respiratory status: Other - appears short of breath Chest status: Nontender Breath sounds: Normal Chest palpation: Normal - Cardiovascular Rhythm: Regular Heart sounds: Normal auscultation Murmur: No - Abdominal Inspection: Caput medussa, Other - abdomen is quite distended consistent with her history of ascites Distension: No distension, Distended Tenderness: Tender - diffusely tender - Back Back: Normal, Nontender - Extremities General upper extremity: Normal inspection. No: Edema General lower extremity: Normal inspection. No: Edema - Neurological Neuro grossly intact: Yes Cognition: Normal Orientation: AAOx4 [place] Coma Scale Eye Opening: Spontaneous [place] Coma Scale Verbal: Oriented [place] Coma Scale Motor: Obeys Commands [place] Coma Scale Total: 15 Speech: Normal Motor strength normal: LUE, RUE, LLE, RLE Sensory: Normal - Psychological Associated symptoms: Normal affect, Normal mood - Skin Skin Temperature: Warm Skin Moisture: Dry Skin Color: Normal Course - Vital Signs Vital signs: Temp Pulse Resp BP Pulse Ox 97.9 F 117 H 17 115/76 99 11/03/19 19:05 11/03/19 20:30 11/03/19 20:42 11/03/19 20:42 11/03/19 20:42 - Laboratory Result Diagrams: 11/03/19 15:45 11/03/19 15:45 Laboratory results interpreted by me: 11/03/19 11/03/19 15:45 15:45 RBC 2.21 L Hgb 8.4 L Hct 24.0 L MCV 109 H D MCH 37.9 H RDW 22.5 H Plt Count 116 L [place] % (Auto) 14.1 H Sodium 128.7 L Carbon Dioxide 15 L Est GFR (MDRD) Non-Af 58 L Glucose 132 H Calcium 8.3 L Total Bilirubin 2.6 H Direct Bilirubin 1.1 H AST 59 H Total Protein 5.9 L Albumin 3.1 L Lipase 328.6 H Discharge - Discharge Clinical Impression: Ascites due to alcoholic cirrhosis, Alcohol use disorder, severe, dependence Acute alcohol intoxication Qualifiers: Complication of substance-induced condition: with unspecified complication Qualified Code(s): F10.929 - Alcohol use, unspecified with intoxication, unspec ified Condition: Fair Disposition: HOME, SELF-CARE Additional Instructions: Return to the Emergency Department without delay if any worse. HOME CARE INSTRUCTIONS & INFORMATION: Thank you for choosing us for your medical needs. We hope you're satisfied with the care you received. After you leave, you must properly care for your problem and, at the same time, observe its progress. Any condition can change. Some illnesses can change rapidly over hours or days. If your condition worsens, return to the Emergency Department or see your physician promptly. ABOUT YOUR X-RAYS AND EKG'S: If you had an EKG or X-rays taken, they have been read by the Emergency Physician. The X-rays and EKG's will also be read by a Radiologist or Picture Booker within 24 hours. If discrepancies are noted, you will be notified by telephone. Please be certain the ED has a correct telephone number & address where you can be reached. Also, realize that some fractures or abnormalities do not show up on initial X-rays. If your symptoms continue, see your physician. ABOUT YOUR LABORATORY TEST: If you had laboratory tests, the results have been reviewed by the Emergency Physician. Some test results (for example cultures) may not be available for several days. You will be contacted if any test result shows you need additional treatment. Please be certain the ED has a correct telephone number and address where you can be reached. ABOUT YOUR MEDICATIONS: You will receive instructions on how to take your medicine on the prescription label you receive. Additional information may be provided by the Pharmacy. If you have questions afterwards, call the ED for clarification or further instructions. Some prescribed medications may cause drowsiness. Do not perform tasks such as driving a car or operating machinery w ithout consulting your Pharmacist. If you feel you need a refill of pain medication, your condition will need re-evaluation. Please do not call for a refill of any medication. ABOUT YOUR SIGNATURE: Signature of this document acknowledges to followin. Understanding that you received emergency treatment and that you may be released before al medical problems are known or treated. Please be certain the ED has a correct phone number & address where you can be reached. 2. Acknowledgement that you will arrange for follow-up care as recommended. 3. Authorization for the Emergency Physician to provide information to your follow-up Physician in order to maximize your care. AT ANY TIME, IF YOUR SYMPTOMS CHANGE SIGNIFICANTLY OR WORSEN OR YOU DEVELOP NEW SYMPTOMS, RETURN TO THE EMERGENCY DEPARTMENT IMMEDIATELY FOR RE-EVALUATION. OUR GOAL IS TO PROVIDE EXCELLENT MEDICAL CARE! WE HOPE THAT WE HAVE MET YOUR EXPECTATIONS DURING YOUR EMERGENCY DEPARTMENT VISIT AND THAT YOU FEEL YOU HAVE RECEIVED EXCELLENT CARE! Referrals: JOHANA VALDEZ MD [Primary Care Provider] - Follow up as needed I personally performed the services described in the documentation, reviewed and edited the documentation which was dictated to the scribe in my presence, and it accurately records my words and actions.
[2019-11-03 21:33] VITALS: BP 101/62
--- NOTE | 2019-11-05 10:14 | RADIOLOGY REPORT (SQ) ---
EXAM DESCRIPTION: U/S ABD PARACENTESIS COMPLETED DATE/TIME: 11/03/2019 8:46 pm REASON FOR STUDY: PAIN AND DYSPNEA COMPARISON: None. LIMITATIONS: None. PROCEDURE: Procedure, risks, benefit, and alternative explained to patient who then gave written con sent. The right lower abdominal wall marked using ultrasound guidance. A time-out was called for co rrect marking verification. Abdomen prepped and draped using sterile technique. Local anesthesia ach ieved using 10 ml of 1% lidocaine injection. A 6fr Fvon-X-Qukdjleg set was introduced into the perit penny cavity. Fluid was drained. The catheter was removed and entry site was covered with sterile b andage. No immediate complications noted. Images acquired during the procedure were stored on PACS. FINDINGS: ENTRY SITE: Right lower quadrant FLUID VOLUME: 8,000 cc FLUID ANALYSIS: Straw-colored OTHER: Therapeutic only. IMPRESSION: SUCCESSFUL ULTRASOUND GUIDED PARACENTESIS. COMMENT: Patient medication list reviewed:Yes- Quality ID# [id number]:Eligible professional attests to docu menting in the medical record they obtained, updated, or reviewed the patient's current medications. TECHNICAL DOCUMENTATION: JOB ID: [id number] [employer]- All Rights Reserved Reading location - IP/workstation name: [id number]
== END 2019-11-03 21:42 | disposition home or self-care (01) ==
LOC: ER 16:08
DX: K70.31 Alcoholic cirrhosis of liver with ascites (principal); F10.229 Alcohol dependence with intoxication, unspecified; K72.90 Hepatic failure, unspecified without coma; R06.02 Shortness of breath; R14.0 Abdominal distension (gaseous)
CPT/HCPCS: 99284; 96374; 96375; 36415; 80307; 83690; 85025; 85610; 80053; 81001; 49083; J2270; J2405

== ENCOUNTER 2019-11-06 07:30 | Day surgery (SDC) | payer OTHER ==
[2019-11-06 08:47] LABS: HEMATOCRIT 22.3 % (36.0-47.0); INTERNATIONAL RATION (INR) 1.16; MEAN CORPUSCULAR HEMOGLOBIN 38.3 pg (27.0-33.4); MEAN CORPUSCULAR HGB CONC 35.1 g/dL (32.0-36.0); MEAN CORPUSCULAR VOLUME 109 fl (80-97); PLATELET COUNT 106 10^3/uL (150-450); PROTHROMBIN TIME 14.9 SEC (11.4-15.4); RED BLOOD COUNT 2.04 10^6/uL (3.72-5.28); RED CELL DISTRIBUTION WIDTH 22.6 % (11.5-14.0); WHITE BLOOD COUNT 7.2 10^3/uL (4.0-10.5)
[2019-11-06 08:53] LABS: HEMOGLOBIN 7.8 g/dL (12.0-15.5)
[2019-11-06 09:01] LABS: BLOOD UREA NITROGEN 23 mg/dL (7-20)
[2019-11-06] MEDS ORDERED: ALBUMIN HUMAN 50 GM/200 ML RTUINJ IV PRN (10:04)
[2019-11-06 11:26] VITALS: BP 116/55
--- NOTE | 2019-11-06 17:06 | RADIOLOGY REPORT (SQ) ---
EXAM DESCRIPTION: U/S ABD PARACENTESIS COMPLETED DATE/TIME: 11/06/2019 11:18 am REASON FOR STUDY: ASCITES PREV PARA 11-03-19 COMPARISON Multiple previous, most recently 11/03/2019, 10/26/2019 LIMITATIONS: None. PROCEDURE: After obtaining informed consent, the patient was brought to the ultrasound suite. The p rocedure was performed with the patient on a gurney. Ultrasound was used to identify a prominent poc ket of ascites in the right lower quadrant. An appropriate access site was selected. The patient wa s prepped and draped in usual sterile fashion. The access site was anesthetized with 6 mL 1% lidoca ine. A Zzda-Q-Ykisdlub needle was advanced into the fluid. After aspiration of fluid the needle, th e catheter was advanced off the needle into the fluid. A total of 9,000 mL of cloudy yellow fluid wa s removed. The patient tolerated the procedure well left the department in satisfactory condition. D ermabond was used to seal the puncture site. Therapeutic only. IMPRESSION: Successful therapeutic ultrasound-guided paracentesis COMMENT: Patient medication list reviewed: Yes- Quality ID# [id number]:Eligible professional attests to doc umenting in the medical record they obtained, updated, or reviewed the patient's current medications. TECHNICAL DOCUMENTATION: JOB ID: [id number] [employer]- All Rights Reserved Reading location - IP/workstation name: [email or web address]
== END 2019-11-06 11:30 | disposition home or self-care (01) ==
LOC: RAD 07:30
PROVIDERS: ATTEND Internal Medicine Geriatric Medicine
DX: K70.31 Alcoholic cirrhosis of liver with ascites (principal); Z91.81 History of falling; D46.9 Myelodysplastic syndrome, unspecified; J44.9 Chronic obstructive pulmonary disease, unspecified; J18.9 Pneumonia, unspecified organism; A41.9 Sepsis, unspecified organism; F03.90 Unspecified dementia, unspecified severity, without behavioral disturbance, psychotic disturbance, mood disturbance, and anxiety
CPT/HCPCS: 36415; 84520; 82565; 85027; 85610; 85730; 49083; P9047

== ENCOUNTER 2019-11-16 07:05 | Day surgery (SDC) | payer OTHER ==
[2019-11-16 07:59] LABS: ABSOLUTE EOSINOPHILS # (AUTO) 0.1 10^3/uL (0.0-0.6); ABSOLUTE LYMPHOCYTES (AUTO) 0.7 10^3/uL (0.5-4.7); ABSOLUTE NEUT (AUTO) 3.7 10^3/uL (1.7-8.2); BASOPHILS % (AUTO) 0.6 % (0-2); EOSINOPHILS % (AUTO) 1.8 % (0-6); HEMATOCRIT 22.5 % (36.0-47.0); INTERNATIONAL RATION (INR) 1.37; LYMPHOCYTES % (AUTO) 12.5 % (13-45); MEAN CORPUSCULAR VOLUME 112 fl (80-97); MONOCYTES % (AUTO) 18.8 % (3-13); PLATELET COUNT 157 10^3/uL (150-450); RED BLOOD COUNT 2.01 10^6/uL (3.72-5.28); RED CELL DISTRIBUTION WIDTH 20.7 % (11.5-14.0); SEGMENTED NEUTROPHILS % (AUTO) 66.3 % (42-78); TOTAL CELLS COUNTED % (AUTO) 100 %; WHITE BLOOD COUNT 5.5 10^3/uL (4.0-10.5)
[2019-11-16 08:00] LABS: PARTIAL THROMBOPLASTIN TIME 34.6 SEC (23.5-35.8)
[2019-11-16 08:10] LABS: HEMOGLOBIN 7.7 g/dL (12.0-15.5)
[2019-11-16 08:19] LABS: ANISOCYTOSIS 2+; POIKILOCYTOSIS 1+; WBC MORPHOLOGY COMMENT 3
[2019-11-16 08:20] LABS: OVALOCYTES 1+; PLATELET COMMENT ADEQUATE; TEAR DROP CELLS 1+
[2019-11-16 08:22] LABS: BLOOD UREA NITROGEN 16 mg/dL (7-20)
[2019-11-16] MEDS ORDERED: ALBUMIN HUMAN 50 GM/200 ML RTUINJ IV PRN (09:06)
[2019-11-16 11:13] VITALS: BP 92/50
--- NOTE | 2019-11-16 11:51 | RADIOLOGY REPORT (SQ) ---
EXAM DESCRIPTION: U/S ABD PARACENTESIS COMPLETED DATE/TIME: 11/16/2019 10:02 am REASON FOR STUDY: ALCOHOLIC CIRRHOSIS OF LIVER WITH ASCITES K70.31 ALCOHOLIC CIRRHOSIS OF LIVER WIT H ASCITES COMPARISON: Multiple previous paracentesis. RADIATION DOSE: None LIMITATIONS: None. PROCEDURE: Procedure, risks, benefit, and alternative explained to patient who then gave written con sent. The left lower abdominal wall marked using ultrasound guidance. A time-out was called for cor rect marking verification. Abdomen prepped and draped using sterile technique. Local anesthesia achi eved using 7 ml of 1% lidocaine injection. A 6fr Hesg-F-Vcruhner set was introduced into the periton eal cavity. Fluid was drained. The catheter was removed and entry site was covered with sterile ban dage. No immediate complications noted. Images acquired during the procedure were stored on PACS. FINDINGS: ENTRY SITE: Left lower quadrant FLUID VOLUME: 7100 mL FLUID ANALYSIS: Clear straw-colored fluid OTHER: Therapeutic only. IMPRESSION: SUCCESSFUL ULTRASOUND GUIDED PARACENTESIS. COMMENT: Patient medication list reviewed:Yes- Quality ID# [id number]:Eligible professional attests to docu menting in the medical record they obtained, updated, or reviewed the patient's current medications. TECHNICAL DOCUMENTATION: JOB ID: [id number] [employer]- All Rights Reserved Reading location - IP/workstation name: [email or web address] [id number]
== END 2019-11-16 11:05 | disposition home or self-care (01) ==
LOC: RAD 07:05
PROVIDERS: ATTEND Internal Medicine Geriatric Medicine
DX: K70.31 Alcoholic cirrhosis of liver with ascites (principal)
CPT/HCPCS: 36415; 84520; 82565; 85025; 85610; 85730; 49083; P9047

== ENCOUNTER 2019-11-21 07:11 | Day surgery (SDC) | payer OTHER ==
[2019-11-21 08:06] LABS: HEMATOCRIT 22.6 % (36.0-47.0); MEAN CORPUSCULAR HEMOGLOBIN 38.3 pg (27.0-33.4); MEAN CORPUSCULAR HGB CONC 34.7 g/dL (32.0-36.0); MEAN CORPUSCULAR VOLUME 111 fl (80-97); PLATELET COUNT 154 10^3/uL (150-450); RED BLOOD COUNT 2.04 10^6/uL (3.72-5.28); RED CELL DISTRIBUTION WIDTH 20.6 % (11.5-14.0); WHITE BLOOD COUNT 6.8 10^3/uL (4.0-10.5)
[2019-11-21 08:10] LABS: INTERNATIONAL RATION (INR) 1.25; PROTHROMBIN TIME 15.8 SEC (11.4-15.4)
[2019-11-21 08:11] LABS: PARTIAL THROMBOPLASTIN TIME 34.4 SEC (23.5-35.8)
[2019-11-21 08:27] LABS: BLOOD UREA NITROGEN 22 mg/dL (7-20)
[2019-11-21 08:50] LABS: HEMOGLOBIN 7.8 g/dL (12.0-15.5)
[2019-11-21] MEDS ORDERED: ALBUMIN HUMAN 50 GM/200 ML RTUINJ IV PRN (10:23)
--- NOTE | 2019-11-21 11:48 | RADIOLOGY REPORT (SQ) ---
EXAM DESCRIPTION: U/S ABD PARACENTESIS COMPLETED DATE/TIME: 11/21/2019 11:38 am REASON FOR STUDY: ALCOHOLIC CIRRHOSIS OF LIVER WITH ASCITES K70.31 COMPARISON Paracentesis 11/16/2019. LIMITATIONS: None. PROCEDURE: After obtaining informed consent, the patient was brought to the ultrasound suite. The p rocedure was performed with the patient on a gurney. Ultrasound was used to identify a prominent poc ket of ascites in the left lower quadrant. An appropriate access site was selected. The patient was prepped and draped in usual sterile fashion. The access site was anesthetized with 6 mL 1% lidocai ne. A Yiny-Q-Cmgiurvs needle was advanced into the fluid. After aspiration of fluid the needle, the catheter was advanced off the needle into the fluid. A total of a 1,300 mL of clear straw-colored f luid was removed. The patient tolerated the procedure well left the department in satisfactory condit ion. IMPRESSION: Successful ultrasound-guided paracentesis COMMENT: Patient medication list reviewed: Yes- Quality ID# [id number]:Eligible professional attests to doc umenting in the medical record they obtained, updated, or reviewed the patient's current medications. TECHNICAL DOCUMENTATION: JOB ID: [id number] [employer]- All Rights Reserved Reading location - IP/workstation name: [email or web address]
[2019-11-21 12:28] VITALS: BP 106/49
== END 2019-11-21 12:00 | disposition home or self-care (01) ==
LOC: RAD 07:11
PROVIDERS: ATTEND Internal Medicine Geriatric Medicine
DX: K70.31 Alcoholic cirrhosis of liver with ascites (principal)
CPT/HCPCS: 36415; 84520; 82565; 85027; 85610; 85730; 49083; P9047

== ENCOUNTER 2019-11-26 07:54 | Inpatient (IN) | payer OTHER ==
[2019-11-26 08:37] LABS: HEMATOCRIT 21.5 % (36.0-47.0); MEAN CORPUSCULAR HEMOGLOBIN 38.7 pg (27.0-33.4); MEAN CORPUSCULAR HGB CONC 34.2 g/dL (32.0-36.0); PLATELET COUNT 137 10^3/uL (150-450); RED CELL DISTRIBUTION WIDTH 20.2 % (11.5-14.0); WHITE BLOOD COUNT 4.8 10^3/uL (4.0-10.5)
[2019-11-26 08:41] LABS: INTERNATIONAL RATION (INR) 1.22; PROTHROMBIN TIME 15.4 SEC (11.4-15.4)
[2019-11-26 09:08] LABS: ALBUMIN 3.1 g/dL (3.5-5.0); ALKALINE PHOSPHATASE 100 U/L (38-126); ANION GAP 10 (5-19); ASPARTATE AMINO TRANSFERASE 43 U/L (14-36); BILIRUBIN,DIRECT 0.7 mg/dL (0.0-0.4); BILIRUBIN,TOTAL 3.2 mg/dL (0.2-1.3); BLOOD UREA NITROGEN 17 mg/dL (7-20); CALCIUM 8.8 mg/dL (8.4-10.2); CARBON DIOXIDE 21 mmol/L (22-30); CHLORIDE 102 mmol/L (98-107); GLUCOSE 137 mg/dL (75-110); POTASSIUM 3.9 mmol/L (3.6-5.0); TOTAL PROTEIN 5.8 g/dL (6.3-8.2)
[2019-11-26] MEDS ORDERED: LACTULOSE SYRUP 20 GM/30 ML UDCUP PR ONE ×2 (09:12→10:30)
[2019-11-26 09:16] LABS: HEMOGLOBIN 7.4 g/dL (12.0-15.5); MEAN CORPUSCULAR VOLUME 113 fl (80-97)
[2019-11-26 09:17] LABS: ALCOHOL < 10 mg/dL (NONE DETECTED)
[2019-11-26 09:18] LABS: ABSOLUTE LYMPHOCYTES# (MANUAL) 0.8 10^3/uL (0.5-4.7); ABSOLUTE MONOCYTES # (MANUAL) 0.3 10^3/uL (0.1-1.4); BASOPHILS % (MANUAL) 0 % (0-2); EOSINOPHILS % (MANUAL) 2 % (0-6); LYMPHOCYTES % (MANUAL) 16 % (13-45); MONOCYTES % (MANUAL) 6 % (3-13); SEGMENTED NEUTROPHILS % (MAN) 76 % (42-78); TOTAL CELLS COUNTED 100
[2019-11-26 09:19] LABS: ANISOCYTOSIS 2+; OVALOCYTES 1+; PLATELET COMMENT DECREASED; POIKILOCYTOSIS 1+; TEAR DROP CELLS SLIGHT; TOXIC VACUOLATION PRESENT
--- NOTE | 2019-11-26 09:32 | RADIOLOGY REPORT (SQ) ---
EXAM DESCRIPTION: ACUTE ABDOMEN SERIES COMPLETED DATE/TIME: 11/26/2019 9:08 am REASON FOR STUDY: ascites/altered mental status COMPARISON: None. NUMBER OF VIEWS: Three views. TECHNIQUE: Frontal chest, supine abdomen and upright/decubitus abdomen radiographic images acquired. LIMITATIONS: None. FINDINGS: CHEST: Lungs clear of infiltrates. FREE AIR: None. No abnormal gas collections. BOWEL GAS PATTERN: Nonobstructive pattern. No dilated loops or air fluid levels. CALCIFICATIONS: No suspicious calcifications. HARDWARE: Cholecystectomy clips. Tubal ligation clips. SOFT TISSUES: No gross mass or suggestion of organomegaly. Diffusely increased density of the abdome n, likely secondary to ascites. BONES: No acute findings. Chronic posterior right 6th rib fracture. OTHER: No other significant finding. IMPRESSION: 1. No evidence of acute intrathoracic process. 2. Ascites. No other evidence of acute intra-abdominal/ pelvic process. TECHNICAL DOCUMENTATION: JOB ID: [id number] [employer]- All Rights Reserved Reading location - IP/workstation name: [email or web address]
[2019-11-26] MEDS ORDERED: NORMAL SALINE 1000 ML 1,000 ML IV ONE (10:25)
[2019-11-26 10:35] LABS: URINE AMPHETAMINES SCREEN NEGATIVE; URINE BARBITURATES SCREEN NEGATIVE; URINE BENZODIAZEPINES SCREEN NEGATIVE; URINE COCAINE SCREEN NEGATIVE; URINE MARIJUANA (THC) SCREEN NEGATIVE; URINE METHADONE SCREEN NEGATIVE; URINE PHENCYCLIDINE SCREEN NEGATIVE
[2019-11-26 13:30] LABS: PATH REVIEW PATHOLOGIST REVIEWED
--- NOTE | 2019-11-26 15:16 | EKG REPORT ---
SEVERITY:- ABNORMAL ECG - SINUS RHYTHM BORDERLINE T ABNORMALITIES, INFERIOR LEADS PROLONGED QT INTERVAL : Confirmed by: Namrata Reynolds MD 26-Nov-2019 15:15:58
[2019-11-26] MEDS: RIFAXIMIN 550 MG TABLET PO SCH (20:09)
[2019-11-26] MEDS: LACTULOSE SYRUP 20 GM/30 ML UDCUP PO SCH (20:09)
[2019-11-26] MEDS ORDERED: INFLUENZA QUAD (6MOS+) 2019-20 VAC 0.5 ML SYR IM ONE (20:34)
--- NOTE | 2019-11-26 21:49 | PDOC H&P ---
History of Present Illness Admission Date/PCP: 11/26/19 10:57 JOHANA VALDEZ Patient complains of: Confusion History of Present Illness: MADELYN JENSEN is a 44 year old female patient known to my practice with end stage alcohol liver cirrhosis professed no ongoing alcohol ingestion who was brought to the ED for further evaluation due to her mother's noted worsening confusion and reaching out to thing that her to apparent to other people. Her is current on assignment and her mother is limited regarding patient medical history. Her initial evaluation in the Ed was significant for altered mental status with elevated serum ammonia level. She was admitted for hepatic encephalopathy for further management. She received a dose of lactulose enema while in the ED and was able to communicate with me at the time of my evaluation on telemetry floor. Patient claimed compliance with lactulose administration at home and denied alcohol abuse. she admitted to confusion and visual hallucination about things in her field of vision. Her morbidities are as listed below. Past Medical History Cardiac Medical History: Denies: Congestive Heart Failure, Coronary Artery Disease, Myocardial Infarction, Hypertension Pulmonary Medical History: Denies: Asthma, Bronchitis, Chronic Obstructive Pulmonary Disease (COPD), Pneumonia, Tuberculosis Neurological Medical History: Denies: Seizures Renal/ Medical History: Denies: End Stage Renal Disease GI Medical History: Reports: Cirrhosis, Gastroesophageal Reflux Disease Musculoskeltal Medical History: Denies: Arthritis Psychiatric Medical History: Reports: Depression - takes medications Denies: Bipolar Disorder Hematology: Denies: Anemia, Bleeding Tendencies Past Surgical History Past Surgical History: Reports: Cholecystectomy - 09/26/2015, Herniorrhaphy - Sometime in 2017, Tubal Ligation Social History Smoking Status: Unknown if Ever Smoked Frequency of Alcohol Use: Rare Hx Recreational Drug Use: No Drugs: None Hx Prescription Drug Abuse: No - Advance Directive Resuscitation Status: Full Code Family History Family History: Reviewed & Not Pertinent Parental Family History Reviewed: Yes Children Family History Reviewed: Yes Sibling(s) Family History Reviewed.: Yes Medication/Allergy Home Medications: Cyanocobalamin (Vitamin B-12) [Vitamin B12] 2,500 mcg PO DAILY 10/02/19 Escitalopram Oxalate [Lexapro] 20 mg PO DAILY 10/02/19 Ferrous Sulfate [Feosol 325 mg Tablet] 325 mg PO DAILY 10/02/19 Furosemide [Lasix 80 mg Tablet] 80 mg PO DAILY 10/02/19 Lactulose [Cephulac Syrup 20 gm/30 ml Udcup] 10 gm PO TID 10/02/19 Magnesium Oxide [Mag-Ox 400 mg Tablet] 400 mg PO DAILY 10/02/19 Multivitamin [Tab-A-Bev (Multiple Vitamin) Tablet] 1 tab PO DAILY 10/02/19 Potassium Chloride [Klor-Con M20] 20 meq PO DAILY 10/02/19 Spironolactone [Aldactone 100 mg Tablet] 100 mg PO QPM 10/02/19 Spironolactone [Aldactone 100 mg Tablet] 200 mg PO QAM 10/02/19 Allergies/Adverse Reactions: No Known Allergies Allergy (Verified 11/16/19 07:41) Review of Systems Constitutional: ABSENT: chills, fever(s), headache(s), weight gain, weight loss Eyes: PRESENT: visual disturbances - due to hallucination Ears: ABSENT: hearing changes Nose, Mouth, and Throat: ABSENT: headache(s), mouth pain, sore throat, vertigo Cardiovascular: ABSENT: chest pain, dyspnea on exertion, edema, orthropnea, palpitations Respiratory: ABSENT: cough, hemoptysis Gastrointestinal: ABSENT: abdominal pain, constipation, diarrhea, hematemesis, hematochezia, nausea, vomiting Genitourinary: ABSENT: dysuria, hematuria Musculoskeletal: ABSENT: joint swelling Integumentary: ABSENT: rash, wounds Neurological: PRESENT: abnormal gait - due to generalized weakness, confusion, lack of coordination, tremor(s), weakness, other. ABSENT: abnormal movements, abnormal speech, convulsions, dizziness, focal weakness, frequent falls, memory loss, numbness, paresthesias, restless legs, syncope, tingling, vertigo Psychiatric: ABSENT: anxiety, depression, homidical ideation, suicidal ideation Endocrine: ABSENT: cold intolerance, heat intolerance, menstrual abnormalities, polydipsia, polyuria Hematologic/Lymphatic: ABSENT: easy bleeding, easy bruising, lymphadenopathy Physical Exam Vital Signs: Temp Pulse Resp BP Pulse Ox 98.6 F 60 15 109/58 L 100 11/26/19 08:02 11/26/19 08:09 11/26/19 15:00 11/26/19 15:00 11/26/19 15:00 Intake & Output 11/25/19 11/26/19 11/27/19 06:59 06:59 06:59 Weight 52.9 kg General appearance: PRESENT: cooperative Head exam: PRESENT: atraumatic, normocephalic Eye exam: PRESENT: conjunctiva pink, EOMI, PERRLA. ABSENT: scleral icterus Ear exam: PRESENT: normal external ear exam Mouth exam: PRESENT: dry mucosa Respiratory exam: PRESENT: clear to auscultation ellie, decreased breath sounds - at lung bases Cardiovascular exam: PRESENT: RRR. ABSENT: diastolic murmur, rubs, systolic murmur Vascular exam: ABSENT: pallor GI/Abdominal exam: PRESENT: ascites - severe, distended, normal bowel sounds Extremities exam: ABSENT: pedal edema Neurological exam: PRESENT: altered - with demonstrable confusion and visual hallucination during my bedside evaluation Psychiatric exam: PRESENT: depressed Focused psych exam: PRESENT: delusional Skin exam: PRESENT: dry, warm Results Laboratory Results: 11/26/19 08:15 11/26/19 08:15 11/26/19 11/26/19 11/26/19 08:15 08:15 08:15 WBC 4.8 RBC 1.90 L Hgb 7.4 L Hct 21.5 L MCV 113 H MCH 38.7 H MCHC 34.2 RDW 20.2 H Plt Count 137 L Seg Neutrophils % Not Reportable Sodium 133.4 L Potassium 3.9 Chloride 102 Carbon Dioxide 21 L Anion Gap 10 BUN 17 Creatinine 1.08 Est GFR ( Amer) > 60 Glucose 137 H Calcium 8.8 Magnesium 2.2 Total Bilirubin 3.2 H AST 43 H Alkaline Phosphatase 100 Ammonia 78.9 H Total Protein 5.8 L Albumin 3.1 L Urine Color Urine Appearance Urine pH Ur Specific [place] Urine Protein Urine Glucose (UA) Urine Ketones Urine Blood Urine Nitrite Ur Leukocyte Esterase Urine WBC (Auto) Urine RBC (Auto) Blood Type Antibody Screen 11/26/19 11/26/19 08:15 10:00 WBC RBC Hgb Hct MCV MCH MCHC RDW Plt Count Seg Neutrophils % Sodium Potassium Chloride Carbon Dioxide Anion Gap BUN Creatinine Est GFR ( Amer) Glucose Calcium Magnesium Total Bilirubin AST Alkaline Phosphatase Ammonia Total Protein Albumin Urine Color Cancelled Urine Appearance Cancelled Urine pH Cancelled Ur Specific [place] Cancelled Urine Protein Cancelled Urine Glucose (UA) Cancelled Urine Ketones Cancelled Urine Blood Cancelled Urine Nitrite Cancelled Ur Leukocyte Esterase Cancelled Urine WBC (Auto) Cancelled Urine RBC (Auto) Cancelled Blood Type AB POSITIVE Antibody Screen NEGATIVE 11/26/19 08:15 Troponin I < 0.012 Impressions: Acute Abdomen Series 11/26/19 08:31 IMPRESSION: 1. No evidence of acute intrathoracic process. 2. Ascites. No other evidence of acute intra-abdominal/ pelvic process. Assessment & Plan - Diagnosis (1) Hepatic encephalopathy syndrome Is this a current diagnosis for this admission?: Yes Plan: See admitting attending physician orders for details about care plan. (2) Alcoholic cirrhosis of liver with ascites Is this a current diagnosis for this admission?: Yes Plan: See admitting attending physician orders for details about care plan. (3) GERD (gastroesophageal reflux disease) Qualifiers: Esophagitis presence: without esophagitis Qualified Code(s): K21.9 - Gastro-esophageal reflux disease without esophagitis Is this a current diagnosis for this admission?: Yes Plan: See admitting attending physician orders for details about care plan. (4) Anemia of chronic disease Is this a current diagnosis for this admission?: Yes Plan: See admitting attending physician orders for details about care plan. (5) Mixed anxiety and depressive disorder Is this a current diagnosis for this admission?: Yes Plan: See admitting attending physician orders for details about care plan. - Time Time Spent: 50 to 70 Minutes Medications reviewed and adjusted accordingly: Yes Anticipated discharge: Home with Homehealth Within: Other - Inpatient Certification Based on my medical assessment, after consideration of the patient's comorbidities, presenting symptoms, or acuity I expect that the services needed warrant INPATIENT care.: Yes I certify that my determination is in accordance with my understanding of Medicare's requirements for reasonable and necessary INPATIENT services [42 CFR 412.3e].: Yes Medical Necessity: Significant Comorbidiites Make Outpatient Treatment Too Risky, Need Close Monitoring Due to Risk of Patient Decompensation, Need For Continuous Telemetry Monitoring, Risk of Complication if Not Cared For in Hospital, Risk of Diagnosis Which Will Require Inpatient Eval/Care/Monitoring Post Hospital Care: D/C [place] 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
[2019-11-27 05:38] LABS: ABSOLUTE EOSINOPHILS # (AUTO) 0.2 10^3/uL (0.0-0.6); ABSOLUTE LYMPHOCYTES (AUTO) 0.8 10^3/uL (0.5-4.7); ABSOLUTE MONOCYTES (AUTO) 0.7 10^3/uL (0.1-1.4); ABSOLUTE NEUT (AUTO) 3.5 10^3/uL (1.7-8.2); BASOPHILS % (AUTO) 0.7 % (0-2); EOSINOPHILS % (AUTO) 2.9 % (0-6); LYMPHOCYTES % (AUTO) 15.7 % (13-45); MEAN CORPUSCULAR HEMOGLOBIN 38.1 pg (27.0-33.4); MEAN CORPUSCULAR HGB CONC 34.2 g/dL (32.0-36.0); MEAN CORPUSCULAR VOLUME 112 fl (80-97); MONOCYTES % (AUTO) 13.4 % (3-13); PLATELET COUNT 123 10^3/uL (150-450); RED BLOOD COUNT 1.79 10^6/uL (3.72-5.28); RED CELL DISTRIBUTION WIDTH 19.5 % (11.5-14.0); SEGMENTED NEUTROPHILS % (AUTO) 67.3 % (42-78); TOTAL CELLS COUNTED % (AUTO) 100 %; WHITE BLOOD COUNT 5.1 10^3/uL (4.0-10.5)
[2019-11-27 05:41] LABS: ALBUMIN 2.8 g/dL (3.5-5.0); ALKALINE PHOSPHATASE 88 U/L (38-126); ANION GAP 12 (5-19); ASPARTATE AMINO TRANSFERASE 38 U/L (14-36); BILIRUBIN,TOTAL 2.8 mg/dL (0.2-1.3); BLOOD UREA NITROGEN 15 mg/dL (7-20); CALCIUM 8.2 mg/dL (8.4-10.2); CARBON DIOXIDE 18 mmol/L (22-30); CHLORIDE 102 mmol/L (98-107); GLUCOSE 121 mg/dL (75-110); POTASSIUM 3.5 mmol/L (3.6-5.0); TOTAL PROTEIN 5.7 g/dL (6.3-8.2)
[2019-11-27 06:00] LABS: POLYCHROMASIA SLIGHT; TOXIC GRANULATION 1+
[2019-11-27 06:01] LABS: ANISOCYTOSIS 2+; OVALOCYTES SLIGHT; PLATELET COMMENT DECREASED; POIKILOCYTOSIS SLIGHT; SCHISTOCYTES SLIGHT; TEAR DROP CELLS SLIGHT
[2019-11-27 06:09] LABS: HEMOGLOBIN 6.8 g/dL (12.0-15.5)
[2019-11-27] MEDS ORDERED: SPIRONOLACTONE 200 MG PO SCH (08:00)
[2019-11-27] MEDS ORDERED: POTASSIUM CHLORIDE 10 MEQ TABLET.ER PO ONE (09:00)
[2019-11-27 09:53] LABS: INTERNATIONAL RATION (INR) 1.17
[2019-11-27 09:54] LABS: PARTIAL THROMBOPLASTIN TIME 31.3 SEC (23.5-35.8)
[2019-11-27] MEDS ORDERED: (PENDING PHARMACY ID) (Potassium Chloride [Klor-Con M20] 20 MEQ) PO SCH (10:00)
[2019-11-27] MEDS ORDERED: (PENDING PHARMACY ID) (Cyanocobalamin (Vitamin B-12) [Vitamin B12] 2,500 MCG) PO SCH (10:00)
[2019-11-27] MEDS: CYANOCOBALAMIN (VITAMIN B-12) 1,000 MCG TABLET PO SCH (10:02)
[2019-11-27] MEDS: SPIRONOLACTONE 25 MG TABLET PO SCH ×2 (10:02→17:46)
[2019-11-27] MEDS: RIFAXIMIN 550 MG TABLET PO SCH ×2 (10:02→17:46)
[2019-11-27] MEDS: MAGNESIUM OXIDE 400 MG TABLET PO SCH (10:05)
[2019-11-27] MEDS: FUROSEMIDE 80 MG TABLET PO SCH (10:05)
[2019-11-27] MEDS: FERROUS SULFATE 325 MG TABLET PO SCH (10:05)
[2019-11-27] MEDS: MULTIVITAMIN TABLET PO SCH (10:05)
[2019-11-27] MEDS: LACTULOSE SYRUP 20 GM/30 ML UDCUP PO SCH ×3 (10:07→17:46)
[2019-11-27] MEDS: ESCITALOPRAM OXALATE 10 MG TABLET PO SCH (10:09)
[2019-11-27] MEDS: POTASSIUM CHLORIDE 10 MEQ TABLET.ER PO SCH (13:18)
--- NOTE | 2019-11-27 15:25 | RADIOLOGY REPORT (SQ) ---
EXAM DESCRIPTION: U/S ABD PARACENTESIS COMPLETED DATE/TIME: 11/27/2019 2:58 pm REASON FOR STUDY: severe ascites COMPARISON: None. LIMITATIONS: None. PROCEDURE: Procedure, risks, benefit, and alternative explained to patient who then gave written con sent. The right lower abdominal wall marked using ultrasound guidance. A time-out was called for co rrect marking verification. Abdomen prepped and draped using sterile technique. Local anesthesia ach ieved using 3.0 ml of 1% lidocaine injection. A 6fr [id number] set was introduced into the melody toneal cavity. Fluid was drained. The catheter was removed and entry site was covered with sterile bandage. No immediate complications noted. Images acquired during the procedure were stored on PACS. FINDINGS: ENTRY SITE: Right lower quadrant FLUID VOLUME: 8500 cc FLUID ANALYSIS: Clear straw OTHER: Therapeutic only. IMPRESSION: SUCCESSFUL ULTRASOUND GUIDED PARACENTESIS. COMMENT: Patient medication list reviewed:Yes- Quality ID# [id number]:Eligible professional attests to docu menting in the medical record they obtained, updated, or reviewed the patient's current medications. TECHNICAL DOCUMENTATION: JOB ID: [id number] [employer]- All Rights Reserved Reading location - IP/workstation name: [email or web address]
[2019-11-27] MEDS ORDERED: (PENDING PHARMACY ID) (Spironolactone [Aldactone 100 Mg Tablet] 100 MG) PO SCH (18:00)
--- NOTE | 2019-11-27 18:46 | PDOC PROGRESS REPORT ---
Subjective Progress Note for:: 11/27/19 Subjective:: Patient is less confused today. Patient had 2 units PRBC transfused earlier today and abdominal paracentesis with 8.5L of ascitic fluid removal. No nausea, vomiting or abdominal pain. No chest pain or difficulty with breathing. No reported fever or chills. Reason For Visit: HEPATICENCEPHALOPATHY END STAGE ALCOHOL LIVER Physical Exam Vital Signs: Temp Pulse Resp BP Pulse Ox 98.7 F 101 H 16 103/65 100 11/27/19 08:00 11/27/19 08:00 11/27/19 08:00 11/27/19 08:00 11/26/19 23:20 Intake & Output 11/26/19 11/27/19 11/28/19 06:59 06:59 06:59 Intake Total 1598 0 Balance 1598 0 Weight 55.9 kg General appearance: PRESENT: no acute distress Head exam: PRESENT: atraumatic, normocephalic Eye exam: PRESENT: conjunctiva pink. ABSENT: scleral icterus Ear exam: PRESENT: normal external ear exam Mouth exam: PRESENT: moist Respiratory exam: PRESENT: clear to auscultation ellie, decreased breath sounds - at lung bases Cardiovascular exam: PRESENT: RRR. ABSENT: diastolic murmur, rubs, systolic murmur Vascular exam: ABSENT: pallor GI/Abdominal exam: PRESENT: ascites - less volume post paracentesis., normal bowel sounds, soft. ABSENT: tenderness Extremities exam: ABSENT: pedal edema Musculoskeletal exam: PRESENT: normal inspection - with generalized muscle w asting Neurological exam: PRESENT: altered - with some degree of disorientation to place, awake Psychiatric exam: PRESENT: appropriate affect, normal mood. ABSENT: homicidal ideation, suicidal ideation Skin exam: PRESENT: dry, warm Results Laboratory Results: 11/27/19 04:38 11/27/19 04:38 11/26/19 11/26/19 11/26/19 08:15 08:15 08:15 WBC 4.8 RBC 1.90 L Hgb 7.4 L Hct 21.5 L MCV 113 H MCH 38.7 H MCHC 34.2 RDW 20.2 H Plt Count 137 L Seg Neutrophils % Not Reportable Sodium 133.4 L Potassium 3.9 Chloride 102 Carbon Dioxide 21 L Anion Gap 10 BUN 17 Creatinine 1.08 Est GFR ( Amer) > 60 Glucose 137 H Calcium 8.8 Magnesium 2.2 Total Bilirubin 3.2 H AST 43 H Alkaline Phosphatase 100 Ammonia 78.9 H Total Protein 5.8 L Albumin 3.1 L Urine Color Urine Appearance Urine pH Ur Specific [place] Urine Protein Urine Glucose (UA) Urine Ketones Urine Blood Urine Nitrite Ur Leukocyte Esterase Urine WBC (Auto) Urine RBC (Auto) Blood Type Antibody Screen 11/26/19 11/26/19 11/27/19 08:15 10:00 04:38 WBC 5.1 RBC 1.79 L Hgb 6.8 L Hct 20.0 L MCV 112 H MCH 38.1 H MCHC 34.2 RDW 19.5 H Plt Count 123 L Seg Neutrophils % 67.3 Sodium Potassium Chloride Carbon Dioxide Anion Gap BUN Creatinine Est GFR ( Amer) Glucose Calcium Magnesium Total Bilirubin AST Alkaline Phosphatase Ammonia Total Protein Albumin Urine Color Cancelled Urine Appearance Cancelled Urine pH Cancelled Ur Specific [place] Cancelled Urine Protein Cancelled Urine Glucose (UA) Cancelled Urine Ketones Cancelled Urine Blood Cancelled Urine Nitrite Cancelled Ur Leukocyte Esterase Cancelled Urine WBC (Auto) Cancelled Urine RBC (Auto) Cancelled Blood Type AB POSITIVE Antibody Screen NEGATIVE 11/27/19 11/27/19 04:38 04:38 WBC RBC Hgb Hct MCV MCH MCHC RDW Plt Count Seg Neutrophils % Sodium 132.1 L Potassium 3.5 L Chloride 102 Carbon Dioxide 18 L Anion Gap 12 BUN 15 Creatinine 0.85 Est GFR ( Amer) > 60 Glucose 121 H Calcium 8.2 L Magnesium Total Bilirubin 2.8 H AST 38 H Alkaline Phosphatase 88 Ammonia 38.9 H Total Protein 5.7 L Albumin 2.8 L Urine Color Urine Appearance Urine pH Ur Specific [place] Urine Protein Urine Glucose (UA) Urine Ketones Urine Blood Urine Nitrite Ur Leukocyte Esterase Urine WBC (Auto) Urine RBC (Auto) Blood Type Antibody Screen 11/26/19 08:15 Troponin I < 0.012 Impressions: Acute Abdomen Series 11/26/19 08:31 IMPRESSION: 1. No evidence of acute intrathoracic process. 2. Ascites. No other evidence of acute intra-abdominal/ pelvic process. Assessment & Plan - Diagnosis (1) Hepatic encephalopathy syndrome Is this a current diagnosis for this admission?: Yes (2) Alcoholic cirrhosis of liver with ascites Is this a current diagnosis for this admission?: Yes Plan: Patient will receive 8gm of albumin infusion/1000ml of removed ascitic fluid (68gm). (3) GERD (gastroesophageal reflux disease) Qualifiers: Esophagitis presence: without esophagitis Qualified Code(s): K21.9 - Gastro-esophageal reflux disease without esophagitis Is this a current diagnosis for this admission?: Yes (4) Anemia of chronic disease Is this a current diagnosis for this admission?: Yes Plan: Post transfusion of 2 units PRBC. Follow up on post transfusion CBC. (5) Mixed anxiety and depressive disorder Is this a current diagnosis for this admission?: Yes - Time Time Spent with patient: 25-34 minutes Level of Care: TELE Medications reviewed and adjusted accordingly: Yes Anticipated discharge: Home with Homehealth Within: Other - Inpatient Certification Based on my medical assessment, after consideration of the patient's comorbidities, presenting symptoms, or acuity I expect that the services needed warrant INPATIENT care.: Yes I certify that my determination is in accordance with my understanding of Medicare's requirements for reasonable and necessary INPATIENT services [42 CFR 412.3e].: Yes Medical Necessity: Significant Comorbidiites Make Outpatient Treatment Too Risky, Need Close Monitoring Due to Risk of Patient Decompensation, Need For Continuous Telemetry Monitoring, Risk of Complication if Not Cared For in Hospit al, Risk of Diagnosis Which Will Require Inpatient Eval/Care/Monitoring Post Hospital Care: D/C [place] Documentation - Plan Summary Plan Summary: See attending physician orders for details about care plan.
[2019-11-27] MEDS ORDERED: ALBUMIN HUMAN 12.5 GM/50 ML RTUINJ IV SCH (20:00)
[2019-11-27] MEDS: ALBUMIN HUMAN 12.5 GM/50 ML RTUINJ IV SCH ×3 (21:47→23:45)
[2019-11-27] MEDS ORDERED: HALOPERIDOL 0.5 MG TABLET PO ONE (23:30)
[2019-11-27] MEDS ORDERED: HALOPERIDOL 0.5 MG TABLET ONE (23:48)
[2019-11-28] MEDS: ALBUMIN HUMAN 12.5 GM/50 ML RTUINJ IV SCH ×3 (00:51→03:09)
[2019-11-28 10:08] LABS: ALBUMIN 3.3 g/dL (3.5-5.0); ALKALINE PHOSPHATASE 67 U/L (38-126); ANION GAP 12 (5-19); ASPARTATE AMINO TRANSFERASE 32 U/L (14-36); BILIRUBIN,DIRECT 2.1 mg/dL (0.0-0.4); BILIRUBIN,TOTAL 5.6 mg/dL (0.2-1.3); BLOOD UREA NITROGEN 17 mg/dL (7-20); CALCIUM 8.7 mg/dL (8.4-10.2); CARBON DIOXIDE 18 mmol/L (22-30); CHLORIDE 101 mmol/L (98-107); GLUCOSE 97 mg/dL (75-110); POTASSIUM 4.2 mmol/L (3.6-5.0); TOTAL PROTEIN 5.5 g/dL (6.3-8.2)
[2019-11-28 10:20] LABS: ABSOLUTE EOSINOPHILS # (AUTO) 0.2 10^3/uL (0.0-0.6); ABSOLUTE LYMPHOCYTES (AUTO) 0.6 10^3/uL (0.5-4.7); ABSOLUTE MONOCYTES (AUTO) 0.7 10^3/uL (0.1-1.4); ABSOLUTE NEUT (AUTO) 3.7 10^3/uL (1.7-8.2); BASOPHILS % (AUTO) 0.7 % (0-2); EOSINOPHILS % (AUTO) 3.4 % (0-6); HEMATOCRIT 26.8 % (36.0-47.0); LYMPHOCYTES % (AUTO) 12.1 % (13-45); MEAN CORPUSCULAR HEMOGLOBIN 36.1 pg (27.0-33.4); MEAN CORPUSCULAR HGB CONC 35.5 g/dL (32.0-36.0); MONOCYTES % (AUTO) 13.4 % (3-13); PLATELET COUNT 105 10^3/uL (150-450); RED BLOOD COUNT 2.63 10^6/uL (3.72-5.28); SEGMENTED NEUTROPHILS % (AUTO) 70.4 % (42-78); TOTAL CELLS COUNTED % (AUTO) 100 %; WHITE BLOOD COUNT 5.3 10^3/uL (4.0-10.5)
[2019-11-28 10:22] LABS: HEMOGLOBIN 9.5 g/dL (12.0-15.5); MEAN CORPUSCULAR VOLUME 102 fl (80-97)
[2019-11-28] MEDS: LACTULOSE SYRUP 20 GM/30 ML UDCUP PO SCH ×3 (10:26→18:01)
[2019-11-28] MEDS: FUROSEMIDE 80 MG TABLET PO SCH (10:27)
[2019-11-28] MEDS: MULTIVITAMIN TABLET PO SCH (10:27)
[2019-11-28] MEDS: RIFAXIMIN 550 MG TABLET PO SCH ×2 (10:27→18:02)
[2019-11-28] MEDS: FERROUS SULFATE 325 MG TABLET PO SCH (10:31)
[2019-11-28] MEDS: SPIRONOLACTONE 25 MG TABLET PO SCH ×2 (10:31→18:01)
[2019-11-28] MEDS: ESCITALOPRAM OXALATE 10 MG TABLET PO SCH (10:31)
[2019-11-28] MEDS: CYANOCOBALAMIN (VITAMIN B-12) 1,000 MCG TABLET PO SCH (10:32)
[2019-11-28] MEDS: POTASSIUM CHLORIDE 10 MEQ TABLET.ER PO SCH (10:32)
[2019-11-28] MEDS: MAGNESIUM OXIDE 400 MG TABLET PO SCH (10:32)
--- NOTE | 2019-11-28 18:22 | CDI QUERY ---
CDI Query CDI Review: Dear Provider: To better reflect your patients severity of illness, morbidity, and resource utilization Please specify and document in the Progress Notes and Discharge Summary if you are monitoring / treating / evaluating any of the following conditions: Query Clinical indicators Cachexia Malnutrition (please note degree: mild, moderate, severe Protein calorie malnutrition * Underweight Hypoalbuminemia Unable to determine Other Diagnoses: Hepatic encephalopathy syndrome Alcoholic cirrhosis of liver with ascites Anemia of chronic Disease Ht. 5 ft 4 in Wt. 51.9 kg / 114.18 lbs BMI 19.6 kg/m2 Total protein: 5.8 Albumin 3.1 Frequency of alcohol use: Heavy Musculoskeletal exam: PRESENT: normal inspection - with generalized muscle wasting Thank you, Clinical Documentation Physician Advisors VEE Armstrong RN, BSN RN [email or web address] Office [phone] Office [phone]
--- NOTE | 2019-11-28 19:40 | PDOC PROGRESS REPORT ---
Subjective Progress Note for:: 11/28/19 Subjective:: Patient had episode of agitation and confusion last night that responded to low dose haloperidol. No nausea, vomiting or abdominal pain. No chest pain or difficulty with breathing. No reported fever or chills. Reason For Visit: HEPATICENCEPHALOPATHY END STAGE ALCOHOL LIVER Physical Exam Vital Signs: Temp Pulse Resp BP Pulse Ox 98.9 F 66 16 106/53 L 100 11/27/19 23:36 11/28/19 07:00 11/27/19 23:36 11/27/19 23:36 11/27/19 23:36 Intake & Output 11/27/19 11/28/19 11/29/19 06:59 06:59 06:59 Intake Total 1598 2141 Output Total 900 Balance 1598 1241 Weight 55.9 kg 51.9 kg Physical Exam: General appearance: PRESENT: no acute distress, very thin Head exam: PRESENT: atraumatic, normocephalic Eye exam: PRESENT: conjunctiva pink. ABSENT: pallor, scleral icterus Ear exam: PRESENT: normal external ear exam Mouth exam: PRESENT: moist Respiratory exam: PRESENT: clear to auscultation ellie, decreased breath sounds - at lung bases Cardiovascular exam: PRESENT: RRR. ABSENT: diastolic murmur, rubs, systolic murmur GI/Abdominal exam: PRESENT: ascites, normal bowel sounds, soft. ABSENT: tenderness Extremities exam: ABSENT: pedal edema Musculoskeletal exam: PRESENT: normal inspection - with generalized muscle wasting Neurological exam: PRESENT: alart, awake, fully oriented Psychiatric exam: PRESENT: appropriate affect, normal mood. ABSENT: homicidal ideation, suicidal ideation Skin exam: PRESENT: dry, warm Results Laboratory Results: 11/27/19 04:38 11/27/19 04:38 11/26/19 11/27/19 08:15 04:38 Magnesium 2.1 Blood Type AB POSITIVE Antibody Screen NEGATIVE 11/26/19 08:15 Troponin I < 0.012 Impressions: Acute Abdomen Series 11/26/19 08:31 IMPRESSION: 1. No evidence of acute intrathoracic process. 2. Ascites. No other evidence of acute intra-abdominal/ pelvic process. Paracentesis Ultrasound 11/27/19 00:00 IMPRESSION: SUCCESSFUL ULTRASOUND GUIDED PARACENTESIS. Assessment & Plan - Diagnosis (1) Hepatic encephalopathy syndrome Is this a current diagnosis for this admission?: Yes (2) Alcoholic cirrhosis of liver with ascites Is this a current diagnosis for this admission?: Yes (3) GERD (gastroesophageal reflux disease) Qualifiers: Esophagitis presence: without esophagitis Qualified Code(s): K21.9 - Gastro-esophageal reflux disease without esophagitis Is this a current diagnosis for this admission?: Yes (4) Anemia of chronic disease Is this a current diagnosis for this admission?: Yes (5) Mixed anxiety and depressive disorder Is this a current diagnosis for this admission?: Yes - Time Time Spent with patient: 25-34 minutes Level of Care: TELE Medications reviewed and adjusted accordingly: Yes Anticipated discharge: Home with Homehealth Within: Other - Inpatient Certification Based on my medical assessment, after consideration of the patient's comorbidities, presenting symptoms, or acuity I expect that the services needed warrant INPATIENT care.: Yes I certify that my determination is in accordance with my understanding of Medicare's requirements for reasonable and necessary INPATIENT services [42 CFR 412.3e].: Yes Medical Necessity: Significant Comorbidiites Make Outpatient Treatment Too Risky, Need Close Monitoring Due to Risk of Patient Decompensation, Need For Continuous Telemetry Monitoring, Risk of Complication if Not Cared For in Hospital, Risk of Diagnosis Which Will Require Inpatient Eval/Care/Monitoring 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 Maintain on Haloperidol 0.25 mg po qhs.
[2019-11-28] MEDS: HALOPERIDOL 0.5 MG TABLET PO SCH (21:24)
[2019-11-29 06:49] LABS: ALBUMIN 3.3 g/dL (3.5-5.0); ALKALINE PHOSPHATASE 72 U/L (38-126); ANION GAP 12 (5-19); ASPARTATE AMINO TRANSFERASE 36 U/L (14-36); BILIRUBIN,DIRECT 1.2 mg/dL (0.0-0.4); BILIRUBIN,TOTAL 3.2 mg/dL (0.2-1.3); BLOOD UREA NITROGEN 13 mg/dL (7-20); CALCIUM 8.6 mg/dL (8.4-10.2); CARBON DIOXIDE 17 mmol/L (22-30); CHLORIDE 101 mmol/L (98-107); GLUCOSE 150 mg/dL (75-110); TOTAL PROTEIN 5.9 g/dL (6.3-8.2)
[2019-11-29] MEDS: LACTULOSE SYRUP 20 GM/30 ML UDCUP PO SCH ×4 (09:16→22:03)
[2019-11-29] MEDS: SPIRONOLACTONE 25 MG TABLET PO SCH ×2 (09:17→17:28)
[2019-11-29] MEDS: RIFAXIMIN 550 MG TABLET PO SCH ×2 (09:18→17:27)
[2019-11-29] MEDS: FUROSEMIDE 80 MG TABLET PO SCH (09:18)
[2019-11-29] MEDS: POTASSIUM CHLORIDE 10 MEQ TABLET.ER PO SCH (09:18)
[2019-11-29] MEDS: ESCITALOPRAM OXALATE 10 MG TABLET PO SCH (09:18)
[2019-11-29] MEDS: MAGNESIUM OXIDE 400 MG TABLET PO SCH (09:18)
[2019-11-29] MEDS: CYANOCOBALAMIN (VITAMIN B-12) 1,000 MCG TABLET PO SCH (09:18)
[2019-11-29] MEDS: FERROUS SULFATE 325 MG TABLET PO SCH (09:18)
[2019-11-29] MEDS: MULTIVITAMIN TABLET PO SCH (09:19)
--- NOTE | 2019-11-29 19:07 | PDOC PROGRESS REPORT ---
Subjective Progress Note for:: 11/29/19 Subjective:: Patient reported taking Lactulose 30 mL p.o bid to tid at home prior to her admission. No nausea, vomiting or abdominal pain. No bowel movement so far today. No chest pain or difficulty with breathing. No reported fever or chills. Reason For Visit: HEPATICENCEPHALOPATHY END STAGE ALCOHOL LIVER Physical Exam Vital Signs: Temp Pulse Resp BP Pulse Ox 98.6 F 97 16 104/65 100 11/29/19 15:09 11/29/19 15:09 11/29/19 15:09 11/29/19 15:09 11/29/19 15:09 Intake & Output 11/28/19 11/29/19 11/30/19 06:59 06:59 06:59 Intake Total 2141 1820 240 Output Total 900 Balance 1241 1820 240 Weight 51.9 kg 50.1 kg Physical Exam: General appearance: PRESENT: no acute distress, very thin Head exam: PRESENT: atraumatic, normocephalic Eye exam: PRESENT: conjunctiva pink. ABSENT: pallor, scleral icterus Ear exam: PRESENT: normal external ear exam Mouth exam: PRESENT: moist Respiratory exam: PRESENT: clear to auscultation ellie, decreased breath sounds - at lung bases Cardiovascular exam: PRESENT: RRR. ABSENT: diastolic murmur, rubs, systolic murmur GI/Abdominal exam: PRESENT: ascites, normal bowel sounds, soft. ABSENT: tenderness Extremities exam: ABSENT: pedal edema Musculoskeletal exam: PRESENT: normal inspection - with generalized muscle wasting Neurological exam: PRESENT: alert, awake, fully oriented Psychiatric exam: PRESENT: appropriate affect, normal mood. ABSENT: homicidal ideation, suicidal ideation Skin exam: PRESENT: dry, warm Results Laboratory Results: 11/28/19 08:51 11/29/19 06:09 11/29/19 11/29/19 06:09 06:09 Sodium 130.1 L Potassium 4.0 Chloride 101 Carbon Dioxide 17 L Anion Gap 12 BUN 13 Creatinine 0.80 Est GFR ( Amer) > 60 Glucose 150 H Calcium 8.6 Total Bilirubin 3.2 H AST 36 Alkaline Phosphatase 72 Ammonia 50.3 H Total Protein 5.9 L Albumin 3.3 L 11/26/19 08:15 Troponin I < 0.012 Impressions: Acute Abdomen Series 11/26/19 08:31 IMPRESSION: 1. No evidence of acute intrathoracic process. 2. Ascites. No other evidence of acute intra-abdominal/ pelvic process. Paracentesis Ultrasound 11/27/19 00:00 IMPRESSION: SUCCESSFUL ULTRASOUND GUIDED PARACENTESIS. Assessment & Plan - Diagnosis (1) Hepatic encephalopathy syndrome Is this a current diagnosis for this admission?: Yes (2) Alcoholic cirrhosis of liver with ascites Is this a current diagnosis for this admission?: Yes (3) GERD (gastroesophageal reflux disease) Qualifiers: Esophagitis presence: without esophagitis Qualified Code(s): K21.9 - Gastro-esophageal reflux disease without esophagitis Is this a current diagnosis for this admission?: Yes (4) Anemia of chronic disease Is this a current diagnosis for this admission?: Yes (5) Mixed anxiety and depressive disorder Is this a current diagnosis for this admission?: Yes - Time Time Spent with patient: 25-34 minutes Level of Care: TELE Medications reviewed and adjusted accordingly: Yes Anticipated discharge: Home with Homehealth Within: Other - Inpatient Certification Based on my medical assessment, after consideration of the patient's comorbidities, presenting symptoms, or acuity I expect that the services needed warrant INPATIENT care.: Yes I certify that my determination is in accordance with my understanding of Medicare's requirements for reasonable and necessary INPATIENT services [42 CFR 412.3e].: Yes Medical Necessity: Significant Comorbidiites Make Outpatient Treatment Too Risky, Need Close Monitoring Due to Risk of Patient Decompensation, Need For Continuous Telemetry Monitoring, Risk of Complication if Not Cared For in Hospital, Risk of Diagnosis Which Will Require Inpatient Eval/Care/Monitoring Post Hospital Care: D/C [employer] Documentation - Plan Summary Plan Summary: Increase Lactulose to 30 ml p.o tid. Continue all other current medication management. Possible d/c home tomorrow was discussed with patient at bedside and she is agreeable with plan.
[2019-11-29] MEDS: HALOPERIDOL 0.5 MG TABLET PO SCH (22:04)
[2019-11-30] MEDS: LACTULOSE SYRUP 20 GM/30 ML UDCUP PO SCH (05:35)
[2019-11-30] MEDS: SPIRONOLACTONE 25 MG TABLET PO SCH (08:32)
[2019-11-30 08:45] VITALS: BP 119/72
--- NOTE | 2019-11-30 17:58 | PDOC DISCHARGE SUMMARY ---
Impression - Admit/DC Date/PCP Admission Date/Primary Care Provider: 11/26/19 10:57 JOHANA VALDEZ Discharge Date: 11/30/19 - Discharge Diagnosis (1) Hepatic encephalopathy syndrome Is this a current diagnosis for this admission?: Yes (2) Alcoholic cirrhosis of liver with ascites Is this a current diagnosis for this admission?: Yes (3) GERD (gastroesophageal reflux disease) Is this a current diagnosis for this admission?: Yes (4) Anemia of chronic disease Is this a current diagnosis for this admission?: Yes (5) Mixed anxiety and depressive disorder Is this a current diagnosis for this admission?: Yes - Assessment Summary: She was admitted for hepatic encephalopathy. She responded to medical management with Lactulose enema and eventually transition to oral route and increase in her dosing amount. Also, she was started on Xifaxan and discharge home on same. She will remain on her preadmission medications. She will follow up in the office as instructed upon discharge. - Additional Information Resuscitation Status: Full Code Discharge Activity: Activity As Tolerated Referrals: JOHANA VALDEZ MD [Primary Care Provider] - 12/05/19 10:00 am Prescriptions: Rifaximin [Xifaxan 550 mg Tablet] 550 mg PO BID #60 tablet Home Medications: Cyanocobalamin (Vitamin B-12) [Vitamin B12] 2,500 mcg PO DAILY 10/02/19 Escitalopram Oxalate [Lexapro] 20 mg PO DAILY 10/02/19 Ferrous Sulfate [Feosol 325 mg Tablet] 325 mg PO DAILY 10/02/19 Furosemide [Lasix 80 mg Tablet] 80 mg PO DAILY 10/02/19 Lactulose [Cephulac Syrup 20 gm/30 ml Udcup] 10 gm PO TID 10/02/19 Magnesium Oxide [Mag-Ox 400 mg Tablet] 400 mg PO DAILY 10/02/19 Multivitamin [Tab-A-Bev (Multiple Vitamin) Tablet] 1 tab PO DAILY 10/02/19 Potassium Chloride [Klor-Con M20] 20 meq PO DAILY 10/02/19 Spironolactone [Aldactone 100 mg Tablet] 100 mg PO QPM 10/02/19 Spironolactone [Aldactone 100 mg Tablet] 200 mg PO QAM 10/02/19 Rifaximin [Xifaxan 550 mg Tablet] 550 mg PO BID #60 tablet 11/30/19 History of Present Illiness History of Present Illness: MADELYN JENSEN is a 44 year old female patient known to my practice with end stage alcohol liver cirrhosis professed no ongoing alcohol ingestion who was brought to the ED for further evaluation due to her mother's noted worsening confusion and reaching out to thing that her to apparent to other people. Her is current on assignment and her mother is limited regarding patient medical history. Her initial evaluation in the Ed was significant for altered mental status with elevated serum ammonia level. She was admitted for hepatic encephalopathy for further management. She received a dose of lactulose enema while in the ED and was able to communicate with me at the time of my evaluation on telemetry floor. Patient claimed compliance with lactulose administration at home and denied alcohol abuse. she admitted to confusion and visual hallucination about things in her field of vision. Her morbidities are as listed below. Hospital Course Hospital Course: She was admitted for hepatic encephalopathy. She responded to medical management with Lactulose enema and eventually transition to oral route and increase in her dosing amount. Also, she was started on Xifaxan and discharge home on same. She will remain on her preadmission medications. She will follow up in the office as instructed upon discharge. Physical Exam Vital Signs: Temp Pulse Resp BP Pulse Ox 98.6 F 102 H 17 115/52 L 100 11/29/19 23:04 11/30/19 02:00 11/29/19 23:04 11/29/19 23:04 11/29/19 23:04 Intake & Output 11/29/19 11/30/19 12/01/19 06:59 06:59 06:59 Intake Total 1820 1410 Balance 1820 1410 Weight 50.1 kg 50 kg Results Laboratory Results: WBC 5.3 10^3/uL (4.0-10.5) 11/28/19 08:51 RBC 2.63 10^6/uL (3.72-5.28) L 11/28/19 08:51 Hgb 9.5 g/dL (12.0-15.5) L D 11/28/19 08:51 Hct 26.8 % (36.0-47.0) L 11/28/19 08:51 MCV 102 fl (80-97) H D 11/28/19 08:51 MCH 36.1 pg (27.0-33.4) H 11/28/19 08:51 MCHC 35.5 g/dL (32.0-36.0) 11/28/19 08:51 RDW 23.0 % (11.5-14.0) H 11/28/19 08:51 Plt Count 105 10^3/uL (150-450) L 11/28/19 08:51 Lymph % (Auto) 12.1 % (13-45) L 11/28/19 08:51 [place] % (Auto) 13.4 % (3-13) H 11/28/19 08:51 Eos % (Auto) 3.4 % (0-6) 11/28/19 08:51 Baso % (Auto) 0.7 % (0-2) 11/28/19 08:51 Absolute Neuts (auto) 3.7 10^3/uL (1.7-8.2) 11/28/19 08:51 Absolute Lymphs (auto) 0.6 10^3/uL (0.5-4.7) 11/28/19 08:51 Absolute Monos (auto) 0.7 10^3/uL (0.1-1.4) 11/28/19 08:51 Absolute Eos (auto) 0.2 10^3/uL (0.0-0.6) 11/28/19 08:51 Absolute Basos (auto) 0.0 10^3/uL (0.0-0.2) 11/28/19 08:51 Total Counted 100 11/26/19 08:15 Seg Neutrophils % 70.4 % (42-78) 11/28/19 08:51 Seg Neuts % (Manual) 76 % (42-78) 11/26/19 08:15 Lymphocytes % (Manual) 16 % (13-45) 11/26/19 08:15 Monocytes % (Manual) 6 % (3-13) 11/26/19 08:15 Eosinophils % (Manual) 2 % (0-6) 11/26/19 08:15 Basophils % (Manual) 0 % (0-2) 11/26/19 08:15 Abs Neuts (Manual) 3.6 10^3/uL (1.7-8.2) 11/26/19 08:15 Abs Lymphs (Manual) 0.8 10^3/uL (0.5-4.7) 11/26/19 08:15 Abs Monocytes (Manual) 0.3 10^3/uL (0.1-1.4) 11/26/19 08:15 Absolute Eos (Manual) 0.1 10^3/uL (0.0-0.6) 11/26/19 08:15 Abs Basophils (Manual) 0.0 10^3/uL (0.0-0.2) 11/26/19 08:15 Toxic Granulation 1+ 11/27/19 04:38 Toxic Vacuolation PRESENT 11/26/19 08:15 Platelet Comment DECREASED 11/27/19 04:38 Polychromasia SLIGHT 11/27/19 04:38 Poikilocytosis SLIGHT 11/27/19 04:38 Anisocytosis 2+ 11/27/19 04:38 Macrocytosis 3+ 11/27/19 04:38 Tear Drop Cells SLIGHT 11/27/19 04:38 Ovalocytes SLIGHT 11/27/19 04:38 Schistocytes SLIGHT 11/27/19 04:38 PT 15.0 SEC (11.4-15.4) 11/27/19 09:27 INR 1.17 11/27/19 09:27 APTT 31.3 SEC (23.5-35.8) 11/27/19 09:27 Sodium 130.1 mmol/L (137-145) L 11/29/19 06:09 Potassium 4.0 mmol/L (3.6-5.0) 11/29/19 06:09 Chloride 101 mmol/L (98-107) 11/29/19 06:09 Carbon Dioxide 17 mmol/L (22-30) L 11/29/19 06:09 Anion Gap 12 (5-19) 11/29/19 06:09 BUN 13 mg/dL (7-20) 11/29/19 06:09 Creatinine 0.80 mg/dL (0.52-1.25) 11/29/19 06:09 Est GFR ( Amer) > 60 (>60) 11/29/19 06:09 Est GFR (MDRD) Non-Af > 60 (>60) 11/29/19 06:09 Glucose 150 mg/dL (75-110) H 11/29/19 06:09 POC Glucose 148 mg/dL (70-110) H 11/26/19 08:18 Calcium 8.6 mg/dL (8.4-10.2) 11/29/19 06:09 Magnesium 2.1 mg/dL (1.6-2.3) 11/27/19 04:38 Total Bilirubin 3.2 mg/dL (0.2-1.3) H 11/29/19 06:09 Direct Bilirubin 1.2 mg/dL (0.0-0.4) H 11/29/19 06:09 Neonat Total Bilirubin Not Reportable 11/29/19 06:09 Neonat Direct Bilirubin Not Reportable 11/29/19 06:09 Neonat Indirect Bili Not Reportable 11/29/19 06:09 AST 36 U/L (14-36) 11/29/19 06:09 ALT 13 U/L (<35) 11/29/19 06:09 Alkaline Phosphatase 72 U/L (38-126) 11/29/19 06:09 Ammonia 50.3 umol/L (9-33) H 11/29/19 06:09 Troponin I < 0.012 ng/mL 11/26/19 08:15 Total Protein 5.9 g/dL (6.3-8.2) L 11/29/19 06:09 Albumin 3.3 g/dL (3.5-5.0) L 11/29/19 06:09 Urine Color Cancelled 11/26/19 10:00 Urine Appearance Cancelled 11/26/19 10:00 Urine pH Cancelled 11/26/19 10:00 Ur Specific [place] Cancelled 11/26/19 10:00 Urine Protein Cancelled 11/26/19 10:00 Urine Glucose (UA) Cancelled 11/26/19 10:00 Urine Ketones Cancelled 11/26/19 10:00 Urine Blood Cancelled 11/26/19 10:00 Urine Nitrite Cancelled 11/26/19 10:00 Urine Bilirubin Cancelled 11/26/19 10:00 Urine Urobilinogen Cancelled 11/26/19 10:00 Ur Leukocyte Esterase Cancelled 11/26/19 10:00 Urine WBC (Auto) Cancelled 11/26/19 10:00 Urine RBC (Auto) Cancelled 11/26/19 10:00 U Hyaline Cast (Auto) Cancelled 11/26/19 10:00 Urine Bacteria (Auto) Cancelled 11/26/19 10:00 Urine Red Cell Clumps Cancelled 11/26/19 10:00 Urine WBC Clumps Cancelled 11/26/19 10:00 Squamous Epi Cells Auto Cancelled 11/26/19 10:00 U Non-Squamous Epis Auto Cancelled 11/26/19 10:00 Calcium Carbonate Cryst Cancelled 11/26/19 10:00 Calcium Phosphate Cryst Cancelled 11/26/19 10:00 Calcium Oxalate Cr Auto Cancelled 11/26/19 10:00 Leucine Crystals Cancelled 11/26/19 10:00 Cystine Crystals Cancelled 11/26/19 10:00 Uric Acid Cryst (Auto) Cancelled 11/26/19 10:00 Triple Phos Cryst (Auto) Cancelled 11/26/19 10:00 Tyrosine Crystals Cancelled 11/26/19 10:00 Amorphous Sediment Auto Cancelled 11/26/19 10:00 Cellular Casts Cancelled 11/26/19 10:00 Epithelial Casts (Auto) Cancelled 11/26/19 10:00 Fatty Casts Cancelled 11/26/19 10:00 Granular Casts (Auto) Cancelled 11/26/19 10:00 Waxy Casts (Auto) Cancelled 11/26/19 10:00 Broad Casts Cancelled 11/26/19 10:00 RBC Casts (Auto) Cancelled 11/26/19 10:00 WBC Casts (Auto) Cancelled 11/26/19 10:00 Urine Mucus (Auto) Cancelled 11/26/19 10:00 U Trichomonas (Auto) Cancelled 11/26/19 10:00 Ur Yeast w Hyphae Cancelled 11/26/19 10:00 Urine Yeast (Budding) Cancelled 11/26/19 10:00 Urine Ascorbic Acid Cancelled 11/26/19 10:00 POC Stool Occult Blood POSITIVE (NEGATIVE) 11/26/19 09:44 Urine Opiates Screen 11/26/19 10:00 Urine Methadone Screen NEGATIVE 11/26/19 10:00 Ur Barbiturates Screen NEGATIVE 11/26/19 10:00 Ur Phencyclidine Scrn NEGATIVE 11/26/19 10:00 Ur Amphetamines Screen NEGATIVE 11/26/19 10:00 U Benzodiazepines Scrn NEGATIVE 11/26/19 10:00 Urine Cocaine Screen NEGATIVE 11/26/19 10:00 U Marijuana (THC) Screen NEGATIVE 11/26/19 10:00 Serum Alcohol < 10 mg/dL (NONE DETECTED) 11/26/19 08:15 Slides for Path Review PATHOLOGIST REVIEWED 11/26/19 08:15 Blood Type AB POSITIVE 11/26/19 08:15 Blood Type Confirm AB POSITIVE 11/26/19 08:15 Antibody Screen NEGATIVE 11/26/19 08:15 Crossmatch See Detail 11/26/19 08:15 11/26/19 08:15 Troponin I < 0.012 Impressions: Acute Abdomen Series 11/26/19 08:31 IMPRESSION: 1. No evidence of acute intrathoracic process. 2. Ascites. No other evidence of acute intra-abdominal/ pelvic process. Paracentesis Ultrasound 11/27/19 00:00 IMPRESSION: SUCCESSFUL ULTRASOUND GUIDED PARACENTESIS. Plan Health Concerns: Medication and dietary compliance. Continue abstinence from alcohol consumption. Plan of Treatment: Close follow up and intermittent outpatient abdominal paracentesis. Goals: Reduce readmission risk level. Time Spent: Less than 30 Minutes Stroke Is this a Stroke Patient?: No Acute Heart Failure - Is this a Heart Failure Patient?: No
== END 2019-11-30 08:55 | disposition home or self-care (01) | DRG 434 ==
LOC: ER 07:54 → EH 10:57 → 5 16:04
PROVIDERS: ADMIT Internal Medicine Geriatric Medicine; ATTEND Internal Medicine Geriatric Medicine
PROC: 0W9G3ZX Drainage of Peritoneal Cavity, Percutaneous Approach, Diagnostic (ICD-10-PCS; principal; 2019-11-27)
PROC: 30233N1 Transfusion of Nonautologous Red Blood Cells into Peripheral Vein, Percutaneous Approach (ICD-10-PCS; 2019-11-27)
PROC: 3E0234Z Introduction of Serum, Toxoid and Vaccine into Muscle, Percutaneous Approach (ICD-10-PCS; 2019-11-30)
DX: K70.40 Alcoholic hepatic failure without coma (principal); K70.31 Alcoholic cirrhosis of liver with ascites; K21.9 Gastro-esophageal reflux disease without esophagitis; D64.9 Anemia, unspecified; F41.8 Other specified anxiety disorders; F10.11 Alcohol abuse, in remission; Y90.0 Blood alcohol level of less than 20 mg/100 ml; Z23 Encounter for immunization
CPT/HCPCS: 36415; 36430; 49083; 74022; 80053; 80307; 82140; 82962; 83735; 84484; 85025; 85610; 85730; 86850; 86900; 86901; 86920; 87040; 90686; 93005; 93010; 99285; A9270-GY; J3490; J7030; P9016; P9047

== ENCOUNTER 2019-12-06 06:22 | Day surgery (SDC) | payer OTHER ==
[2019-12-06 06:52] LABS: HEMATOCRIT 26.9 % (36.0-47.0); HEMOGLOBIN 9.5 g/dL (12.0-15.5); MEAN CORPUSCULAR HEMOGLOBIN 35.8 pg (27.0-33.4); MEAN CORPUSCULAR HGB CONC 35.4 g/dL (32.0-36.0); MEAN CORPUSCULAR VOLUME 101 fl (80-97); PLATELET COUNT 121 10^3/uL (150-450); RED BLOOD COUNT 2.65 10^6/uL (3.72-5.28); RED CELL DISTRIBUTION WIDTH 23.2 % (11.5-14.0); WHITE BLOOD COUNT 5.7 10^3/uL (4.0-10.5)
[2019-12-06 07:06] LABS: BLOOD UREA NITROGEN 19 mg/dL (7-20)
[2019-12-06 07:10] LABS: INTERNATIONAL RATION (INR) 1.32; PROTHROMBIN TIME 16.5 SEC (11.4-15.4)
[2019-12-06 07:11] LABS: PARTIAL THROMBOPLASTIN TIME 34.5 SEC (23.5-35.8)
[2019-12-06] MEDS ORDERED: ALBUMIN HUMAN 50 GM/200 ML RTUINJ IV PRN (09:58)
[2019-12-06 13:05] VITALS: BP 120/61
--- NOTE | 2019-12-06 13:54 | RADIOLOGY REPORT (SQ) ---
EXAM DESCRIPTION: U/S ABD PARACENTESIS COMPLETED DATE/TIME: 12/06/2019 10:39 am REASON FOR STUDY: ALCOHOLIC CIRRHOSIS OF LIVER WITH ASCITES COMPARISON None. LIMITATIONS: None. PROCEDURE: After obtaining informed consent, the patient was brought to the ultrasound suite. The p rocedure was performed with the patient on a gurney. Ultrasound was used to identify a prominent poc ket of ascites in the right lower quadrant. An appropriate access site was selected. The patient wa s prepped and draped in usual sterile fashion. The access site was anesthetized with 10 mL 1% lidoc hortencia. A Tjcf-F-Qazkceaj needle was advanced into the fluid. After aspiration of fluid the needle, t he catheter was advanced off the needle into the fluid. A total of 8,300 mL of clear straw-colored f luid was removed. The patient tolerated the procedure well left the department in satisfactory condit ion. IMPRESSION: Successful ultrasound-guided paracentesis COMMENT: Patient medication list reviewed: Yes- Quality ID# [id number]:Eligible professional attests to doc umenting in the medical record they obtained, updated, or reviewed the patient's current medications. TECHNICAL DOCUMENTATION: JOB ID: [id number] 2010 [employer]- All Rights Reserved Reading location - IP/workstation name: [email or web address]
== END 2019-12-06 12:30 | disposition home or self-care (01) ==
LOC: RAD 06:22
PROVIDERS: ATTEND Internal Medicine Geriatric Medicine
DX: K70.31 Alcoholic cirrhosis of liver with ascites (principal)
CPT/HCPCS: 36415; 84520; 82565; 85027; 85610; 85730; 49083; P9047

== ENCOUNTER 2019-12-12 10:15 | Day surgery (SDC) | payer OTHER ==
[2019-12-12 11:56] LABS: HEMOGLOBIN 9.4 g/dL (12.0-15.5); MEAN CORPUSCULAR HGB CONC 34.9 g/dL (32.0-36.0); MEAN CORPUSCULAR VOLUME 103 fl (80-97); PLATELET COUNT 122 10^3/uL (150-450); RED BLOOD COUNT 2.62 10^6/uL (3.72-5.28)
[2019-12-12 12:08] LABS: INTERNATIONAL RATION (INR) 1.26; PROTHROMBIN TIME 15.9 SEC (11.4-15.4)
[2019-12-12 12:09] LABS: PARTIAL THROMBOPLASTIN TIME 34.9 SEC (23.5-35.8)
[2019-12-12 12:14] LABS: BLOOD UREA NITROGEN 23 mg/dL (7-20)
[2019-12-12] MEDS ORDERED: DEXTROSE 5%-1/2 NORMAL SALINE 1,000 ML IV PRN (14:17)
[2019-12-12] MEDS ORDERED: ALBUMIN HUMAN 50 GM/200 ML RTUINJ IV PRN (14:24)
--- NOTE | 2019-12-12 15:51 | RADIOLOGY REPORT (SQ) ---
EXAM DESCRIPTION: U/S ABD PARACENTESIS COMPLETED DATE/TIME: 12/12/2019 3:30 pm REASON FOR STUDY: ALCOHOLIC CIRRHOSIS OF LIVER WITH ASCITES COMPARISON 12/06/2019 LIMITATIONS: None. PROCEDURE: After obtaining informed consent, the patient was brought to the ultrasound suite. The p rocedure was performed with the patient on a gurney. Ultrasound was used to identify a prominent poc ket of ascites in the right lower quadrant. An appropriate access site was selected. The patient wa s prepped and draped in usual sterile fashion. The access site was anesthetized with 10 mL 1% lidoc hortencia. A Xsqq-W-Ueyezzng needle was advanced into the fluid. After aspiration of fluid the needle, t he catheter was advanced off the needle into the fluid. A total of 8,850 mL of annette fluid was remov ed. The patient tolerated the procedure well left the department in satisfactory condition. IMPRESSION: Successful ultrasound-guided paracentesis COMMENT: Patient medication list reviewed: Yes- Quality ID# [id number]:Eligible professional attests to doc umenting in the medical record they obtained, updated, or reviewed the patient's current medications. TECHNICAL DOCUMENTATION: JOB ID: [id number] 2010 [employer]- All Rights Reserved Reading location - IP/workstation name: [email or web address]
[2019-12-12 17:25] VITALS: BP 107/63
== END 2019-12-12 17:25 | disposition home or self-care (01) ==
LOC: RAD 10:15
PROVIDERS: ATTEND Internal Medicine Geriatric Medicine
DX: K70.31 Alcoholic cirrhosis of liver with ascites (principal); I10 Essential (primary) hypertension
CPT/HCPCS: 36415; 84520; 82565; 85027; 85610; 85730; 49083; P9047

== ENCOUNTER → 2019-12-19 | Day surgery (SDC) | payer OTHER ==
[2019-12-19 12:51] LABS: HEMATOCRIT 22.5 % (36.0-47.0); MEAN CORPUSCULAR HEMOGLOBIN 36.5 pg (27.0-33.4); MEAN CORPUSCULAR HGB CONC 34.3 g/dL (32.0-36.0); MEAN CORPUSCULAR VOLUME 106 fl (80-97); RED BLOOD COUNT 2.12 10^6/uL (3.72-5.28); RED CELL DISTRIBUTION WIDTH 22.9 % (11.5-14.0); WHITE BLOOD COUNT 4.5 10^3/uL (4.0-10.5)
[2019-12-19 12:56] LABS: INTERNATIONAL RATION (INR) 1.21; PROTHROMBIN TIME 15.3 SEC (11.4-15.4)
[2019-12-19 12:57] LABS: PARTIAL THROMBOPLASTIN TIME 32.1 SEC (23.5-35.8)
[2019-12-19 13:08] LABS: BLOOD UREA NITROGEN 36 mg/dL (7-20)
[2019-12-19 13:19] LABS: HEMOGLOBIN 7.7 g/dL (12.0-15.5)
[2019-12-19 13:23] LABS: PLATELET COUNT 68 10^3/uL (150-450)
[2019-12-19 16:14] VITALS: BP 107/71
--- NOTE | 2019-12-19 16:21 | RADIOLOGY REPORT (SQ) ---
EXAM DESCRIPTION: U/S ABD PARACENTESIS COMPLETED DATE/TIME: 12/19/2019 4:00 pm REASON FOR STUDY: ALCOHOLIC CIRRHOSIS OF LIVER WITH ASCITES COMPARISON 12/12/2019 LIMITATIONS: None. PROCEDURE: After obtaining informed consent, the patient was brought to the ultrasound suite. The p rocedure was performed with the patient on a gurney. Ultrasound was used to identify a prominent poc ket of ascites in the left lower quadrant. An appropriate access site was selected. The patient was prepped and draped in usual sterile fashion. The access site was anesthetized with 10 mL 1% lidoca ine. A Eukc-U-Cpzwdhjm needle was advanced into the fluid. After aspiration of fluid the needle, th e catheter was advanced off the needle into the fluid. A total of 4,700 mL of clear, straw-colored f luid was removed. The patient tolerated the procedure well left the department in satisfactory condit ion. IMPRESSION: Successful ultrasound-guided paracentesis COMMENT: Patient medication list reviewed: Yes- Quality ID# [id number]:Eligible professional attests to doc umenting in the medical record they obtained, updated, or reviewed the patient's current medications. TECHNICAL DOCUMENTATION: JOB ID: [id number] 2010 [employer]- All Rights Reserved Reading location - IP/workstation name: [email or web address]
== END ==
LOC: RAD 11:09
PROVIDERS: ATTEND Internal Medicine Geriatric Medicine
DX: K70.31 Alcoholic cirrhosis of liver with ascites (principal)
CPT/HCPCS: 36415; 84520; 82565; 85027; 85610; 85730; 49083; P9047

== ENCOUNTER 2019-12-20 13:15 | Outpatient (CLI) | payer OTHER ==
[2019-12-20 15:17] LABS: HEMATOCRIT 20.9 % (36.0-47.0); MEAN CORPUSCULAR HGB CONC 34.9 g/dL (32.0-36.0); MEAN CORPUSCULAR VOLUME 106 fl (80-97); RED BLOOD COUNT 1.97 10^6/uL (3.72-5.28); RED CELL DISTRIBUTION WIDTH 22.8 % (11.5-14.0); WHITE BLOOD COUNT 3.8 10^3/uL (4.0-10.5)
[2019-12-20 15:19] LABS: HEMOGLOBIN 7.3 g/dL (12.0-15.5)
[2019-12-20 15:20] LABS: PLATELET COUNT 83 10^3/uL (150-450)
[2019-12-20 20:14] VITALS: BP 105/55
[2019-12-21 08:13] LABS: ABSOLUTE EOSINOPHILS # (AUTO) 0.1 10^3/uL (0.0-0.6); ABSOLUTE LYMPHOCYTES (AUTO) 0.6 10^3/uL (0.5-4.7); ABSOLUTE MONOCYTES (AUTO) 0.7 10^3/uL (0.1-1.4); ABSOLUTE NEUT (AUTO) 2.8 10^3/uL (1.7-8.2); BASOPHILS % (AUTO) 0.5 % (0-2); EOSINOPHILS % (AUTO) 2.2 % (0-6); HEMATOCRIT 30.2 % (36.0-47.0); LYMPHOCYTES % (AUTO) 14.2 % (13-45); MEAN CORPUSCULAR HEMOGLOBIN 36.1 pg (27.0-33.4); MONOCYTES % (AUTO) 15.9 % (3-13); RED BLOOD COUNT 3.01 10^6/uL (3.72-5.28); RED CELL DISTRIBUTION WIDTH 21.3 % (11.5-14.0); SEGMENTED NEUTROPHILS % (AUTO) 67.2 % (42-78); TOTAL CELLS COUNTED % (AUTO) 100 %; WHITE BLOOD COUNT 4.2 10^3/uL (4.0-10.5)
[2019-12-21 09:15] LABS: HEMOGLOBIN 10.9 g/dL (12.0-15.5); MEAN CORPUSCULAR VOLUME 100 fl (80-97)
[2019-12-21 09:19] LABS: PLATELET COUNT 63 10^3/uL (150-450)
== END 2019-12-21 07:56 | disposition home or self-care (01) ==
LOC: LAB 13:15 → 4S 14:36 → LAB 12-21 07:56
PROVIDERS: ATTEND Internal Medicine Geriatric Medicine
DX: K70.31 Alcoholic cirrhosis of liver with ascites (principal); D63.8 Anemia in other chronic diseases classified elsewhere
CPT/HCPCS: 86900; 86901; 36415; 36430; 86850; 85025; 86920; P9016

== ENCOUNTER 2019-12-26 07:52 | Day surgery (SDC) | payer OTHER ==
[2019-12-26 09:21] LABS: HEMATOCRIT 26.8 % (36.0-47.0); HEMOGLOBIN 9.5 g/dL (12.0-15.5); MEAN CORPUSCULAR HEMOGLOBIN 35.9 pg (27.0-33.4); MEAN CORPUSCULAR HGB CONC 35.3 g/dL (32.0-36.0); MEAN CORPUSCULAR VOLUME 102 fl (80-97); RED BLOOD COUNT 2.64 10^6/uL (3.72-5.28); RED CELL DISTRIBUTION WIDTH 20.5 % (11.5-14.0); WHITE BLOOD COUNT 4.2 10^3/uL (4.0-10.5)
[2019-12-26 09:24] LABS: INTERNATIONAL RATION (INR) 1.29; PROTHROMBIN TIME 16.2 SEC (11.4-15.4)
[2019-12-26 09:25] LABS: PARTIAL THROMBOPLASTIN TIME 35.5 SEC (23.5-35.8)
[2019-12-26 09:39] LABS: BLOOD UREA NITROGEN 13 mg/dL (7-20)
[2019-12-26 09:51] LABS: PLATELET COUNT 86 10^3/uL (150-450)
--- NOTE | 2019-12-26 12:45 | RADIOLOGY REPORT (SQ) ---
EXAM DESCRIPTION: U/S ABD PARACENTESIS COMPLETED DATE/TIME: 12/26/2019 11:19 am REASON FOR STUDY: ALCOHOLIC CIRRHOSIS OF LIVER WITH ASCITES COMPARISON None. LIMITATIONS: None. PROCEDURE: The procedure, risks, benefits, and alternatives were discussed with the patient and the patient's family who then gave written consent. The right lower quadrant was then marked utilizing sonographic guidance and a time-out was performed to document correct marking verification. The area around the selected percutaneous access site was then prepped and draped with 2% chlorhexidi ne utilizing standard sterile technique. After that, the selected access site was infiltrated with 5 ml of 1% lidocaine. A 5 Tamazight Czfe-S-Abnrhaux catheter was then introduced into the fluid-filled p eritoneal cavity and the fluid was aspirated. After the fluid was aspirated, the catheter was removed and the entry site was covered with a sterile bandage. No immediate complications were noted. Volume of Fluid: 4300 mL. Quality of the Fluid: Clear straw-colored. Was the fluid collected for analysis? No. Images acquired during the procedure were submitted to PACS. The patient tolerated the procedure with local anesthesia. At the end of the procedure the patient's condition was unchanged from the preprocedural baseline. Documentation of hxla-cq-[id number] time the proceduralist spent monitoring the patient: 15 minutes. IMPRESSION: Successful ultrasound-guided paracentesis. COMMENT: Patient medication list reviewed: Yes- Quality ID# [id number]:Eligible professional attests to doc umenting in the medical record they obtained, updated, or reviewed the patient's current medications. TECHNICAL DOCUMENTATION: JOB ID: [id number] 2010 [employer]- All Rights Reserved Reading location - IP/workstation name: [email or web address]
[2019-12-26 13:29] VITALS: BP 104/62
== END 2019-12-26 11:50 | disposition home or self-care (01) ==
LOC: RAD 07:52
PROVIDERS: ATTEND Internal Medicine Geriatric Medicine
DX: K70.31 Alcoholic cirrhosis of liver with ascites (principal)
CPT/HCPCS: 36415; 49083; 82565; 84520; 85027; 85610; 85730

== ENCOUNTER 2020-01-02 08:06 | Day surgery (SDC) | payer OTHER ==
[2020-01-02 09:20] LABS: HEMATOCRIT 26.8 % (36.0-47.0); HEMOGLOBIN 9.5 g/dL (12.0-15.5); MEAN CORPUSCULAR HEMOGLOBIN 35.6 pg (27.0-33.4); MEAN CORPUSCULAR HGB CONC 35.4 g/dL (32.0-36.0); MEAN CORPUSCULAR VOLUME 101 fl (80-97); PLATELET COUNT 132 10^3/uL (150-450); RED BLOOD COUNT 2.66 10^6/uL (3.72-5.28); RED CELL DISTRIBUTION WIDTH 19.7 % (11.5-14.0); WHITE BLOOD COUNT 5.6 10^3/uL (4.0-10.5)
[2020-01-02 09:25] LABS: INTERNATIONAL RATION (INR) 1.18; PROTHROMBIN TIME 15.1 SEC (11.4-15.4)
[2020-01-02 09:26] LABS: PARTIAL THROMBOPLASTIN TIME 30.7 SEC (23.5-35.8)
[2020-01-02 09:37] LABS: BLOOD UREA NITROGEN 17 mg/dL (7-20)
[2020-01-02] MEDS ORDERED: ALBUMIN HUMAN 50 GM/200 ML RTUINJ IV PRN (10:48)
--- NOTE | 2020-01-02 11:20 | RADIOLOGY REPORT (SQ) ---
EXAM DESCRIPTION: U/S ABD PARACENTESIS COMPLETED DATE/TIME: 01/02/2020 11:09 am REASON FOR STUDY: ALCOHOLIC CIRRHOSIS OF LIVER WITH ASCITES COMPARISON 12/26/2019 LIMITATIONS: None. PROCEDURE: After obtaining informed consent, the patient was brought to the ultrasound suite. The p rocedure was performed with the patient on a gurney. Ultrasound was used to identify a prominent poc ket of ascites in the right lower quadrant. An appropriate access site was selected. The patient wa s prepped and draped in usual sterile fashion. The access site was anesthetized with 10 mL 1% lidoc hortencia. A Juyj-O-Cxfnuiwp needle was advanced into the fluid. After aspiration of fluid the needle, t he catheter was advanced off the needle into the fluid. A total of 6,600 mL of clear, straw-colored fluid was removed. The patient tolerated the procedure well left the department in satisfactory condi tion. IMPRESSION: Successful ultrasound-guided paracentesis COMMENT: Patient medication list reviewed: Yes- Quality ID# [id number]:Eligible professional attests to doc umenting in the medical record they obtained, updated, or reviewed the patient's current medications. TECHNICAL DOCUMENTATION: JOB ID: [id number] 2010 [employer]- All Rights Reserved Reading location - IP/workstation name: [email or web address]
[2020-01-02 12:31] VITALS: BP 119/60
== END 2020-01-02 12:55 | disposition home or self-care (01) ==
LOC: RAD 08:06
PROVIDERS: ATTEND Internal Medicine Geriatric Medicine
DX: K70.31 Alcoholic cirrhosis of liver with ascites (principal)
CPT/HCPCS: 36415; 84520; 82565; 85027; 85610; 85730; 49083; P9047

== ENCOUNTER 2020-01-10 11:15 | Day surgery (SDC) | payer OTHER ==
[2020-01-10 11:50] LABS: HEMOGLOBIN 9.3 g/dL (12.0-15.5); MEAN CORPUSCULAR HEMOGLOBIN 36.4 pg (27.0-33.4); MEAN CORPUSCULAR HGB CONC 35.9 g/dL (32.0-36.0); MEAN CORPUSCULAR VOLUME 102 fl (80-97); PLATELET COUNT 113 10^3/uL (150-450); RED BLOOD COUNT 2.56 10^6/uL (3.72-5.28); RED CELL DISTRIBUTION WIDTH 19.5 % (11.5-14.0); WHITE BLOOD COUNT 6.7 10^3/uL (4.0-10.5)
[2020-01-10 12:06] LABS: BLOOD UREA NITROGEN 16 mg/dL (7-20)
[2020-01-10 12:39] LABS: INTERNATIONAL RATION (INR) 1.21; PROTHROMBIN TIME 15.4 SEC (11.4-15.4)
[2020-01-10 12:40] LABS: PARTIAL THROMBOPLASTIN TIME 34.1 SEC (23.5-35.8)
[2020-01-10] MEDS ORDERED: ALBUMIN HUMAN 50 GM/200 ML RTUINJ IV PRN (14:10)
--- NOTE | 2020-01-10 15:32 | RADIOLOGY REPORT (SQ) ---
EXAM DESCRIPTION: U/S ABD PARACENTESIS COMPLETED DATE/TIME: 01/10/2020 2:50 pm REASON FOR STUDY: ALCOHOLIC CIRRHOSIS OF LIVER WITH ASCITES K70.31 ALCOHOLIC CIRRHOSIS OF LIVER WIT H ASCITES COMPARISON: Multiple previous paracentesis's RADIATION DOSE: None LIMITATIONS: None. PROCEDURE: Procedure, risks, benefit, and alternative explained to patient who then gave written con sent. The right lower abdominal wall marked using ultrasound guidance. A time-out was called for co rrect marking verification. Abdomen prepped and draped using sterile technique. Local anesthesia ach ieved using 5 ml of 1% lidocaine injection. A 6fr Iaye-L-Mdsrqyyz set was introduced into the perito alina cavity. Fluid was drained. The catheter was removed and entry site was covered with sterile ba ndage. No immediate complications noted. Images acquired during the procedure were stored on PACS. FINDINGS: ENTRY SITE: right lower quadrant. FLUID VOLUME: 6,750 mL FLUID ANALYSIS: Clear straw-colored fluid OTHER: Therapeutic only. IMPRESSION: SUCCESSFUL ULTRASOUND GUIDED PARACENTESIS. COMMENT: Patient medication list reviewed:Yes- Quality ID# [id number]:Eligible professional attests to docu menting in the medical record they obtained, updated, or reviewed the patient's current medications. TECHNICAL DOCUMENTATION: JOB ID: [id number] 2010 [employer]- All Rights Reserved Reading location - IP/workstation name: [email or web address]
[2020-01-10 16:21] VITALS: BP 97/53
== END 2020-01-10 16:01 | disposition home or self-care (01) ==
LOC: RAD 11:15
PROVIDERS: ATTEND Internal Medicine Geriatric Medicine
DX: K70.31 Alcoholic cirrhosis of liver with ascites (principal); F41.9 Anxiety disorder, unspecified
CPT/HCPCS: 36415; 84520; 82565; 85027; 85610; 85730; 49083; P9047

== ENCOUNTER 2020-01-16 07:40 | Day surgery (SDC) | payer OTHER ==
[2020-01-16 07:59] LABS: HEMATOCRIT 26.2 % (36.0-47.0); HEMOGLOBIN 9.3 g/dL (12.0-15.5); MEAN CORPUSCULAR HEMOGLOBIN 36.5 pg (27.0-33.4); MEAN CORPUSCULAR HGB CONC 35.5 g/dL (32.0-36.0); MEAN CORPUSCULAR VOLUME 103 fl (80-97); PLATELET COUNT 135 10^3/uL (150-450); RED BLOOD COUNT 2.55 10^6/uL (3.72-5.28); RED CELL DISTRIBUTION WIDTH 18.6 % (11.5-14.0); WHITE BLOOD COUNT 6.1 10^3/uL (4.0-10.5)
[2020-01-16 08:15] LABS: BLOOD UREA NITROGEN 15 mg/dL (7-20)
[2020-01-16 08:19] LABS: INTERNATIONAL RATION (INR) 1.18; PROTHROMBIN TIME 15.1 SEC (11.4-15.4)
[2020-01-16 08:20] LABS: PARTIAL THROMBOPLASTIN TIME 31.4 SEC (23.5-35.8)
[2020-01-16] MEDS ORDERED: ALBUMIN HUMAN 50 GM/200 ML RTUINJ IV PRN (10:41)
[2020-01-16] MEDS ORDERED: ALBUMIN HUMAN 12.5 GM/50 ML RTUINJ IV SCH (11:00)
--- NOTE | 2020-01-16 11:42 | RADIOLOGY REPORT (SQ) ---
EXAM DESCRIPTION: U/S ABD PARACENTESIS COMPLETED DATE/TIME: 01/16/2020 11:07 am REASON FOR STUDY: ALCOHOLIC CIRRHOSIS OF LIVER WITH ASCITES K70.31 ALCOHOLIC CIRRHOSIS OF LIVER WIT H ASCITES COMPARISON: None. RADIATION DOSE: None LIMITATIONS: None. PROCEDURE: Procedure, risks, benefit, and alternative explained to patient who then gave written con sent. The left lower abdominal wall marked using ultrasound guidance. A time-out was called for cor rect marking verification. Abdomen prepped and draped using sterile technique. Local anesthesia achi eved using 5 ml of 1% lidocaine injection. A 6fr Hbjx-E-Bczjnygv set was introduced into the periton eal cavity. Fluid was drained. The catheter was removed and entry site was covered with sterile ban dage. No immediate complications noted. Images acquired during the procedure were stored on PACS. FINDINGS: ENTRY SITE: left lower quadrant. FLUID VOLUME: 5500 mL FLUID ANALYSIS: Clear straw-colored fluid OTHER: Therapeutic only. IMPRESSION: SUCCESSFUL ULTRASOUND GUIDED PARACENTESIS. COMMENT: Patient medication list reviewed:Yes- Quality ID# [id number]:Eligible professional attests to docu menting in the medical record they obtained, updated, or reviewed the patient's current medications. TECHNICAL DOCUMENTATION: JOB ID: [id number] 2010 [employer]- All Rights Reserved Reading location - IP/workstation name: [email or web address] [id number]
[2020-01-16 12:21] VITALS: BP 102/62
== END 2020-01-16 12:15 | disposition home or self-care (01) ==
LOC: RAD 07:40
PROVIDERS: ATTEND Internal Medicine Geriatric Medicine
DX: K70.31 Alcoholic cirrhosis of liver with ascites (principal)
CPT/HCPCS: 36415; 84520; 82565; 85027; 85610; 85730; 49083; P9047

== ENCOUNTER 2020-01-23 07:50 | Day surgery (SDC) | payer OTHER ==
[2020-01-23 08:36] LABS: HEMATOCRIT 24.5 % (36.0-47.0); HEMOGLOBIN 8.4 g/dL (12.0-15.5); MEAN CORPUSCULAR HEMOGLOBIN 36.4 pg (27.0-33.4); MEAN CORPUSCULAR HGB CONC 34.4 g/dL (32.0-36.0); MEAN CORPUSCULAR VOLUME 106 fl (80-97); PLATELET COUNT 142 10^3/uL (150-450); RED BLOOD COUNT 2.32 10^6/uL (3.72-5.28); RED CELL DISTRIBUTION WIDTH 18.1 % (11.5-14.0)
[2020-01-23 08:48] LABS: INTERNATIONAL RATION (INR) 1.25; PROTHROMBIN TIME 15.8 SEC (11.4-15.4)
[2020-01-23 08:50] LABS: BLOOD UREA NITROGEN 11 mg/dL (7-20)
[2020-01-23] MEDS ORDERED: ALBUMIN HUMAN 50 GM/200 ML RTUINJ IV PRN (10:31)
--- NOTE | 2020-01-23 11:06 | RADIOLOGY REPORT (SQ) ---
EXAM DESCRIPTION: U/S ABD PARACENTESIS IMAGES COMPLETED DATE/TIME: 01/23/2020 10:33 am REASON FOR STUDY: ALCOHOLIC CIRRHOSIS OF LIVER WITH ASCITES K70.31 ALCOHOLIC CIRRHOSIS OF LIVER WIT H ASCITES COMPARISON: 01/16/2020 LIMITATIONS: None. PROCEDURE: Procedure, risks, benefit, and alternative explained to patient who then gave written con sent. The right lower abdominal wall marked using ultrasound guidance. A time-out was called for co rrect marking verification. Abdomen prepped and draped using sterile technique. Local anesthesia ach ieved using 10 ml of 1% lidocaine injection. A 6fr Bqkk-L-Gohgyxas set was introduced into the perit penny cavity. Fluid was drained. The catheter was removed and entry site was covered with sterile b andage. No immediate complications noted. Images acquired during the procedure were stored on PACS. FINDINGS: ENTRY SITE: Right lower quadrant FLUID VOLUME: 5000 cc FLUID ANALYSIS: Clear straw-colored OTHER: Therapeutic only. IMPRESSION: SUCCESSFUL ULTRASOUND GUIDED PARACENTESIS. COMMENT: Patient medication list reviewed:Yes- Quality ID# [id number]:Eligible professional attests to docu menting in the medical record they obtained, updated, or reviewed the patient's current medications. TECHNICAL DOCUMENTATION: JOB ID: [id number] 2010 [employer]- All Rights Reserved Reading location - IP/workstation name: [email or web address]
[2020-01-23 13:08] VITALS: BP 107/62
== END 2020-01-23 12:00 | disposition home or self-care (01) ==
LOC: RAD 07:50
PROVIDERS: ATTEND Internal Medicine Geriatric Medicine
DX: K70.31 Alcoholic cirrhosis of liver with ascites (principal)
CPT/HCPCS: 36415; 84520; 82565; 85027; 85610; 85730; 49083; P9047

== ENCOUNTER 2020-01-30 07:30 | Day surgery (SDC) | payer OTHER ==
[2020-01-30 08:40] LABS: HEMATOCRIT 24.5 % (36.0-47.0); HEMOGLOBIN 8.6 g/dL (12.0-15.5); MEAN CORPUSCULAR HEMOGLOBIN 36.6 pg (27.0-33.4); MEAN CORPUSCULAR HGB CONC 35.4 g/dL (32.0-36.0); MEAN CORPUSCULAR VOLUME 104 fl (80-97); PLATELET COUNT 136 10^3/uL (150-450); RED BLOOD COUNT 2.36 10^6/uL (3.72-5.28); RED CELL DISTRIBUTION WIDTH 16.5 % (11.5-14.0); WHITE BLOOD COUNT 5.9 10^3/uL (4.0-10.5)
[2020-01-30 08:57] LABS: POTASSIUM 3.6 mmol/L (3.6-5.0)
[2020-01-30 09:01] LABS: INTERNATIONAL RATION (INR) 1.27
[2020-01-30 09:05] LABS: PARTIAL THROMBOPLASTIN TIME 35.2 SEC (23.5-35.8)
[2020-01-30] MEDS ORDERED: ALBUMIN HUMAN 50 GM/200 ML RTUINJ IV PRN (10:25)
--- NOTE | 2020-01-30 11:03 | RADIOLOGY REPORT (SQ) ---
EXAM DESCRIPTION: U/S ABD PARACENTESIS IMAGES COMPLETED DATE/TIME: 01/30/2020 10:50 am REASON FOR STUDY: ALCOHOLIC CIRRHOSIS OF LIVER WITH ASCITES COMPARISON 01/23/2020 LIMITATIONS: None. PROCEDURE: After obtaining informed consent, the patient was brought to the ultrasound suite. The p rocedure was performed with the patient on a gurney. Ultrasound was used to identify a prominent poc ket of ascites in the right lower quadrant. An appropriate access site was selected. The patient wa s prepped and draped in usual sterile fashion. The access site was anesthetized with 10 mL 1% lidoc hortencia. A Fdjs-T-Xwaoqthh needle was advanced into the fluid. After aspiration of fluid the needle, t he catheter was advanced off the needle into the fluid. A total of 4,000 mL of clear, straw-colored fluid was removed. The patient tolerated the procedure well left the department in satisfactory condi tion. IMPRESSION: Successful ultrasound-guided paracentesis COMMENT: Patient medication list reviewed: Yes- Quality ID# [id number]:Eligible professional attests to doc umenting in the medical record they obtained, updated, or reviewed the patient's current medications. TECHNICAL DOCUMENTATION: JOB ID: [id number] 2010 [employer]- All Rights Reserved Reading location - IP/workstation name: [email or web address]
[2020-01-30 11:46] VITALS: BP 119/56
== END 2020-01-30 12:00 | disposition home or self-care (01) ==
LOC: RAD 07:30
PROVIDERS: ATTEND Internal Medicine Geriatric Medicine
DX: K70.31 Alcoholic cirrhosis of liver with ascites (principal)
CPT/HCPCS: 36415; 84520; 84132; 85027; 85610; 85730; 49083; P9047

== ENCOUNTER 2020-02-06 07:45 | Day surgery (SDC) | payer OTHER ==
[2020-02-06 08:49] LABS: HEMATOCRIT 23.8 % (36.0-47.0); HEMOGLOBIN 8.3 g/dL (12.0-15.5); MEAN CORPUSCULAR HEMOGLOBIN 35.9 pg (27.0-33.4); MEAN CORPUSCULAR HGB CONC 34.9 g/dL (32.0-36.0); MEAN CORPUSCULAR VOLUME 103 fl (80-97); PLATELET COUNT 149 10^3/uL (150-450); RED BLOOD COUNT 2.31 10^6/uL (3.72-5.28); RED CELL DISTRIBUTION WIDTH 15.9 % (11.5-14.0); WHITE BLOOD COUNT 6.3 10^3/uL (4.0-10.5)
[2020-02-06 08:51] LABS: INTERNATIONAL RATION (INR) 1.22; PROTHROMBIN TIME 15.5 SEC (11.4-15.4)
[2020-02-06 08:52] LABS: PARTIAL THROMBOPLASTIN TIME 33.3 SEC (23.5-35.8)
[2020-02-06 09:06] LABS: BLOOD UREA NITROGEN 16 mg/dL (7-20)
--- NOTE | 2020-02-06 10:52 | RADIOLOGY REPORT (SQ) ---
EXAM DESCRIPTION: U/S ABD PARACENTESIS IMAGES COMPLETED DATE/TIME: 02/06/2020 10:45 am REASON FOR STUDY: ALCOHOLIC CIRRHOSIS OF LIVER WITH ASCITES COMPARISON 01/30/2020 LIMITATIONS: None. PROCEDURE: After obtaining informed consent, the patient was brought to the ultrasound suite. The p rocedure was performed with the patient on a gurney. Ultrasound was used to identify a prominent poc ket of ascites in the left lower quadrant. An appropriate access site was selected. The patient was prepped and draped in usual sterile fashion. The access site was anesthetized with 10 mL 1% lidoca ine. A Jjiw-L-Jnbqrckf needle was advanced into the fluid. After aspiration of fluid the needle, th e catheter was advanced off the needle into the fluid. A total of 5,000 mL of clear, straw-colored f luid was removed. The patient tolerated the procedure well left the department in satisfactory condit ion. IMPRESSION: Successful ultrasound-guided paracentesis COMMENT: Patient medication list reviewed: Yes- Quality ID# [id number]:Eligible professional attests to doc umenting in the medical record they obtained, updated, or reviewed the patient's current medications. TECHNICAL DOCUMENTATION: JOB ID: [id number] 2010 [employer]- All Rights Reserved Reading location - IP/workstation name: [email or web address]
[2020-02-06] MEDS ORDERED: ALBUMIN HUMAN 50 GM/200 ML RTUINJ IV PRN (11:00)
[2020-02-06 13:02] VITALS: BP 96/52
== END 2020-02-06 12:40 | disposition home or self-care (01) ==
LOC: RAD 07:45
PROVIDERS: ATTEND Internal Medicine Geriatric Medicine
DX: K70.31 Alcoholic cirrhosis of liver with ascites (principal)
CPT/HCPCS: 36415; 84520; 82565; 85027; 85610; 85730; 49083; P9047

== ENCOUNTER 2020-02-13 07:39 | Day surgery (SDC) | payer OTHER ==
[2020-02-13 08:13] LABS: HEMATOCRIT 28.6 % (36.0-47.0); HEMOGLOBIN 10.2 g/dL (12.0-15.5); MEAN CORPUSCULAR HEMOGLOBIN 36.1 pg (27.0-33.4); MEAN CORPUSCULAR HGB CONC 35.7 g/dL (32.0-36.0); MEAN CORPUSCULAR VOLUME 101 fl (80-97); PLATELET COUNT 143 10^3/uL (150-450); RED BLOOD COUNT 2.82 10^6/uL (3.72-5.28); RED CELL DISTRIBUTION WIDTH 14.4 % (11.5-14.0); WHITE BLOOD COUNT 6.6 10^3/uL (4.0-10.5)
[2020-02-13 08:26] LABS: INTERNATIONAL RATION (INR) 1.18; PROTHROMBIN TIME 15.1 SEC (11.4-15.4)
[2020-02-13 08:27] LABS: PARTIAL THROMBOPLASTIN TIME 32.2 SEC (23.5-35.8)
[2020-02-13 08:32] LABS: BLOOD UREA NITROGEN 23 mg/dL (7-20)
[2020-02-13 12:10] VITALS: BP 110/62
--- NOTE | 2020-02-13 12:13 | RADIOLOGY REPORT (SQ) ---
EXAM DESCRIPTION: U/S ABD PARACENTESIS IMAGES COMPLETED DATE/TIME: 02/13/2020 11:31 am REASON FOR STUDY: ALCOHOLIC CIRRHOSIS OF LIVER WITH ASCITES K70.31 ALCOHOLIC CIRRHOSIS OF LIVER WIT H ASCITES COMPARISON: 02/06/2020 LIMITATIONS: None. PROCEDURE: Procedure, risks, benefit, and alternative explained to patient who then gave written con sent. The right lower abdominal wall marked using ultrasound guidance. A time-out was called for co rrect marking verification. Abdomen prepped and draped using sterile technique. Local anesthesia ach ieved using 10 ml of 1% lidocaine injection. A 6fr Ilmz-N-Pfqmsfxf set was introduced into the perit penny cavity. Fluid was drained. The catheter was removed and entry site was covered with sterile b andage. No immediate complications noted. Images acquired during the procedure were stored on PACS. FINDINGS: ENTRY SITE: Right lower quadrant FLUID VOLUME: 4,300 cc FLUID ANALYSIS: Clear straw-colored OTHER: Therapeutic only. IMPRESSION: SUCCESSFUL ULTRASOUND GUIDED PARACENTESIS. COMMENT: Patient medication list reviewed:Yes- Quality ID# [id number]:Eligible professional attests to docu menting in the medical record they obtained, updated, or reviewed the patient's current medications. TECHNICAL DOCUMENTATION: JOB ID: [id number] 2010 [employer]- All Rights Reserved Reading location - IP/workstation name: [email or web address]
== END 2020-02-13 12:12 | disposition home or self-care (01) ==
LOC: RAD 07:39
PROVIDERS: ATTEND Internal Medicine Geriatric Medicine
DX: K70.31 Alcoholic cirrhosis of liver with ascites (principal)
CPT/HCPCS: 36415; 49083; 82565; 84520; 85027; 85610; 85730

== ENCOUNTER 2020-02-20 07:39 | Day surgery (SDC) | payer OTHER ==
[2020-02-20 08:21] LABS: HEMATOCRIT 28.1 % (36.0-47.0); HEMOGLOBIN 9.7 g/dL (12.0-15.5); MEAN CORPUSCULAR HEMOGLOBIN 35.2 pg (27.0-33.4); MEAN CORPUSCULAR HGB CONC 34.5 g/dL (32.0-36.0); MEAN CORPUSCULAR VOLUME 102 fl (80-97); PLATELET COUNT 105 10^3/uL (150-450); RED BLOOD COUNT 2.76 10^6/uL (3.72-5.28); RED CELL DISTRIBUTION WIDTH 14.6 % (11.5-14.0); WHITE BLOOD COUNT 5.5 10^3/uL (4.0-10.5)
[2020-02-20 08:26] LABS: INTERNATIONAL RATION (INR) 1.15; PROTHROMBIN TIME 14.8 SEC (11.4-15.4)
[2020-02-20 08:27] LABS: PARTIAL THROMBOPLASTIN TIME 23.7 SEC (23.5-35.8)
[2020-02-20 08:35] LABS: BLOOD UREA NITROGEN 13 mg/dL (7-20)
--- NOTE | 2020-02-20 10:45 | RADIOLOGY REPORT (SQ) ---
EXAM DESCRIPTION: U/S ABD PARACENTESIS IMAGES COMPLETED DATE/TIME: 02/20/2020 10:15 am REASON FOR STUDY: ALCOHOLIC CIRRHOSIS OF LIVER WITH ASCITES K70.31 ALCOHOLIC CIRRHOSIS OF LIVER WIT H ASCITES COMPARISON: Multiple previous paracentesis RADIATION DOSE: NONE LIMITATIONS: None. PROCEDURE: Procedure, risks, benefit, and alternative explained to patient who then gave written con sent. The right lower abdominal wall marked using ultrasound guidance. A time-out was called for co rrect marking verification. Abdomen prepped and draped using sterile technique. Local anesthesia ach ieved using 5 ml of 1% lidocaine injection. A 6fr Bqnj-R-Ejjecwnc set was introduced into the perito alina cavity. Fluid was drained. The catheter was removed and entry site was covered with sterile ba ndage. No immediate complications noted. Images acquired during the procedure were stored on PACS. FINDINGS: ENTRY SITE: right lower quadrant. FLUID VOLUME: 2100 mL FLUID ANALYSIS: Clear straw-colored fluid OTHER: Therapeutic only. IMPRESSION: SUCCESSFUL ULTRASOUND GUIDED PARACENTESIS. COMMENT: Patient medication list reviewed:Yes- Quality ID# [id number]:Eligible professional attests to docu menting in the medical record they obtained, updated, or reviewed the patient's current medications. TECHNICAL DOCUMENTATION: JOB ID: [id number] 2010 [employer]- All Rights Reserved Reading location - IP/workstation name: [email or web address] [id number]
[2020-02-20 11:17] VITALS: BP 108/63
== END 2020-02-20 10:40 | disposition home or self-care (01) ==
LOC: RAD 07:39
PROVIDERS: ATTEND Internal Medicine Geriatric Medicine
DX: K70.31 Alcoholic cirrhosis of liver with ascites (principal)
CPT/HCPCS: 36415; 49083; 82565; 84520; 85027; 85610; 85730

== ENCOUNTER 2020-02-27 07:44 | Day surgery (SDC) | payer OTHER ==
[2020-02-27 08:15] LABS: HEMATOCRIT 26.8 % (36.0-47.0); HEMOGLOBIN 9.6 g/dL (12.0-15.5); MEAN CORPUSCULAR HEMOGLOBIN 35.7 pg (27.0-33.4); MEAN CORPUSCULAR HGB CONC 35.8 g/dL (32.0-36.0); MEAN CORPUSCULAR VOLUME 100 fl (80-97); PLATELET COUNT 140 10^3/uL (150-450); RED BLOOD COUNT 2.69 10^6/uL (3.72-5.28); RED CELL DISTRIBUTION WIDTH 13.9 % (11.5-14.0); WHITE BLOOD COUNT 5.6 10^3/uL (4.0-10.5)
[2020-02-27 08:23] LABS: INTERNATIONAL RATION (INR) 1.19; PROTHROMBIN TIME 15.2 SEC (11.4-15.4)
[2020-02-27 08:24] LABS: PARTIAL THROMBOPLASTIN TIME 34.1 SEC (23.5-35.8)
[2020-02-27 08:31] LABS: BLOOD UREA NITROGEN 19 mg/dL (7-20)
--- NOTE | 2020-02-27 10:34 | RADIOLOGY REPORT (SQ) ---
EXAM DESCRIPTION: U/S ABD PARACENTESIS IMAGES COMPLETED DATE/TIME: 02/27/2020 10:20 am REASON FOR STUDY: ALCOHOLIC CIRRHOSIS OF LIVER WITH ASCITES K70.31 ALCOHOLIC CIRRHOSIS OF LIVER WIT H ASCITES COMPARISON: 02/20/2020 LIMITATIONS: None. PROCEDURE: Procedure, risks, benefit, and alternative explained to patient who then gave written con sent. The left lower abdominal wall marked using ultrasound guidance. A time-out was called for cor rect marking verification. Abdomen prepped and draped using sterile technique. Local anesthesia achi eved using 10 ml of 1% lidocaine injection. A 6fr Svny-O-Viazhmum set was introduced into the perito alina cavity. Fluid was drained. The catheter was removed and entry site was covered with sterile ba ndage. No immediate complications noted. Images acquired during the procedure were stored on PACS. FINDINGS: ENTRY SITE: Left lower quadrant FLUID VOLUME: 4550 cc FLUID ANALYSIS: Clear straw-colored OTHER: Therapeutic only. IMPRESSION: SUCCESSFUL ULTRASOUND GUIDED PARACENTESIS. COMMENT: Patient medication list reviewed:Yes- Quality ID# [id number]:Eligible professional attests to docu menting in the medical record they obtained, updated, or reviewed the patient's current medications. TECHNICAL DOCUMENTATION: JOB ID: [id number] 2010 [employer]- All Rights Reserved Reading location - IP/workstation name: [email or web address]
[2020-02-27 10:37] VITALS: BP 100/65
== END 2020-02-27 10:40 | disposition home or self-care (01) ==
LOC: RAD 07:44
PROVIDERS: ATTEND Internal Medicine Geriatric Medicine
DX: K70.31 Alcoholic cirrhosis of liver with ascites (principal)
CPT/HCPCS: 36415; 49083; 82565; 84520; 85027; 85610; 85730

== ENCOUNTER 2020-03-05 07:59 | Day surgery (SDC) | payer OTHER ==
[2020-03-05 08:37] LABS: HEMATOCRIT 28.4 % (36.0-47.0); HEMOGLOBIN 10.1 g/dL (12.0-15.5); MEAN CORPUSCULAR HEMOGLOBIN 35.4 pg (27.0-33.4); MEAN CORPUSCULAR HGB CONC 35.6 g/dL (32.0-36.0); MEAN CORPUSCULAR VOLUME 99 fl (80-97); PLATELET COUNT 146 10^3/uL (150-450); RED BLOOD COUNT 2.86 10^6/uL (3.72-5.28); RED CELL DISTRIBUTION WIDTH 14.1 % (11.5-14.0); WHITE BLOOD COUNT 5.1 10^3/uL (4.0-10.5)
[2020-03-05 08:49] LABS: INTERNATIONAL RATION (INR) 1.14; PARTIAL THROMBOPLASTIN TIME 33.4 SEC (23.5-35.8); PROTHROMBIN TIME 14.7 SEC (11.4-15.4)
[2020-03-05 08:57] LABS: BLOOD UREA NITROGEN 18 mg/dL (7-20)
[2020-03-05 11:09] VITALS: BP 109/68
--- NOTE | 2020-03-05 12:03 | RADIOLOGY REPORT (SQ) ---
EXAM DESCRIPTION: U/S ABD PARACENTESIS IMAGES COMPLETED DATE/TIME: 03/05/2020 10:43 am REASON FOR STUDY: ALCOHOLIC CIRRHOSIS OF LIVER WITH ASCITES K70.31 ALCOHOLIC CIRRHOSIS OF LIVER WIT H ASCITES COMPARISON: Weekly paracentesis RADIATION DOSE: None LIMITATIONS: None. PROCEDURE: Procedure, risks, benefit, and alternative explained to patient who then gave written con sent. The right lower abdominal wall marked using ultrasound guidance. A time-out was called for co rrect marking verification. Abdomen prepped and draped using sterile technique. Local anesthesia ach ieved using 5 ml of 1% lidocaine injection. A 6fr Iilj-Q-Mhfzmprd set was introduced into the perito alina cavity. Fluid was drained. The catheter was removed and entry site was covered with sterile ba ndage. No immediate complications noted. Images acquired during the procedure were stored on PACS. FINDINGS: ENTRY SITE: right lower quadrant. FLUID VOLUME: 4350 mL FLUID ANALYSIS: Clear straw-colored fluid OTHER: Therapeutic only. IMPRESSION: SUCCESSFUL ULTRASOUND GUIDED PARACENTESIS. COMMENT: Patient medication list reviewed:Yes- Quality ID# [id number]:Eligible professional attests to docu menting in the medical record they obtained, updated, or reviewed the patient's current medications. TECHNICAL DOCUMENTATION: JOB ID: [id number] 2010 [employer]- All Rights Reserved Reading location - IP/workstation name: [email or web address] [id number]
== END 2020-03-05 11:00 | disposition home or self-care (01) ==
LOC: RAD 07:59
PROVIDERS: ATTEND Internal Medicine Geriatric Medicine
DX: K70.31 Alcoholic cirrhosis of liver with ascites (principal)
CPT/HCPCS: 36415; 49083; 82565; 84520; 85027; 85610; 85730

== ENCOUNTER 2020-03-12 07:47 | Day surgery (SDC) | payer OTHER ==
[2020-03-12 08:41] LABS: HEMATOCRIT 28.8 % (36.0-47.0); HEMOGLOBIN 10.1 g/dL (12.0-15.5); MEAN CORPUSCULAR HEMOGLOBIN 34.6 pg (27.0-33.4); MEAN CORPUSCULAR HGB CONC 35.1 g/dL (32.0-36.0); MEAN CORPUSCULAR VOLUME 98 fl (80-97); PLATELET COUNT 126 10^3/uL (150-450); RED BLOOD COUNT 2.93 10^6/uL (3.72-5.28); WHITE BLOOD COUNT 6.1 10^3/uL (4.0-10.5)
[2020-03-12 08:47] LABS: INTERNATIONAL RATION (INR) 1.18; PROTHROMBIN TIME 15.1 SEC (11.4-15.4)
[2020-03-12 08:48] LABS: PARTIAL THROMBOPLASTIN TIME 35.5 SEC (23.5-35.8)
[2020-03-12 09:04] LABS: BLOOD UREA NITROGEN 15 mg/dL (7-20)
--- NOTE | 2020-03-12 11:10 | RADIOLOGY REPORT (SQ) ---
EXAM DESCRIPTION: U/S ABD PARACENTESIS IMAGES COMPLETED DATE/TIME: 03/12/2020 10:55 am REASON FOR STUDY: ALCOHOLIC CIRRHOSIS OF LIVER WITH ASCITES COMPARISON 03/05/2020 LIMITATIONS: None. PROCEDURE: After obtaining informed consent, the patient was brought to the ultrasound suite. The p rocedure was performed with the patient on a gurney. Ultrasound was used to identify a prominent poc ket of ascites in the right lower quadrant. An appropriate access site was selected. The patient wa s prepped and draped in usual sterile fashion. The access site was anesthetized with 10 mL 1% lidoc hortencia. A Ljil-D-Gekntjsp needle was advanced into the fluid. After aspiration of fluid the needle, t he catheter was advanced off the needle into the fluid. A total of 4,600 mL of clear, straw-colored fluid was removed. The patient tolerated the procedure well left the department in satisfactory condi tion. IMPRESSION: Successful ultrasound-guided paracentesis COMMENT: Patient medication list reviewed: Yes- Quality ID# [id number]:Eligible professional attests to doc umenting in the medical record they obtained, updated, or reviewed the patient's current medications. TECHNICAL DOCUMENTATION: JOB ID: [id number] 2010 [employer]- All Rights Reserved Reading location - IP/workstation name: [email or web address]
[2020-03-12 12:51] VITALS: BP 107/75
== END 2020-03-12 10:35 | disposition home or self-care (01) ==
LOC: RAD 07:47
PROVIDERS: ATTEND Internal Medicine Geriatric Medicine
DX: K70.31 Alcoholic cirrhosis of liver with ascites (principal)
CPT/HCPCS: 36415; 49083; 82565; 84520; 85027; 85610; 85730

== ENCOUNTER 2020-03-19 07:56 | Day surgery (SDC) | payer OTHER ==
[2020-03-19 09:03] LABS: HEMATOCRIT 28.7 % (36.0-47.0); HEMOGLOBIN 10.2 g/dL (12.0-15.5); MEAN CORPUSCULAR HEMOGLOBIN 34.8 pg (27.0-33.4); MEAN CORPUSCULAR HGB CONC 35.5 g/dL (32.0-36.0); MEAN CORPUSCULAR VOLUME 98 fl (80-97); PLATELET COUNT 111 10^3/uL (150-450); RED BLOOD COUNT 2.93 10^6/uL (3.72-5.28); RED CELL DISTRIBUTION WIDTH 13.9 % (11.5-14.0); WHITE BLOOD COUNT 4.8 10^3/uL (4.0-10.5)
[2020-03-19 09:10] LABS: INTERNATIONAL RATION (INR) 1.22; PROTHROMBIN TIME 15.5 SEC (11.4-15.4)
[2020-03-19 09:11] LABS: PARTIAL THROMBOPLASTIN TIME 35.3 SEC (23.5-35.8)
[2020-03-19 09:18] LABS: BLOOD UREA NITROGEN 13 mg/dL (7-20)
[2020-03-19 11:22] VITALS: BP 98/63
--- NOTE | 2020-03-19 12:11 | RADIOLOGY REPORT (SQ) ---
EXAM DESCRIPTION: U/S ABD PARACENTESIS IMAGES COMPLETED DATE/TIME: 03/19/2020 10:58 am REASON FOR STUDY: ALCOHOLIC CIRRHOSIS OF LIVER WITH ASCITES COMPARISON None. LIMITATIONS: None. PROCEDURE: The procedure, risks, benefits, and alternatives were discussed with the patient and the patient's family who then gave written consent. The right lower quadrant was then marked utilizing s onographic guidance and a time-out was performed to document correct marking verification. The area around the selected percutaneous access site was then prepped and draped with 2% chlorhexidi ne utilizing standard sterile technique. After that, the selected access site was infiltrated with 5 ml of 1% lidocaine. A 6 Cuban Psza-O-Bhjczrjs catheter was then introduced into the fluid-filled p eritoneal cavity and the fluid was aspirated. After the fluid was aspirated, the catheter was removed and the entry site was covered with a sterile bandage. No immediate complications were noted. Volume of Fluid: 4000 mL. Quality of the Fluid: Clear straw colored. Was the fluid collected for analysis? No. Images acquired during the procedure were submitted to PACS. The patient tolerated the procedure with local anesthesia. At the end of the procedure the patient's condition was unchanged from the preprocedural baseline. Documentation of dgpz-la-engi time the proceduralist spent monitoring the patient: 15 minutes. IMPRESSION: Successful ultrasound-guided paracentesis. COMMENT: Patient medication list reviewed: Yes- Quality ID# [id number]:Eligible professional attests to doc umenting in the medical record they obtained, updated, or reviewed the patient's current medications. TECHNICAL DOCUMENTATION: JOB ID: [id number] 2010 [employer]- All Rights Reserved Reading location - IP/workstation name: [email or web address]
== END 2020-03-19 11:20 | disposition home or self-care (01) ==
LOC: RAD 07:56
PROVIDERS: ATTEND Internal Medicine Geriatric Medicine
DX: K70.31 Alcoholic cirrhosis of liver with ascites (principal); I10 Essential (primary) hypertension
CPT/HCPCS: 36415; 49083; 82565; 84520; 85027; 85610; 85730

== ENCOUNTER 2020-03-26 08:00 | Day surgery (SDC) | payer OTHER ==
[2020-03-26 09:09] LABS: HEMATOCRIT 28.3 % (36.0-47.0); HEMOGLOBIN 9.9 g/dL (12.0-15.5); MEAN CORPUSCULAR HEMOGLOBIN 34.3 pg (27.0-33.4); MEAN CORPUSCULAR HGB CONC 35.1 g/dL (32.0-36.0); MEAN CORPUSCULAR VOLUME 98 fl (80-97); PLATELET COUNT 131 10^3/uL (150-450); RED CELL DISTRIBUTION WIDTH 13.6 % (11.5-14.0); WHITE BLOOD COUNT 5.1 10^3/uL (4.0-10.5)
[2020-03-26 09:12] LABS: INTERNATIONAL RATION (INR) 1.17
[2020-03-26 09:13] LABS: PARTIAL THROMBOPLASTIN TIME 32.7 SEC (23.5-35.8)
[2020-03-26 09:24] LABS: BLOOD UREA NITROGEN 15 mg/dL (7-20)
[2020-03-26 10:56] VITALS: BP 101/57
--- NOTE | 2020-03-26 11:11 | RADIOLOGY REPORT (SQ) ---
EXAM DESCRIPTION: U/S ABD PARACENTESIS IMAGES COMPLETED DATE/TIME: 03/26/2020 10:38 am REASON FOR STUDY: ALCOHOLIC CIRRHOSIS OF LIVER WITH ASCITES K70.31 ALCOHOLIC CIRRHOSIS OF LIVER WIT H ASCITES COMPARISON: 03/19/2020 LIMITATIONS: None. PROCEDURE: Procedure, risks, benefit, and alternative explained to patient who then gave written con sent. The left lower abdominal wall marked using ultrasound guidance. A time-out was called for cor rect marking verification. Abdomen prepped and draped using sterile technique. Local anesthesia achi eved using 10 ml of 1% lidocaine injection. A 6fr Qxrg-R-Qmhpeuzk set was introduced into the perito alina cavity. Fluid was drained. The catheter was removed and entry site was covered with sterile ba ndage. No immediate complications noted. Images acquired during the procedure were stored on PACS. FINDINGS: ENTRY SITE: Left lower quadrant FLUID VOLUME: 5 L FLUID ANALYSIS: Clear straw-colored OTHER: Therapeutic only. IMPRESSION: SUCCESSFUL ULTRASOUND GUIDED PARACENTESIS. COMMENT: Patient medication list reviewed:Yes- Quality ID# [id number]:Eligible professional attests to docu menting in the medical record they obtained, updated, or reviewed the patient's current medications. TECHNICAL DOCUMENTATION: JOB ID: [id number] 2010 [employer]- All Rights Reserved Reading location - IP/workstation name: [email or web address]
== END 2020-03-26 10:55 | disposition home or self-care (01) ==
LOC: RAD 08:00
PROVIDERS: ATTEND Internal Medicine Geriatric Medicine
DX: K70.31 Alcoholic cirrhosis of liver with ascites (principal)
CPT/HCPCS: 36415; 49083; 82565; 84520; 85027; 85610; 85730

== ENCOUNTER 2020-04-02 07:34 | Day surgery (SDC) | payer OTHER ==
[2020-04-02 08:09] LABS: HEMATOCRIT 31.2 % (36.0-47.0); HEMOGLOBIN 10.7 g/dL (12.0-15.5); MEAN CORPUSCULAR HEMOGLOBIN 34.1 pg (27.0-33.4); MEAN CORPUSCULAR HGB CONC 34.3 g/dL (32.0-36.0); MEAN CORPUSCULAR VOLUME 99 fl (80-97); PLATELET COUNT 139 10^3/uL (150-450); RED BLOOD COUNT 3.14 10^6/uL (3.72-5.28); RED CELL DISTRIBUTION WIDTH 14.8 % (11.5-14.0)
[2020-04-02 08:25] LABS: INTERNATIONAL RATION (INR) 1.22; PROTHROMBIN TIME 15.5 SEC (11.4-15.4)
[2020-04-02 08:26] LABS: PARTIAL THROMBOPLASTIN TIME 33.6 SEC (23.5-35.8)
[2020-04-02 08:27] LABS: BLOOD UREA NITROGEN 20 mg/dL (7-20)
[2020-04-02] MEDS ORDERED: DEXTROSE 5%-1/2 NORMAL SALINE 1,000 ML IV PRN (09:50)
[2020-04-02] MEDS ORDERED: ALBUMIN HUMAN 50 GM/200 ML RTUINJ IV PRN (10:00)
[2020-04-02 11:45] VITALS: BP 94/56
--- NOTE | 2020-04-02 14:53 | RADIOLOGY REPORT (SQ) ---
EXAM DESCRIPTION: U/S ABD PARACENTESIS IMAGES COMPLETED DATE/TIME: 04/02/2020 11:01 am REASON FOR STUDY: ASCITES COMPARISON None. LIMITATIONS: None. PROCEDURE: The procedure, risks, benefits, and alternatives were discussed with the patient and the patient's family who then gave written consent. The right lower quadrant was then marked utilizing s onographic guidance and a time-out was performed to document correct marking verification. The area around the selected percutaneous access site was then prepped and draped with 2% chlorhexidi ne utilizing standard sterile technique. After that, the selected access site was infiltrated with 5 ml of 1% lidocaine. A 6 Burmese Ahbb-V-Rsfddrdz catheter was then introduced into the fluid-filled p eritoneal cavity and the fluid was aspirated. After the fluid was aspirated, the catheter was removed and the entry site was covered with a sterile bandage. No immediate complications were noted. Volume of Fluid: 7000 mL. Quality of the Fluid: Cloudy straw-colored. Was the fluid collected for analysis? No. Images acquired during the procedure were submitted to PACS. The patient tolerated the procedure with local anesthesia. At the end of the procedure the patient's condition was unchanged from the preprocedural baseline. Documentation of vsvd-xb-muxz time the proceduralist spent monitoring the patient: 15 minutes. IMPRESSION: Successful ultrasound-guided paracentesis. COMMENT: Patient medication list reviewed: Yes- Quality ID# [id number]:Eligible professional attests to doc umenting in the medical record they obtained, updated, or reviewed the patient's current medications. TECHNICAL DOCUMENTATION: JOB ID: [id number] 2010 [employer]- All Rights Reserved Reading location - IP/workstation name: [email or web address]
== END 2020-04-02 11:35 | disposition home or self-care (01) ==
LOC: RAD 07:34
PROVIDERS: ATTEND Internal Medicine Geriatric Medicine
DX: R18.8 Other ascites (principal)
CPT/HCPCS: 36415; 84520; 82565; 85027; 85610; 85730; 49083; P9047

== ENCOUNTER 2020-04-09 07:50 | Day surgery (SDC) | payer OTHER ==
[2020-04-09 08:23] LABS: HEMATOCRIT 28.7 % (36.0-47.0); MEAN CORPUSCULAR HEMOGLOBIN 34.8 pg (27.0-33.4); MEAN CORPUSCULAR HGB CONC 34.9 g/dL (32.0-36.0); MEAN CORPUSCULAR VOLUME 100 fl (80-97); PLATELET COUNT 118 10^3/uL (150-450); RED BLOOD COUNT 2.88 10^6/uL (3.72-5.28); RED CELL DISTRIBUTION WIDTH 16.3 % (11.5-14.0); WHITE BLOOD COUNT 5.8 10^3/uL (4.0-10.5)
[2020-04-09 08:33] LABS: INTERNATIONAL RATION (INR) 1.27
[2020-04-09 08:34] LABS: PARTIAL THROMBOPLASTIN TIME 36.2 SEC (23.5-35.8)
[2020-04-09 09:07] LABS: BLOOD UREA NITROGEN 24 mg/dL (7-20)
[2020-04-09 11:50] VITALS: BP 108/62
--- NOTE | 2020-04-09 16:38 | RADIOLOGY REPORT (SQ) ---
EXAM DESCRIPTION: U/S ABD PARACENTESIS IMAGES COMPLETED DATE/TIME: 04/09/2020 11:16 am REASON FOR STUDY: ALCOHOLIC CIRRHOSIS OF LIVER WITH ASCITES COMPARISON Multiple previous LIMITATIONS: None. PROCEDURE: After obtaining informed consent, the patient was brought to the ultrasound suite. The p rocedure was performed with the patient on a gurney. Ultrasound was used to identify a prominent poc ket of ascites in the right lower quadrant. An appropriate access site was selected. The patient wa s prepped and draped in usual sterile fashion. The access site was anesthetized with 7 mL 1% lidoca ine. A Finj-N-Aqsnuhem needle was advanced into the fluid. After aspiration of fluid the needle, th e catheter was advanced off the needle into the fluid. A total of 5,000 mL of clear straw-colored fl uid was removed. The patient tolerated the procedure well left the department in satisfactory conditi on. IMPRESSION: Successful ultrasound-guided paracentesis Therapeutic only. COMMENT: Patient medication list reviewed: Yes- Quality ID# [id number]:Eligible professional attests to doc umenting in the medical record they obtained, updated, or reviewed the patient's current medications. TECHNICAL DOCUMENTATION: JOB ID: [id number] 2010 [employer]- All Rights Reserved Reading location - IP/workstation name: [email or web address]
== END 2020-04-09 11:50 | disposition home or self-care (01) ==
LOC: RAD 07:50
PROVIDERS: ATTEND Internal Medicine Geriatric Medicine
DX: K70.31 Alcoholic cirrhosis of liver with ascites (principal)
CPT/HCPCS: 36415; 49083; 82565; 84520; 85027; 85610; 85730

== ENCOUNTER 2020-04-16 07:58 | Day surgery (SDC) | payer OTHER ==
[2020-04-16 08:43] LABS: HEMATOCRIT 28.4 % (36.0-47.0); HEMOGLOBIN 9.8 g/dL (12.0-15.5); MEAN CORPUSCULAR HEMOGLOBIN 35.2 pg (27.0-33.4); MEAN CORPUSCULAR HGB CONC 34.5 g/dL (32.0-36.0); MEAN CORPUSCULAR VOLUME 102 fl (80-97); PLATELET COUNT 122 10^3/uL (150-450); RED BLOOD COUNT 2.78 10^6/uL (3.72-5.28); RED CELL DISTRIBUTION WIDTH 18.1 % (11.5-14.0); WHITE BLOOD COUNT 5.9 10^3/uL (4.0-10.5)
[2020-04-16 08:49] LABS: PROTHROMBIN TIME 15.3 SEC (11.4-15.4)
[2020-04-16 08:50] LABS: PARTIAL THROMBOPLASTIN TIME 32.2 SEC (23.5-35.8)
[2020-04-16 09:06] LABS: BLOOD UREA NITROGEN 38 mg/dL (7-20)
[2020-04-16] MEDS ORDERED: ALBUMIN HUMAN 50 GM/200 ML RTUINJ IV PRN (11:24)
[2020-04-16 13:26] VITALS: BP 100/50
--- NOTE | 2020-04-16 14:12 | RADIOLOGY REPORT (SQ) ---
EXAM DESCRIPTION: U/S ABD PARACENTESIS IMAGES COMPLETED DATE/TIME: 04/16/2020 12:57 pm REASON FOR STUDY: ALCOHOLIC CIRRHOSIS OF LIVER WITH ASCITES K70.31 ALCOHOLIC CIRRHOSIS OF LIVER WIT H ASCITES COMPARISON: MULTIPLE PREVIOUS PARACENTESIS RADIATION DOSE: NONE LIMITATIONS: None. PROCEDURE: Procedure, risks, benefit, and alternative explained to patient who then gave written con sent. The right lower abdominal wall marked using ultrasound guidance. A time-out was called for co rrect marking verification. Abdomen prepped and draped using sterile technique. Local anesthesia ach ieved using 6 ml of 1% lidocaine injection. A 6fr Cxup-H-Cxqqgkwr set was introduced into the perito alina cavity. Fluid was drained. The catheter was removed and entry site was covered with sterile ba ndage. No immediate complications noted. Images acquired during the procedure were stored on PACS. FINDINGS: ENTRY SITE: right lower quadrant. FLUID VOLUME: 8.5 L FLUID ANALYSIS: Straw-colored fluid OTHER: Therapeutic only. IMPRESSION: SUCCESSFUL ULTRASOUND GUIDED PARACENTESIS. COMMENT: Patient medication list reviewed:Yes- Quality ID# [id number]:Eligible professional attests to docu menting in the medical record they obtained, updated, or reviewed the patient's current medications. TECHNICAL DOCUMENTATION: JOB ID: [id number] 2010 [employer]- All Rights Reserved Reading location - IP/workstation name: [email or web address] [id number]
== END 2020-04-16 12:50 | disposition home or self-care (01) ==
LOC: RAD 07:58
PROVIDERS: ATTEND Internal Medicine Geriatric Medicine
DX: K70.31 Alcoholic cirrhosis of liver with ascites (principal)
CPT/HCPCS: 36415; 84520; 82565; 85027; 85610; 85730; 49083; P9047

== ENCOUNTER 2020-04-23 07:59 | Day surgery (SDC) | payer OTHER ==
[2020-04-23 08:34] LABS: ABSOLUTE LYMPHOCYTES (AUTO) 0.8 10^3/uL (0.5-4.7); ABSOLUTE MONOCYTES (AUTO) 0.6 10^3/uL (0.1-1.4); ABSOLUTE NEUT (AUTO) 4.4 10^3/uL (1.7-8.2); BASOPHILS % (AUTO) 0.3 % (0-2); EOSINOPHILS % (AUTO) 0.5 % (0-6); HEMATOCRIT 24.9 % (36.0-47.0); HEMOGLOBIN 8.7 g/dL (12.0-15.5); LYMPHOCYTES % (AUTO) 13.8 % (13-45); MEAN CORPUSCULAR HEMOGLOBIN 36.3 pg (27.0-33.4); MEAN CORPUSCULAR HGB CONC 34.8 g/dL (32.0-36.0); MEAN CORPUSCULAR VOLUME 104 fl (80-97); MONOCYTES % (AUTO) 10.8 % (3-13); PLATELET COUNT 102 10^3/uL (150-450); RED BLOOD COUNT 2.38 10^6/uL (3.72-5.28); RED CELL DISTRIBUTION WIDTH 20.2 % (11.5-14.0); SEGMENTED NEUTROPHILS % (AUTO) 74.6 % (42-78); TOTAL CELLS COUNTED % (AUTO) 100 %; WHITE BLOOD COUNT 5.9 10^3/uL (4.0-10.5)
[2020-04-23 08:42] LABS: PROTHROMBIN TIME 16.2 SEC (11.4-15.4)
[2020-04-23 08:43] LABS: PARTIAL THROMBOPLASTIN TIME 31.6 SEC (23.5-35.8)
[2020-04-23 08:59] LABS: BLOOD UREA NITROGEN 41 mg/dL (7-20)
[2020-04-23] MEDS ORDERED: ALBUMIN HUMAN 50 GM/200 ML RTUINJ IV PRN (11:00)
--- NOTE | 2020-04-23 11:33 | RADIOLOGY REPORT (SQ) ---
EXAM DESCRIPTION: U/S ABD PARACENTESIS IMAGES COMPLETED DATE/TIME: 04/23/2020 11:18 am REASON FOR STUDY: ALCOHOLIC CIRRHOSIS OF LIVER WITH ASCITES COMPARISON 04/16/2020 LIMITATIONS: None. PROCEDURE: After obtaining informed consent, the patient was brought to the ultrasound suite. The p rocedure was performed with the patient on a gurney. Ultrasound was used to identify a prominent poc ket of ascites in the right lower quadrant. An appropriate access site was selected. The patient wa s prepped and draped in usual sterile fashion. The access site was anesthetized with 8 mL 1% lidoca ine. A Qant-Y-Ucftwlsj needle was advanced into the fluid. After aspiration of fluid the needle, th e catheter was advanced off the needle into the fluid. A total of 7750 mL of clear, straw-colored fl uid was removed. The patient tolerated the procedure well left the department in satisfactory conditi on. IMPRESSION: Successful ultrasound-guided paracentesis COMMENT: Patient medication list reviewed: Yes- Quality ID# [id number]:Eligible professional attests to doc umenting in the medical record they obtained, updated, or reviewed the patient's current medications. TECHNICAL DOCUMENTATION: JOB ID: [id number] 2010 [employer]- All Rights Reserved Reading location - IP/workstation name: [email or web address]
[2020-04-23 13:03] VITALS: BP 102/48
== END 2020-04-23 12:05 | disposition home or self-care (01) ==
LOC: RAD 07:59
PROVIDERS: ATTEND Internal Medicine Geriatric Medicine
DX: K70.31 Alcoholic cirrhosis of liver with ascites (principal)
CPT/HCPCS: 36415; 84520; 82565; 85025; 85610; 85730; 49083; P9047

== ENCOUNTER 2020-04-30 07:40 | Day surgery (SDC) | payer OTHER ==
[2020-04-30 08:47] LABS: INTERNATIONAL RATION (INR) 1.25; PROTHROMBIN TIME 15.8 SEC (11.4-15.4)
[2020-04-30 08:56] LABS: BLOOD UREA NITROGEN 22 mg/dL (7-20)
[2020-04-30 09:50] LABS: ABSOLUTE EOSINOPHILS # (AUTO) 0.1 10^3/uL (0.0-0.6); ABSOLUTE LYMPHOCYTES (AUTO) 0.5 10^3/uL (0.5-4.7); ABSOLUTE MONOCYTES (AUTO) 0.5 10^3/uL (0.1-1.4); ABSOLUTE NEUT (AUTO) 2.8 10^3/uL (1.7-8.2); BASOPHILS % (AUTO) 0.6 % (0-2); EOSINOPHILS % (AUTO) 1.8 % (0-6); LYMPHOCYTES % (AUTO) 13.9 % (13-45); MEAN CORPUSCULAR HEMOGLOBIN 37.1 pg (27.0-33.4); MEAN CORPUSCULAR HGB CONC 34.4 g/dL (32.0-36.0); MONOCYTES % (AUTO) 12.5 % (3-13); RED BLOOD COUNT 1.95 10^6/uL (3.72-5.28); RED CELL DISTRIBUTION WIDTH 21.5 % (11.5-14.0); SEGMENTED NEUTROPHILS % (AUTO) 71.2 % (42-78); TOTAL CELLS COUNTED % (AUTO) 100 %; WHITE BLOOD COUNT 3.9 10^3/uL (4.0-10.5)
[2020-04-30 09:54] LABS: MEAN CORPUSCULAR VOLUME 108 fl (80-97); PLATELET COUNT 66 10^3/uL (150-450)
[2020-04-30 09:55] LABS: HEMOGLOBIN 7.2 g/dL (12.0-15.5)
--- NOTE | 2020-04-30 11:25 | RADIOLOGY REPORT (SQ) ---
EXAM DESCRIPTION: U/S ABD PARACENTESIS IMAGES COMPLETED DATE/TIME: 04/30/2020 11:07 am REASON FOR STUDY: ASCITES K70.31 ALCOHOLIC CIRRHOSIS OF LIVER WITH ASCITES COMPARISON: Paracentesis 04/23/2020 RADIATION DOSE: None LIMITATIONS: None. PROCEDURE: Procedure, risks, benefit, and alternative explained to patient who then gave written con sent. The left lower abdominal wall marked using ultrasound guidance. A time-out was called for cor rect marking verification. Abdomen prepped and draped using sterile technique. Local anesthesia achi eved using 5 ml of 1% lidocaine injection. A 6fr Vdsp-S-Tylfwkiy set was introduced into the periton eal cavity. Fluid was drained. The catheter was removed and entry site was covered with sterile ban dage. No immediate complications noted. Images acquired during the procedure were stored on PACS. FINDINGS: ENTRY SITE: left lower quadrant. FLUID VOLUME: 5 L FLUID ANALYSIS: Clear straw-colored fluid OTHER: Therapeutic only. IMPRESSION: SUCCESSFUL ULTRASOUND GUIDED PARACENTESIS. COMMENT: Patient medication list reviewed:Yes- Quality ID# [id number]:Eligible professional attests to docu menting in the medical record they obtained, updated, or reviewed the patient's current medications. TECHNICAL DOCUMENTATION: JOB ID: [id number] 2010 [employer]- All Rights Reserved Reading location - IP/workstation name: [email or web address] [id number]
[2020-04-30 11:46] VITALS: BP 101/62
== END 2020-04-30 11:40 | disposition home or self-care (01) ==
LOC: RAD 07:40
PROVIDERS: ATTEND Internal Medicine Geriatric Medicine
DX: K70.31 Alcoholic cirrhosis of liver with ascites (principal)
CPT/HCPCS: 36415; 49083; 82565; 84520; 85025; 85610; 85730

== ENCOUNTER 2020-05-07 07:38 | Day surgery (SDC) | payer OTHER ==
[2020-05-07 08:24] LABS: HEMATOCRIT 20.9 % (36.0-47.0); MEAN CORPUSCULAR HGB CONC 34.6 g/dL (32.0-36.0); MEAN CORPUSCULAR VOLUME 107 fl (80-97); PLATELET COUNT 131 10^3/uL (150-450); RED BLOOD COUNT 1.96 10^6/uL (3.72-5.28); RED CELL DISTRIBUTION WIDTH 18.9 % (11.5-14.0); WHITE BLOOD COUNT 4.7 10^3/uL (4.0-10.5)
[2020-05-07 08:25] LABS: HEMOGLOBIN 7.2 g/dL (12.0-15.5)
[2020-05-07 08:26] LABS: INTERNATIONAL RATION (INR) 1.38; PROTHROMBIN TIME 17.1 SEC (11.4-15.4)
[2020-05-07 08:27] LABS: PARTIAL THROMBOPLASTIN TIME 40.1 SEC (23.5-35.8)
[2020-05-07 08:37] LABS: BLOOD UREA NITROGEN 22 mg/dL (7-20)
[2020-05-07 11:33] VITALS: BP 92/61
--- NOTE | 2020-05-07 15:20 | RADIOLOGY REPORT (SQ) ---
EXAM DESCRIPTION: U/S ABD PARACENTESIS IMAGES COMPLETED DATE/TIME: 05/07/2020 11:08 am REASON FOR STUDY: ALCOHOLIC CIRRHOSIS OF LIVER WITH ASCITES K70.31 ALCOHOLIC CIRRHOSIS OF LIVER WIT H ASCITES COMPARISON: Multiple previous paracentesis RADIATION DOSE: None LIMITATIONS: None. PROCEDURE: Procedure, risks, benefit, and alternative explained to patient who then gave written con sent. The right lower abdominal wall marked using ultrasound guidance. A time-out was called for co rrect marking verification. Abdomen prepped and draped using sterile technique. Local anesthesia ach ieved using 5 ml of 1% lidocaine injection. A 6fr Ztob-V-Gwignkwa set was introduced into the perito alina cavity. Fluid was drained. The catheter was removed and entry site was covered with sterile ba ndage. No immediate complications noted. Images acquired during the procedure were stored on PACS. FINDINGS: ENTRY SITE: Right lower quadrant. FLUID VOLUME: 4400 mL FLUID ANALYSIS: Straw-colored fluid OTHER: Therapeutic only. IMPRESSION: SUCCESSFUL ULTRASOUND GUIDED PARACENTESIS. COMMENT: Patient medication list reviewed:Yes- Quality ID# [id number]:Eligible professional attests to docu menting in the medical record they obtained, updated, or reviewed the patient's current medications. TECHNICAL DOCUMENTATION: JOB ID: [id number] 2010 [employer]- All Rights Reserved Reading location - IP/workstation name: [email or web address] [id number]
== END 2020-05-07 11:30 | disposition home or self-care (01) ==
LOC: RAD 07:38
PROVIDERS: ATTEND Internal Medicine Geriatric Medicine
DX: K70.31 Alcoholic cirrhosis of liver with ascites (principal)
CPT/HCPCS: 36415; 49083; 82565; 84520; 85027; 85610; 85730

== ENCOUNTER 2020-05-14 07:40 | Day surgery (SDC) | payer OTHER ==
[2020-05-14 08:16] LABS: ABSOLUTE EOSINOPHILS # (AUTO) 0.2 10^3/uL (0.0-0.6); ABSOLUTE LYMPHOCYTES (AUTO) 0.6 10^3/uL (0.5-4.7); ABSOLUTE MONOCYTES (AUTO) 0.8 10^3/uL (0.1-1.4); ABSOLUTE NEUT (AUTO) 5.3 10^3/uL (1.7-8.2); BASOPHILS % (AUTO) 0.5 % (0-2); EOSINOPHILS % (AUTO) 2.4 % (0-6); HEMATOCRIT 28.5 % (36.0-47.0); LYMPHOCYTES % (AUTO) 8.9 % (13-45); MEAN CORPUSCULAR HGB CONC 35.1 g/dL (32.0-36.0); MEAN CORPUSCULAR VOLUME 100 fl (80-97); MONOCYTES % (AUTO) 11.3 % (3-13); PLATELET COUNT 158 10^3/uL (150-450); RED BLOOD COUNT 2.86 10^6/uL (3.72-5.28); RED CELL DISTRIBUTION WIDTH 19.9 % (11.5-14.0); SEGMENTED NEUTROPHILS % (AUTO) 76.9 % (42-78); TOTAL CELLS COUNTED % (AUTO) 100 %; WHITE BLOOD COUNT 6.9 10^3/uL (4.0-10.5)
[2020-05-14 08:25] LABS: PROTHROMBIN TIME 15.3 SEC (11.4-15.4)
[2020-05-14 08:26] LABS: PARTIAL THROMBOPLASTIN TIME 33.8 SEC (23.5-35.8)
[2020-05-14 08:35] LABS: BLOOD UREA NITROGEN 21 mg/dL (7-20)
[2020-05-14] MEDS ORDERED: ALBUMIN HUMAN 50 GM/200 ML RTUINJ IV PRN (11:00)
--- NOTE | 2020-05-14 11:29 | RADIOLOGY REPORT (SQ) ---
EXAM DESCRIPTION: U/S ABD PARACENTESIS IMAGES COMPLETED DATE/TIME: 05/14/2020 11:12 am REASON FOR STUDY: ALCOHOLIC CIRRHOSIS COMPARISON 05/07/2020 LIMITATIONS: None. PROCEDURE: After obtaining informed consent, the patient was brought to the ultrasound suite. The p rocedure was performed with the patient on a gurney. Ultrasound was used to identify a prominent poc ket of ascites in the left lower quadrant. An appropriate access site was selected. The patient was prepped and draped in usual sterile fashion. The access site was anesthetized with 8 mL 1% lidocai ne. A Vapk-A-Kgbdqoty needle was advanced into the fluid. After aspiration of fluid the needle, the catheter was advanced off the needle into the fluid. A total of 6,750 mL of clear, straw-colored fl uid was removed. The patient tolerated the procedure well left the department in satisfactory conditi on. IMPRESSION: Successful ultrasound-guided paracentesis COMMENT: Patient medication list reviewed: Yes- Quality ID# [id number]:Eligible professional attests to doc umenting in the medical record they obtained, updated, or reviewed the patient's current medications. TECHNICAL DOCUMENTATION: JOB ID: [id number] 2010 [employer]- All Rights Reserved Reading location - IP/workstation name: [email or web address]
[2020-05-14 13:12] VITALS: BP 89/52
== END 2020-05-14 12:45 | disposition home or self-care (01) ==
LOC: RAD 07:40
PROVIDERS: ATTEND Internal Medicine Geriatric Medicine
DX: K70.31 Alcoholic cirrhosis of liver with ascites (principal)
CPT/HCPCS: 36415; 49083; 82565; 84520; 85025; 85610; 85730; P9047

== ENCOUNTER 2020-05-21 07:36 | Day surgery (SDC) | payer OTHER ==
[2020-05-21 08:50] LABS: HEMATOCRIT 26.1 % (36.0-47.0); HEMOGLOBIN 9.2 g/dL (12.0-15.5); MEAN CORPUSCULAR HEMOGLOBIN 34.7 pg (27.0-33.4); MEAN CORPUSCULAR HGB CONC 35.4 g/dL (32.0-36.0); MEAN CORPUSCULAR VOLUME 98 fl (80-97); PLATELET COUNT 125 10^3/uL (150-450); RED BLOOD COUNT 2.67 10^6/uL (3.72-5.28); RED CELL DISTRIBUTION WIDTH 18.6 % (11.5-14.0); WHITE BLOOD COUNT 7.3 10^3/uL (4.0-10.5)
[2020-05-21 08:56] LABS: INTERNATIONAL RATION (INR) 1.21; PROTHROMBIN TIME 15.3 SEC (11.4-15.4)
[2020-05-21 09:08] LABS: BLOOD UREA NITROGEN 15 mg/dL (7-20)
[2020-05-21 09:13] LABS: PARTIAL THROMBOPLASTIN TIME 35.1 SEC (23.5-35.8)
[2020-05-21 11:59] VITALS: BP 99/64
--- NOTE | 2020-05-21 12:33 | RADIOLOGY REPORT (SQ) ---
EXAM DESCRIPTION: U/S ABD PARACENTESIS IMAGES COMPLETED DATE/TIME: 05/21/2020 11:10 am REASON FOR STUDY: ALCOHOLIC CIRRHOSIS OF LIVER WITH ASCITES K70.31 ALCOHOLIC CIRRHOSIS OF LIVER WIT H ASCITES COMPARISON: 05/14/2020 LIMITATIONS: None. PROCEDURE: Procedure, risks, benefit, and alternative explained to patient who then gave written con sent. The right lower abdominal wall marked using ultrasound guidance. A time-out was called for co rrect marking verification. Abdomen prepped and draped using sterile technique. Local anesthesia ach ieved using 10 ml of 1% lidocaine injection. A 6fr Qebk-W-Pprnpyui set was introduced into the perit penny cavity. Fluid was drained. The catheter was removed and entry site was covered with sterile b andage. No immediate complications noted. Images acquired during the procedure were stored on PACS. FINDINGS: ENTRY SITE: Right lower quadrant FLUID VOLUME: 4 L FLUID ANALYSIS: Clear straw-colored OTHER: Fluid sent to the lab for testing. IMPRESSION: SUCCESSFUL ULTRASOUND GUIDED PARACENTESIS. COMMENT: Patient medication list reviewed:Yes- Quality ID# [id number]:Eligible professional attests to docu menting in the medical record they obtained, updated, or reviewed the patient's current medications. TECHNICAL DOCUMENTATION: JOB ID: [id number] 2010 [employer]- All Rights Reserved Reading location - IP/workstation name: [email or web address]
== END 2020-05-21 11:40 | disposition home or self-care (01) ==
LOC: RAD 07:36
PROVIDERS: ATTEND Internal Medicine Geriatric Medicine
DX: K70.31 Alcoholic cirrhosis of liver with ascites (principal)
CPT/HCPCS: 36415; 49083; 82565; 84520; 85027; 85610; 85730

== ENCOUNTER 2020-05-28 07:38 | Day surgery (SDC) | payer OTHER ==
[2020-05-28 09:10] LABS: HEMATOCRIT 26.9 % (36.0-47.0); HEMOGLOBIN 9.4 g/dL (12.0-15.5); MEAN CORPUSCULAR HEMOGLOBIN 34.5 pg (27.0-33.4); MEAN CORPUSCULAR HGB CONC 34.8 g/dL (32.0-36.0); MEAN CORPUSCULAR VOLUME 99 fl (80-97); PLATELET COUNT 198 10^3/uL (150-450); RED BLOOD COUNT 2.71 10^6/uL (3.72-5.28); RED CELL DISTRIBUTION WIDTH 18.4 % (11.5-14.0); WHITE BLOOD COUNT 5.8 10^3/uL (4.0-10.5)
[2020-05-28 09:18] LABS: INTERNATIONAL RATION (INR) 1.16
[2020-05-28 09:19] LABS: PARTIAL THROMBOPLASTIN TIME 33.9 SEC (23.5-35.8)
[2020-05-28 09:30] LABS: BLOOD UREA NITROGEN 16 mg/dL (7-20)
[2020-05-28] MEDS ORDERED: ALBUMIN HUMAN 50 GM/200 ML RTUINJ IV PRN (10:57)
--- NOTE | 2020-05-28 12:16 | RADIOLOGY REPORT (SQ) ---
EXAM DESCRIPTION: U/S ABD PARACENTESIS IMAGES COMPLETED DATE/TIME: 05/28/2020 11:31 am REASON FOR STUDY: ALCOHOLIC CIRRHOSIS OF LIVER WITH ASCITES K70.31 ALCOHOLIC CIRRHOSIS OF LIVER WIT H ASCITES COMPARISON: 05/21/2020 paracentesis RADIATION DOSE: None LIMITATIONS: None. PROCEDURE: Procedure, risks, benefit, and alternative explained to patient who then gave written con sent. The left lower abdominal wall marked using ultrasound guidance. A time-out was called for cor rect marking verification. Abdomen prepped and draped using sterile technique. Local anesthesia achi eved using 5 ml of 1% lidocaine injection. A 6fr Bwqb-W-Dggfdblf set was introduced into the periton eal cavity. Fluid was drained. The catheter was removed and entry site was covered with sterile ban dage. No immediate complications noted. Images acquired during the procedure were stored on PACS. FINDINGS: ENTRY SITE: left lower quadrant. FLUID VOLUME: 8300 mL FLUID ANALYSIS: Clear straw-colored fluid OTHER: Therapeutic only. IMPRESSION: SUCCESSFUL ULTRASOUND GUIDED PARACENTESIS. COMMENT: Patient medication list reviewed:Yes- Quality ID# [id number]:Eligible professional attests to docu menting in the medical record they obtained, updated, or reviewed the patient's current medications. TECHNICAL DOCUMENTATION: JOB ID: [id number] 2010 [employer]- All Rights Reserved Reading location - IP/workstation name: [email or web address]
[2020-05-28 13:29] VITALS: BP 96/55
== END 2020-05-28 12:30 | disposition home or self-care (01) ==
LOC: RAD 07:38
PROVIDERS: ATTEND Internal Medicine Geriatric Medicine
DX: K70.31 Alcoholic cirrhosis of liver with ascites (principal)
CPT/HCPCS: 36415; 49083; 82565; 84520; 85027; 85610; 85730; P9047

== ENCOUNTER 2020-06-04 07:25 | Day surgery (SDC) | payer OTHER ==
[2020-06-04 08:35] LABS: ABSOLUTE BASOPHILS # (AUTO) 0.1 10^3/uL (0.0-0.2); ABSOLUTE EOSINOPHILS # (AUTO) 0.2 10^3/uL (0.0-0.6); ABSOLUTE LYMPHOCYTES (AUTO) 0.5 10^3/uL (0.5-4.7); ABSOLUTE MONOCYTES (AUTO) 0.6 10^3/uL (0.1-1.4); ABSOLUTE NEUT (AUTO) 4.3 10^3/uL (1.7-8.2); BASOPHILS % (AUTO) 0.9 % (0-2); HEMATOCRIT 25.1 % (36.0-47.0); HEMOGLOBIN 8.5 g/dL (12.0-15.5); LYMPHOCYTES % (AUTO) 9.5 % (13-45); MEAN CORPUSCULAR HEMOGLOBIN 34.1 pg (27.0-33.4); MEAN CORPUSCULAR HGB CONC 33.9 g/dL (32.0-36.0); MEAN CORPUSCULAR VOLUME 101 fl (80-97); PLATELET COUNT 138 10^3/uL (150-450); RED BLOOD COUNT 2.49 10^6/uL (3.72-5.28); RED CELL DISTRIBUTION WIDTH 17.8 % (11.5-14.0); SEGMENTED NEUTROPHILS % (AUTO) 74.6 % (42-78); TOTAL CELLS COUNTED % (AUTO) 100 %; WHITE BLOOD COUNT 5.7 10^3/uL (4.0-10.5)
[2020-06-04 08:42] LABS: INTERNATIONAL RATION (INR) 1.35; PROTHROMBIN TIME 16.8 SEC (11.4-15.4)
[2020-06-04 08:43] LABS: PARTIAL THROMBOPLASTIN TIME 39.5 SEC (23.5-35.8)
[2020-06-04 08:57] LABS: BLOOD UREA NITROGEN 14 mg/dL (7-20)
--- NOTE | 2020-06-04 11:30 | RADIOLOGY REPORT (SQ) ---
EXAM DESCRIPTION: U/S ABD PARACENTESIS IMAGES COMPLETED DATE/TIME: 06/04/2020 11:09 am REASON FOR STUDY: ALCOHOLIC CIRRHOSIS OF LIVER WITH ASCITES COMPARISON None. LIMITATIONS: None. PROCEDURE: The procedure, risks, benefits, and alternatives were discussed with the patient and the patient's family who then gave written consent. The right lower quadrant was then marked utilizing s onographic guidance and a time-out was performed to document correct marking verification. The area around the selected percutaneous access site was then prepped and draped with 2% chlorhexidi ne utilizing standard sterile technique. After that, the selected access site was infiltrated with 5 ml of 1% lidocaine. A 6 Romanian Wlbh-L-Zbylhoqf catheter was then introduced into the fluid-filled p eritoneal cavity and the fluid was aspirated. After the fluid was aspirated, the catheter was removed and the entry site was covered with a sterile bandage. No immediate complications were noted. Volume of Fluid: 5000 mL. Quality of the Fluid: Clear straw-colored. Was the fluid collected for analysis? Yes. Images acquired during the procedure were submitted to PACS. The patient tolerated the procedure with local anesthesia. At the end of the procedure the patient's condition was unchanged from the preprocedural baseline. Documentation of orpj-sq-gugp time the proceduralist spent monitoring the patient: 15 minutes. IMPRESSION: Successful ultrasound-guided paracentesis. COMMENT: Patient medication list reviewed: Yes- Quality ID# [id number]:Eligible professional attests to doc umenting in the medical record they obtained, updated, or reviewed the patient's current medications. TECHNICAL DOCUMENTATION: JOB ID: [id number] 2010 [employer]- All Rights Reserved Reading location - IP/workstation name: [email or web address]
[2020-06-04 13:50] VITALS: BP 98/54
== END 2020-06-04 11:35 | disposition home or self-care (01) ==
LOC: RAD 07:25
PROVIDERS: ATTEND Internal Medicine Geriatric Medicine
DX: K70.31 Alcoholic cirrhosis of liver with ascites (principal)
CPT/HCPCS: 36415; 49083; 82565; 84520; 85025; 85610; 85730

== ENCOUNTER 2020-06-11 07:48 | Day surgery (SDC) | payer OTHER ==
[2020-06-11 08:29] LABS: ABSOLUTE EOSINOPHILS # (AUTO) 0.1 10^3/uL (0.0-0.6); ABSOLUTE LYMPHOCYTES (AUTO) 0.5 10^3/uL (0.5-4.7); ABSOLUTE MONOCYTES (AUTO) 0.5 10^3/uL (0.1-1.4); ABSOLUTE NEUT (AUTO) 3.3 10^3/uL (1.7-8.2); BASOPHILS % (AUTO) 0.7 % (0-2); EOSINOPHILS % (AUTO) 3.1 % (0-6); HEMATOCRIT 25.2 % (36.0-47.0); HEMOGLOBIN 8.7 g/dL (12.0-15.5); LYMPHOCYTES % (AUTO) 10.4 % (13-45); MEAN CORPUSCULAR HEMOGLOBIN 34.8 pg (27.0-33.4); MEAN CORPUSCULAR HGB CONC 34.7 g/dL (32.0-36.0); MEAN CORPUSCULAR VOLUME 100 fl (80-97); MONOCYTES % (AUTO) 10.6 % (3-13); PLATELET COUNT 122 10^3/uL (150-450); RED BLOOD COUNT 2.51 10^6/uL (3.72-5.28); RED CELL DISTRIBUTION WIDTH 17.8 % (11.5-14.0); SEGMENTED NEUTROPHILS % (AUTO) 75.2 % (42-78); TOTAL CELLS COUNTED % (AUTO) 100 %; WHITE BLOOD COUNT 4.4 10^3/uL (4.0-10.5)
[2020-06-11 08:36] LABS: INTERNATIONAL RATION (INR) 1.49; PROTHROMBIN TIME 18.2 SEC (11.4-15.4)
[2020-06-11 08:46] LABS: BLOOD UREA NITROGEN 16 mg/dL (7-20)
[2020-06-11 08:53] LABS: PARTIAL THROMBOPLASTIN TIME 40.5 SEC (23.5-35.8)
[2020-06-11 12:11] VITALS: BP 103/65
--- NOTE | 2020-06-11 15:22 | RADIOLOGY REPORT (SQ) ---
EXAM DESCRIPTION: U/S ABD PARACENTESIS IMAGES COMPLETED DATE/TIME: 06/11/2020 11:44 am REASON FOR STUDY: ASCITES COMPARISON None. LIMITATIONS: None. PROCEDURE: After obtaining informed consent, the patient was brought to the ultrasound suite. The p rocedure was performed with the patient on a gurney. Ultrasound was used to identify a prominent poc ket of ascites in the left lower quadrant. An appropriate access site was selected. The patient was prepped and draped in usual sterile fashion. The access site was anesthetized with 1% lidocaine. A Ujra-W-Egrqngkq needle was advanced into the fluid. After aspiration of fluid the needle, the cath eter was advanced off the needle into the fluid. A total of 5,000 mL of straw-colored fluid was soha key. The patient tolerated the procedure well left the department in satisfactory condition. IMPRESSION: Successful ultrasound-guided paracentesis COMMENT: Patient medication list reviewed: Yes- Quality ID# [id number]:Eligible professional attests to doc umenting in the medical record they obtained, updated, or reviewed the patient's current medications. TECHNICAL DOCUMENTATION: JOB ID: [id number] 2010 [employer]- All Rights Reserved Reading location - IP/workstation name: [email or web address]
== END 2020-06-11 12:10 | disposition home or self-care (01) ==
LOC: RAD 07:48
PROVIDERS: ATTEND Internal Medicine Geriatric Medicine
DX: K70.31 Alcoholic cirrhosis of liver with ascites (principal)
CPT/HCPCS: 36415; 49083; 82565; 84520; 85025; 85610; 85730

== ENCOUNTER 2020-06-18 07:45 | Day surgery (SDC) | payer OTHER ==
[2020-06-18 08:30] LABS: HEMATOCRIT 26.7 % (36.0-47.0); HEMOGLOBIN 9.2 g/dL (12.0-15.5); MEAN CORPUSCULAR HEMOGLOBIN 35.2 pg (27.0-33.4); MEAN CORPUSCULAR HGB CONC 34.6 g/dL (32.0-36.0); MEAN CORPUSCULAR VOLUME 102 fl (80-97); PLATELET COUNT 152 10^3/uL (150-450); RED BLOOD COUNT 2.62 10^6/uL (3.72-5.28); RED CELL DISTRIBUTION WIDTH 19.3 % (11.5-14.0); WHITE BLOOD COUNT 5.1 10^3/uL (4.0-10.5)
[2020-06-18 08:38] LABS: INTERNATIONAL RATION (INR) 1.36; PROTHROMBIN TIME 16.9 SEC (11.4-15.4)
[2020-06-18 08:39] LABS: PARTIAL THROMBOPLASTIN TIME 37.5 SEC (23.5-35.8)
[2020-06-18 08:45] LABS: BLOOD UREA NITROGEN 17 mg/dL (7-20)
[2020-06-18 11:42] VITALS: BP 96/52
--- NOTE | 2020-06-18 11:43 | RADIOLOGY REPORT (SQ) ---
EXAM DESCRIPTION: U/S ABD PARACENTESIS IMAGES COMPLETED DATE/TIME: 06/18/2020 11:19 am REASON FOR STUDY: ALCOHOLIC CIRRHOSIS OF LIVER WITH ASCITES COMPARISON 06/11/2020 LIMITATIONS: None. PROCEDURE: After obtaining informed consent, the patient was brought to the ultrasound suite. The p rocedure was performed with the patient on a gurney. Ultrasound was used to identify a prominent poc ket of ascites in the right lower quadrant. An appropriate access site was selected. The patient wa s prepped and draped in usual sterile fashion. The access site was anesthetized with 6 mL 1% lidoca ine. A Auiw-N-Ehemdgsp needle was advanced into the fluid. After aspiration of fluid the needle, th e catheter was advanced off the needle into the fluid. A total of 4,500 mL of clear, straw-colored f luid was removed. The patient tolerated the procedure well left the department in satisfactory condit ion. IMPRESSION: Successful ultrasound-guided paracentesis COMMENT: Patient medication list reviewed: Yes- Quality ID# [id number]:Eligible professional attests to doc umenting in the medical record they obtained, updated, or reviewed the patient's current medications. TECHNICAL DOCUMENTATION: JOB ID: [id number] 2010 [employer]- All Rights Reserved Reading location - IP/workstation name: [email or web address]
== END 2020-06-18 11:35 | disposition home or self-care (01) ==
LOC: RAD 07:45
PROVIDERS: ATTEND Internal Medicine Geriatric Medicine
DX: K70.31 Alcoholic cirrhosis of liver with ascites (principal)
CPT/HCPCS: 36415; 49083; 82565; 84520; 85027; 85610; 85730

== ENCOUNTER 2020-06-25 07:46 | Day surgery (SDC) | payer OTHER ==
[2020-06-25 08:28] LABS: HEMATOCRIT 27.9 % (36.0-47.0); HEMOGLOBIN 9.6 g/dL (12.0-15.5); MEAN CORPUSCULAR HEMOGLOBIN 35.4 pg (27.0-33.4); MEAN CORPUSCULAR HGB CONC 34.3 g/dL (32.0-36.0); MEAN CORPUSCULAR VOLUME 103 fl (80-97); PLATELET COUNT 113 10^3/uL (150-450); RED BLOOD COUNT 2.71 10^6/uL (3.72-5.28); RED CELL DISTRIBUTION WIDTH 18.9 % (11.5-14.0); WHITE BLOOD COUNT 4.3 10^3/uL (4.0-10.5)
[2020-06-25 08:38] LABS: BLOOD UREA NITROGEN 15 mg/dL (7-20)
[2020-06-25 08:46] LABS: PROTHROMBIN TIME 15.4 SEC (11.4-15.4)
[2020-06-25 08:47] LABS: PARTIAL THROMBOPLASTIN TIME 36.1 SEC (23.5-35.8)
--- NOTE | 2020-06-25 11:10 | RADIOLOGY REPORT (SQ) ---
EXAM DESCRIPTION: U/S ABD PARACENTESIS IMAGES COMPLETED DATE/TIME: 06/25/2020 11:01 am REASON FOR STUDY: ALCOHOLIC CIRRHOSIS OF LIVER WITH ASCITES COMPARISON None. LIMITATIONS: None. PROCEDURE: The procedure, risks, benefits, and alternatives were discussed with the patient and the patient's family who then gave written consent. The left lower quadrant was then marked utilizing so nographic guidance and a time-out was performed to document correct marking verification. The area around the selected percutaneous access site was then prepped and draped with 2% chlorhexidi ne utilizing standard sterile technique. After that, the selected access site was infiltrated with 5 ml of 1% lidocaine. A 6 Indonesian Rwjl-D-Hznemzqj catheter was then introduced into the fluid-filled p eritoneal cavity and the fluid was aspirated. After the fluid was aspirated, the catheter was removed and the entry site was covered with a sterile bandage. No immediate complications were noted. Volume of Fluid: 5000 mL. Quality of the Fluid: Straw-colored. Was the fluid collected for analysis? No. Images acquired during the procedure were submitted to PACS. The patient tolerated the procedure with local anesthesia. At the end of the procedure the patient's condition was unchanged from the preprocedural baseline. Documentation of uzmm-bq-fggg time the proceduralist spent monitoring the patient: 15 minutes. IMPRESSION: Successful ultrasound-guided paracentesis. COMMENT: Patient medication list reviewed: Yes- Quality ID# [id number]:Eligible professional attests to doc umenting in the medical record they obtained, updated, or reviewed the patient's current medications. TECHNICAL DOCUMENTATION: JOB ID: [id number] 2010 [employer]- All Rights Reserved Reading location - IP/workstation name: [email or web address]
[2020-06-25 11:27] VITALS: BP 91/55
== END 2020-06-25 11:25 | disposition home or self-care (01) ==
LOC: RAD 07:46
PROVIDERS: ATTEND Internal Medicine Geriatric Medicine
DX: K70.31 Alcoholic cirrhosis of liver with ascites (principal)
CPT/HCPCS: 36415; 49083; 82565; 84520; 85027; 85610; 85730

== ENCOUNTER 2020-07-02 07:55 | Day surgery (SDC) | payer OTHER ==
[2020-07-02 08:39] LABS: HEMATOCRIT 25.6 % (36.0-47.0); MEAN CORPUSCULAR HEMOGLOBIN 36.3 pg (27.0-33.4); MEAN CORPUSCULAR HGB CONC 35.3 g/dL (32.0-36.0); MEAN CORPUSCULAR VOLUME 103 fl (80-97); PLATELET COUNT 119 10^3/uL (150-450); RED BLOOD COUNT 2.49 10^6/uL (3.72-5.28); WHITE BLOOD COUNT 5.7 10^3/uL (4.0-10.5)
[2020-07-02 08:55] LABS: BLOOD UREA NITROGEN 15 mg/dL (7-20)
[2020-07-02 08:59] LABS: INTERNATIONAL RATION (INR) 1.11; PROTHROMBIN TIME 14.5 SEC (11.4-15.4)
[2020-07-02 09:00] LABS: PARTIAL THROMBOPLASTIN TIME 35.9 SEC (23.5-35.8)
--- NOTE | 2020-07-02 12:39 | RADIOLOGY REPORT (SQ) ---
EXAM DESCRIPTION: U/S ABD PARACENTESIS IMAGES COMPLETED DATE/TIME: 07/02/2020 10:42 am REASON FOR STUDY: ASCITES COMPARISON None. LIMITATIONS: None. PROCEDURE: The procedure, risks, benefits, and alternatives were discussed with the patient and the patient's family who then gave written consent. The left lower quadrant was then marked utilizing so nographic guidance and a time-out was performed to document correct marking verification. The area around the selected percutaneous access site was then prepped and draped with 2% chlorhexidi ne utilizing standard sterile technique. After that, the selected access site was infiltrated with 5 ml of 1% lidocaine. A 6 Lao Adev-E-Dltflgvo catheter was then introduced into the fluid-filled p eritoneal cavity and the fluid was aspirated. After the fluid was aspirated, the catheter was removed and the entry site was covered with a sterile bandage. No immediate complications were noted. Volume of Fluid: 5000 mL. Quality of the Fluid: Straw-colored. Was the fluid collected for analysis? No. Images acquired during the procedure were submitted to PACS. The patient tolerated the procedure with local anesthesia. At the end of the procedure the patient's condition was unchanged from the preprocedural baseline. Documentation of ynqs-kn-pmtw time the proceduralist spent monitoring the patient: 15 minutes. IMPRESSION: Successful ultrasound-guided therapeutic paracentesis. COMMENT: Patient medication list reviewed: Yes- Quality ID# [id number]:Eligible professional attests to doc umenting in the medical record they obtained, updated, or reviewed the patient's current medications. TECHNICAL DOCUMENTATION: JOB ID: [id number] 2010 [employer]- All Rights Reserved Reading location - IP/workstation name: [email or web address]
[2020-07-02 12:55] VITALS: BP 119/70
== END 2020-07-02 11:15 | disposition home or self-care (01) ==
LOC: RAD 07:55
PROVIDERS: ATTEND Internal Medicine Geriatric Medicine
DX: K70.31 Alcoholic cirrhosis of liver with ascites (principal)
CPT/HCPCS: 36415; 49083; 82565; 84520; 85027; 85610; 85730

== ENCOUNTER 2020-07-09 07:50 | Day surgery (SDC) | payer OTHER ==
[2020-07-09 09:34] LABS: INTERNATIONAL RATION (INR) 1.16
[2020-07-09 09:35] LABS: PARTIAL THROMBOPLASTIN TIME 34.2 SEC (23.5-35.8)
[2020-07-09 09:39] LABS: ABSOLUTE BASOPHILS # (AUTO) 0.1 10^3/uL (0.0-0.2); ABSOLUTE EOSINOPHILS # (AUTO) 0.1 10^3/uL (0.0-0.6); ABSOLUTE LYMPHOCYTES (AUTO) 0.6 10^3/uL (0.5-4.7); ABSOLUTE MONOCYTES (AUTO) 0.7 10^3/uL (0.1-1.4); ABSOLUTE NEUT (AUTO) 4.8 10^3/uL (1.7-8.2); BASOPHILS % (AUTO) 0.8 % (0-2); EOSINOPHILS % (AUTO) 2.3 % (0-6); HEMATOCRIT 30.1 % (36.0-47.0); HEMOGLOBIN 10.6 g/dL (12.0-15.5); MEAN CORPUSCULAR HEMOGLOBIN 37.4 pg (27.0-33.4); MEAN CORPUSCULAR HGB CONC 35.4 g/dL (32.0-36.0); MEAN CORPUSCULAR VOLUME 106 fl (80-97); MONOCYTES % (AUTO) 10.9 % (3-13); PLATELET COUNT 150 10^3/uL (150-450); RED BLOOD COUNT 2.84 10^6/uL (3.72-5.28); RED CELL DISTRIBUTION WIDTH 19.3 % (11.5-14.0); TOTAL CELLS COUNTED % (AUTO) 100 %; WHITE BLOOD COUNT 6.3 10^3/uL (4.0-10.5)
[2020-07-09 09:53] LABS: BLOOD UREA NITROGEN 17 mg/dL (7-20)
[2020-07-09 11:38] VITALS: BP 108/73
--- NOTE | 2020-07-09 12:07 | RADIOLOGY REPORT (SQ) ---
EXAM DESCRIPTION: U/S ABD PARACENTESIS IMAGES COMPLETED DATE/TIME: 07/09/2020 10:51 am REASON FOR STUDY: ASCITES COMPARISON 07/02/2020 LIMITATIONS: None. PROCEDURE: After obtaining informed consent, the patient was brought to the ultrasound suite. The p rocedure was performed with the patient on a gurney. Ultrasound was used to identify a prominent poc ket of ascites in the left lower quadrant. An appropriate access site was selected. The patient was prepped and draped in usual sterile fashion. The access site was anesthetized with 8 mL 1% lidocai ne. A Gyuj-H-Cvynmfzm needle was advanced into the fluid. After aspiration of fluid the needle, the catheter was advanced off the needle into the fluid. A total of 4,200 mL of clear, straw-colored fl uid was removed. The patient tolerated the procedure well left the department in satisfactory conditi on. IMPRESSION: Successful ultrasound-guided paracentesis COMMENT: Patient medication list reviewed: Yes- Quality ID# [id number]:Eligible professional attests to doc umenting in the medical record they obtained, updated, or reviewed the patient's current medications. TECHNICAL DOCUMENTATION: JOB ID: [id number] 2010 [employer]- All Rights Reserved Reading location - IP/workstation name: [email or web address]
== END 2020-07-09 11:15 | disposition home or self-care (01) ==
LOC: RAD 07:50
PROVIDERS: ATTEND Internal Medicine Geriatric Medicine
DX: K70.31 Alcoholic cirrhosis of liver with ascites (principal)
CPT/HCPCS: 36415; 49083; 82565; 84520; 85025; 85610; 85730

== ENCOUNTER 2020-07-16 07:40 | Day surgery (SDC) | payer OTHER ==
[2020-07-16 09:12] LABS: HEMOGLOBIN 9.2 g/dL (12.0-15.5); MEAN CORPUSCULAR HEMOGLOBIN 37.9 pg (27.0-33.4); MEAN CORPUSCULAR HGB CONC 35.4 g/dL (32.0-36.0); MEAN CORPUSCULAR VOLUME 107 fl (80-97); PLATELET COUNT 147 10^3/uL (150-450); RED BLOOD COUNT 2.43 10^6/uL (3.72-5.28); RED CELL DISTRIBUTION WIDTH 18.4 % (11.5-14.0); WHITE BLOOD COUNT 6.2 10^3/uL (4.0-10.5)
[2020-07-16 09:28] LABS: INTERNATIONAL RATION (INR) 1.17; PROTHROMBIN TIME 15.1 SEC (11.4-15.4)
[2020-07-16 09:30] LABS: PARTIAL THROMBOPLASTIN TIME 35.6 SEC (23.5-35.8)
[2020-07-16 09:32] LABS: BLOOD UREA NITROGEN 16 mg/dL (7-20)
--- NOTE | 2020-07-16 11:13 | RADIOLOGY REPORT (SQ) ---
EXAM DESCRIPTION: U/S ABD PARACENTESIS IMAGES COMPLETED DATE/TIME: 07/16/2020 10:50 am REASON FOR STUDY: ALCOHOLIC CIRRHOSIS OF LIVER WITH ASCITES COMPARISON 07/09/2020 LIMITATIONS: None. PROCEDURE: After obtaining informed consent, the patient was brought to the ultrasound suite. The p rocedure was performed with the patient on a gurney. Ultrasound was used to identify a prominent poc ket of ascites in the left lower quadrant. An appropriate access site was selected. The patient was prepped and draped in usual sterile fashion. The access site was anesthetized with 8 mL 1% lidocai ne. A Bxwn-U-Xcdjswho needle was advanced into the fluid. After aspiration of fluid the needle, the catheter was advanced off the needle into the fluid. A total of 5,000 mL of clear, straw-colored fl uid was removed. The patient tolerated the procedure well left the department in satisfactory conditi on. IMPRESSION: Successful ultrasound-guided paracentesis COMMENT: Patient medication list reviewed: Yes- Quality ID# [id number]:Eligible professional attests to doc umenting in the medical record they obtained, updated, or reviewed the patient's current medications. TECHNICAL DOCUMENTATION: JOB ID: [id number] 2010 [employer]- All Rights Reserved Reading location - IP/workstation name: [email or web address]
[2020-07-16 11:28] VITALS: BP 101/65
== END 2020-07-16 11:30 | disposition home or self-care (01) ==
LOC: RAD 07:40
PROVIDERS: ATTEND Internal Medicine Geriatric Medicine
DX: K70.31 Alcoholic cirrhosis of liver with ascites (principal)
CPT/HCPCS: 36415; 49083; 82565; 84520; 85027; 85610; 85730

== ENCOUNTER 2020-07-23 07:44 | Day surgery (SDC) | payer OTHER ==
[2020-07-23 08:30] LABS: HEMATOCRIT 25.3 % (36.0-47.0); HEMOGLOBIN 9.2 g/dL (12.0-15.5); MEAN CORPUSCULAR HEMOGLOBIN 38.4 pg (27.0-33.4); MEAN CORPUSCULAR HGB CONC 36.1 g/dL (32.0-36.0); MEAN CORPUSCULAR VOLUME 106 fl (80-97); PLATELET COUNT 151 10^3/uL (150-450); RED BLOOD COUNT 2.38 10^6/uL (3.72-5.28); RED CELL DISTRIBUTION WIDTH 16.8 % (11.5-14.0); WHITE BLOOD COUNT 5.7 10^3/uL (4.0-10.5)
[2020-07-23 08:42] LABS: INTERNATIONAL RATION (INR) 1.11; PROTHROMBIN TIME 14.5 SEC (11.4-15.4)
[2020-07-23 08:43] LABS: PARTIAL THROMBOPLASTIN TIME 34.3 SEC (23.5-35.8)
[2020-07-23 08:48] LABS: BLOOD UREA NITROGEN 15 mg/dL (7-20)
[2020-07-23] MEDS ORDERED: ALBUMIN HUMAN 50 GM/200 ML RTUINJ IV PRN (09:25)
--- NOTE | 2020-07-23 11:10 | RADIOLOGY REPORT (SQ) ---
EXAM DESCRIPTION: U/S ABD PARACENTESIS IMAGES COMPLETED DATE/TIME: 07/23/2020 10:40 am REASON FOR STUDY: ALCOHOLIC CIRRHOSIS OF LIVER WITH ASCITES K70.31 ALCOHOLIC CIRRHOSIS OF LIVER WIT H ASCITES COMPARISON: 07/16/2020 RADIATION DOSE: None LIMITATIONS: None. PROCEDURE: Procedure, risks, benefit, and alternative explained to patient who then gave written con sent. The left lower abdominal wall marked using ultrasound guidance. A time-out was called for cor rect marking verification. Abdomen prepped and draped using sterile technique. Local anesthesia achi eved using 5 ml of 1% lidocaine injection. A 6fr Lzgq-I-Gpxgquox set was introduced into the periton eal cavity. Fluid was drained. The catheter was removed and entry site was covered with sterile ban dage. No immediate complications noted. Images acquired during the procedure were stored on PACS. FINDINGS: ENTRY SITE: left lower quadrant. FLUID VOLUME: 7150 mL FLUID ANALYSIS: Straw-colored fluid OTHER: Therapeutic only. IMPRESSION: SUCCESSFUL ULTRASOUND GUIDED PARACENTESIS. COMMENT: Patient medication list reviewed:No TECHNICAL DOCUMENTATION: JOB ID: [id number] 2010 [employer]- All Rights Reserved Reading location - IP/workstation name: [email or web address] [id number]
[2020-07-23 11:15] VITALS: BP 103/64
== END 2020-07-23 11:05 | disposition home or self-care (01) ==
LOC: RAD 07:44
PROVIDERS: ATTEND Internal Medicine Geriatric Medicine
DX: K70.31 Alcoholic cirrhosis of liver with ascites (principal)
CPT/HCPCS: 36415; 84520; 82565; 85027; 85610; 85730; 49083; P9047

== ENCOUNTER 2020-07-30 07:45 | Day surgery (SDC) | payer OTHER ==
[2020-07-30 08:35] LABS: HEMATOCRIT 25.5 % (36.0-47.0); HEMOGLOBIN 9.1 g/dL (12.0-15.5); MEAN CORPUSCULAR HEMOGLOBIN 38.1 pg (27.0-33.4); MEAN CORPUSCULAR HGB CONC 35.6 g/dL (32.0-36.0); MEAN CORPUSCULAR VOLUME 107 fl (80-97); PLATELET COUNT 142 10^3/uL (150-450); RED BLOOD COUNT 2.39 10^6/uL (3.72-5.28); RED CELL DISTRIBUTION WIDTH 15.3 % (11.5-14.0)
[2020-07-30 08:39] LABS: PROTHROMBIN TIME 15.4 SEC (11.4-15.4)
[2020-07-30 08:40] LABS: PARTIAL THROMBOPLASTIN TIME 42.4 SEC (23.5-35.8)
[2020-07-30 08:52] LABS: BLOOD UREA NITROGEN 29 mg/dL (7-20)
[2020-07-30] MEDS ORDERED: ALBUMIN HUMAN 50 GM/200 ML RTUINJ IV PRN (09:48)
[2020-07-30 11:22] VITALS: BP 90/55
--- NOTE | 2020-07-30 13:12 | RADIOLOGY REPORT (SQ) ---
EXAM DESCRIPTION: U/S ABD PARACENTESIS IMAGES COMPLETED DATE/TIME: 07/30/2020 10:45 am REASON FOR STUDY: ALCOHOLIC CIRRHOSIS OF LIVER WITH ASCITES COMPARISON None. LIMITATIONS: None. PROCEDURE: After obtaining informed consent, the patient was brought to the ultrasound suite. The p rocedure was performed with the patient on a gurney. Ultrasound was used to identify a prominent poc ket of ascites in the right lower quadrant. An appropriate access site was selected. The patient wa s prepped and draped in usual sterile fashion. The access site was anesthetized with 5 mL 1% lidoca ine. A Noab-C-Csmrbwcb needle was advanced into the fluid. After aspiration of fluid the needle, th e catheter was advanced off the needle into the fluid. A total of 7,600 mL of straw-colored fluid wa s removed. The patient tolerated the procedure well left the department in satisfactory condition. IMPRESSION: Successful ultrasound-guided paracentesis COMMENT: Patient medication list reviewed: Yes- Quality ID# [id number]:Eligible professional attests to doc umenting in the medical record they obtained, updated, or reviewed the patient's current medications. TECHNICAL DOCUMENTATION: JOB ID: [id number] 2010 [employer]- All Rights Reserved Reading location - IP/workstation name: [email or web address] [id number]
== END 2020-07-30 11:20 | disposition home or self-care (01) ==
LOC: RAD 07:45
PROVIDERS: ATTEND Internal Medicine Geriatric Medicine
DX: K70.31 Alcoholic cirrhosis of liver with ascites (principal)
CPT/HCPCS: 36415; 84520; 82565; 85027; 85610; 85730; 49083; P9047

== ENCOUNTER 2020-08-06 07:39 | Day surgery (SDC) | payer OTHER ==
[2020-08-06 08:13] LABS: HEMATOCRIT 26.5 % (36.0-47.0); HEMOGLOBIN 9.5 g/dL (12.0-15.5); MEAN CORPUSCULAR HEMOGLOBIN 38.5 pg (27.0-33.4); MEAN CORPUSCULAR HGB CONC 35.8 g/dL (32.0-36.0); MEAN CORPUSCULAR VOLUME 108 fl (80-97); PLATELET COUNT 163 10^3/uL (150-450); RED BLOOD COUNT 2.46 10^6/uL (3.72-5.28); WHITE BLOOD COUNT 7.3 10^3/uL (4.0-10.5)
[2020-08-06 08:24] LABS: INTERNATIONAL RATION (INR) 1.18; PROTHROMBIN TIME 15.2 SEC (11.4-15.4)
[2020-08-06 08:25] LABS: PARTIAL THROMBOPLASTIN TIME 35.2 SEC (23.5-35.8)
[2020-08-06 08:29] LABS: BLOOD UREA NITROGEN 11 mg/dL (7-20)
--- NOTE | 2020-08-06 10:57 | RADIOLOGY REPORT (SQ) ---
EXAM DESCRIPTION: U/S ABD PARACENTESIS IMAGES COMPLETED DATE/TIME: 08/06/2020 10:50 am REASON FOR STUDY: ALCOHOLIC CIRRHOSIS OF LIVER WITH ASCITES COMPARISON 07/30/2020 LIMITATIONS: None. PROCEDURE: After obtaining informed consent, the patient was brought to the ultrasound suite. The p rocedure was performed with the patient on a gurney. Ultrasound was used to identify a prominent poc ket of ascites in the left lower quadrant. An appropriate access site was selected. The patient was prepped and draped in usual sterile fashion. The access site was anesthetized with 6 mL 1% lidocai ne. A Mzfw-E-Tpoenbav needle was advanced into the fluid. After aspiration of fluid the needle, the catheter was advanced off the needle into the fluid. A total of 5,000 mL of clear, straw-colored fl uid was removed. The patient tolerated the procedure well left the department in satisfactory conditi on. IMPRESSION: Successful ultrasound-guided paracentesis COMMENT: Patient medication list reviewed: Yes- Quality ID# [id number]:Eligible professional attests to doc umenting in the medical record they obtained, updated, or reviewed the patient's current medications. TECHNICAL DOCUMENTATION: JOB ID: [id number] 2010 [employer]- All Rights Reserved Reading location - IP/workstation name: [email or web address]
[2020-08-06 11:17] VITALS: BP 100/62
== END 2020-08-06 11:16 | disposition home or self-care (01) ==
LOC: RAD 07:39
PROVIDERS: ATTEND Internal Medicine Geriatric Medicine
DX: K70.31 Alcoholic cirrhosis of liver with ascites (principal)
CPT/HCPCS: 36415; 49083; 82565; 84520; 85027; 85610; 85730

== ENCOUNTER 2020-08-13 07:46 | Day surgery (SDC) | payer OTHER ==
[2020-08-13] MEDS ORDERED: ALBUMIN HUMAN 50 GM/200 ML RTUINJ IV PRN (10:23)
[2020-08-13 12:27] VITALS: BP 96/62
--- NOTE | 2020-08-13 14:12 | RADIOLOGY REPORT (SQ) ---
EXAM DESCRIPTION: U/S ABD PARACENTESIS IMAGES COMPLETED DATE/TIME: 08/13/2020 11:42 am REASON FOR STUDY: ASCITES COMPARISON None. LIMITATIONS: None. PROCEDURE: The procedure, risks, benefits, and alternatives were discussed with the patient and the patient's family who then gave written consent. The right lower quadrant was then marked utilizing s onographic guidance and a time-out was performed to document correct marking verification. The area around the selected percutaneous access site was then prepped and draped with 2% chlorhexidi ne utilizing standard sterile technique. After that, the selected access site was infiltrated with 5 ml of 1% lidocaine. A 6 Israeli Eqfz-H-Irgqogmv catheter was then introduced into the fluid-filled p eritoneal cavity and the fluid was aspirated. After the fluid was aspirated, the catheter was removed and the entry site was covered with a sterile bandage. No immediate complications were noted. Volume of Fluid: 7725 mL. Quality of the Fluid: Straw-colored. Was the fluid collected for analysis? No. Images acquired during the procedure were submitted to PACS. The patient tolerated the procedure with local anesthesia. At the end of the procedure the patient's condition was unchanged from the preprocedural baseline. Documentation of xclj-om-zcum time the proceduralist spent monitoring the patient: 15 minutes. IMPRESSION: Successful ultrasound-guided paracentesis. COMMENT: Patient medication list reviewed: Yes- Quality ID# [id number]:Eligible professional attests to doc umenting in the medical record they obtained, updated, or reviewed the patient's current medications. TECHNICAL DOCUMENTATION: JOB ID: [id number] 2010 [employer]- All Rights Reserved Reading location - IP/workstation name: [email or web address]
== END 2020-08-13 12:04 | disposition home or self-care (01) ==
LOC: RAD 07:46
PROVIDERS: ATTEND Internal Medicine Geriatric Medicine
DX: K70.31 Alcoholic cirrhosis of liver with ascites (principal)
CPT/HCPCS: 49083; P9047

== ENCOUNTER 2020-08-20 07:35 | Day surgery (SDC) | payer OTHER ==
[2020-08-20 08:27] LABS: ABSOLUTE EOSINOPHILS # (AUTO) 0.1 10^3/uL (0.0-0.6); ABSOLUTE LYMPHOCYTES (AUTO) 0.5 10^3/uL (0.5-4.7); ABSOLUTE MONOCYTES (AUTO) 0.5 10^3/uL (0.1-1.4); BASOPHILS % (AUTO) 0.9 % (0-2); EOSINOPHILS % (AUTO) 2.4 % (0-6); HEMATOCRIT 30.2 % (36.0-47.0); HEMOGLOBIN 10.8 g/dL (12.0-15.5); LYMPHOCYTES % (AUTO) 10.1 % (13-45); MEAN CORPUSCULAR HEMOGLOBIN 39.4 pg (27.0-33.4); MEAN CORPUSCULAR HGB CONC 35.7 g/dL (32.0-36.0); MEAN CORPUSCULAR VOLUME 110 fl (80-97); MONOCYTES % (AUTO) 9.4 % (3-13); PLATELET COUNT 165 10^3/uL (150-450); RED BLOOD COUNT 2.74 10^6/uL (3.72-5.28); RED CELL DISTRIBUTION WIDTH 16.8 % (11.5-14.0); SEGMENTED NEUTROPHILS % (AUTO) 77.2 % (42-78); TOTAL CELLS COUNTED % (AUTO) 100 %; WHITE BLOOD COUNT 5.2 10^3/uL (4.0-10.5)
[2020-08-20 08:34] LABS: INTERNATIONAL RATION (INR) 1.17; PROTHROMBIN TIME 15.1 SEC (11.4-15.4)
[2020-08-20 08:35] LABS: PARTIAL THROMBOPLASTIN TIME 34.1 SEC (23.5-35.8)
[2020-08-20 08:42] LABS: BLOOD UREA NITROGEN 23 mg/dL (7-20)
[2020-08-20 08:55] LABS: ANISOCYTOSIS 1+
[2020-08-20 08:56] LABS: OVALOCYTES 1+; POIKILOCYTOSIS 1+
[2020-08-20 08:58] LABS: TEAR DROP CELLS 1+
[2020-08-20 09:00] LABS: PLATELET COMMENT ADEQUATE
[2020-08-20] MEDS ORDERED: ALBUMIN HUMAN 50 GM/200 ML RTUINJ IV PRN (10:06)
--- NOTE | 2020-08-20 10:57 | RADIOLOGY REPORT (SQ) ---
EXAM DESCRIPTION: U/S ABD PARACENTESIS IMAGES COMPLETED DATE/TIME: 08/20/2020 10:39 am REASON FOR STUDY: ALCOHOLIC CIRRHOSIS OF LIVER WITH ASCITES COMPARISON 08/13/2020 LIMITATIONS: None. PROCEDURE: After obtaining informed consent, the patient was brought to the ultrasound suite. The p rocedure was performed with the patient on a gurney. Ultrasound was used to identify a prominent poc ket of ascites in the left lower quadrant. An appropriate access site was selected. The patient was prepped and draped in usual sterile fashion. The access site was anesthetized with 8 mL 1% lidocai ne. A Fsxk-P-Nwqrmdtk needle was advanced into the fluid. After aspiration of fluid the needle, the catheter was advanced off the needle into the fluid. A total of 7,000 mL of clear, straw-colored fl uid was removed. The patient tolerated the procedure well left the department in satisfactory conditi on. IMPRESSION: Successful ultrasound-guided paracentesis COMMENT: Patient medication list reviewed: Yes- Quality ID# [id number]:Eligible professional attests to doc umenting in the medical record they obtained, updated, or reviewed the patient's current medications. TECHNICAL DOCUMENTATION: JOB ID: [id number] 2010 [employer]- All Rights Reserved Reading location - IP/workstation name: [email or web address]
[2020-08-20 11:32] VITALS: BP 117/56
== END 2020-08-20 11:32 | disposition home or self-care (01) ==
LOC: RAD 07:35
PROVIDERS: ATTEND Internal Medicine Geriatric Medicine
DX: K70.31 Alcoholic cirrhosis of liver with ascites (principal)
CPT/HCPCS: 36415; 84520; 82565; 85025; 85610; 85730; 49083; P9047

== ENCOUNTER 2020-08-27 07:36 | Day surgery (SDC) | payer OTHER ==
[2020-08-27 10:51] VITALS: BP 107/61
--- NOTE | 2020-08-27 15:04 | RADIOLOGY REPORT (SQ) ---
EXAM DESCRIPTION: U/S ABD PARACENTESIS IMAGES COMPLETED DATE/TIME: 08/27/2020 10:19 am REASON FOR STUDY: ALCOHOLIC CIRRHOSIS OF LIVER WITH ASCITES COMPARISON None. LIMITATIONS: None. PROCEDURE: After obtaining informed consent, the patient was brought to the ultrasound suite. The p rocedure was performed with the patient on a gurney. Ultrasound was used to identify a prominent poc ket of ascites in the right lower quadrant. An appropriate access site was selected. The patient wa s prepped and draped in usual sterile fashion. The access site was anesthetized with 5 mL 1% lidoca ine. A Xytn-Z-Gzrxxymd needle was advanced into the fluid. After aspiration of fluid the needle, th e catheter was advanced off the needle into the fluid. A total of 5,000 mL of straw-colored fluid wa s removed. The patient tolerated the procedure well left the department in satisfactory condition. IMPRESSION: Successful ultrasound-guided paracentesis COMMENT: Patient medication list reviewed: Yes- Quality ID# [id number]:Eligible professional attests to doc umenting in the medical record they obtained, updated, or reviewed the patient's current medications. TECHNICAL DOCUMENTATION: JOB ID: [id number] 2010 [employer]- All Rights Reserved Reading location - IP/workstation name: [email or web address] [id number]
== END 2020-08-27 10:45 | disposition home or self-care (01) ==
LOC: RAD 07:36
PROVIDERS: ATTEND Internal Medicine Geriatric Medicine
DX: K70.31 Alcoholic cirrhosis of liver with ascites (principal)
CPT/HCPCS: 49083

== ENCOUNTER 2020-09-03 07:31 | Day surgery (SDC) | payer OTHER ==
[2020-09-03 08:35] LABS: INTERNATIONAL RATION (INR) 1.19; PROTHROMBIN TIME 15.3 SEC (11.4-15.4)
[2020-09-03 08:37] LABS: HEMATOCRIT 25.2 % (36.0-47.0); MEAN CORPUSCULAR HEMOGLOBIN 40.9 pg (27.0-33.4); MEAN CORPUSCULAR HGB CONC 35.8 g/dL (32.0-36.0); PLATELET COUNT 105 10^3/uL (150-450); RED CELL DISTRIBUTION WIDTH 17.7 % (11.5-14.0); WHITE BLOOD COUNT 6.7 10^3/uL (4.0-10.5)
[2020-09-03 08:49] LABS: BLOOD UREA NITROGEN 44 mg/dL (7-20)
[2020-09-03 09:11] LABS: MEAN CORPUSCULAR VOLUME 114 fl (80-97)
[2020-09-03] MEDS ORDERED: ALBUMIN HUMAN 50 GM/200 ML RTUINJ IV PRN (09:46)
[2020-09-03 11:41] VITALS: BP 115/62
--- NOTE | 2020-09-03 13:18 | RADIOLOGY REPORT (SQ) ---
EXAM DESCRIPTION: U/S ABD PARACENTESIS IMAGES COMPLETED DATE/TIME: 09/03/2020 11:13 am REASON FOR STUDY: ASCITES COMPARISON 08/27/2020 LIMITATIONS: None. PROCEDURE: After obtaining informed consent, the patient was brought to the ultrasound suite. The p rocedure was performed with the patient on a gurney. Ultrasound was used to identify a prominent poc ket of ascites in the right lower quadrant. An appropriate access site was selected. The patient wa s prepped and draped in usual sterile fashion. The access site was anesthetized with 8 mL 1% lidoca ine. A Cvpf-A-Zcbuttat needle was advanced into the fluid. After aspiration of fluid the needle, th e catheter was advanced off the needle into the fluid. A total of 8,950 mL of clear, straw-colored f luid was removed. The patient tolerated the procedure well left the department in satisfactory condit ion. IMPRESSION: Successful ultrasound-guided paracentesis COMMENT: Patient medication list reviewed: Yes- Quality ID# [id number]:Eligible professional attests to doc umenting in the medical record they obtained, updated, or reviewed the patient's current medications. TECHNICAL DOCUMENTATION: JOB ID: [id number] 2010 [employer]- All Rights Reserved Reading location - IP/workstation name: [email or web address]
--- OUTSIDE RECORDS SUMMARY | 2020-09-04 17:56 | XMS REPORT ---
:1975 [facility] [place] [facility] [place] [address] [place] [id number] Care Team Providers Name Role Phone Swathi VALDEZ Primary Care Physician Unavailable Allergies, Adverse Reactions, Alerts This patient has no known allergies or adverse reactions. Medications Ordered Filled Start Stop Current Ordering Indication Dosage Frequency Signature Comments Components Medication Medication Date Date Medication? Clinician (SIG) Name Name furosemide No 1 BID furosemide 80 mg 80 mg tablet Take tablet 1 tablet Take 1 twice a day tablet by oral twice a route for day by 30 days. oral route for 30 days. Lexapro 20 No 1 Q1D Lexapro 20 mg tablet mg tablet Take 1 Take 1 tablet tablet every day every day by oral by oral route as route as directed directed for 30 for 30 days. days. magnesium No 1 Q1D magnesium oxide 400 oxide 400 mg (241.3 mg (241.3 mg mg magnesium) magnesium) tablet Take tablet 1 tablet Take 1 every day tablet by oral every day route for by oral 30 days. route for 30 days. omeprazole No 1capsul Q1D omeprazole 20 mg e(s) 20 mg capsule,del capsule,de ayed layed release TK release TK 1 C PO QD 1 C PO QD spironolact No 1 Q1D spironolac one 100 mg tone 100 tablet Take mg tablet 2 tablets Take 2 in the tablets in Morning and the 1 tablet at Morning Night and 1 tablet at Night Zyrtec 10 No 1 Q1D Zyrtec 10 mg tablet mg tablet Take 1 Take 1 tablet tablet every day every day by oral by oral route as route as directed. directed. cetirizine No cetirizine 10 mg 10 mg tablet take tablet 1/2 tablet take 1/2 by oral tablet by route daily oral route daily escitalopra No 1 Q1D escitalopr m 20 mg am 20 mg tablet Take tablet 1 tablet Take 1 every day tablet by oral every day route for by oral 30 days. route for 30 days. Generlac 10 No 15mL TID Generlac gram/15 mL 10 gram/15 oral mL oral solution solution Take 15 mL Take 15 mL 3 times a 3 times a day by oral day by route for oral route 30 days. for 30 days. potassium No potassium chloride ER chloride 20 mEq ER 20 mEq tablet,exte tablet,ext nded ended release(par release(pa t/cryst) rt/cryst) take 1 take 1 tablet by tablet by oral route oral route daily daily potassium No 15mL Q1D potassium chloride 20 chloride mEq/15 mL 20 mEq/15 oral liquid mL oral Take 15 mL liquid every day Take 15 mL by oral every day route for by oral 30 days. route for 30 days. cyanocobala No 1 Q1D cyanocobal min barajas (vitamin (vitamin B-12) 2,500 B-12) mcg tablet 2,500 mcg Take 1 tablet tablet Take 1 every day tablet by oral every day route. by oral route. ferrous No 1 Q1D ferrous sulfate 325 sulfate mg (65 mg 325 mg (65 iron) mg iron) tablet Take tablet 1 tablet Take 1 every day tablet by oral every day route. by oral route. lactulose No 30g TID lactulose 10 gram/15 10 gram/15 mL oral mL oral solution solution 30 g 3 30 g 3 times a day times a by oral day by route. oral route. Xifaxan 550 No 1 BID Xifaxan mg tablet 550 mg TAKE 1 tablet TABLET BY TAKE 1 MOUTH 2 TABLET BY TIMES A DAY MOUTH 2 TIMES A DAY cetirizine No 1 Q1D cetirizine 5 mg tablet 5 mg Take 1 tablet tablet Take 1 every day tablet by oral every day route for by oral 30 days. route for 30 days. clotrimazol No 1 5xD clotrimazo e 10 mg le 10 mg armen Take armen 1 tablet 5 Take 1 times a day tablet 5 by oral times a route for day by 10 days. oral route for 10 days. clotrimazol No clotrimazo e-betametha le-betamet sone 1 hasone 1 %-0.05 % %-0.05 % topical topical cream APPLY cream TO THE APPLY TO AFFECTED THE AND AFFECTED SURROUNDING AND AREAS OF SURROUNDIN SKIN BY G AREAS OF TOPICAL SKIN BY ROUTE 2 TOPICAL TIMES PER ROUTE 2 DAY IN THE TIMES PER MORNING AND DAY IN THE EVENING FOR MORNING 2 WEEKS AND EVENING FOR 2 WEEKS doxycycline No doxycyclin monohydrate e 100 mg monohydrat capsule TK e 100 mg 1 C PO QID capsule TK FOR 14 DAYS 1 C PO QID FOR 14 DAYS ketoconazol No ketoconazo e 2 % le 2 % shampoo shampoo APPLY TO APPLY TO THE THE AFFECTED AFFECTED AREA(S), AREA(S), LATHER, LATHER, LEAVE IN LEAVE IN PLACE FOR 5 [address] FOR MINUTES, 5 MINUTES, AND THEN AND THEN RINSE OFF RINSE OFF WITH WATER WITH WATER BY TOPICAL BY TOPICAL ROUTE ONCE ROUTE ONCE DAILY DAILY metronidazo No metronidaz le 500 mg ole 500 mg tablet tablet omeprazole No omeprazole 40 mg 40 mg capsule,del capsule,de ayed layed release TK release TK 1 C PO BID 1 C PO BID cyanocobala No 1ug Q1D cyanocobal min (vit barajas (vit B-12) 1,000 B-12) mcg tablet 1,000 mcg Take 1 tablet tablet Take 1 every day tablet by oral every day route. by oral route. 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 00:00: cirrhosis Cirrhosis 00 Abdominal Abdominal Problem Active 2016-10 pain Pain 1-23 00:00: 00 Opioid Opioid Problem Active dependence Dependence 5-10 00:00: 00 Persistent Persistent Problem Active insomnia Insomnia 4-04 00:00: 00 Irreducible Irreducible Problem Active umbilical Umbilical 2-03 hernia Hernia 00:00: 00 Chronic Chronic Problem Active pain Pain 7-13 syndrome Syndrome 00:00: 00 Seasonal Seasonal Problem Active allergic Allergic 7-13 rhinitis Rhinitis 00:00: 00 Irregular Irregular Problem Active periods Periods 7-13 00:00: 00 Cirrhosis Cirrhosis Problem Active of liver of Liver 6-10 00:00: 00 Herpes Herpes Problem Active labialis Labialis 04-09 00:00: 00 Anxiety Anxiety Problem Active 01-07 00:00: 00 Depressive Depressive Problem Active disorder Disorder 01-07 00:00: 00 Essential Essential Problem Active hypertensio Hypertensio 01-07 n n 00:00: 00 Low back Low Back Problem Active pain Pain 01-07 00:00: 00 Narcotic Narcotic Problem Active drug user Drug User Chronic Chronic Problem Active pain Pain Mixed Mixed Problem Active anxiety and Anxiety and depressive Depressive disorder Disorder Procedures Procedure Date / Time Performed Performing Clinician Devic e MAMMO, screening, digital, 2020-08-07 00:00:00 bilateral paracentesis with removal of 2020-02-11 00:00:00 aqueous (PROC) XR, lumbosacral spine 2019-12-20 00:00:00 XR, hip, unilateral 2019-12-20 00:00:00 CHEST X-RAY 2 VIEWS 2019-01-10 00:00:00 Ultrasound Guided Paracentesis 2018-01-13 00:00:00 Ultrasound Guided Paracentesis 2018-01-13 00:00:00 (Surg) Ultrasound Guided Paracentesis 2016-10-29 00:00:00 Ultrasound Guided Paracentesis 2016-10-29 00:00:00 (Surg) Cholecystectomy 2015-09-26 00:00:00 DILATION AND CURETTAGE 2006-01-07 00:00:00 Cold Knife Cone Biopsy of Cervix Bilateral Tubal Ligation Hernia Repair Abdominal Paracentesis Results Test Description Test Time Test Comments Text Results Atomic Results Result Comments Complete blood count (hemogram) panel - Blood by Automated 07-30 00:00:00 count Test Item Value Reference Range Comments white blood count (test code = white blood count) 6.0 10 3/uL 4.0-10.5 red blood count (test code = red blood count) 2.39 10 6/uL 3. 72-5.28 hemoglobin (test code = hemoglobin) 9.1 g/dL 12.0-15.5 hematocrit (test code = hematocrit) 25.5 % 36.0-47.0 mean corpuscular volume (test code = mean corpuscular 107 fL 80-97 volume) mean corpuscular hemoglobin (test code = mean corpuscular 38.1 p g 27.0-33.4 hemoglobin) mean corpuscular HGB conc (test code = mean corpuscular HGB 35.6 g/dL 32.0-36.0 conc) red cell distribution width (test code = red cell 15.3 % 11.5-14.0 distribution width) platelet count (test code = platelet count) 142 10 3/uL 150- 450 [id number] 00:00:00 Test Item Value Reference Range Comments prothrombin time (test code = prothrombin time) 15.4 sec 11.4-15.4 international ration (INR) (test code = 1.20 international ration (INR)) partial thromboplastin [id number] 00:00:00 Test Item Value Reference Range Comments partial thromboplastin time (test code = partial 42.4 sec 23.5-35.8 thromboplastin time) Urea nitrogen [Mass/volume] in Serum or [id number] 00:00:00 Test Item Value Reference Range Comments blood urea nitrogen (test code = blood urea 29 mg/dL 7-20 nitrogen) creatinine [id number] 00:00:00 Test Item Value Reference Range Comments creatinine result (test code = creatinine result) 1.00 mg/dL 0.52-1.25 eGFR,non (test code = eGFR,non 59 >60 ) eGFR, (test code = eGFR, > 60 >60 [place]) Complete blood count (hemogram) panel - Blood by Automated [id number] 00:00:00 Test Item Value Reference Range Comments white blood count (test code = white blood 5.7 10 3/uL 4.0-1 0.5 count) red blood count (test code = red blood count) 2.38 10 6/uL 3. 72-5.28 hemoglobin (test code = hemoglobin) 9.2 g/dL 12.0-15.5 hematocrit (test code = hematocrit) 25.3 % 36.0-47.0 mean corpuscular volume (test code = mean 106 fL 80-97 corpuscular volume) mean corpuscular hemoglobin (test code = mean 38.4 pg 27 .0-33.4 corpuscular hemoglobin) mean corpuscular HGB conc (test code = mean 36.1 g/dL 32.0 -36.0 corpuscular HGB conc) red cell distribution width (test code = red 16.8 % 11. 5-14.0 cell distribution width) platelet count (test code = platelet count) 151 10 3/uL 150- 450 [id number] 00:00:00 Test Item Value Reference Range Comments prothrombin time (test code = prothrombin time) 14.5 sec 11.4-15.4 international ration (INR) (test code = 1.11 international ration (INR)) partial thromboplastin [id number] 00:00:00 Test Item Value Reference Range Comments partial thromboplastin time (test code = partial 34.3 sec 23.5-35.8 thromboplastin time) Urea nitrogen [Mass/volume] in Serum or [id number] 00:00:00 Test Item Value Reference Range Comments blood urea nitrogen (test code = blood urea 15 mg/dL 7-20 nitrogen) creatinine [id number] 00:00:00 Test Item Value Reference Range Comments creatinine result (test code = creatinine result) 0.70 mg/dL 0.52-1.25 eGFR,non (test code = eGFR,non > 60 >60 ) eGFR, (test code = eGFR, > 60 >60 [place]) Complete blood count (hemogram) panel - Blood by Automated [id number] 00:00:00 Test Item Value Reference Range Comments white blood count (test code = white blood 6.2 10 3/uL 4.0-1 0.5 count) red blood count (test code = red blood count) 2.43 10 6/uL 3. 72-5.28 hemoglobin (test code = hemoglobin) 9.2 g/dL 12.0-15.5 hematocrit (test code = hematocrit) 26.0 % 36.0-47.0 mean corpuscular volume (test code = mean 107 fL 80-97 corpuscular volume) mean corpuscular hemoglobin (test code = mean 37.9 pg 27 .0-33.4 corpuscular hemoglobin) mean corpuscular HGB conc (test code = mean 35.4 g/dL 32.0 -36.0 corpuscular HGB conc) red cell distribution width (test code = red 18.4 % 11. 5-14.0 cell distribution width) platelet count (test code = platelet count) 147 10 3/uL 150- 450 [id number] 00:00:00 Test Item Value Reference Range Comments prothrombin time (test code = prothrombin time) 15.1 sec 11.4-15.4 international ration (INR) (test code = 1.17 international ration (INR)) partial thromboplastin [id number] 00:00:00 Test Item Value Reference Range Comments partial thromboplastin time (test code = partial 35.6 sec 23.5-35.8 thromboplastin time) Urea nitrogen [Mass/volume] in Serum or [id number] 00:00:00 Test Item Value Reference Range Comments blood urea nitrogen (test code = blood urea 16 mg/dL 7-20 nitrogen) creatinine [id number] 00:00:00 Test Item Value Reference Range Comments creatinine result (test code = creatinine result) 0.81 mg/dL 0.52-1.25 eGFR,non (test code = eGFR,non > 60 >60 ) eGFR, (test code = eGFR, > 60 >60 [place]) [id number] 00:00:00 Test Item Value Reference Range Comments prothrombin time (test code = prothrombin time) 15.0 sec 11.4-15.4 international ration (INR) (test code = 1.16 international ration (INR)) partial thromboplastin [id number] 00:00:00 Test Item Value Reference Range Comments partial thromboplastin time (test code = partial 34.2 sec 23.5-35.8 thromboplastin time) CBC W Differential panel, method unspecified - [id number] 00:00:00 Test Item Value Reference Range Comments white blood count (test code = white blood 6.3 10 3/uL 4.0-1 0.5 count) red blood count (test code = red blood count) 2.84 10 6/uL 3. 72-5.28 hemoglobin (test code = hemoglobin) 10.6 g/dL 12.0-15.5 hematocrit (test code = hematocrit) 30.1 % 36.0-47.0 mean corpuscular volume (test code = mean 106 fL 80-97 corpuscular volume) mean corpuscular hemoglobin (test code = mean 37.4 pg 27 .0-33.4 corpuscular hemoglobin) mean corpuscular HGB conc (test code = mean 35.4 g/dL 32.0 -36.0 corpuscular HGB conc) red cell distribution width (test code = red 19.3 % 11. 5-14.0 cell distribution width) platelet count (test code = platelet count) 150 10 3/uL 150- 450 segmented neutrophils % (auto) (test code = 76.0 % 42-7 8 segmented neutrophils % (auto)) lymphocytes % (auto) (test code = lymphocytes % 10.0 % 13-45 (auto)) monocytes % (auto) (test code = monocytes % 10.9 % 3-13 (auto)) eosinophils % (auto) (test code = eosinophils % 2.3 % 0-6 (auto)) basophils % (auto) (test code = basophils % 0.8 % 0-2 (auto)) absolute neut (auto) (test code = absolute neut 4.8 10 3/uL 1.7-8.2 (auto)) absolute lymphocytes (auto) (test code = 0.6 10 3/uL 0.5-4.7 absolute lymphocytes (auto)) absolute monocytes (auto) (test code = absolute 0.7 10 3/uL 0.1-1.4 monocytes (auto)) absolute eosinophils # (auto) (test code = 0.1 10 3/uL 0.0-0 .6 absolute eosinophils # (auto)) absolute basophils # (auto) (test code = 0.1 10 3/uL 0.0-0.2 absolute basophils # (auto)) Urea nitrogen [Mass/volume] in Serum or [id number] 00:00:00 Test Item Value Reference Range Comments blood urea nitrogen (test code = blood urea 17 mg/dL 7-20 nitrogen) creatinine [id number] 00:00:00 Test Item Value Reference Range Comments creatinine result (test code = creatinine result) 0.78 mg/dL 0.52-1.25 eGFR,non (test code = eGFR,non > 60 >60 ) eGFR, (test code = eGFR, > 60 >60 [place]) Complete blood count (hemogram) panel - Blood by Automated [id number] 00:00:00 Test Item Value Reference Range Comments white blood count (test code = white blood 4.7 10 3/uL 4.0-1 0.5 count) red blood count (test code = red blood count) 1.96 10 6/uL 3. 72-5.28 hemoglobin (test code = hemoglobin) 7.2 g/dL 12.0-15.5 hematocrit (test code = hematocrit) 20.9 % 36.0-47.0 mean corpuscular volume (test code = mean 107 fL 80-97 corpuscular volume) mean corpuscular hemoglobin (test code = mean 37.0 pg 27 .0-33.4 corpuscular hemoglobin) mean corpuscular HGB conc (test code = mean 34.6 g/dL 32.0 -36.0 corpuscular HGB conc) red cell distribution width (test code = red 18.9 % 11. 5-14.0 cell distribution width) platelet count (test code = platelet count) 131 10 3/uL 150- 450 partial thromboplastin [id number] 00:00:00 Test Item Value Reference Range Comments partial thromboplastin time (test code = partial 40.1 sec 23.5-35.8 thromboplastin time) [id number] 00:00:00 Test Item Value Reference Range Comments prothrombin time (test code = prothrombin time) 17.1 sec 11.4-15.4 international ration (INR) (test code = 1.38 international ration (INR)) Urea nitrogen [Mass/volume] in Serum or [id number] 00:00:00 Test Item Value Reference Range Comments blood urea nitrogen (test code = blood urea 22 mg/dL 7-20 nitrogen) creatinine [id number] 00:00:00 Test Item Value Reference Range Comments creatinine result (test code = creatinine result) 1.38 mg/dL 0.52-1.25 eGFR,non (test code = eGFR,non 41 >60 ) eGFR, (test code = eGFR, 50 >60 [place]) [id number] 00:00:00 Test Item Value Reference Range Comments prothrombin time (test code = prothrombin time) 15.8 sec 11.4-15.4 international ration (INR) (test code = 1.25 international ration (INR)) partial thromboplastin [id number] 00:00:00 Test Item Value Reference Range Comments partial thromboplastin time (test code = partial 32.0 sec 23.5-35.8 thromboplastin time) Urea nitrogen [Mass/volume] in Serum or [id number] 00:00:00 Test Item Value Reference Range Comments blood urea nitrogen (test code = blood urea 22 mg/dL 7-20 nitrogen) creatinine [id number] 00:00:00 Test Item Value Reference Range Comments creatinine result (test code = creatinine result) 1.17 mg/dL 0.52-1.25 eGFR,non (test code = eGFR,non 50 >60 ) eGFR, (test code = eGFR, > 60 >60 [place]) CBC W Differential panel, method unspecified - [id number] 00:00:00 Test Item Value Reference Range Comments white blood count (test code = white blood 3.9 10 3/uL 4.0-1 0.5 count) red blood count (test code = red blood count) 1.95 10 6/uL 3. 72-5.28 hemoglobin (test code = hemoglobin) 7.2 g/dL 12.0-15.5 hematocrit (test code = hematocrit) 21.0 % 36.0-47.0 mean corpuscular volume (test code = mean 108 fL 80-97 corpuscular volume) mean corpuscular hemoglobin (test code = mean 37.1 pg 27 .0-33.4 corpuscular hemoglobin) mean corpuscular HGB conc (test code = mean 34.4 g/dL 32.0 -36.0 corpuscular HGB conc) red cell distribution width (test code = red 21.5 % 11. 5-14.0 cell distribution width) platelet count (test code = platelet count) 66 10 3/uL 150- 450 segmented neutrophils % (auto) (test code = 71.2 % 42-7 8 segmented neutrophils % (auto)) lymphocytes % (auto) (test code = lymphocytes % 13.9 % 13-45 (auto)) monocytes % (auto) (test code = monocytes % 12.5 % 3-13 (auto)) eosinophils % (auto) (test code = eosinophils % 1.8 % 0-6 (auto)) basophils % (auto) (test code = basophils % 0.6 % 0-2 (auto)) absolute neut (auto) (test code = absolute neut 2.8 10 3/uL 1.7-8.2 (auto)) absolute lymphocytes (auto) (test code = 0.5 10 3/uL 0.5-4.7 absolute lymphocytes (auto)) absolute monocytes (auto) (test code = absolute 0.5 10 3/uL 0.1-1.4 monocytes (auto)) absolute eosinophils # (auto) (test code = 0.1 10 3/uL 0.0-0 .6 absolute eosinophils # (auto)) absolute basophils # (auto) (test code = 0.0 10 3/uL 0.0-0.2 absolute basophils # (auto)) CBC W Differential panel, method unspecified - [id number] 00:00:00 Test Item Value Reference Range Comments white blood count (test code = white blood 5.9 10 3/uL 4.0-1 0.5 count) red blood count (test code = red blood count) 2.38 10 6/uL 3. 72-5.28 hemoglobin (test code = hemoglobin) 8.7 g/dL 12.0-15.5 hematocrit (test code = hematocrit) 24.9 % 36.0-47.0 mean corpuscular volume (test code = mean 104 fL 80-97 corpuscular volume) mean corpuscular hemoglobin (test code = mean 36.3 pg 27 .0-33.4 corpuscular hemoglobin) mean corpuscular HGB conc (test code = mean 34.8 g/dL 32.0 -36.0 corpuscular HGB conc) red cell distribution width (test code = red 20.2 % 11. 5-14.0 cell distribution width) platelet count (test code = platelet count) 102 10 3/uL 150- 450 segmented neutrophils % (auto) (test code = 74.6 % 42-7 8 segmented neutrophils % (auto)) lymphocytes % (auto) (test code = lymphocytes % 13.8 % 13-45 (auto)) monocytes % (auto) (test code = monocytes % 10.8 % 3-13 (auto)) eosinophils % (auto) (test code = eosinophils % 0.5 % 0-6 (auto)) basophils % (auto) (test code = basophils % 0.3 % 0-2 (auto)) absolute neut (auto) (test code = absolute neut 4.4 10 3/uL 1.7-8.2 (auto)) absolute lymphocytes (auto) (test code = 0.8 10 3/uL 0.5-4.7 absolute lymphocytes (auto)) absolute monocytes (auto) (test code = absolute 0.6 10 3/uL 0.1-1.4 monocytes (auto)) absolute eosinophils # (auto) (test code = 0.0 10 3/uL 0.0-0 .6 absolute eosinophils # (auto)) absolute basophils # (auto) (test code = 0.0 10 3/uL 0.0-0.2 absolute basophils # (auto)) [id number] 00:00:00 Test Item Value Reference Range Comments prothrombin time (test code = prothrombin time) 16.2 sec 11.4-15.4 international ration (INR) (test code = 1.30 international ration (INR)) partial thromboplastin [id number] 00:00:00 Test Item Value Reference Range Comments partial thromboplastin time (test code = partial 31.6 sec 23.5-35.8 thromboplastin time) Urea nitrogen [Mass/volume] in Serum or [id number] 00:00:00 Test Item Value Reference Range Comments blood urea nitrogen (test code = blood urea 41 mg/dL 7-20 nitrogen) creatinine [id number] 00:00:00 Test Item Value Reference Range Comments creatinine result (test code = creatinine result) 1.07 mg/dL 0.52-1.25 eGFR,non (test code = eGFR,non 55 >60 ) eGFR, (test code = eGFR, > 60 >60 [place]) Complete blood count (hemogram) panel - Blood by Automated [id number] 00:00:00 Test Item Value Reference Range Comments white blood count (test code = white blood 5.9 10 3/uL 4.0-1 0.5 count) red blood count (test code = red blood count) 2.78 10 6/uL 3. 72-5.28 hemoglobin (test code = hemoglobin) 9.8 g/dL 12.0-15.5 hematocrit (test code = hematocrit) 28.4 % 36.0-47.0 mean corpuscular volume (test code = mean 102 fL 80-97 corpuscular volume) mean corpuscular hemoglobin (test code = mean 35.2 pg 27 .0-33.4 corpuscular hemoglobin) mean corpuscular HGB conc (test code = mean 34.5 g/dL 32.0 -36.0 corpuscular HGB conc) red cell distribution width (test code = red 18.1 % 11. 5-14.0 cell distribution width) platelet count (test code = platelet count) 122 10 3/uL 150- 450 [id number] 00:00:00 Test Item Value Reference Range Comments prothrombin time (test code = prothrombin time) 15.3 sec 11.4-15.4 international ration (INR) (test code = 1.20 international ration (INR)) partial thromboplastin [id number] 00:00:00 Test Item Value Reference Range Comments partial thromboplastin time (test code = partial 32.2 sec 23.5-35.8 thromboplastin time) Urea nitrogen [Mass/volume] in Serum or [id number] 00:00:00 Test Item Value Reference Range Comments blood urea nitrogen (test code = blood urea 38 mg/dL 7-20 nitrogen) creatinine [id number] 00:00:00 Test Item Value Reference Range Comments creatinine result (test code = creatinine result) 1.04 mg/dL 0.52-1.25 eGFR,non (test code = eGFR,non 57 >60 ) eGFR, (test code = eGFR, > 60 >60 [place]) Complete blood count (hemogram) panel - Blood by Automated [id number] 00:00:00 Test Item Value Reference Range Comments white blood count (test code = white blood 5.8 10 3/uL 4.0-1 0.5 count) red blood count (test code = red blood count) 2.88 10 6/uL 3. 72-5.28 hemoglobin (test code = hemoglobin) 10.0 g/dL 12.0-15.5 hematocrit (test code = hematocrit) 28.7 % 36.0-47.0 mean corpuscular volume (test code = mean 100 fL 80-97 corpuscular volume) mean corpuscular hemoglobin (test code = mean 34.8 pg 27 .0-33.4 corpuscular hemoglobin) mean corpuscular HGB conc (test code = mean 34.9 g/dL 32.0 -36.0 corpuscular HGB conc) red cell distribution width (test code = red 16.3 % 11. 5-14.0 cell distribution width) platelet count (test code = platelet count) 118 10 3/uL 150- 450 [id number] 00:00:00 Test Item Value Reference Range Comments prothrombin time (test code = prothrombin time) 16.0 sec 11.4-15.4 international ration (INR) (test code = 1.27 international ration (INR)) partial thromboplastin [id number] 00:00:00 Test Item Value Reference Range Comments partial thromboplastin time (test code = partial 36.2 sec 23.5-35.8 thromboplastin time) Urea nitrogen [Mass/volume] in Serum or [id number] 00:00:00 Test Item Value Reference Range Comments blood urea nitrogen (test code = blood urea 24 mg/dL 7-20 nitrogen) creatinine [id number] 00:00:00 Test Item Value Reference Range Comments creatinine result (test code = creatinine result) 0.85 mg/dL 0.52-1.25 eGFR,non (test code = eGFR,non > 60 >60 ) eGFR, (test code = eGFR, > 60 >60 [place]) Complete blood count (hemogram) panel - Blood by Automated [id number] 00:00:00 Test Item Value Reference Range Comments white blood count (test code = white blood 6.3 10 3/uL 4.0-1 0.5 count) red blood count (test code = red blood count) 2.31 10 6/uL 3. 72-5.28 hemoglobin (test code = hemoglobin) 8.3 g/dL 12.0-15.5 hematocrit (test code = hematocrit) 23.8 % 36.0-47.0 mean corpuscular volume (test code = mean 103 fL 80-97 corpuscular volume) mean corpuscular hemoglobin (test code = mean 35.9 pg 27 .0-33.4 corpuscular hemoglobin) mean corpuscular HGB conc (test code = mean 34.9 g/dL 32.0 -36.0 corpuscular HGB conc) red cell distribution width (test code = red 15.9 % 11. 5-14.0 cell distribution width) platelet count (test code = platelet count) 149 10 3/uL 150- 450 [id number] 00:00:00 Test Item Value Reference Range Comments prothrombin time (test code = prothrombin time) 15.5 sec 11.4-15.4 international ration (INR) (test code = 1.22 international ration (INR)) partial thromboplastin [id number] 00:00:00 Test Item Value Reference Range Comments partial thromboplastin time (test code = partial 33.3 sec 23.5-35.8 thromboplastin time) Urea nitrogen [Mass/volume] in Serum or [id number] 00:00:00 Test Item Value Reference Range Comments blood urea nitrogen (test code = blood urea 16 mg/dL 7-20 nitrogen) creatinine [id number] 00:00:00 Test Item Value Reference Range Comments creatinine result (test code = creatinine result) 0.55 mg/dL 0.52-1.25 eGFR,non (test code = eGFR,non > 60 >60 ) eGFR, (test code = eGFR, > 60 >60 [place]) Complete blood count (hemogram) panel - Blood by Automated [id number] 00:00:00 Test Item Value Reference Range Comments white blood count (test code = white blood 5.9 10 3/uL 4.0-1 0.5 count) red blood count (test code = red blood count) 2.36 10 6/uL 3. 72-5.28 hemoglobin (test code = hemoglobin) 8.6 g/dL 12.0-15.5 hematocrit (test code = hematocrit) 24.5 % 36.0-47.0 mean corpuscular volume (test code = mean 104 fL 80-97 corpuscular volume) mean corpuscular hemoglobin (test code = mean 36.6 pg 27 .0-33.4 corpuscular hemoglobin) mean corpuscular HGB conc (test code = mean 35.4 g/dL 32.0 -36.0 corpuscular HGB conc) red cell distribution width (test code = red 16.5 % 11. 5-14.0 cell distribution width) platelet count (test code = platelet count) 136 10 3/uL 150- 450 Urea nitrogen [Mass/volume] in Serum or [id number] 00:00:00 Test Item Value Reference Range Comments blood urea nitrogen (test code = blood urea 17 mg/dL 7-20 nitrogen) [id number] 00:00:00 Test Item Value Reference Range Comments potassium (test code = potassium) 3.6 mmol/L 3.6-5.0 [id number] 00:00:00 Test Item Value Reference Range Comments prothrombin time (test code = prothrombin time) 16.0 sec 11.4-15.4 international ration (INR) (test code = 1.27 international ration (INR)) partial thromboplastin [id number] 00:00:00 Test Item Value Reference Range Comments partial thromboplastin time (test code = partial 35.2 sec 23.5-35.8 thromboplastin time) Complete blood count (hemogram) panel - Blood by Automated [id number] 00:00:00 Test Item Value Reference Range Comments white blood count (test code = white blood 5.0 10 3/uL 4.0-1 0.5 count) red blood count (test code = red blood count) 2.32 10 6/uL 3. 72-5.28 hemoglobin (test code = hemoglobin) 8.4 g/dL 12.0-15.5 hematocrit (test code = hematocrit) 24.5 % 36.0-47.0 mean corpuscular volume (test code = mean 106 fL 80-97 corpuscular volume) mean corpuscular hemoglobin (test code = mean 36.4 pg 27 .0-33.4 corpuscular hemoglobin) mean corpuscular HGB conc (test code = mean 34.4 g/dL 32.0 -36.0 corpuscular HGB conc) red cell distribution width (test code = red 18.1 % 11. 5-14.0 cell distribution width) platelet count (test code = platelet count) 142 10 3/uL 150- 450 [id number] 00:00:00 Test Item Value Reference Range Comments prothrombin time (test code = prothrombin time) 15.8 sec 11.4-15.4 international ration (INR) (test code = 1.25 international ration (INR)) partial thromboplastin [id number] 00:00:00 Test Item Value Reference Range Comments partial thromboplastin time (test code = partial 37.0 sec 23.5-35.8 thromboplastin time) Urea nitrogen [Mass/volume] in Serum or [id number] 00:00:00 Test Item Value Reference Range Comments blood urea nitrogen (test code = blood urea 11 mg/dL 7-20 nitrogen) creatinine [id number] 00:00:00 Test Item Value Reference Range Comments creatinine result (test code = creatinine result) 0.65 mg/dL 0.52-1.25 eGFR,non (test code = eGFR,non > 60 >60 ) eGFR, (test code = eGFR, > 60 >60 [place]) Complete blood count (hemogram) panel - Blood by Automated [id number] 00:00:00 Test Item Value Reference Range Comments white blood count (test code = white blood 6.1 10 3/uL 4.0-1 0.5 count) red blood count (test code = red blood count) 2.55 10 6/uL 3. 72-5.28 hemoglobin (test code = hemoglobin) 9.3 g/dL 12.0-15.5 hematocrit (test code = hematocrit) 26.2 % 36.0-47.0 mean corpuscular volume (test code = mean 103 fL 80-97 corpuscular volume) mean corpuscular hemoglobin (test code = mean 36.5 pg 27 .0-33.4 corpuscular hemoglobin) mean corpuscular HGB conc (test code = mean 35.5 g/dL 32.0 -36.0 corpuscular HGB conc) red cell distribution width (test code = red 18.6 % 11. 5-14.0 cell distribution width) platelet count (test code = platelet count) 135 10 3/uL 150- 450 Urea nitrogen [Mass/volume] in Serum or [id number] 00:00:00 Test Item Value Reference Range Comments blood urea nitrogen (test code = blood urea 15 mg/dL 7-20 nitrogen) creatinine [id number] 00:00:00 Test Item Value Reference Range Comments creatinine result (test code = creatinine result) 0.64 mg/dL 0.52-1.25 eGFR,non (test code = eGFR,non > 60 >60 ) eGFR, (test code = eGFR, > 60 >60 [place]) [id number] 00:00:00 Test Item Value Reference Range Comments prothrombin time (test code = prothrombin time) 15.1 sec 11.4-15.4 international ration (INR) (test code = 1.18 international ration (INR)) partial thromboplastin [id number] 00:00:00 Test Item Value Reference Range Comments partial thromboplastin time (test code = partial 31.4 sec 23.5-35.8 thromboplastin time) CBC W Auto Differential panel - [id number] 12:17:00 Test Item Value Reference Range Comments WBC (test code = WBC) 4.7 K/uL 4.1-10.9 lym% (test code = lym%) 19.8 % 10.0-58.5 lym# (test code = lym#) 0.9 % 0.6-4.1 mxd# (test code = mxd#) 0.7 % 0.0-1.8 mxd% (test code = mxd%) 15.3 % 0.1-24.0 gran (test code = gran) 3.1 % 2.0-7.8 gran% (test code = gran%) 64.9 % 37.0-92.0 RBC (test code = RBC) 2.18 M/uL 4.20-6.30 HGB (test code = HGB) 7.5 g/dL 14.1-18.1 HCT (test code = HCT) 22.0 % 34.5-53.7 MCV (test code = MCV) 100.8 fL 80.0-97.0 MCH (test code = MCH) 34.4 pg 26.0-32.0 MCHC (test code = MCHC) 34.1 g/dL 31.0-36.0 RDW (test code = RDW) 23.2 % 11.5-14.5 plt (test code = plt) 71 K/uL 140-440 MPV (test code = MPV) 8.0 fL 0.0-99.8 Spine Lumbar and Sacrum [id number] 11:58:48 Test Item Value Reference Range Comments Result (test code = Result) abnormal Complete blood count (hemogram) panel - Blood by Automated [id number] 00:00:00 Test Item Value Reference Range Comments white blood count (test code = white blood 7.0 10 3/uL 4.0-1 0.5 count) red blood count (test code = red blood count) 2.62 10 6/uL 3. 72-5.28 hemoglobin (test code = hemoglobin) 9.4 g/dL 12.0-15.5 hematocrit (test code = hematocrit) 27.0 % 36.0-47.0 mean corpuscular volume (test code = mean 103 fL 80-97 corpuscular volume) mean corpuscular hemoglobin (test code = mean 36.0 pg 27 .0-33.4 corpuscular hemoglobin) mean corpuscular HGB conc (test code = mean 34.9 g/dL 32.0 -36.0 corpuscular HGB conc) red cell distribution width (test code = red 23.0 % 11. 5-14.0 cell distribution width) platelet count (test code = platelet count) 122 10 3/uL 150- 450 [id number] 00:00:00 Test Item Value Reference Range Comments prothrombin time (test code = prothrombin time) 15.9 sec 11.4-15.4 international ration (INR) (test code = 1.26 international ration (INR)) partial thromboplastin [id number] 00:00:00 Test Item Value Reference Range Comments partial thromboplastin time (test code = partial 34.9 sec 23.5-35.8 thromboplastin time) Urea nitrogen [Mass/volume] in Serum or [id number] 00:00:00 Test Item Value Reference Range Comments blood urea nitrogen (test code = blood urea 23 mg/dL 7-20 nitrogen) creatinine [id number] 00:00:00 Test Item Value Reference Range Comments creatinine result (test code = creatinine result) 0.76 mg/dL 0.52-1.25 eGFR,non (test code = eGFR,non > 60 >60 ) eGFR, (test code = eGFR, > 60 >60 [place]) Urea nitrogen [Mass/volume] in Serum or [id number] 00:00:00 Test Item Value Reference Range Comments blood urea nitrogen (test code = blood urea 19 mg/dL 7-20 nitrogen) creatinine [id number] 00:00:00 Test Item Value Reference Range Comments creatinine result (test code = creatinine result) 0.67 mg/dL 0.52-1.25 eGFR,non (test code = eGFR,non > 60 >60 ) eGFR, (test code = eGFR, > 60 >60 [place]) Complete blood count (hemogram) panel - Blood by Automated [id number] 00:00:00 Test Item Value Reference Range Comments white blood count (test code = white blood 5.7 10 3/uL 4.0-1 0.5 count) red blood count (test code = red blood count) 2.65 10 6/uL 3. 72-5.28 hemoglobin (test code = hemoglobin) 9.5 g/dL 12.0-15.5 hematocrit (test code = hematocrit) 26.9 % 36.0-47.0 mean corpuscular volume (test code = mean 101 fL 80-97 corpuscular volume) mean corpuscular hemoglobin (test code = mean 35.8 pg 27 .0-33.4 corpuscular hemoglobin) mean corpuscular HGB conc (test code = mean 35.4 g/dL 32.0 -36.0 corpuscular HGB conc) red cell distribution width (test code = red 23.2 % 11. 5-14.0 cell distribution width) platelet count (test code = platelet count) 121 10 3/uL 150- 450 [id number] 00:00:00 Test Item Value Reference Range Comments prothrombin time (test code = prothrombin time) 16.5 sec 11.4-15.4 international ration (INR) (test code = 1.32 international ration (INR)) partial thromboplastin [id number] 00:00:00 Test Item Value Reference Range Comments partial thromboplastin time (test code = partial 34.5 sec 23.5-35.8 thromboplastin time) [id number] 00:00:00 Test Item Value Reference Range Comments prothrombin time (test code = prothrombin time) 15.8 sec 11.4-15.4 international ration (INR) (test code = 1.25 international ration (INR)) partial thromboplastin [id number] 00:00:00 Test Item Value Reference Range Comments partial thromboplastin time (test code = partial 34.4 sec 23.5-35.8 thromboplastin time) Urea nitrogen [Mass/volume] in Serum or [id number] 00:00:00 Test Item Value Reference Range Comments blood urea nitrogen (test code = blood urea 22 mg/dL 7-20 nitrogen) creatinine [id number] 00:00:00 Test Item Value Reference Range Comments creatinine result (test code = creatinine result) 1.37 mg/dL 0.52-1.25 eGFR,non (test code = eGFR,non 42 >60 ) eGFR, (test code = eGFR, 50 >60 [place]) Complete blood count (hemogram) panel - Blood by Automated [id number] 00:00:00 Test Item Value Reference Range Comments white blood count (test code = white blood 6.8 10 3/uL 4.0-1 0.5 count) red blood count (test code = red blood count) 2.04 10 6/uL 3. 72-5.28 hemoglobin (test code = hemoglobin) 7.8 g/dL 12.0-15.5 hematocrit (test code = hematocrit) 22.6 % 36.0-47.0 mean corpuscular volume (test code = mean 111 fL 80-97 corpuscular volume) mean corpuscular hemoglobin (test code = mean 38.3 pg 27 .0-33.4 corpuscular hemoglobin) mean corpuscular HGB conc (test code = mean 34.7 g/dL 32.0 -36.0 corpuscular HGB conc) red cell distribution width (test code = red 20.6 % 11. 5-14.0 cell distribution width) platelet count (test code = platelet count) 154 10 3/uL 150- 450 [id number] 00:00:00 Test Item Value Reference Range Comments prothrombin time (test code = prothrombin time) 15.8 sec 11.4-15.4 international ration (INR) (test code = 1.25 international ration (INR)) partial thromboplastin [id number] 00:00:00 Test Item Value Reference Range Comments partial thromboplastin time (test code = partial 34.4 sec 23.5-35.8 thromboplastin time) Urea nitrogen [Mass/volume] in Serum or [id number] 00:00:00 Test Item Value Reference Range Comments blood urea nitrogen (test code = blood urea 22 mg/dL 7-20 nitrogen) creatinine [id number] 00:00:00 Test Item Value Reference Range Comments creatinine result (test code = creatinine result) 1.37 mg/dL 0.52-1.25 eGFR,non (test code = eGFR,non 42 >60 ) eGFR, (test code = eGFR, 50 >60 [place]) Complete blood count (hemogram) panel - Blood by Automated [id number] 00:00:00 Test Item Value Reference Range Comments white blood count (test code = white blood 6.8 10 3/uL 4.0-1 0.5 count) red blood count (test code = red blood count) 2.04 10 6/uL 3. 72-5.28 hemoglobin (test code = hemoglobin) 7.8 g/dL 12.0-15.5 hematocrit (test code = hematocrit) 22.6 % 36.0-47.0 mean corpuscular volume (test code = mean 111 fL 80-97 corpuscular volume) mean corpuscular hemoglobin (test code = mean 38.3 pg 27 .0-33.4 corpuscular hemoglobin) mean corpuscular HGB conc (test code = mean 34.7 g/dL 32.0 -36.0 corpuscular HGB conc) red cell distribution width (test code = red 20.6 % 11. 5-14.0 cell distribution width) platelet count (test code = platelet count) 154 10 3/uL 150- 450 [id number] 00:00:00 Test Item Value Reference Range Comments prothrombin time (test code = prothrombin time) 17.0 sec 11.4-15.4 international ration (INR) (test code = 1.37 international ration (INR)) partial thromboplastin [id number] 00:00:00 Test Item Value Reference Range Comments partial thromboplastin time (test code = partial 34.6 sec 23.5-35.8 thromboplastin time) CBC w/ [id number] 00:00:00 Test Item Value Reference Range Comments white blood count (test code = white blood 5.5 10 3/uL 4.0-1 0.5 count) red blood count (test code = red blood count) 2.01 10 6/uL 3. 72-5.28 hemoglobin (test code = hemoglobin) 7.7 g/dL 12.0-15.5 hematocrit (test code = hematocrit) 22.5 % 36.0-47.0 mean corpuscular volume (test code = mean 112 fL 80-97 corpuscular volume) mean corpuscular hemoglobin (test code = mean 38.0 pg 27 .0-33.4 corpuscular hemoglobin) mean corpuscular HGB conc (test code = mean 34.0 g/dL 32.0 -36.0 corpuscular HGB conc) red cell distribution width (test code = red 20.7 % 11. 5-14.0 cell distribution width) platelet count (test code = platelet count) 157 10 3/uL 150- 450 segmented neutrophils % (auto) (test code = 66.3 % 42-7 8 segmented neutrophils % (auto)) lymphocytes % (auto) (test code = lymphocytes % 12.5 % 13-45 (auto)) monocytes % (auto) (test code = monocytes % 18.8 % 3-13 (auto)) eosinophils % (auto) (test code = eosinophils % 1.8 % 0-6 (auto)) basophils % (auto) (test code = basophils % 0.6 % 0-2 (auto)) absolute neut (auto) (test code = absolute neut 3.7 10 3/uL 1.7-8.2 (auto)) absolute lymphocytes (auto) (test code = 0.7 10 3/uL 0.5-4.7 absolute lymphocytes (auto)) absolute monocytes (auto) (test code = absolute 1.0 10 3/uL 0.1-1.4 monocytes (auto)) absolute eosinophils # (auto) (test code = 0.1 10 3/uL 0.0-0 .6 absolute eosinophils # (auto)) absolute basophils # (auto) (test code = 0.0 10 3/uL 0.0-0.2 absolute basophils # (auto)) Erythrocyte morphology panel - [id number] 00:00:00 Test Item Value Reference Range Comments WBC morphology comment (test code = WBC 3 morphology comment) macrocytosis (test code = macrocytosis) 3+ anisocytosis (test code = anisocytosis) 2+ poikilocytosis (test code = poikilocytosis) 1+ ovalocytes (test code = ovalocytes) 1+ tear drop cells (test code = tear drop cells) 1+ platelet comment (test code = platelet comment) adequate hematocrit (test code = hematocrit) 22.5 % 36.0-47.0 mean corpuscular volume (test code = mean 112 fL 80-97 corpuscular volume) mean corpuscular hemoglobin (test code = mean 38.0 pg 27 .0-33.4 corpuscular hemoglobin) mean corpuscular HGB conc (test code = mean 34.0 g/dL 32.0 -36.0 corpuscular HGB conc) red cell distribution width (test code = red 20.7 % 11. 5-14.0 cell distribution width) platelet count (test code = platelet count) 157 10 3/uL 150- 450 segmented neutrophils % (auto) (test code = 66.3 % 42-7 8 segmented neutrophils % (auto)) lymphocytes % (auto) (test code = lymphocytes % 12.5 % 13-45 (auto)) monocytes % (auto) (test code = monocytes % 18.8 % 3-13 (auto)) eosinophils % (auto) (test code = eosinophils % 1.8 % 0-6 (auto)) basophils % (auto) (test code = basophils % 0.6 % 0-2 (auto)) absolute neut (auto) (test code = absolute neut 3.7 10 3/uL 1.7-8.2 (auto)) absolute lymphocytes (auto) (test code = 0.7 10 3/uL 0.5-4.7 absolute lymphocytes (auto)) absolute monocytes (auto) (test code = absolute 1.0 10 3/uL 0.1-1.4 monocytes (auto)) absolute eosinophils # (auto) (test code = 0.1 10 3/uL 0.0-0 .6 absolute eosinophils # (auto)) absolute basophils # (auto) (test code = 0.0 10 3/uL 0.0-0.2 absolute basophils # (auto)) Urea nitrogen [Mass/volume] in Serum or [id number] 00:00:00 Test Item Value Reference Range Comments blood urea nitrogen (test code = blood urea 16 mg/dL 7-20 nitrogen) creatinine [id number] 00:00:00 Test Item Value Reference Range Comments creatinine result (test code = creatinine result) 1.00 mg/dL 0.52-1.25 eGFR,non (test code = eGFR,non > 60 >60 ) eGFR, (test code = eGFR, > 60 >60 [place]) [id number] 00:00:00 Test Item Value Reference Range Comments prothrombin time (test code = prothrombin time) 14.9 sec 11.4-15.4 international ration (INR) (test code = 1.16 international ration (INR)) partial thromboplastin [id number] 00:00:00 Test Item Value Reference Range Comments partial thromboplastin time (test code = partial 32.0 sec 23.5-35.8 thromboplastin time) Complete blood count (hemogram) panel - Blood by Automated [id number] 00:00:00 Test Item Value Reference Range Comments white blood count (test code = white blood 7.2 10 3/uL 4.0-1 0.5 count) red blood count (test code = red blood count) 2.04 10 6/uL 3. 72-5.28 hemoglobin (test code = hemoglobin) 7.8 g/dL 12.0-15.5 hematocrit (test code = hematocrit) 22.3 % 36.0-47.0 mean corpuscular volume (test code = mean 109 fL 80-97 corpuscular volume) mean corpuscular hemoglobin (test code = mean 38.3 pg 27 .0-33.4 corpuscular hemoglobin) mean corpuscular HGB conc (test code = mean 35.1 g/dL 32.0 -36.0 corpuscular HGB conc) red cell distribution width (test code = red 22.6 % 11. 5-14.0 cell distribution width) platelet count (test code = platelet count) 106 10 3/uL 150- 450 Urea nitrogen [Mass/volume] in Serum or [id number] 00:00:00 Test Item Value Reference Range Comments blood urea nitrogen (test code = blood urea 23 mg/dL 7-20 nitrogen) creatinine [id number] 00:00:00 Test Item Value Reference Range Comments creatinine result (test code = creatinine result) 1.10 mg/dL 0.52-1.25 eGFR,non (test code = eGFR,non 53 >60 ) eGFR, (test code = eGFR, > 60 >60 [place]) CBC W Auto Differential panel - [id number] 12:57:00 Test Item Value Reference Range Comments WBC (test code = WBC) 5.8 K/uL 4.1-10.9 lym% (test code = lym%) 25.0 % 10.0-58.5 lym# (test code = lym#) 1.5 % 0.6-4.1 mxd# (test code = mxd#) 2.3 % 0.0-1.8 mxd% (test code = mxd%) 40.1 % 0.1-24.0 gran (test code = gran) 2.0 % 2.0-7.8 gran% (test code = gran%) 34.9 % 37.0-92.0 RBC (test code = RBC) 2.04 M/uL 4.20-6.30 HGB (test code = HGB) 7.5 g/dL 14.1-18.1 HCT (test code = HCT) 21.3 % 34.5-53.7 MCV (test code = MCV) 104.4 fL 80.0-97.0 MCH (test code = MCH) 36.8 pg 26.0-32.0 MCHC (test code = MCHC) 35.2 g/dL 31.0-36.0 RDW (test code = RDW) 20.4 % 11.5-14.5 plt (test code = plt) 87 K/uL 140-440 MPV (test code = MPV) 6.7 fL 0.0-99.8 partial thromboplastin [id number] 00:00:00 Test Item Value Reference Range Comments partial thromboplastin time (test code = partial 31.5 sec 23.5-35.8 thromboplastin time) Urea nitrogen [Mass/volume] in Serum or [id number] 00:00:00 Test Item Value Reference Range Comments blood urea nitrogen (test code = blood urea 17 mg/dL 7-20 nitrogen) creatinine [id number] 00:00:00 Test Item Value Reference Range Comments creatinine result (test code = creatinine result) 1.04 mg/dL 0.52-1.25 eGFR,non (test code = eGFR,non 57 >60 ) eGFR, (test code = eGFR, > 60 >60 [place]) Urea nitrogen [Mass/volume] in Serum or [id number] 00:00:00 Test Item Value Reference Range Comments blood urea nitrogen (test code = blood urea 21 mg/dL 7-20 nitrogen) creatinine [id number] 00:00:00 Test Item Value Reference Range Comments creatinine result (test code = creatinine result) 1.33 mg/dL 0.52-1.25 eGFR,non (test code = eGFR,non 43 >60 ) eGFR, (test code = eGFR, 52 >60 [place]) [id number] 00:00:00 Test Item Value Reference Range Comments prothrombin time (test code = prothrombin time) 16.3 sec 11.4-15.4 international ration (INR) (test code = 1.30 international ration (INR)) partial thromboplastin [id number] 00:00:00 Test Item Value Reference Range Comments partial thromboplastin time (test code = partial 31.8 sec 23.5-35.8 thromboplastin time) Complete blood count (hemogram) panel - Blood by Automated [id number] 00:00:00 Test Item Value Reference Range Comments white blood count (test code = white blood 4.8 10 3/uL 4.0-1 0.5 count) red blood count (test code = red blood count) 1.64 10 6/uL 3. 72-5.28 hemoglobin (test code = hemoglobin) 6.4 g/dL 12.0-15.5 hematocrit (test code = hematocrit) 18.8 % 36.0-47.0 mean corpuscular volume (test code = mean 114 fL 80-97 corpuscular volume) mean corpuscular hemoglobin (test code = mean 39.1 pg 27 .0-33.4 corpuscular hemoglobin) mean corpuscular HGB conc (test code = mean 34.3 g/dL 32.0 -36.0 corpuscular HGB conc) red cell distribution width (test code = red 18.1 % 11. 5-14.0 cell distribution width) platelet count (test code = platelet count) 121 10 3/uL 150- 450 Complete blood count (hemogram) panel - Blood by Automated [id number] 00:00:00 Test Item Value Reference Range Comments white blood count (test code = white blood 6.5 10 3/uL 4.0-1 0.5 count) red blood count (test code = red blood count) 2.64 10 6/uL 3. 72-5.28 hemoglobin (test code = hemoglobin) 8.8 g/dL 12.0-15.5 hematocrit (test code = hematocrit) 26.0 % 36.0-47.0 mean corpuscular volume (test code = mean 99 fL 80-97 corpuscular volume) mean corpuscular hemoglobin (test code = mean 33.5 pg 27 .0-33.4 corpuscular hemoglobin) mean corpuscular HGB conc (test code = mean 34.0 g/dL 32.0 -36.0 corpuscular HGB conc) red cell distribution width (test code = red 14.3 % 11. 5-14.0 cell distribution width) platelet count (test code = platelet count) 104 10 3/uL 150- 450 Urea nitrogen [Mass/volume] in Serum or [id number] 00:00:00 Test Item Value Reference Range Comments blood urea nitrogen (test code = blood urea 14 mg/dL 7-20 nitrogen) creatinine [id number] 00:00:00 Test Item Value Reference Range Comments creatinine result (test code = creatinine result) 0.65 mg/dL 0.52-1.25 eGFR,non (test code = eGFR,non > 60 >60 ) eGFR, (test code = eGFR, > 60 >60 [place]) [id number] 00:00:00 Test Item Value Reference Range Comments prothrombin time (test code = prothrombin time) 16.8 sec 11.4-15.4 international ration (INR) (test code = 1.35 international ration (INR)) partial thromboplastin [id number] 00:00:00 Test Item Value Reference Range Comments partial thromboplastin time (test code = partial 38.2 sec 23.5-35.8 thromboplastin time) Urea nitrogen [Mass/volume] in Serum or [id number] 00:00:00 Test Item Value Reference Range Comments blood urea nitrogen (test code = blood urea 14 mg/dL 7-20 nitrogen) creatinine [id number] 00:00:00 Test Item Value Reference Range Comments creatinine result (test code = creatinine result) 0.72 mg/dL 0.52-1.25 eGFR,non (test code = eGFR,non > 60 >60 ) eGFR, (test code = eGFR, > 60 >60 [place]) [id number] 00:00:00 Test Item Value Reference Range Comments prothrombin time (test code = prothrombin time) 15.8 sec 11.4-15.4 international ration (INR) (test code = 1.20 international ration (INR)) partial thromboplastin [id number] 00:00:00 Test Item Value Reference Range Comments partial thromboplastin time (test code = partial 36.1 sec 23.5-35.8 thromboplastin time) Complete blood count (hemogram) panel - Blood by Automated [id number] 00:00:00 Test Item Value Reference Range Comments white blood count (test code = white blood 5.9 10 3/uL 4.0-1 0.5 count) red blood count (test code = red blood count) 2.20 10 6/uL 3. 72-5.28 hemoglobin (test code = hemoglobin) 8.0 g/dL 12.0-15.5 hematocrit (test code = hematocrit) 23.1 % 36.0-47.0 mean corpuscular volume (test code = mean 105 fL 80-97 corpuscular volume) mean corpuscular hemoglobin (test code = mean 36.2 pg 27 .0-33.4 corpuscular hemoglobin) mean corpuscular HGB conc (test code = mean 34.4 g/dL 32.0 -36.0 corpuscular HGB conc) red cell distribution width (test code = red 15.6 % 11. 5-14.0 cell distribution width) platelet count (test code = platelet count) 109 10 3/uL 150- 450 Complete blood count (hemogram) panel - Blood by Automated [id number] 00:00:00 Test Item Value Reference Range Comments white blood count (test code = white blood 6.0 10 3/uL 4.0-1 0.5 count) red blood count (test code = red blood count) 2.11 10 6/uL 3. 72-5.28 hemoglobin (test code = hemoglobin) 7.9 g/dL 12.0-15.5 hematocrit (test code = hematocrit) 23.3 % 36.0-47.0 mean corpuscular volume (test code = mean 110 fL 80-97 corpuscular volume) mean corpuscular hemoglobin (test code = mean 37.4 pg 27 .0-33.4 corpuscular hemoglobin) mean corpuscular HGB conc (test code = mean 33.9 g/dL 32.0 -36.0 corpuscular HGB conc) red cell distribution width (test code = red 15.8 % 11. 5-14.0 cell distribution width) platelet count (test code = platelet count) 114 10 3/uL 150- 450 lipid panel, [id number] 11:38:00 Test Item Value Reference Range Comments TC (<200 mg/dL) (test code = TC (<200 mg/dL)) 116 mg/dL <2 00 mg/dL HDL (40-60 mg/dL) (test code = HDL (40-60 mg/dL)) 34 mg/dL 40-60 mg/dL trig (<150 mg/dL) (test code = trig (<150 mg/dL)) 117 mg/dL <150 mg/dL LDL (<100 mg/dL) (test code = LDL (<100 mg/dL)) 59 mg/dL <100 non-HDL (<130 mg/dL) (test code = non-HDL (<130 82 mg/dL <130 mg/dL mg/dL)) TC/HDL ratio (4.5 or less) (test code = TC/HDL 3.4 mg/dL 4 .5 or less ratio (4.5 or less)) 10yr CHD risk (test code = 10yr CHD risk) % test code: 476600 (test code = test code: 626014) lipid panel, [id number] 11:38:00 Test Item Value Reference Range Comments TC (<200 mg/dL) (test code = TC (<200 mg/dL)) 116 mg/dL <2 00 mg/dL HDL (40-60 mg/dL) (test code = HDL (40-60 mg/dL)) 34 mg/dL 40-60 mg/dL trig (<150 mg/dL) (test code = trig (<150 mg/dL)) 117 mg/dL <150 mg/dL LDL (<100 mg/dL) (test code = LDL (<100 mg/dL)) 59 mg/dL <100 non-HDL (<130 mg/dL) (test code = non-HDL (<130 82 mg/dL <130 mg/dL mg/dL)) TC/HDL ratio (4.5 or less) (test code = TC/HDL 3.4 mg/dL 4 .5 or less ratio (4.5 or less)) 10yr CHD risk (test code = 10yr CHD risk) % test code: 886030 (test code = test code: 937413) CBC W Auto Differential panel - [id number] 11:26:00 Test Item Value Reference Range Comments WBC (test code = WBC) 7.1 K/uL 4.1-10.9 lym% (test code = lym%) 20.5 % 10.0-58.5 lym# (test code = lym#) 1.5 % 0.6-4.1 mxd# (test code = mxd#) 2.8 % 0.0-1.8 mxd% (test code = mxd%) 39.2 % 0.1-24.0 gran (test code = gran) 2.9 % 2.0-7.8 gran% (test code = gran%) 40.3 % 37.0-92.0 RBC (test code = RBC) 2.39 M/uL 4.20-6.30 HGB (test code = HGB) 9.0 g/dL 14.1-18.1 HCT (test code = HCT) 27.6 % 34.5-53.7 MCV (test code = MCV) 115.5 fL 80.0-97.0 MCH (test code = MCH) 37.7 pg 26.0-32.0 MCHC (test code = MCHC) 32.6 g/dL 31.0-36.0 RDW (test code = RDW) 15.1 % 11.5-14.5 plt (test code = plt) 81 K/uL 140-440 MPV (test code = MPV) 7.5 fL 0.0-99.8 CBC W Auto Differential panel - [id number] 11:26:00 Test Item Value Reference Range Comments WBC (test code = WBC) 7.1 K/uL 4.1-10.9 lym% (test code = lym%) 20.5 % 10.0-58.5 lym# (test code = lym#) 1.5 % 0.6-4.1 mxd# (test code = mxd#) 2.8 % 0.0-1.8 mxd% (test code = mxd%) 39.2 % 0.1-24.0 gran (test code = gran) 2.9 % 2.0-7.8 gran% (test code = gran%) 40.3 % 37.0-92.0 RBC (test code = RBC) 2.39 M/uL 4.20-6.30 HGB (test code = HGB) 9.0 g/dL 14.1-18.1 HCT (test code = HCT) 27.6 % 34.5-53.7 MCV (test code = MCV) 115.5 fL 80.0-97.0 MCH (test code = MCH) 37.7 pg 26.0-32.0 MCHC (test code = MCHC) 32.6 g/dL 31.0-36.0 RDW (test code = RDW) 15.1 % 11.5-14.5 plt (test code = plt) 81 K/uL 140-440 MPV (test code = MPV) 7.5 fL 0.0-99.8 Comprehensive metabolic 2000 panel - Serum or [id number] 00:00:00 Test Item Value Reference Range Comments calcium (test code = calcium) 8.3 mg/dL 8.4-10.2 glucose (test code = glucose) 165 mg/dL 75-110 blood urea nitrogen (test code = blood urea 17 mg/dL 7-20 nitrogen) creatinine result (test code = creatinine 0.95 mg/dL 0.52-1 .25 result) eGFR,non (test code = eGFR,non > 60 >60 ) eGFR, (test code = eGFR, > 60 >60 [place]) potassium (test code = potassium) 3.6 mmol/L 3.6-5.0 chloride (test code = chloride) 94 mmol/L 98-107 carbon dioxide (test code = carbon dioxide) 23 mmol/L 22-3 0 sodium (test code = sodium) 129.7 mmol/L 137-145 anion gap (test code = anion gap) 13 5-19 albumin (test code = albumin) 2.7 g/dL 3.5-5.0 aspartate amino transferase (test code = 107 U/L 14-36 aspartate amino transferase) alkaline phosphatase (test code = alkaline 118 U/L 38-12 6 phosphatase) alanine aminotransferase (test code = alanine 36 U/L 9- 52 aminotransferase) bilirubin,total (test code = bilirubin,total) 3.9 mg/dL 0. 2-1.3 bilirubin,direct (test code = bilirubin,direct) 2.6 mg/dL 0.0-0.4 total protein (test code = total protein) 5.8 g/dL 6.3-8. 2 [id number] 00:00:00 Test Item Value Reference Range Comments prothrombin time (test code = prothrombin time) 14.7 sec 11.4-15.4 international ration (INR) (test code = 1.10 international ration (INR)) partial thromboplastin [id number] 00:00:00 Test Item Value Reference Range Comments partial thromboplastin time (test code = partial 31.5 sec 23.5-35.8 thromboplastin time) Urea nitrogen [Mass/volume] in Serum or [id number] 00:00:00 Test Item Value Reference Range Comments blood urea nitrogen (test code = blood urea 17 mg/dL 7-20 nitrogen) creatinine [id number] 00:00:00 Test Item Value Reference Range Comments creatinine result (test code = creatinine result) 0.88 mg/dL 0.52-1.25 eGFR,non (test code = eGFR,non > 60 >60 ) eGFR, (test code = eGFR, > 60 >60 [place]) Complete blood count (hemogram) panel - Blood by Automated [id number] 00:00:00 Test Item Value Reference Range Comments white blood count (test code = white blood 9.4 10 3/uL 4.0-1 0.5 count) red blood count (test code = red blood count) 2.72 10 6/uL 3. 72-5.28 hemoglobin (test code = hemoglobin) 11.3 g/dL 12.0-15.5 hematocrit (test code = hematocrit) 32.3 % 36.0-47.0 mean corpuscular volume (test code = mean 119 fL 80-97 corpuscular volume) mean corpuscular hemoglobin (test code = mean 41.7 pg 27 .0-33.4 corpuscular hemoglobin) mean corpuscular HGB conc (test code = mean 35.1 g/dL 32.0 -36.0 corpuscular HGB conc) red cell distribution width (test code = red 15.3 % 11. 5-14.0 cell distribution width) platelet count (test code = platelet count) 140 10 3/uL 150- 450 [id number] 00:00:00 Test Item Value Reference Range Comments prothrombin time (test code = prothrombin time) 14.7 sec 11.4-15.4 international ration (INR) (test code = 1.10 international ration (INR)) partial thromboplastin [id number] 00:00:00 Test Item Value Reference Range Comments partial thromboplastin time (test code = partial 31.5 sec 23.5-35.8 thromboplastin time) Urea nitrogen [Mass/volume] in Serum or [id number] 00:00:00 Test Item Value Reference Range Comments blood urea nitrogen (test code = blood urea 17 mg/dL 7-20 nitrogen) creatinine [id number] 00:00:00 Test Item Value Reference Range Comments creatinine result (test code = creatinine result) 0.88 mg/dL 0.52-1.25 eGFR,non (test code = eGFR,non > 60 >60 ) eGFR, (test code = eGFR, > 60 >60 [place]) Complete blood count (hemogram) panel - Blood by Automated [id number] 00:00:00 Test Item Value Reference Range Comments white blood count (test code = white blood 9.4 10 3/uL 4.0-1 0.5 count) red blood count (test code = red blood count) 2.72 10 6/uL 3. 72-5.28 hemoglobin (test code = hemoglobin) 11.3 g/dL 12.0-15.5 hematocrit (test code = hematocrit) 32.3 % 36.0-47.0 mean corpuscular volume (test code = mean 119 fL 80-97 corpuscular volume) mean corpuscular hemoglobin (test code = mean 41.7 pg 27 .0-33.4 corpuscular hemoglobin) mean corpuscular HGB conc (test code = mean 35.1 g/dL 32.0 -36.0 corpuscular HGB conc) red cell distribution width (test code = red 15.3 % 11. 5-14.0 cell distribution width) platelet count (test code = platelet count) 140 10 3/uL 150- 450 [id number] 00:00:00 Test Item Value Reference Range Comments prothrombin time (test code = prothrombin time) 15.5 sec 11.4-15.4 international ration (INR) (test code = 1.17 international ration (INR)) partial thromboplastin [id number] 00:00:00 Test Item Value Reference Range Comments partial thromboplastin time (test code = partial 32.2 sec 23.5-35.8 thromboplastin time) Urea nitrogen [Mass/volume] in Serum or [id number] 00:00:00 Test Item Value Reference Range Comments blood urea nitrogen (test code = blood urea 10 mg/dL 7-20 nitrogen) creatinine [id number] 00:00:00 Test Item Value Reference Range Comments creatinine result (test code = creatinine result) 0.72 mg/dL 0.52-1.25 eGFR,non (test code = eGFR,non > 60 >60 ) eGFR, (test code = eGFR, > 60 >60 [place]) Complete blood count (hemogram) panel - Blood by Automated [id number] 00:00:00 Test Item Value Reference Range Comments white blood count (test code = white blood 5.6 10 3/uL 4.0-1 0.5 count) red blood count (test code = red blood count) 2.59 10 6/uL 3. 72-5.28 hemoglobin (test code = hemoglobin) 10.8 g/dL 12.0-15.5 hematocrit (test code = hematocrit) 31.2 % 36.0-47.0 mean corpuscular volume (test code = mean 120 fL 80-97 corpuscular volume) mean corpuscular hemoglobin (test code = mean 41.7 pg 27 .0-33.4 corpuscular hemoglobin) mean corpuscular HGB conc (test code = mean 34.7 g/dL 32.0 -36.0 corpuscular HGB conc) red cell distribution width (test code = red 15.4 % 11. 5-14.0 cell distribution width) platelet count (test code = platelet count) 92 10 3/uL 150- 450 Assessments Condition Name Status Diagnosis Date Treating Clinici an Adult health examination 2020-08-07 08:54:20 Active or passive immunization 2020-08-07 08:54: 20 Screening for malignant neoplasm of 2020-08-07 0 8:54:20 breast Screening for malignant neoplasm of 2020-08-07 0 8:54:20 cervix Screening for mental disorders 2020-08-07 09:30: 23 Seborrheic dermatitis of scalp 2020-08-07 09:44: 56 Candidiasis of mouth 2020-08-07 09:44:35 Essential hypertension 2020-08-07 09:25:47 Ascites due to alcoholic cirrhosis 2020-08-07 09 :26:40 Mixed anxiety and depressive disorder 2020-08-07 09:26:58 Seasonal allergic rhinitis 2020-08-07 09:27:11 History of alcohol abuse 2020-08-07 09:31:57 Anemia of chronic disease Active 2020-05-08 11:47:26 Malaise and fatigue Active 2020-05-08 10:57:02 Ascites due to alcoholic cirrhosis Active 2020-05-08 11 :51:06 Essential hypertension Active 2020-05-08 10:56:44 Cirrhosis of liver Active 2020-02-11 15:00:00 Ascites due to alcoholic cirrhosis Active 2020-02-11 15 :03:32 Anemia Active 2019-12-20 11:57:20 Malaise and fatigue Active 2019-12-20 11:57:26 Fall in home Active 2019-12-20 12:00:39 Acute low back pain Active 2019-12-20 11:57:11 Follow-up encounter Active 2019-12-05 10:06:18 Cirrhosis of liver Active 2019-12-05 10:12:38 Seasonal allergic rhinitis Active 2019-12-05 10:12:21 Gastroesophageal reflux disease Active 2019-12-05 10:12 :36 Depressive disorder Active 2019-12-05 11:36:17 Abdominal pain Active 2019-10-02 13:27:05 Anemia due to chronic blood loss Active 2019-10-02 13:2 4:45 Cirrhosis of liver Active 2019-10-02 12:44:02 Recurrent falls Active 2019-10-02 13:25:14 Alcohol dependence Active 2019-10-02 13:29:22 Cirrhosis of liver Active 2019-06-21 08:37:08 Ascites due to alcoholic cirrhosis Active 2019-06-21 09 :08:01 Follow-up encounter Active 2019-04-12 11:00:28 Cirrhosis of liver Active 2019-04-12 11:00:53 Mixed anxiety and depressive disorder Active 2019-04-12 11:01:06 Seasonal allergic rhinitis Active 2019-04-12 11:01:07 Gastroesophageal reflux disease Active 2019-04-12 11:01 :29 Follow-up encounter Active 2019-01-19 10:55:33 Alcoholic cirrhosis Active 2019-01-19 13:03:23 Ascites due to alcoholic cirrhosis Active 2019-01-19 13 :03:32 Dyspnea Active 2019-01-10 11:19:22 Cirrhosis of liver Active 2019-01-10 11:09:20 Essential hypertension Active 2019-01-10 11:09:22 Mixed anxiety and depressive disorder Active 2019-01-10 11:09:58 Noncompliance with treatment Active 2019-01-10 12:53:23 Seasonal allergic rhinitis Active 2019-01-10 12:56:52 Gastroesophageal reflux disease Active 2019-01-10 12:58 :07 Follow-up encounter Active 2018-10-23 10:55:00 Alcoholic cirrhosis Active 2018-10-23 12:16:55 Ascites due to alcoholic cirrhosis Active 2018-10-23 12 :16:02 Chronic pain syndrome Active 2018-10-23 12:16:15 Mixed anxiety and depressive disorder Active 2018-10-23 12:25:08 Influenza vaccination Active 2018-10-23 12:32:29 Encounters Start End Encounter Admission Attending Care Care Encounter Date/Time Date/Time Type Type Clinicians Facility Department ID 2020-08-07 2020-08-07 [facility] 80_ 00:00:00 00:00:00 [facility] [address], Medical Medical MD: [address] [place] [address], Ph. 2020-05-08 2020-05-08 [place] [id number]_ 00:00:00 00:00:00 [facility] [address], Medical Medical MD: [address] [place] [address], Ph. 2020-02-11 2020-02-11 [place] [id number]_ 00:00:00 00:00:00 [facility] [address], Medical Medical MD: [address] [place] [address], Ph. 2019-12-20 2019-12-20 [place] [id number]_ 00:00:00 00:00:00 [facility] [address], Medical Medical MD: [address] [place] [address], Ph. 2019-12-05 2019-12-05 [place] [id number]_ 00:00:00 00:00:00 [facility] [address], Medical Medical MD: [address] [place] [address], Ph. 2019-10-02 2019-10-02 [facility] [id number]_ 00:00:00 00:00:00 [facility] [address], Medical Medical MD: [address] [place] [address], Ph. 2019-06-21 2019-06-21 [facility] 80_ 00:00:00 00:00:00 [facility] [address], Medical Medical MD: [address] [place] [address], Ph. 2019-04-12 2019-04-12 [facility] 80_ 00:00:00 00:00:00 [facility] [address] Medical Medical MD: [address] [place] [address], Ph. 2019-01-19 2019-01-19 [facility] [id number]_ 00:00:00 00:00:00 [facility] [address], Medical Medical MD: [address] [place] [address], Ph. 2019-01-10 2019-01-10 [facility] [id number]_ 00:00:00 00:00:00 [facility] [address] Medical Medical MD: [address] [place] [address], Ph. 2018-10-23 2018-10-23 [facility] [id number]_ 00:00:00 00:00:00 [facility] [address], Medical Medical MD: [address] [place] [address], Ph. 2016-11-01 2016-11-01 Outpatient [facility] [id number] 11:48:48 14:07:46 _[id number] 2016-11-01 2016-11-01 Outpatient [facility] [id number] 00:00:00 00:00:00 _[id number] Immunizations Ordered Immunization Filled Immunization Date Status Commen ts Refusal Reason Name Name influenza, injectable, 2020-07-28 Completed quadrivalent 00:00:00 influenza, injectable, 2018-10-13 Completed quadrivalent 00:00:00 Influenza, injectable, 2017-07-19 Completed MDCK, preservative 16:23:00 free, quadrivalent pneumococcal 2016-11-01 Completed polysaccharide PPV23 00:00:00 influenza, seasonal, 2013-10-25 Completed injectable 00:00:00 Payers Payer Name Policy Type Policy Number Effective Date Expiration D ate HMO PRIME [id number] 2010 00:00:00 Plan of Treatment Planned Activity Planned Date Details Comments Future Appointment 2020-09-18 00:00:00 Graham Valdez, [address] [place] [address] [employer] [facility]; [place] [address] Social History Smoking Status Start Date Stop Date Former Smoker Vital Signs Vital Name Observation Time Observation Value Comments BP Diastolic 2020-08-07 00:00:00 60 mm[Hg] Height 2020-08-07 00:00:00 64 [in_i] BMI (Body Mass Index) 2020-08-07 00:00:00 18.9 kg/m2 BP Systolic 2020-08-07 00:00:00 98 mm[Hg] Body Weight 2020-08-07 00:00:00 110 [lb_av] BP Diastolic 2020-05-08 00:00:00 60 mm[Hg] Height 2020-05-08 00:00:00 64 [in_i] BMI (Body Mass Index) 2020-05-08 00:00:00 17.4 kg/m2 BP Systolic 2020-05-08 00:00:00 94 mm[Hg] Body Weight 2020-05-08 00:00:00 101.6 [lb_av] BP Diastolic 2019-12-20 00:00:00 58 mm[Hg] Height 2019-12-20 00:00:00 64 [in_i] BMI (Body Mass Index) 2019-12-20 00:00:00 17.5 kg/m2 BP Systolic 2019-12-20 00:00:00 95 mm[Hg] Body Weight 2019-12-20 00:00:00 102 [lb_av] BP Diastolic 2019-12-05 00:00:00 72 mm[Hg] Height 2019-12-05 00:00:00 64 [in_i] BMI (Body Mass Index) 2019-12-05 00:00:00 21 kg/m2 BP Systolic 2019-12-05 00:00:00 112 mm[Hg] Body Weight 2019-12-05 00:00:00 122.4 [lb_av] BP Diastolic 2019-10-02 00:00:00 64 mm[Hg] Height 2019-10-02 00:00:00 64 [in_i] BMI (Body Mass Index) 2019-10-02 00:00:00 23.7 kg/m2 BP Systolic 2019-10-02 00:00:00 100 mm[Hg] Body Weight 2019-10-02 00:00:00 138 [lb_av] BP Diastolic 2019-06-21 00:00:00 72 mm[Hg] Height 2019-06-21 00:00:00 64 [in_i] BMI (Body Mass Index) 2019-06-21 00:00:00 22.6 kg/m2 BP Systolic 2019-06-21 00:00:00 109 mm[Hg] Body Weight 2019-06-21 00:00:00 131.4 [lb_av] BP Diastolic 2019-04-12 00:00:00 66 mm[Hg] Height 2019-04-12 00:00:00 64 [in_i] BMI (Body Mass Index) 2019-04-12 00:00:00 21.4 kg/m2 BP Systolic 2019-04-12 00:00:00 98 mm[Hg] Body Weight 2019-04-12 00:00:00 124.6 [lb_av] BP Diastolic 2019-01-19 00:00:00 74 mm[Hg] Height 2019-01-19 00:00:00 64 [in_i] BMI (Body Mass Index) 2019-01-19 00:00:00 23.4 kg/m2 BP Systolic 2019-01-19 00:00:00 116 mm[Hg] Body Weight 2019-01-19 00:00:00 136.2 [lb_av] BP Diastolic 2019-01-10 00:00:00 60 mm[Hg] Height 2019-01-10 00:00:00 64 [in_i] BMI (Body Mass Index) 2019-01-10 00:00:00 23.6 kg/m2 BP Systolic 2019-01-10 00:00:00 109 mm[Hg] Body Weight 2019-01-10 00:00:00 137.6 [lb_av] BP Diastolic 2018-10-23 00:00:00 62 mm[Hg] Height 2018-10-23 00:00:00 64 [in_i] BMI (Body Mass Index) 2018-10-23 00:00:00 22.9 kg/m2 BP Systolic 2018-10-23 00:00:00 116 mm[Hg] Body Weight 2018-10-23 00:00:00 133.2 [lb_av] Hospital Discharge Instructions 1. Adult health examination well visit, ages 18 to 50: care instructions eating healthy foods: care instructions A healthy lifestyle: care instructions heart-healthy diet: care instructions 2. Active or passive immunization immunization: what you need to know pneumococcal polysa ccharide vaccine: what you need to know influenza (flu) vaccine: care instructions 3. Screening for malignant neoplasm of breast mammogram screening patient instructions learning about breast cancer screening MAMMO, screening, digital, bilateral 4. Screening for malignant neoplasm of ce rvix learning about cervical cancer screening human papillomavirus (HPV): care instructions 5. Screening for mental disorders learning about depression learning about anxiety disorders learning about alcohol use disorder 6. Seborrheic dermatitis of scalp ketoconazole 2 % shampoo clotrimazole-betamethasone 1 %-0.05 % topical cream seborrheic dermatitis: care instructions 7. Candidiasis of mouth candidiasis: care instructions clotrimazole 10 mg armen 8. Essential hypertension lipid panel, serum CMP, serum or plasma high blood pressure: care instructions dash diet: care instructions 9. Ascites due to alcoholic cirrhosis spironolactone 100 mg tablet furosemide 80 mg tablet magnesium oxide 400 mg (241.3 mg magnesium) tablet 10. Mixedanxiety and depressive disorder escitalopram 20 mg tablet 11. Seasonal allergic rhinitis cetirizine 5 mg tablet 12. History of alcohol abuse alcohol detoxification and withdrawal: care instructions Discussion Note Patient verbalized understanding and agreement with recommended care plan. All questions and concerns were addressed and answered adequately. Follow up visit will address htn, liver cirrosis, anemia1. Anemia of chronic disease anemia: care instructions transfuse packed red blood cells 2. Ma laise and fatigue fatigue: care instructions 3. Ascites due to alcoholic cirrhosis gastroenterology referral ascites: care instructions cirrhosis: care instructions 4. Essential hypertension dash diet: care instructions low sodium diet (2,000 milligram): care instructions po tassium-rich diet: care instructions Discussion Note Patient verbalized understanding and agreement with recommended care plan. All questions and concerns were addressed and answered adequately. Followup visit will address liver cirrhosis, htn, anemia1. Cirrhosis of liver 2. Ascites due to alcoholic cirrhosis paracentesis with removal of aqueous(PROC) - Administer Albumin Human 25 % 8gm / Liter for every liter of ascitic fluid drained after the 4th liter during or after the procedure. Discussion Note Patient verbalized understanding and agreement with recommended care plan. All questions and concerns were addressed and answered adequately. Follow up visit will address htn, anemia, fatigue Patient educational handouts: No information available.1. Follow-up encounter safe hospital stay: care instructions 2. Cirrhosis of liver furosemide 80 mg tablet potassium chloride ER 20 mEq tablet,extended release(part/cryst) spironolactone 100 mg tablet hepatology referral interventional radiology referral - Administer 8gm/Liter of ascites fluid removed above 4 liters. 3. Seasonal allergic rhinitis cetirizine 10 mg tablet 4.Gastroesophageal reflux disease omeprazole 20 mg capsule,delayed release 5. Depressive disorder escitalopram 20 mg tablet Discussion Note Patient verbalized understanding and agreement with recommended care plan. All questions and concerns were addressed and answered adequately. Follow up visit will address liver cirrhosis, htn, mixed a&d1. Abdominal pain abdominal pain: care instructions 2. Anemia due to chronic blood loss CBC w/ auto diff anemia from heavy bleeding: care instructions 3. Cirrhosis of liver cirrhosis: care instructions liver disease diet: care instructions 4. Recurrent falls how to get up safely after a fall: care instructions preventing falls: care instructions 5. Alcohol dependence alcohol and drug problems: care instructions alcohol detoxification and withdrawal: care instructions Discussion Note Patient verbalized understanding and agreement with recommended care plan. All questions and concerns were addressed and answered adequately. Follow up visit will address post acute care plan.1. Cirrhosis of liver cirrhosis: care instructions liver disease diet: care instructions spironolactone 100 mg tablet furosemide 80 mg tablet Generlac 10 gram/15 mL oral solution 2.Ascites due to alcoholic cirrhosis interventional radiology referral ascites: care instructions Discussion Note Patient verbalized understanding and agreement with recommended care plan. All questions and concerns were addressed and answered adequately. Follow up visit will address ape1. Follow-up encounter safe hospital stay: care instructions 2. Cirrhosis of liver furosemide 80 mg tablet spironolactone 100 mg tablet magnesium 400 mg (as magnesium oxide) tablet potassium chloride ER 20 mEq tablet,extended release(part/cryst) Generlac 10 gram/15 mL oral solution 3. Mixed anxiety and depressive disorder escitalopram 20 mg tablet 4. Seasonal allergic rhinitis cetirizine 10 mg tablet 5. Gastroesophageal reflux disease omeprazole 20 mg capsule,delayed release Discussion Note Patient verbalized understanding and agreement with recommended care plan. All questions and concerns were addressed and answered adequately. Follow up visit will address ape1. Dyspnea shortness of breath: care instructions XR, chest, 2 view 2. Cirrhosis of liver cirrhosis: care instructions liver disease diet: care instructions furosemide 80 mg tablet Generlac 10 gram/15 mL oral solution magnesium 400 mg (as magnesium oxide) tablet spironolactone 100 mg tablet potassium chloride ER 20 mEq tablet,extended release(part/cryst) 3. Essential hypertension high blood pressure: care instructions learning about high blood pressure CMP, serum or plasma CBC w/ auto diff lipid panel, blood 4. Mixed anxiety and depressive disorder escitalopram 20 mg tablet 5. Noncompliance with treatment 6. Seasonal allergic rhinitis cetirizine 10 mg tablet seasonal allergies: care instructions 7. Gastroesophageal reflux disease omeprazole 20 mg capsule,delayed release gastroesophageal reflux disease (GERD): care instructions Discussion Note Patient verbalized understanding and agreement with recommended care plan. Allquestions and concerns were addressed and answered adequately. Follow up visit will address end stage liver disease, htn, gerd, mixed A&D1. Follow-up encounter safe hospital stay: care instructions 2. Alcoholic cirrhosis cirrhosis: care instructions liver disease diet: care instructions low sodium diet (2,000 milligram):care instructions 3. Ascites due to alcoholic cirrhosis interventional radiology referral CBC PT/PTT, plasma ascites: care instructions 4. Chronic pain syndrome 5. Mixed anxiety and depressive disorder psychiatry referral 6. Influenza vaccination influenza (flu) vaccine: care instructions Discussion Note Patient verbalized understanding and agreement with recommended care plan. All questions and concerns were addressed and answered adequately. Follow up visit will address liver cirrhosis, htn, Mixed A&D
== END 2020-09-03 11:30 | disposition home or self-care (01) ==
LOC: RAD 07:31
PROVIDERS: ATTEND Internal Medicine Geriatric Medicine
DX: K74.60 Unspecified cirrhosis of liver (principal); R18.8 Other ascites
CPT/HCPCS: 36415; 84520; 82565; 85027; 85610; 85730; 49083; P9047

== ENCOUNTER 2020-09-10 07:39 | Day surgery (SDC) | payer OTHER ==
[2020-09-10 12:08] VITALS: BP 97/62
--- NOTE | 2020-09-10 14:02 | RADIOLOGY REPORT (SQ) ---
EXAM DESCRIPTION: U/S ABD PARACENTESIS IMAGES COMPLETED DATE/TIME: 09/10/2020 10:05 am REASON FOR STUDY: ASCITES COMPARISON None. LIMITATIONS: None. PROCEDURE: After obtaining informed consent, the patient was brought to the ultrasound suite. The p rocedure was performed with the patient on a gurney. Ultrasound was used to identify a prominent poc ket of ascites in the left lower quadrant. An appropriate access site was selected. The patient was prepped and draped in usual sterile fashion. The access site was anesthetized with 6 mL 1% lidocai ne. A Iyll-F-Rrkujxhk needle was advanced into the fluid. After aspiration of fluid the needle, the catheter was advanced off the needle into the fluid. A total of 4,500 mL of straw-colored fluid was removed. The patient tolerated the procedure well left the department in satisfactory condition. IMPRESSION: Successful ultrasound-guided paracentesis COMMENT: Patient medication list reviewed: Yes- Quality ID# [id number]:Eligible professional attests to doc umenting in the medical record they obtained, updated, or reviewed the patient's current medications. TECHNICAL DOCUMENTATION: JOB ID: [id number] 2010 [employer]- All Rights Reserved Reading location - IP/workstation name: [email or web address]
== END 2020-09-10 10:30 | disposition home or self-care (01) ==
LOC: RAD 07:39
PROVIDERS: ATTEND Internal Medicine Geriatric Medicine
DX: R18.8 Other ascites (principal); K74.60 Unspecified cirrhosis of liver
CPT/HCPCS: 49083

== ENCOUNTER 2020-09-17 07:48 | Day surgery (SDC) | payer OTHER ==
[2020-09-17 10:50] VITALS: BP 101/62
--- NOTE | 2020-09-17 12:20 | RADIOLOGY REPORT (SQ) ---
EXAM DESCRIPTION: U/S ABD PARACENTESIS IMAGES COMPLETED DATE/TIME: 09/17/2020 10:25 am REASON FOR STUDY: ASCITES K70.31 ALCOHOLIC CIRRHOSIS OF LIVER WITH ASCITES COMPARISON: Paracentesis 09/10/2020 RADIATION DOSE: None LIMITATIONS: None. PROCEDURE: Procedure, risks, benefit, and alternative explained to patient who then gave written con sent. The left lower abdominal wall marked using ultrasound guidance. A time-out was called for cor rect marking verification. Abdomen prepped and draped using sterile technique. Local anesthesia achi eved using 5 ml of 1% lidocaine injection. A 6fr Ymkb-F-Axgvfwwy set was introduced into the periton eal cavity. Fluid was drained. The catheter was removed and entry site was covered with sterile ban dage. No immediate complications noted. Images acquired during the procedure were stored on PACS. FINDINGS: ENTRY SITE: Left lower quadrant. FLUID VOLUME: 4200 mL FLUID ANALYSIS: Cloudy annette colored fluid OTHER: Therapeutic only. IMPRESSION: SUCCESSFUL ULTRASOUND GUIDED PARACENTESIS. COMMENT: Patient medication list reviewed:Yes- Quality ID# [id number]:Eligible professional attests to docu menting in the medical record they obtained, updated, or reviewed the patient's current medications. TECHNICAL DOCUMENTATION: JOB ID: [id number] 2010 [employer]- All Rights Reserved Reading location - IP/workstation name: [email or web address] [id number]
== END 2020-09-17 10:45 | disposition home or self-care (01) ==
LOC: RAD 07:48
PROVIDERS: ATTEND Internal Medicine Geriatric Medicine
DX: R18.8 Other ascites (principal)
CPT/HCPCS: 49083

== ENCOUNTER 2020-09-24 07:46 | Day surgery (SDC) | payer OTHER ==
[2020-09-24 08:36] LABS: HEMATOCRIT 21.7 % (36.0-47.0); MEAN CORPUSCULAR HGB CONC 34.7 g/dL (32.0-36.0); PLATELET COUNT 176 10^3/uL (150-450); RED BLOOD COUNT 1.98 10^6/uL (3.72-5.28); WHITE BLOOD COUNT 6.9 10^3/uL (4.0-10.5)
[2020-09-24 08:41] LABS: MEAN CORPUSCULAR VOLUME 110 fl (80-97)
[2020-09-24 08:42] LABS: HEMOGLOBIN 7.5 g/dL (12.0-15.5)
[2020-09-24 08:44] LABS: INTERNATIONAL RATION (INR) 1.22; PROTHROMBIN TIME 15.6 SEC (11.4-15.4)
[2020-09-24 08:45] LABS: PARTIAL THROMBOPLASTIN TIME 39.1 SEC (23.5-35.8)
[2020-09-24 08:46] LABS: BLOOD UREA NITROGEN 19 mg/dL (7-20)
[2020-09-24] MEDS ORDERED: ALBUMIN HUMAN 50 GM/200 ML RTUINJ IV PRN (10:28)
[2020-09-24 12:20] VITALS: BP 103/53
--- NOTE | 2020-09-24 13:07 | RADIOLOGY REPORT (SQ) ---
EXAM DESCRIPTION: U/S ABD PARACENTESIS IMAGES COMPLETED DATE/TIME: 09/24/2020 11:43 am REASON FOR STUDY: ASCITES COMPARISON None. LIMITATIONS: None. PROCEDURE: The procedure, risks, benefits, and alternatives were discussed with the patient and the patient's family who then gave written consent. The right lower quadrant was then marked utilizing s onographic guidance and a time-out was performed to document correct marking verification. The area around the selected percutaneous access site was then prepped and draped with 2% chlorhexidi ne utilizing standard sterile technique. After that, the selected access site was infiltrated with 5 ml of 1% lidocaine. A 6 [place] Ksas-K-Kdguuvqk catheter was then introduced into the fluid-filled p eritoneal cavity and the fluid was aspirated. After the fluid was aspirated, the catheter was removed and the entry site was covered with a sterile bandage. No immediate complications were noted. Volume of Fluid: 6200 mL. Quality of the Fluid: Straw-colored. Was the fluid collected for analysis? No. Images acquired during the procedure were submitted to PACS. The patient tolerated the procedure with local anesthesia. At the end of the procedure the patient's condition was unchanged from the preprocedural baseline. Documentation of khte-xg-qpys time the proceduralist spent monitoring the patient: 15 minutes. IMPRESSION: Successful ultrasound-guided paracentesis. COMMENT: Patient medication list reviewed: Yes- Quality ID# [id number]:Eligible professional attests to doc umenting in the medical record they obtained, updated, or reviewed the patient's current medications. TECHNICAL DOCUMENTATION: JOB ID: [id number] 2010 [employer]- All Rights Reserved Reading location - IP/workstation name: [email or web address] [id number]
== END 2020-09-24 12:17 | disposition home or self-care (01) ==
LOC: RAD 07:46
PROVIDERS: ATTEND Internal Medicine Geriatric Medicine
DX: R18.8 Other ascites (principal); K74.60 Unspecified cirrhosis of liver
CPT/HCPCS: 36415; 84520; 82565; 85027; 85610; 85730; 49083; P9047

== ENCOUNTER 2020-10-01 07:50 | Day surgery (SDC) | payer OTHER ==
[2020-10-01 08:33] LABS: ABSOLUTE BASOPHILS # (AUTO) 0.1 10^3/uL (0.0-0.2); ABSOLUTE EOSINOPHILS # (AUTO) 0.1 10^3/uL (0.0-0.6); ABSOLUTE LYMPHOCYTES (AUTO) 0.5 10^3/uL (0.5-4.7); ABSOLUTE NEUT (AUTO) 6.5 10^3/uL (1.7-8.2); BASOPHILS % (AUTO) 0.7 % (0-2); EOSINOPHILS % (AUTO) 1.7 % (0-6); HEMATOCRIT 30.1 % (36.0-47.0); LYMPHOCYTES % (AUTO) 6.3 % (13-45); MEAN CORPUSCULAR HEMOGLOBIN 34.4 pg (27.0-33.4); MEAN CORPUSCULAR HGB CONC 34.5 g/dL (32.0-36.0); MONOCYTES % (AUTO) 12.1 % (3-13); PLATELET COUNT 164 10^3/uL (150-450); RED BLOOD COUNT 3.02 10^6/uL (3.72-5.28); RED CELL DISTRIBUTION WIDTH 19.7 % (11.5-14.0); SEGMENTED NEUTROPHILS % (AUTO) 79.2 % (42-78); TOTAL CELLS COUNTED % (AUTO) 100 %; WHITE BLOOD COUNT 8.2 10^3/uL (4.0-10.5)
[2020-10-01 08:39] LABS: HEMOGLOBIN 10.4 g/dL (12.0-15.5); MEAN CORPUSCULAR VOLUME 100 fl (80-97)
[2020-10-01] MEDS ORDERED: ALBUMIN HUMAN 12.5 GM/50 ML RTUINJ IV PRN (09:41)
[2020-10-01] MEDS ORDERED: ALBUMIN HUMAN 50 GM/200 ML RTUINJ IV PRN (10:00)
[2020-10-01 11:13] VITALS: BP 103/68
--- NOTE | 2020-10-01 14:50 | RADIOLOGY REPORT (SQ) ---
EXAM DESCRIPTION: U/S ABD PARACENTESIS IMAGES COMPLETED DATE/TIME: 10/01/2020 10:27 am REASON FOR STUDY: ALCOHOLIC CIRRHOSIS OF LIVER WITH ASCITES K70.31 ALCOHOLIC CIRRHOSIS OF LIVER WIT H ASCITES COMPARISON: 09/24/2020 paracentesis RADIATION DOSE: None LIMITATIONS: None. PROCEDURE: Procedure, risks, benefit, and alternative explained to patient who then gave written con sent. The right lower abdominal wall marked using ultrasound guidance. A time-out was called for co rrect marking verification. Abdomen prepped and draped using sterile technique. Local anesthesia ach ieved using 5 ml of 1% lidocaine injection. A 6fr Dnff-L-Smlesyhp set was introduced into the perito alina cavity. Fluid was drained. The catheter was removed and entry site was covered with sterile ba ndage. No immediate complications noted. Images acquired during the procedure were stored on PACS. FINDINGS: ENTRY SITE: right lower quadrant. FLUID VOLUME: 5600 mL FLUID ANALYSIS: Straw-colored fluid OTHER: Therapeutic only. IMPRESSION: SUCCESSFUL ULTRASOUND GUIDED PARACENTESIS. COMMENT: Patient medication list reviewed:Yes- Quality ID# [id number]:Eligible professional attests to docu menting in the medical record they obtained, updated, or reviewed the patient's current medications. TECHNICAL DOCUMENTATION: JOB ID: [id number] 2010 [employer]- All Rights Reserved Reading location - IP/workstation name: [email or web address]
== END 2020-10-01 11:30 | disposition home or self-care (01) ==
LOC: RAD 07:50
PROVIDERS: ATTEND Internal Medicine Geriatric Medicine
DX: K70.31 Alcoholic cirrhosis of liver with ascites (principal)
CPT/HCPCS: 36415; 85025; 49083; P9047

== ENCOUNTER 2020-10-08 07:40 | Day surgery (SDC) | payer OTHER ==
[2020-10-08 08:35] LABS: HEMATOCRIT 25.6 % (36.0-47.0); MEAN CORPUSCULAR HEMOGLOBIN 35.1 pg (27.0-33.4); MEAN CORPUSCULAR HGB CONC 35.2 g/dL (32.0-36.0); MEAN CORPUSCULAR VOLUME 100 fl (80-97); PLATELET COUNT 179 10^3/uL (150-450); RED BLOOD COUNT 2.56 10^6/uL (3.72-5.28); WHITE BLOOD COUNT 6.7 10^3/uL (4.0-10.5)
[2020-10-08 08:43] LABS: PROTHROMBIN TIME 16.4 SEC (11.4-15.4)
[2020-10-08 08:44] LABS: PARTIAL THROMBOPLASTIN TIME 37.8 SEC (23.5-35.8)
[2020-10-08 08:55] LABS: BLOOD UREA NITROGEN 25 mg/dL (7-20)
[2020-10-08 11:18] VITALS: BP 106/70
--- NOTE | 2020-10-08 15:40 | RADIOLOGY REPORT (SQ) ---
EXAM DESCRIPTION: U/S ABD PARACENTESIS IMAGES COMPLETED DATE/TIME: 10/08/2020 10:37 am REASON FOR STUDY: ASCITES COMPARISON None. LIMITATIONS: None. PROCEDURE: After obtaining informed consent, the patient was brought to the ultrasound suite. The p rocedure was performed with the patient on a gurney. Ultrasound was used to identify a prominent poc ket of ascites in the right lower quadrant. An appropriate access site was selected. The patient wa s prepped and draped in usual sterile fashion. The access site was anesthetized with 6 mL 1% lidoca ine. A Xlsa-U-Fyltqiup needle was advanced into the fluid. After aspiration of fluid the needle, th e catheter was advanced off the needle into the fluid. A total of 4450 mL of straw-colored fluid was removed. The patient tolerated the procedure well left the department in satisfactory condition. IMPRESSION: Successful ultrasound-guided paracentesis. COMMENT: Patient medication list reviewed: Yes- Quality ID# [id number]:Eligible professional attests to doc umenting in the medical record they obtained, updated, or reviewed the patient's current medications. TECHNICAL DOCUMENTATION: JOB ID: [id number] 2010 [employer]- All Rights Reserved Reading location - IP/workstation name: [email or web address]
== END 2020-10-08 11:05 | disposition home or self-care (01) ==
LOC: RAD 07:40
PROVIDERS: ATTEND Internal Medicine Geriatric Medicine
DX: R18.8 Other ascites (principal)
CPT/HCPCS: 36415; 49083; 82565; 84520; 85027; 85610; 85730

== ENCOUNTER 2020-10-15 07:45 | Day surgery (SDC) | payer OTHER ==
--- NOTE | 2020-10-15 10:55 | RADIOLOGY REPORT (SQ) ---
EXAM DESCRIPTION: U/S ABD PARACENTESIS IMAGES COMPLETED DATE/TIME: 10/15/2020 10:25 am REASON FOR STUDY: ASCITES COMPARISON 10/08/2020 LIMITATIONS: None. PROCEDURE: After obtaining informed consent, the patient was brought to the ultrasound suite. The p rocedure was performed with the patient on a gurney. Ultrasound was used to identify a prominent poc ket of ascites in the left lower quadrant. An appropriate access site was selected. The patient was prepped and draped in usual sterile fashion. The access site was anesthetized with 8 mL 1% lidocai ne. A Dfme-U-Euzalssb needle was advanced into the fluid. After aspiration of fluid the needle, the catheter was advanced off the needle into the fluid. A total of 3,150 mL of clear, straw-colored fl uid was removed. The patient tolerated the procedure well left the department in satisfactory conditi on. IMPRESSION: Successful ultrasound-guided paracentesis COMMENT: Patient medication list reviewed: Yes- Quality ID# [id number]:Eligible professional attests to doc umenting in the medical record they obtained, updated, or reviewed the patient's current medications. TECHNICAL DOCUMENTATION: JOB ID: [id number] 2010 [employer]- All Rights Reserved Reading location - IP/workstation name: [email or web address]
[2020-10-15 10:57] VITALS: BP 100/55
== END 2020-10-15 10:50 | disposition home or self-care (01) ==
LOC: RAD 07:45
PROVIDERS: ATTEND Internal Medicine Geriatric Medicine
DX: K70.31 Alcoholic cirrhosis of liver with ascites (principal); L03.311 Cellulitis of abdominal wall; D64.9 Anemia, unspecified
CPT/HCPCS: 49083

== ENCOUNTER 2020-10-22 07:40 | Day surgery (SDC) | payer OTHER ==
[2020-10-22 09:08] LABS: HEMATOCRIT 23.5 % (36.0-47.0); HEMOGLOBIN 8.4 g/dL (12.0-15.5); MEAN CORPUSCULAR HGB CONC 35.6 g/dL (32.0-36.0); MEAN CORPUSCULAR VOLUME 98 fl (80-97); PLATELET COUNT 127 10^3/uL (150-450); RED BLOOD COUNT 2.38 10^6/uL (3.72-5.28); RED CELL DISTRIBUTION WIDTH 18.6 % (11.5-14.0); WHITE BLOOD COUNT 6.2 10^3/uL (4.0-10.5)
[2020-10-22 09:20] LABS: BLOOD UREA NITROGEN 31 mg/dL (7-20); INTERNATIONAL RATION (INR) 1.16; PROTHROMBIN TIME 15.1 SEC (11.4-15.4)
[2020-10-22 09:21] LABS: PARTIAL THROMBOPLASTIN TIME 39.9 SEC (23.5-35.8)
[2020-10-22 10:57] VITALS: BP 103/67
--- NOTE | 2020-10-22 11:20 | RADIOLOGY REPORT (SQ) ---
EXAM DESCRIPTION: U/S ABD PARACENTESIS IMAGES COMPLETED DATE/TIME: 10/22/2020 10:33 am REASON FOR STUDY: ALCOHOLIC CIRRHOSIS OF LIVER WITH ASCITES COMPARISON 10/15/2020 LIMITATIONS: None. PROCEDURE: After obtaining informed consent, the patient was brought to the ultrasound suite. The p rocedure was performed with the patient on a gurney. Ultrasound was used to identify a prominent poc ket of ascites in the left lower quadrant. An appropriate access site was selected. The patient was prepped and draped in usual sterile fashion. The access site was anesthetized with 6 mL 1% lidocai ne. A Hixx-Y-Nsqrhmwq needle was advanced into the fluid. After aspiration of fluid the needle, the catheter was advanced off the needle into the fluid. A total of 1,850 mL of blood tinged, clear flu id was removed. The patient tolerated the procedure well left the department in satisfactory conditio n. IMPRESSION: Successful ultrasound-guided paracentesis COMMENT: Patient medication list reviewed: Yes- Quality ID# [id number]:Eligible professional attests to doc umenting in the medical record they obtained, updated, or reviewed the patient's current medications. TECHNICAL DOCUMENTATION: JOB ID: [id number] 2010 [employer]- All Rights Reserved Reading location - IP/workstation name: [email or web address]
== END 2020-10-22 10:55 | disposition home or self-care (01) ==
LOC: RAD 07:40
PROVIDERS: ATTEND Internal Medicine Geriatric Medicine
DX: K70.31 Alcoholic cirrhosis of liver with ascites (principal); L03.311 Cellulitis of abdominal wall; D63.8 Anemia in other chronic diseases classified elsewhere
CPT/HCPCS: 36415; 49083; 82565; 84520; 85027; 85610; 85730

== ENCOUNTER 2020-10-29 07:40 | Day surgery (SDC) | payer OTHER ==
[2020-10-29 08:57] LABS: ABSOLUTE BASOPHILS # (AUTO) 0.1 10^3/uL (0.0-0.2); ABSOLUTE EOSINOPHILS # (AUTO) 0.3 10^3/uL (0.0-0.6); ABSOLUTE LYMPHOCYTES (AUTO) 0.5 10^3/uL (0.5-4.7); ABSOLUTE MONOCYTES (AUTO) 1.1 10^3/uL (0.1-1.4); ABSOLUTE NEUT (AUTO) 6.3 10^3/uL (1.7-8.2); BASOPHILS % (AUTO) 0.7 % (0-2); EOSINOPHILS % (AUTO) 3.4 % (0-6); HEMATOCRIT 30.6 % (36.0-47.0); LYMPHOCYTES % (AUTO) 5.6 % (13-45); MEAN CORPUSCULAR HEMOGLOBIN 33.3 pg (27.0-33.4); MEAN CORPUSCULAR HGB CONC 35.1 g/dL (32.0-36.0); MONOCYTES % (AUTO) 13.9 % (3-13); PLATELET COUNT 197 10^3/uL (150-450); RED BLOOD COUNT 3.22 10^6/uL (3.72-5.28); RED CELL DISTRIBUTION WIDTH 18.1 % (11.5-14.0); SEGMENTED NEUTROPHILS % (AUTO) 76.4 % (42-78); TOTAL CELLS COUNTED % (AUTO) 100 %; WHITE BLOOD COUNT 8.3 10^3/uL (4.0-10.5)
[2020-10-29 08:59] LABS: HEMOGLOBIN 10.7 g/dL (12.0-15.5)
[2020-10-29 09:02] LABS: INTERNATIONAL RATION (INR) 1.25; PROTHROMBIN TIME 15.9 SEC (11.4-15.4)
[2020-10-29 09:05] LABS: MEAN CORPUSCULAR VOLUME 95 fl (80-97)
[2020-10-29 09:15] LABS: BLOOD UREA NITROGEN 17 mg/dL (7-20); POTASSIUM 3.8 mmol/L (3.6-5.0)
[2020-10-29 09:34] LABS: PARTIAL THROMBOPLASTIN TIME 36.2 SEC (23.5-35.8)
[2020-10-29 11:10] VITALS: BP 103/68
--- NOTE | 2020-10-29 13:32 | RADIOLOGY REPORT (SQ) ---
EXAM DESCRIPTION: U/S ABD PARACENTESIS IMAGES COMPLETED DATE/TIME: 10/29/2020 10:20 am REASON FOR STUDY: ALCOHOLIC CIRRHOSIS OF LIVER WITH ASCITES K70.31 ALCOHOLIC CIRRHOSIS OF LIVER WIT H ASCITES COMPARISON: Weekly paracentesis RADIATION DOSE: None LIMITATIONS: None. PROCEDURE: Procedure, risks, benefit, and alternative explained to patient who then gave written con sent. The left lower abdominal wall marked using ultrasound guidance. A time-out was called for cor rect marking verification. Abdomen prepped and draped using sterile technique. Local anesthesia achi eved using 5 ml of 1% lidocaine injection. A 6fr Vtek-B-Dtecelhc set was introduced into the periton eal cavity. Fluid was drained. The catheter was removed and entry site was covered with sterile ban dage. No immediate complications noted. Images acquired during the procedure were stored on PACS. FINDINGS: ENTRY SITE: left lower quadrant. FLUID VOLUME: 1600 mL FLUID ANALYSIS: [place]-colored ascitic fluid OTHER: Fluid sent to the lab for testing. IMPRESSION: SUCCESSFUL ULTRASOUND GUIDED PARACENTESIS. COMMENT: Patient medication list reviewed:Yes- Quality ID# [id number]:Eligible professional attests to docu menting in the medical record they obtained, updated, or reviewed the patient's current medications. TECHNICAL DOCUMENTATION: JOB ID: [id number] 2010 [employer]- All Rights Reserved Reading location - IP/workstation name: [email or web address]
== END 2020-10-29 10:50 | disposition home or self-care (01) ==
LOC: RAD 07:40
PROVIDERS: ATTEND Internal Medicine Geriatric Medicine
DX: K70.31 Alcoholic cirrhosis of liver with ascites (principal); L03.311 Cellulitis of abdominal wall; D63.8 Anemia in other chronic diseases classified elsewhere
CPT/HCPCS: 36415; 49083; 82565; 84132; 84520; 85025; 85610; 85730

== ENCOUNTER 2020-11-05 07:45 | Day surgery (SDC) | payer OTHER ==
[2020-11-05 08:38] LABS: HEMATOCRIT 28.5 % (36.0-47.0); HEMOGLOBIN 9.8 g/dL (12.0-15.5); MEAN CORPUSCULAR HEMOGLOBIN 33.6 pg (27.0-33.4); MEAN CORPUSCULAR HGB CONC 34.5 g/dL (32.0-36.0); MEAN CORPUSCULAR VOLUME 97 fl (80-97); PLATELET COUNT 149 10^3/uL (150-450); RED BLOOD COUNT 2.93 10^6/uL (3.72-5.28); RED CELL DISTRIBUTION WIDTH 17.6 % (11.5-14.0); WHITE BLOOD COUNT 6.6 10^3/uL (4.0-10.5)
[2020-11-05 08:43] LABS: INTERNATIONAL RATION (INR) 1.23; PROTHROMBIN TIME 15.7 SEC (11.4-15.4)
[2020-11-05 08:44] LABS: PARTIAL THROMBOPLASTIN TIME 37.3 SEC (23.5-35.8)
[2020-11-05 10:43] VITALS: BP 97/60
--- NOTE | 2020-11-05 12:18 | RADIOLOGY REPORT (SQ) ---
EXAM DESCRIPTION: U/S ABD PARACENTESIS IMAGES COMPLETED DATE/TIME: 11/05/2020 9:53 am REASON FOR STUDY: ALCOHOLIC CIRRHOSIS OF LIVER WITH ASCITES K70.31 ALCOHOLIC CIRRHOSIS OF LIVER WIT H ASCITES COMPARISON: Weekly paracentesis new RADIATION DOSE: None LIMITATIONS: None. PROCEDURE: Procedure, risks, benefit, and alternative explained to patient who then gave written con sent. The left lower abdominal wall marked using ultrasound guidance. A time-out was called for cor rect marking verification. Abdomen prepped and draped using sterile technique. Local anesthesia achi eved using 5 ml of 1% lidocaine injection. A 6fr Tfoy-H-Enjqzdoh set was introduced into the periton eal cavity. Fluid was drained. The catheter was removed and entry site was covered with sterile ban dage. No immediate complications noted. Images acquired during the procedure were stored on PACS. FINDINGS: ENTRY SITE: left lower quadrant. FLUID VOLUME: 1650 mL FLUID ANALYSIS: [place] colored OTHER: Therapeutic only. IMPRESSION: SUCCESSFUL ULTRASOUND GUIDED PARACENTESIS. COMMENT: Patient medication list reviewed:Yes- Quality ID# [id number]:Eligible professional attests to docu menting in the medical record they obtained, updated, or reviewed the patient's current medications. TECHNICAL DOCUMENTATION: JOB ID: [id number] 2010 [employer]- All Rights Reserved Reading location - IP/workstation name: [email or web address] [id number]
== END 2020-11-05 10:25 | disposition home or self-care (01) ==
LOC: RAD 07:45
PROVIDERS: ATTEND Internal Medicine Geriatric Medicine
DX: K70.31 Alcoholic cirrhosis of liver with ascites (principal)
CPT/HCPCS: 36415; 49083; 84520; 85027; 85610; 85730

== ENCOUNTER 2020-11-12 07:45 | Day surgery (SDC) | payer OTHER ==
[2020-11-12 10:06] VITALS: BP 97/64
--- NOTE | 2020-11-12 12:34 | RADIOLOGY REPORT (SQ) ---
EXAM DESCRIPTION: U/S ABD PARACENTESIS IMAGES COMPLETED DATE/TIME: 11/12/2020 9:40 am REASON FOR STUDY: ASCITES K70.31 ALCOHOLIC CIRRHOSIS OF LIVER WITH ASCITES COMPARISON: WEEKLY PARACENTESIS RADIATION DOSE: None LIMITATIONS: None. PROCEDURE: Procedure, risks, benefit, and alternative explained to patient who then gave written con sent. The right lower abdominal wall marked using ultrasound guidance. A time-out was called for co rrect marking verification. Abdomen prepped and draped using sterile technique. Local anesthesia ach ieved using 5 ml of 1% lidocaine injection. A 6fr Boeo-H-Hczhjfrb set was introduced into the perito alina cavity. Fluid was drained. The catheter was removed and entry site was covered with sterile ba ndage. No immediate complications noted. Images acquired during the procedure were stored on PACS. FINDINGS: ENTRY SITE: Right lower quadrant. FLUID VOLUME: 1750 mL FLUID ANALYSIS: Straw-colored fluid OTHER: Therapeutic only. IMPRESSION: SUCCESSFUL ULTRASOUND GUIDED PARACENTESIS. COMMENT: Patient medication list reviewed:Yes- Quality ID# [id number]:Eligible professional attests to docu menting in the medical record they obtained, updated, or reviewed the patient's current medications. TECHNICAL DOCUMENTATION: JOB ID: [id number] 2010 [employer]- All Rights Reserved Reading location - IP/workstation name: [email or web address] [id number]
== END 2020-11-12 10:00 | disposition home or self-care (01) ==
LOC: RAD 07:45
PROVIDERS: ATTEND Internal Medicine Geriatric Medicine
DX: K70.31 Alcoholic cirrhosis of liver with ascites (principal)
CPT/HCPCS: 49083